=== PATIENT | female | born 1955 | race Caucasian/White ===

== ENCOUNTER 2020-07-08 21:24 | Inpatient (IN) | payer OTHER ==
[~2020-07-08] VITALS: Ht 160 cm; Wt 59.3 kg
[2020-07-08 22:00] VITALS: BP 124/64
[2020-07-08] MEDS ORDERED: DILTIAZEM HCL 125 MG in IV NORMAL SALINE 100ML 100 ML IV PRN (22:00)
--- NOTE | 2020-07-08 22:00 | NUR ---
Admit from [facility] ED via ambulance gurney to [facility] room 244. Stood to transfer self from gurney to bed with standby assist. A/O x4. Very short of air with activity. O2 sat 98% on RA. Orientated to room and call light. Reviewed POC to include controlling new A-Fib heart rate. Verbalized understanding. Patient does not know her home med list but reports she uses [facility] in [place]. Resting in bed with call light at hand.
[2020-07-08] MEDS ORDERED: ALBUTEROL SULFATE 2.5 MG/3 ML NEBU. NEB PRN (22:15)
[2020-07-08] MEDS ORDERED: HALOPERIDOL LACTATE 5 MG/ML VIAL. IVP PRN (22:15)
[2020-07-08] MEDS ORDERED: diphenhydrAMINE 50 MG/ML VIAL IVP PRN (22:15)
[2020-07-08] MEDS ORDERED: cloNIDine HCL 0.1 MG TABLET PO PRN (22:15)
[2020-07-08] MEDS: IV NORMAL SALINE 1000ML BAG 1,000 ML IV SCH (23:16)
[2020-07-08 23:59] VITALS: BP 73/47
[2020-07-09] VITALS (26 sets, daily range): BP systolic 65–124; BP diastolic 47–71
--- NOTE | 2020-07-09 00:15 | NUR ---
Spoke to Dr Wang and obtained admit orders.
--- NOTE | 2020-07-09 00:18 | NUR ---
Afib with HR 110s at rest. BPs 70s/40s. Unable to start Cardizem Drip with low BP.
[2020-07-09] MEDS: ANTI-COAG MONITOR BY PHARMACY. MC PRN ×2 (00:26→13:40)
--- NOTE | 2020-07-09 03:06 | NUR ---
SBP continues to run in the 70s. Per Sepsis Protocol for SBP <90, may give 30ml/kg Bolus to run over max of 6 hours. Started Bolus at 285ml/hr. Patient resting in bed watching TV. Mentation WNL. Call light at hand.
[2020-07-09] MEDS: IV NORMAL SALINE 1000ML BAG 1,000 ML IV SCH ×3 (03:14→11:20)
[2020-07-09] MEDS ORDERED: NOREPINEPHRINE VIAL 8 MG in IV DEXTROSE 5% 250 ML IV PRN (04:00)
[2020-07-09 04:34] LABS: CALCIUM 7.2 mg/dL (8.5-10.1); CREATININE 0.6 mg/dL (0.6-1.0); POTASSIUM 3.2 mmol/L (3.5-5.1)
--- NOTE | 2020-07-09 04:41 | RAD ---
EXAM: CHEST 1 VIEW History: Shortness of breath COMPARISON: 07/08/2020. TECHNIQUE: Single portable radiograph of the chest Findings/ impression: The cardiac silhouette is unremarkable. Moderate opacity identified in the right middle lobe of the lung likely pneumonia or atelectasis or localized effusion along the fissure again identified. Moderate right pleural effusion. Electronically signed by: Brown Patel MD (07/09/2020 4:38 AM) [id number]
[2020-07-09 04:45] LABS: ALBUMIN 1.8 g/dL (3.4-5.0); ALBUMIN/GLOBULIN RATIO 0.4 (1.0-1.7); TOTAL BILIRUBIN 0.4 mg/dL (0.2-1.0); TOTAL PROTEIN 6.1 g/dL (6.4-8.2)
--- NOTE | 2020-07-09 04:46 | NUR ---
Reported to Dr Wang patient SBP 60s and 70s after 1000 ml of 1700ml bolus infused. Patient triggers Sepsis Screening. Dr Wang orders to call rapid re3
--- NOTE | 2020-07-09 04:49 | NUR ---
Reported to Dr Wang patient SBP 60s and 70s after 1000 ml of 1700ml bolus infused. Patient triggers Sepsis Screening. Dr Wang orders to call rapid response on patient and transfer patient to ICU. Rapid Response called. Straightedge Machine Operator Helper and ICU Charge Nurse responds to call. Patient evaluated by staff and BP noted to be WNL during rapid evaluation with NS bolus wide open. Rapid Response team advises to finish the rest of the 1700 NS bolus and reevaluate. Patient resting in bed with call light at hand.
--- NOTE | 2020-07-09 06:38 | NUR ---
SBP remains in th 70s-80s after 2 liter bolus. Patient transferred to ICU room 107 for possible Levophed drip. Report called to Caroilna GONZALEZ.
--- NOTE | 2020-07-09 08:30 | NUR ---
Zoila Garibay APRN notified of consult for afib. Informed of blood pressure 70-90 systolic in left arm and 121 systolic in right arm. Orders for metoprolol bid received.
[2020-07-09] MEDS ORDERED: MULTIVIT INFUSN,ADULT 4,VIT K 10 ML, THIAMINE INJ 100 MG, FOLIC ACID INJ 1 MG in IV NOR... IV SCH (09:00)
--- NOTE | 2020-07-09 09:04 | PN ---
DATE: 07/09/2020 SUBJECTIVE: The patient was transferred yesterday from [facility] Emergency Room and apparently the nursing staff found that her blood pressure was low. The measurements apparently were made in her left arm, which was consistently low and was given a bolus of normal saline without improvement and therefore, the patient was rapidly responded and was brought to the ICU where it transpired that she has low blood pressure on the left side and her blood pressure measurement in the right arm was within normal range. The patient herself continued to obviously complaining of shortness of breath, but denied any chest pain. Continued to complain of orthopnea and paroxysmal nocturnal dyspnea. Her second set of cardiac enzyme was also normal, less than 0.017. PHYSICAL EXAMINATION: GENERAL: When I examined her this morning, she looked well and was clearly in no apparent respiratory distress. She is somewhat pale, but no jaundice, cyanosis or thyromegaly. No jugular venous distention. No lower limb edema. VITAL SIGNS: Her heart rate was 92, blood pressure was 135/71 on the right arm and 91/59 on the left arm. Her respiratory rate was 20 and oxygen saturation was 99% on room air. HEAD, EYES, EARS, NOSE AND THROAT: Showed normocephalic, atraumatic. NECK: Supple. HEART: Normal first and second heart sounds. No gallop, rub or murmur. CHEST: Showed central trachea, equal bilateral expansion, air entry, vesicular breath sounds. No crepitation or rhonchi anteriorly, posteriorly has dull percussion noted and absent breath sounds on the right side posteriorly. ABDOMEN: Distended, soft, nontender. NEUROLOGIC: She was awake, alert, responding appropriately. All cranial nerves are intact. She moves extremities without difficulty. LABORATORY DATA: Showed serum sodium of 125, potassium 3.2, chloride 86, bicarbonate 15, anion gap of 14, BUN 4, creatinine was 0.6, estimated GFR was 101, glucose was 83. Lactic acid was down to 1.2, calcium was 7.2. Total bilirubin, AST, ALT were normal. Alkaline phosphatase was 169. Total protein was 6.1, albumin was 1.8. Her second set of cardiac enzymes showed troponin to be less than 0.017. ASSESSMENT: This is a 64-year-old female patient who was transferred from [facility] Emergency Room with: 1. New onset atrial fibrillation with rapid ventricular response, treated with Cardizem bolus. 2. She was found to have hyponatremia, hypokalemia, right-sided pleural effusion and questionable compressive atelectasis versus pneumonia. Other medical problems include probably chronic obstructive pulmonary disease. She is a smoker, smokes a pack a day and alcohol dependence and possible congestive heart failure. She has 2 sets of cardiac enzymes that so far showed no evidence of myocardial infarction. I have consulted the shirt creaser team. She probably needs also arterial Doppler ultrasound of her left upper extremity as she probably has subclavian artery stenosis. PLAN: I will repeat her chest x-ray. I will continue with IV antibiotic for the time being as well as repeat chest x-ray and started her on alcohol withdrawal protocol. OBIE MEJÍA MD DR: DREW/jomar JOB#: [id number] / [id number]
[2020-07-09] MEDS: POTASSIUM CHLORIDE 20 MEQ TABLET.ER. PO SCH ×3 (09:19→17:26)
[2020-07-09] MEDS: METOPROLOL TART IMMED RELEASE 25 MG TABLET. PO SCH ×2 (09:19→21:13)
[2020-07-09] MEDS: LACTOBACILLUS RHAMNOSUS GG 1 CAPSULE. PO SCH ×2 (09:19→21:14)
[2020-07-09 09:24] LABS: BASO # 0.1 x10^3/uL (0.0-0.2); BASO % 1 % (0-3); EOS # 0.1 x10^3/uL (0.0-0.7); EOS % 1 % (0-3); HEMATOCRIT 33.3 % (36.0-47.0); HEMOGLOBIN 11.1 g/dL (12.0-15.5); LYMPH # 1.1 x10^3/uL (1.0-4.8); LYMPH % 12 % (24-48); MEAN CORPUSCULAR HEMOGLOBIN 27 pg (25-35); MEAN CORPUSCULAR HGB CONC 33 g/dL (31-37); MEAN CORPUSCULAR VOLUME 81 fL (79-100); MONO # 1.1 x10^3/uL (0.0-1.1); MONO % 11 % (0-9); NEUT # 7.5 x10^3/uL (1.8-7.7); NEUT % 76 % (31-73); PLATELET COUNT 466 x10^3/uL (140-400); RED BLOOD COUNT 4.12 x10^6/uL (3.50-5.40); RED CELL DISTRIBUTION WIDTH 14.4 % (11.5-14.5); WHITE BLOOD COUNT 9.9 x10^3/uL (4.0-11.0)
--- NOTE | 2020-07-09 09:45 | HP ---
ADMIT DATE: 07/08/2020 HISTORY OF PRESENT ILLNESS: The patient is a 64-year-old female patient who came to the Emergency Room complaining of shortness of breath and poor appetite and lack of energy that has been going on for almost 2 weeks and over the last 3 days, her symptoms have worsened. She also had cough that is mostly dry with scanty whitish sputum. She also complained of orthopnea and has had also paroxysmal nocturnal dyspnea for the last couple of weeks. She is now sleeping with head of bed higher, sometimes sleeps in her recliner. She denied any swelling of the legs. She also lost about 10 pounds in weight and feels dizzy sometimes when she walks, but denied any palpitation, fall or loss of consciousness. She was evaluated in the Emergency Room of [facility] and where she was found to have hyponatremia, hypokalemia and mild lactic acidosis. Her BNP was high at 2200 and first set of cardiac enzyme was less than 0.017. She has mild leukocytosis with a white cell count of 11,700 together with normochromic normocytic anemia and therefore, a decision was made [facility] and treatment. Her chest x-ray showed the cardiomediastinal silhouette and pulmonary vessels are within normal limits, hazy opacity on the right mid and lower lung. There is a small to moderate right-sided pleural effusion. PAST MEDICAL HISTORY: Significant for hypertension and hyperlipidemia. PAST SURGICAL HISTORY: Significant for tubal ligation. ALLERGIES: She has no known drug allergies. MEDICATIONS: The patient said she is on medication for hypertension, hyperlipidemia; however, she does not recall the name. FAMILY HISTORY: She has 2 half brothers who are younger and otherwise healthy. Her father in his 50s, the cause of is not known. Her mother is still alive at age of 82 and has dementia. SOCIAL HISTORY: She is , has 1 son. She has retired 2 years ago. 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 She smokes a pack a day, drinks 3-4 beers a day. She does not use any drugs. REVIEW OF SYSTEMS: The patient denied any blurring of vision, cataract, glaucoma or macular degeneration. Does have sensorineural deafness, but denied any earache or tinnitus. Denied any nosebleeds, stuffy nose or postnasal drip. Denied any sore throat, sore tongue, toothache, hoarseness of voice or difficulty swallowing. Did complain of weight loss of about 10 pounds over the last 2 weeks. Denied any nausea, vomiting, diarrhea or constipation. Denied any hematemesis, melena or hematochezia. Denied any dysuria, frequency or hematuria. Denied any chest pain. Did complain of shortness of breath, orthopnea, paroxysmal nocturnal dyspnea, cough with scanty white sputum. She also complained of dizziness. PHYSICAL EXAMINATION: GENERAL: On arrival to the Emergency Room, she was pale, but no jaundice, cyanosis or thyromegaly. No jugular venous distention or limb edema. VITAL SIGNS: Her heart rate was 138, blood pressure 121/62, temperature was 97.3, respiratory rate was 24, and oxygen saturation 100% on room air. HEAD, EYES, EARS, NOSE AND THROAT: Showed normocephalic, atraumatic. NECK: Supple. HEART: Showed irregular first heart sounds, normal second heart sounds. No gallop, rub or murmur. CHEST: Shows central trachea, equal bilateral expansion, air entry with no crepitation or rhonchi anteriorly. She has dull percussion noted and absent breath sounds in the right side posteriorly. ABDOMEN: Slightly distended, soft, nontender. NEUROLOGIC: She was grossly intact. LABORATORY DATA: Done at [facility] Emergency Room showed a white cell count of 11,700; hemoglobin 10, hematocrit 31, MCV 82 and platelet count of 477,000 with normal manual differential. Her prothrombin time was 12.1, INR 1.2, APTT was 37. Her chemistry showed a serum sodium 120, potassium 3.3, chloride 87, bicarbonate 17, anion gap of 16, BUN 5, creatinine 0.7, estimated GFR was 84 mL per minute. Her glucose was 109. Lactic acid was 2.5, calcium was 8.6, magnesium was 1.8. Total bilirubin, AST, ALT were normal. Alkaline phosphatase slightly elevated. Her first set of troponin was less than 0.017. Her beta natriuretic peptide was 2200. Total protein was 7.3, albumin 2.2 and lipase was 71. Urinalysis showed the urine was straw colored, hazy with a pH of 5.5, specific gravity 1.005. The urine was negative for protein, glucose, ketones. There is small amount of blood, negative for nitrite and leukocyte esterase, 1-2 rbc's, 11-20 wbc's, and very few bacteria. Her toxic screen was essentially negative. Her chest x-ray showed small to moderate right-sided pleural effusion with adjacent airspace disease, may relate to atelectasis, edema and/or consolidation. Her EKG showed that she was in atrial fibrillation with rapid ventricular response at a rate of 134 with no acute finding or ST segment elevation myocardial infarction. ASSESSMENT: The [facility] with new-onset atrial fibrillation with rapid ventricular response. She has also marked hyponatremia, hypokalemia. She was also found to have right-sided pleural effusion versus parapneumonic effusion. The patient also is known to have hypertension, hyperlipidemia. She continued to smoke a pack a day and drinks 3-4 beers a day. PLAN: Obviously, we will do 2 more sets of cardiac enzyme, consult the Cardiology team. She was started also on IV ceftriaxone and azithromycin. We will continue that. We will contact the [facility] at [place] to find out her medication. OBIE MEJÍA MD DR: RDEW/jomar JOB#: [id number] / [id number]
--- NOTE | 2020-07-09 13:49 | RAD ---
EXAM: CHEST AP ONLY INDICATION: Reason: CHF vs Right sided pleural effusion / Spl. Instructions: / History: . TECHNIQUE: Single view COMPARISON: Chest x-ray of 07/09/2020 FINDINGS: The heart size is normal. The great vessels appear unremarkable. There is no hilar or mediastinal mass. Lungs show persistent opacity in the right perihilar lung with increasing density at the right lung base. There is no pleural effusion or pneumothorax. There are no significant osseous abnormalities. IMPRESSION: Masslike opacity in the right perihilar midlung persists with worsening right pleural effusion. Electronically signed by: Chris Leung MD (07/09/2020 1:46 PM) [id number]
--- NOTE | 2020-07-09 14:13 | PDOC2 ---
CARDIAC CONSULT DATE OF CONSULT Date of Consult DATE: 07/09/20 TIME: 14:07 REASON FOR CONSULT Reason for Consult: AFIB with RVR, new onset REFERRING PHYSICIAN Referring Physician: Dr. Wang SOURCE Source: Chart review, Patient HISTORY OF PRESENT ILLNESS HISTORY OF PRESENT ILLNESS This is a 64 yo female who presented secondary to shortness of breath, weakness, and dizziness. Reports that she hasn't felt well in the last couple of weeks. Denies any diaphoresis, chest pain, or nausea/vomiting. No LE edema. Was noted in AFIB with RVR, which prompted this consult. No prior h/o AFIB. PAST MEDICAL HISTORY Cardiovascular: HTN, Hyperlipidemia PAST SURGICAL HISTORY Past Surgical History: Tubal Ligation FAMILY HISTORY Family History: Hypertension SOCIAL HISTORY Smoke: 1 pack per day ALCOHOL: other (3-4 beers per day) Drugs: None Lives: Alone CURRENT MEDICATIONS CURRENT MEDICATIONS Current Medications Medications (Trade) Dose Ordered Sig/Lorna Route PRN Reason Start Time Stop Time Status Last Admin Dose Admin Sodium Chloride 1,000 ml @ 75 mls/hr [id number] IV 07/08/20 22:00 07/08/20 23:16 Enoxaparin Sodium (Lovenox 60mg Syringe) 60 mg Q12HR SQ 07/09/20 09:00 07/09/20 09:19 Info (Anti-Coagulation Monitoring By Pharmacy) 1 each PRN DAILY PRN MC SEE COMMENTS 07/08/20 22:15 07/09/20 13:40 Multivitamins 10 ml/Thiamine HCl 100 mg/Folic Acid 1 mg/Sodium Chloride 1,011.2 ml @ 100 mls/ hr DAILY IV 07/09/20 09:00 07/09/20 19:07 07/09/20 09:31 Sodium Chloride 1,000 ml @ 285 mls/hr Q3H31M IV 07/09/20 03:30 07/09/20 09:30 DC 07/09/20 05:44 Metoprolol Tartrate (Lopressor) 25 mg BID PO 07/09/20 09:00 07/09/20 09:19 Lactobacillus Rhamnosus (Culturelle) 1 cap BID PO 07/09/20 09:00 07/09/20 09:19 Potassium Chloride (Klor-Con) 20 meq TIDWMEALS PO 07/09/20 09:00 9/14/20 12:15 ALLERGIES ALLERGIES: Coded Allergies: No Known Drug Allergies (Unverified , 07/08/20) ROS Review of System 14 point ROS conducted with pertinent positives noted above in HPI PHYSICAL EXAM General: Alert, Oriented X3, Cooperative, No acute distress HEENT: Atraumatic, Mucous membr. moist/pink Lungs: Other (diminished ) Heart: Other (IRRR; AFIB ) Abdomen: Soft, No tenderness Extremities: No edema, Normal pulses Skin: No significant lesion Neuro: Normal speech, Sensation intact Psych/Mental Status: Mental status NL, Mood NL MUSCULOSKELETAL: Osteoarthritic changes both hands VITALS/I&O VITALS/I&O: Vital Signs Date Time Temp Pulse Resp B/P (MAP) Pulse Ox O2 Delivery O2 Flow Rate FiO2 07/09/20 13:00 96 24 99/61 (74) 100 Nasal Cannula 2.0 07/09/20 12:00 97.3 97.3 I & O 07/08/20 07/08/20 07/09/20 15:00 23:00 07:00 Intake Total 1590 ml Output Total 300 ml 650 ml Balance -300 ml 940 ml LABS Lab: Laboratory Tests Test 07/09/20 00:35 07/09/20 04:20 07/09/20 09:10 Lactic Acid Level 2.2 mmol/L (0.4-2.0) H 1.2 mmol/L (0.4-2.0) Sodium Level 125 mmol/L (136-145) L Potassium Level 3.2 mmol/L (3.5-5.1) L Chloride Level 96 mmol/L (98-107) L Carbon Dioxide Level 15 mmol/L (21-32) L Anion Gap 14 (6-14) Blood Urea Nitrogen 4 mg/dL (7-20) L Creatinine 0.6 mg/dL (0.6-1.0) Estimated GFR (Cockcroft-Gault) 101.0 BUN/Creatinine Ratio 7 (6-20) Glucose Level 83 mg/dL (70-99) Calcium Level 7.2 mg/dL (8.5-10.1) L Total Bilirubin 0.4 mg/dL (0.2-1.0) Aspartate Amino Transferase (AST) 23 U/L (15-37) Alanine Aminotransferase (ALT) 12 U/L (14-59) L Alkaline Phosphatase 169 U/L (46-116) H Troponin I Quantitative < 0.017 ng/mL (0.000-0.055) Total Protein 6.1 g/dL (6.4-8.2) L Albumin 1.8 g/dL (3.4-5.0) L Albumin/Globulin Ratio 0.4 (1.0-1.7) L White Blood Count 9.9 x10^3/uL (4.0-11.0) Red Blood Count 4.12 x10^6/uL (3.50-5.40) Hemoglobin 11.1 g/dL (12.0-15.5) L Hematocrit 33.3 % (36.0-47.0) L Mean Corpuscular Volume 81 fL (79-100) Mean Corpuscular Hemoglobin 27 pg (25-35) Mean Corpuscular Hemoglobin Concent 33 g/dL (31-37) Red Cell Distribution Width 14.4 % (11.5-14.5) Platelet Count 466 x10^3/uL (140-400) H Neutrophils (%) (Auto) 76 % (31-73) H Lymphocytes (%) (Auto) 12 % (24-48) L Monocytes (%) (Auto) 11 % (0-9) H Eosinophils (%) (Auto) 1 % (0-3) Basophils (%) (Auto) 1 % (0-3) Neutrophils # (Auto) 7.5 x10^3/uL (1.8-7.7) Lymphocytes # (Auto) 1.1 x10^3/uL (1.0-4.8) Monocytes # (Auto) 1.1 x10^3/uL (0.0-1.1) Eosinophils # (Auto) 0.1 x10^3/uL (0.0-0.7) Basophils # (Auto) 0.1 x10^3/uL (0.0-0.2) Laboratory Tests 07/09/20 09:10 Laboratory Tests 07/09/20 04:20 ASSESSMENT/PLAN ASSESSMENT/PLAN 1. AFIB with RVR; new onset. 2. Acute CHF 3. Hypertension; with present hypotension 4. Hyperlipidemia 5. Hypokalemia; replaced 6. Hyponatremia 7. Tobaccoism 8. ETOH misuse Recommendations Add Metoprolol for rate control as BP allows Can use digoxin for rate control if hypotensive Anticoagulated with Lovenox. Convert to OAC prior to DC Echo to assess LV systolic function TSH, lipids Check Mg and replace as warranted Smoking cessation Limit ETOH use Consider for CV Supportive care Further pending above. JENNIFER ROSALES APRN Jul 09, 2020 14:13
--- NOTE | 2020-07-09 14:58 | NUR ---
SS following for discharge planning. SS reviewed pt chart and discussed with pt RN. Pt is from home and is currently requiring oxygen. Pt on IV Azithromycin and IV Rocephin. SS will continue to follow for discharge planning.
--- NOTE | 2020-07-09 16:28 | CARD ---
MR#: [id number] Date of Study: 07/09/2020 Ordering Physician: JENNIFER ROSALES, Referring Physician: JENNIFER ROSALES, Tech: Yasmeen Durán RUST APPROVED REPORT EXAM: Two-dimensional and M-mode echocardiogram with Doppler and color Doppler. Other Information Quality : Technically Limited Rhythm : Atrial FibrillationTechnically limited study due to breast implants INDICATION Atrial Fibrillation RISK FACTORS Hypertension Hyperlipidemia Smoking 2D DIMENSIONS RVDd2.1 (2.9-3.5cm)Left Atrium(2D)3.1 (1.6-4.0cm) IVSd0.8 (0.7-1.1cm)Aortic Root(2D)2.8 (2.0-3.7cm) LVDd4.0 (3.9-5.9cm)LVOT Diameter1.9 (1.8-2.4cm) PWd0.7 (0.7-1.1cm)LVDs2.6 (2.5-4.0cm) FS (%) 33.9 %SV44.0 ml LVEF(%)63.4 (>50%) Aortic Valve AoV Peak Elton.107.9cm/sAoV VTI15.8cm AO Peak GR.4.7mmHgLVOT VTI 10.57cm AO Mean GR.2mmHgAVA (VTI)1.99cm2 Tricuspid Valve TR P. [id number] TR Peak [id number] LEFT VENTRICLE The left ventricle is normal size. There is normal left ventricular wall thickness. The left ventricu lar systolic function is normal. The Ejection Fraction is 60-65%. There is normal LV segmental wall m otion. RIGHT VENTRICLE The right ventricle is normal size. The right ventricular systolic function is normal. ATRIA The left atrium size is normal. The right atrium size is normal. The interatrial septum is intact wit h no evidence for an atrial septal defect or patent foramen ovale as noted on 2-D or Doppler imaging. AORTIC VALVE The aortic valve is calcified but opens well. Doppler and Color Flow revealed no significant aortic r egurgitation. There is no significant aortic valvular stenosis. MITRAL VALVE The mitral valve is normal in structure and function. There is no evidence of mitral valve prolapse. There is no mitral valve stenosis. Doppler and Color Flow revealed no mitral valve regurgitation note d. TRICUSPID VALVE The tricuspid valve is normal in structure and function. Doppler and Color Flow revealed mild tricusp id regurgitation. There is mild pulmonary hypertension. The PA pressure was estimated at 32 mmHg. The re is no tricuspid valve stenosis. PULMONIC VALVE The pulmonary valve is normal in structure and function. Doppler and Color Flow revealed trace pulmon ic valvular regurgitation. There is no pulmonic valvular stenosis. GREAT VESSELS The aortic root is normal in size. The ascending aorta is not well seen. The IVC is normal in size an d collapses >50% with inspiration. PERICARDIAL EFFUSION There is no evidence of significant pericardial effusion. Critical Notification Critical Value: No <Conclusion> The left ventricular systolic function is normal. The Ejection Fraction is 60-65%. There is normal LV segmental wall motion. Mild tricuspid regurgitation. The PA pressure was estimated at 32 mmHg. There is no evidence of significant pericardial effusion. Signed by : Jin Moreland, Electronically Approved : 07/09/2020 16:28:07
--- NOTE | 2020-07-09 16:37 | RAD ---
Left upper extremity arterial duplex ultrasound 07/09/2020 INDICATION: Blood pressure measurement discrepancy between the right and left upper extremities COMPARISON STUDY: None FINDINGS: Limited focal ultrasound evaluation of the subclavian arteries was performed. Visualized right upper extremity subclavian artery measures 72 cm/s. The right vertebral arteries antegrade. The left vertebral artery demonstrates significantly blunted monophasic flow with a peak systolic velocity is low at 22 cm/s. Monophasic flow remains present throughout the major arteries of the left upper extremity. The left vertebral artery is poorly visualized. Minimal antegrade flow may be present, but this is uncertain. IMPRESSION: Weak monophasic flow within the proximal left subclavian artery. Hemodynamically significant more proximal subclavian, or ostial stenosis may be present. The left vertebral artery is poorly evaluated. CT angiography of the neck and chest is recommended for further evaluation. Electronically signed by: Alan Mcmanus MD (07/09/2020 4:34 PM) [id number]
[2020-07-09] MEDS: cefTRIAXone IV Push 1 GM VIAL. IVP SCH (17:28)
[2020-07-09] MEDS: AZITHROMYCIN 500 MG in IV NORMAL SALINE 250ML 250 ML IV SCH (17:28)
[2020-07-10] VITALS (10 sets, daily range): BP systolic 82–127; BP diastolic 60–74
[2020-07-10] MEDS: IV NORMAL SALINE 1000ML BAG 1,000 ML IV SCH ×2 (00:40→08:31)
[2020-07-10] MEDS: THIAMINE 100 MG TABLET. PO SCH (08:49)
[2020-07-10] MEDS: FOLIC ACID 1 MG TABLET. PO SCH (08:49)
[2020-07-10] MEDS: LACTOBACILLUS RHAMNOSUS GG 1 CAPSULE. PO SCH ×2 (08:49→21:03)
[2020-07-10] MEDS: POTASSIUM CHLORIDE 20 MEQ TABLET.ER. PO SCH ×3 (08:50→17:18)
[2020-07-10] MEDS: MULTIVITAMIN with MINERAL TABLET. PO SCH (08:50)
[2020-07-10] MEDS: METOPROLOL TART IMMED RELEASE 25 MG TABLET. PO SCH ×2 (08:50→21:04)
[2020-07-10] MEDS: ANTI-COAG MONITOR BY PHARMACY. MC PRN (10:21)
[2020-07-10 10:52] LABS: HEMATOCRIT 30.2 % (36.0-47.0); RED BLOOD COUNT 3.66 x10^6/uL (3.50-5.40); RED CELL DISTRIBUTION WIDTH 14.8 % (11.5-14.5); WHITE BLOOD COUNT 7.6 x10^3/uL (4.0-11.0)
[2020-07-10] MEDS ORDERED: AMLO-310 PO (10:57)
[2020-07-10] MEDS ORDERED: BUPR300T3 PO (10:57)
[2020-07-10] MEDS ORDERED: ATOR20TA58 PO (10:57)
[2020-07-10 11:13] LABS: ALBUMIN 2.1 g/dL (3.4-5.0); ALBUMIN/GLOBULIN RATIO 0.6 (1.0-1.7); CALCIUM 8.1 mg/dL (8.5-10.1); CREATININE 0.5 mg/dL (0.6-1.0); GFR 124.6; POTASSIUM 4.1 mmol/L (3.5-5.1); TOTAL BILIRUBIN 0.3 mg/dL (0.2-1.0); TOTAL PROTEIN 5.8 g/dL (6.4-8.2)
[2020-07-10 11:14] LABS: CHOLESTEROL/HDL RATIO 4.8
--- NOTE | 2020-07-10 11:14 | PN ---
DATE: SUBJECTIVE: The patient is resting, slightly propped up in bed, in no apparent respiratory distress. She is awake, alert. Denied any complaint, in particular denied any chest pain or shortness of breath. PHYSICAL EXAMINATION: General: When I examined her, she looked somewhat pale. No jaundice, cyanosis or thyromegaly. No jugular venous distention. No limb edema. VITAL SIGNS: Her heart rate continued to be fast and suboptimally controlled with a heart rate of 102, blood pressure was 106/61, temperature 97.5, respiratory rate was 20, and oxygen saturation 100% on 2 liters of oxygen. HEAD, EYES, EARS, NOSE AND THROAT: Normocephalic, atraumatic. NECK: Supple. HEART: Showed normal first and second heart sounds. No gallop or murmur. CHEST: Clear to auscultation. No crepitation or rhonchi. ABDOMEN: Distended, soft, nontender. No guarding or rigidity. No organomegaly. All hernial orifice intact. Bowel sounds normal. NEUROLOGIC: She is grossly intact. Her intake over the last 24 hours was 1600, output was 950. LABORATORY DATA: Today's labs are still pending at the time of this dictation. Her sodium as of yesterday was up to 125, potassium 3.2, chloride 96, bicarbonate 15, anion gap of 14, BUN 4, creatinine 0.6, estimated GFR was 101, glucose was 83, calcium was 7.2, magnesium was 2. Total bilirubin, AST, ALT, alkaline phosphatase were normal. Total protein 6.1, albumin was 1.8. Her white cell count was 9900, hemoglobin 11, hematocrit 33, MCV 81 and platelet count 466,000. ASSESSMENT: Atrial fibrillation with rapid ventricular response, acute diastolic congestive heart failure, hypertension, hyperlipidemia, hypokalemia, hyponatremia, tobaccoism and alcohol abuse. Her nine arterial Doppler ultrasound showed that the patient has stenosis of the left subclavian artery, which explains why her blood pressure was lower on the left side. PLAN: To continue metoprolol. Continue with Lovenox. Her echocardiogram showed that her left ventricular systolic function was normal with ejection fraction of 60-65%. I will consult the vascular surgeon to see if she is a candidate for any treatment for her left subclavian artery stenosis. OBIE MEJÍA MD DR: Baylee JOB#: [id number] / [id number]
[2020-07-10] MEDS: buPROPion XL 150 MG TAB.ER.24H. PO SCH (11:42)
--- NOTE | 2020-07-10 12:02 | PDOC ---
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/10/20 1202: CARDIO Progress Notes Date and Time Date of Service 07/10/2020 Time of Evaluation 0930 Subjective Subjective: No Chest Pain, No shortness of breath, No Palpitations Vitals Vitals Vital Signs Date Time Temp Pulse Resp B/P (MAP) Pulse Ox O2 Delivery O2 Flow Rate FiO2 07/10/20 08:50 102 106/61 07/10/20 08:00 Nasal Cannula 2.0 07/10/20 07:00 97.5 20 100 97.5 Weight Weight [ ] Input and Output Intake and Output Intake and Output 07/10/20 07:00 Intake Total 3414.5 ml Output Total 840 ml Balance 2574.5 ml Intake Oral 960 ml IV Total 2454.5 ml Output Urine Total 840 ml # Voids 3 # Bowel Movements 2 Laboratory Labs Laboratory Tests Test 07/10/20 10:15 White Blood Count 7.6 x10^3/uL (4.0-11.0) Red Blood Count 3.66 x10^6/uL (3.50-5.40) Hemoglobin 10.0 g/dL (12.0-15.5) Hematocrit 30.2 % (36.0-47.0) Mean Corpuscular Volume 83 fL (79-100) Mean Corpuscular Hemoglobin 27 pg (25-35) Mean Corpuscular Hemoglobin Concent 33 g/dL (31-37) Red Cell Distribution Width 14.8 % (11.5-14.5) Platelet Count 385 x10^3/uL (140-400) Sodium Level 126 mmol/L (136-145) Potassium Level 4.1 mmol/L (3.5-5.1) Chloride Level 96 mmol/L (98-107) Carbon Dioxide Level 15 mmol/L (21-32) Anion Gap 15 (6-14) Blood Urea Nitrogen 3 mg/dL (7-20) Creatinine 0.5 mg/dL (0.6-1.0) Estimated GFR (Cockcroft-Gault) 124.6 BUN/Creatinine Ratio 6 (6-20) Glucose Level 72 mg/dL (70-99) Calcium Level 8.1 mg/dL (8.5-10.1) Magnesium Level 2.1 mg/dL (1.8-2.4) Total Bilirubin 0.3 mg/dL (0.2-1.0) Aspartate Amino Transf (AST/SGOT) 23 U/L (15-37) Alanine Aminotransferase (ALT/SGPT) 15 U/L (14-59) Alkaline Phosphatase 188 U/L (46-116) Total Protein 5.8 g/dL (6.4-8.2) Albumin 2.1 g/dL (3.4-5.0) Albumin/Globulin Ratio 0.6 (1.0-1.7) Triglycerides Level 98 mg/dL (0-150) Cholesterol Level 95 mg/dL (0-200) LDL Cholesterol, Calculated 55 mg/dL (0-100) VLDL Cholesterol, Calculated 20 mg/dL (0-40) Non-HDL Cholesterol Calculated 75 mg/dL (0-129) HDL Cholesterol 20 mg/dL (40-60) Cholesterol/HDL Ratio 4.8 Thyroid Stimulating Hormone (TSH) 2.540 uIU/mL (0.358-3.74) Physical Exam HEENT: Neck Supple W Full Motion Chest: Symmetric LUNGS: Other (diminished) Heart: irregularly irregular (AFIB) Abdomen: Soft N/T Extremities: No Edema, No Calf Tenderness Neurology: alert, oriented, follow commands Assessment Assessment 1. AFIB with RVR; new onset, still has bouts of RVR 2. Diastolic CHF: appears compensated. EF and WM nml 3. Hypertension; controlled 4. Hyperlipidemia: controlled 5. Hypokalemia; replaced 6. Hyponatremia: beer potomania? SIADH? per PCP 7. Tobaccoism 8. ETOH misuse 9. Left subclavian arterial stenosis. No left arm claudication symptoms. 10. Presyncope: possiblyfrom arrhythmia rather than subclavian stenosis. 11. Suspect COPD with tobaccoism 12. Right lung mass with pleural effusion 13. Protein malnutrition Recommendations Continue metoprolol PO. May utilize digoxin if rate remains labile Continue lovenox, Will consider eliquis for stroke prevention pending pulmonary workup. May hold anticoagulation if any invasive testing. Consult pulmonary. Discussed ETOH cessation and drug interactions with ETOH. Smoking cessation Consider CTA to further define vasculature in regards to subclavian arterial stenosis, could also be done as an outpt. Will consider for outpt CVN and also consider for outpt stress test Justicifation of Admission Dx: Justifications for Admission: Justification of Admission Dx: Yes AUDREY MCCARTY MD 07/10/202025: CARDIO Progress Notes Plan Plan The patient was seen and interviewed as well as examined at the bedside. The chart was reviewed. The case was discussed. Agree with the plan of care. KAM LATHAM APRN Jul 10, 2020 12:02 AUDREY MCCARTY MD Jul 10, 2020 20:26
[2020-07-10 12:19] LABS: PROTHROMBIN TIME PATIENT 14.4 SEC (11.7-14.0)
--- NOTE | 2020-07-10 13:02 | CONS ---
DATE OF CONSULTATION: PULMONARY CONSULTATION ATTENDING PHYSICIAN: Dr. Wang. REASON FOR CONSULTATION: Suspected lung mass. HISTORY OF PRESENT ILLNESS: The patient 64-year-old who smoked for about 30 years before quitting 3 weeks ago. She was brought into the hospital with complaint of shortness of breath. She said she lost her appetite about a few weeks ago and lost about 10-12 pounds during that time. The patient also had a cough with some white sputum production. She has some paroxysmal nocturnal dyspnea as well. The patient was seen in the [facility] Emergency Room, was also found to have hyponatremia and hypokalemia. Her BNP was markedly elevated. She was found to be in atrial fibrillation with RVR. As a result, she was transferred to [facility]. A chest x-ray was done yesterday, which was reviewed by me. There is a mass-like density in the right lower lobe. There is also possible right lower lobe pleural effusion. I have been asked to see her for further evaluation. Denies any chest pain. No history of deep vein thrombosis or pulmonary embolism. No leg edema, no focal weakness. No nausea, vomiting or diarrhea. PAST MEDICAL HISTORY: Significant for hypertension, hyperlipidemia, and suspected COPD. PAST SURGICAL HISTORY: Tubal ligation. ALLERGIES: None. MEDICATIONS: Reviewed as listed in the MRAD. REVIEW OF SYSTEMS: Twelve-point system obtained. Pertinent positives discussed in my history of present illness, otherwise noncontributory. All systems that were negative were reviewed as well. SOCIAL HISTORY: Smoked for 30 years before quitting 3 weeks ago. PHYSICAL EXAMINATION: VITAL SIGNS: Reviewed. Blood pressure 127/66, pulse ox 100% on 2 liters, afebrile. NECK: Supple. LUNGS: With diminished breath sounds right base. CARDIOVASCULAR: With irregular rate. ABDOMEN: Soft. EXTREMITIES: With no pitting edema. LABORATORY DATA: Reviewed. White cell count 7.6, hemoglobin 10.0 and platelets are 385. BUN is 3 and creatinine of 0.5. IMPRESSION: 1. Abnormal chest x-ray with mass-like density in the right lower lobe along with pleural effusion. She has lost about 10-12 pounds in the last 3 weeks with loss of appetite. She smoked for 30 years. Clinically, lung malignancy is a concern. She would benefit from CT chest without contrast. 2. Atrial fibrillation with rapid ventricular response. Currently being followed by Cardiology. 3. Thirty years of tobacco use, suspect underlying chronic obstructive pulmonary disease. 4. Normal ejection fraction. RECOMMENDATIONS: 1. Discussed with RN and patient. We will obtain a noncontrast CT chest for further evaluation. 2. Follow Cardiology recommendation regarding her atrial fibrillation. 3. Once CT chest is done, we will review it and make further recommendation. 4. The patient is currently on Lovenox. If a lung biopsy is needed then she needs to be held on anticoagulation. We will follow along with you. TANIA SMITH MD DR: GRAHAM/jomar JOB#: [id number] / [id number]
--- NOTE | 2020-07-10 14:00 | PDOC2 ---
CONSULT Date of Service Date of Service DATE: 07/10/20 TIME: 13:33 Reason for Consult Reason for Consult: Left subclavian stenosis Referring Physician Referring Physician: Dr. Wang Identification/Chief Complaint Chief Complaint Shortness of breath Source Source: Chart review, Patient History of Present Illness Reason for Visit: This is a pleasant 64-year-old female with past medical history of hypertension, hyperlipidemia, tobacco use and daily alcohol use. Who was admitted to the hospital with shortness of air, weakness, and loss of appetite. Patient was noted to be hypotensive and diminished pulses in her left arm as well as lower SBP. She has a 30mmHg difference. She denies any hand pain, paresthesia or paralysis. Chart review noted she complained of dizziness, she state it is more an unsteady gait. She denies any symptoms of TIA or stroke. She denies any lower extremity claudication. Past Medical History Cardiovascular: HTN, Hyperlipidemia Past Surgical History Past Surgical History: Tubal Ligation Family History Family History: Hypertension Social History 1 pack per day ALCOHOL: other (3-4 beers per day) Drugs: None Lives: Alone Current Medications Current Medications Current Medications Albuterol Sulfate (Ventolin Neb Soln) 2.5 mg PRN Q6HRS PRN NEB SHORTNESS OF BREATH; Start 07/08/20 at 22:15 Diltiazem HCl 125 mg/Sodium Chloride 125 ml @ 5 mls/hr CONT PRN IV SEE I/O RECORD; Start 07/08/20 at 22:00 Sodium Chloride 1,000 ml @ 75 mls/hr [id number] IV Last administered on 07/10/20at 08:31; Start 07/08/20 at 22:00 Enoxaparin Sodium (Lovenox 60mg Syringe) 60 mg Q12HR SQ Last administered on 07/10/20at 08:50; Start 07/09/20 at 09:00 Ceftriaxone Sodium (Rocephin) 1 gm Q24H IVP Last administered on 07/09/20at 17:28; Start 07/09/20 at 18:00 Azithromycin 500 mg/Sodium Chloride 250 ml @ 250 mls/hr Q24H IV Last admin istered on 07/09/20at 17:28; Start 07/09/20 at 18:00 Info (Anti-Coagulation Monitoring By Pharmacy) 1 each PRN DAILY PRN MC SEE COMMENTS Last administered on 07/10/20at 10:21; Start 07/08/20 at 22:15 Multivitamins 10 ml/Thiamine HCl 100 mg/Folic Acid 1 mg/Sodium Chloride 1,011.2 ml @ 100 mls/ hr DAILY IV Last administered on 07/09/20at 09:31; Start 07/09/20 at 09:00; Stop 07/09/20 at 19:07; Status DC Multivitamins (Thera M Plus) 1 tab DAILY PO Last administered on 07/10/20at 08:50; Start 07/10/20 at 09:00 Folic Acid (Folic Acid) 1 mg DAILY PO Last administered on 07/10/20at 08:49; Start 07/10/20 at 09:00 Thiamine Mononitrate (Vitamin B-1) 100 mg DAILY PO Last administered on 07/10/20at 08:49; Start 07/10/20 at 09:00 Lorazepam (Ativan) 4 mg PRN Q1HR PRN PO For CIWA 8-14; Start 07/08/20 at 22:15 Lorazepam (Ativan) 8 mg PRN Q1HR PRN PO For CIWA 15 or greater; Start 07/08/20 at 22:15 Lorazepam (Ativan Inj) 2 mg PRN Q1HR PRN IV For CIWA 8-14; Start 07/08/20 at 22:15 Lorazepam (Ativan Inj) 4 mg PRN Q1HR PRN IV For CIWA 15 or greater; Start 07/08/20 at 22:15 Haloperidol Lactate (Haldol Inj) 5 mg PRN Q4HRS PRN IVP Hallucinatns,Confusn,D elirium; Start 07/08/20 at 22:15 Diphenhydramine HCl (Benadryl) 25 mg PRN Q15MIN PRN IVP EPS symptoms 2'Haldol admin; Start 07/08/20 at 22:15 Clonidine HCl (Catapres) 0.1 mg PRN Q1HR PRN PO SBP > 180 or DBP > 100, MRX3; Start 07/08/20 at 22:15 Sodium Chloride 1,000 ml @ 285 mls/hr Q3H31M IV Last administered on 07/09/20at 05:44; Start 07/09/20 at 03:30; Stop 07/09/20 at 09:30; Status DC Norepinephrine Bitartrate 8 mg/ Dextrose 258 ml @ 10.952 mls/ hr CONT PRN IV PER PROTOCOL; Start 07/09/20 at 04:00; Stop 07/10/20 at 09:35; Status DC Metoprolol Tartrate (Lopressor) 25 mg BID PO Last administered on 07/10/20at 08:50; Start 07/09/20 at 09:00 Lactobacillus Rhamnosus (Culturelle) 1 cap BID PO Last administered on 07/10/20at 08:49; Start 07/09/20 at 09:00 Potassium Chloride (Klor-Con) 20 meq TIDWMEALS PO Last administered on 07/10/20at 11:42; Start 07/09/20 at 09:00 Atorvastatin Calcium (Lipitor) 20 mg HS PO ; Start 07/10/20 at 21:00 Bupropion HCl (Wellbutrin Xl) 300 mg DAILY PO Last administered on 07/10/20at 11:42; Start 07/10/20 at 11:00 Active Scripts Active Reported Wellbutrin Xl (Bupropion Hcl) 300 Mg Tab.er.24h 1 Tab PO DAILY Amlodipine-Valsartan 10-320 mg (Amlodipine/Valsartan) 1 Each Tablet 1 Tab PO DAILY 30 Days Atorvastatin Calcium 20 Mg Tablet 20 Mg PO HS Allergies Allergies: Coded Allergies: No Known Drug Allergies (Unverified , 07/08/20) ROS Review of System Constitutional: Denies fever or chills Eyes: Denies any visual disturbances HENT: Denies nasal congestion or sore throat Respiratory: Postive for shortness of breath Cardiovascular: Denies any palpitations or chest pain GI: Denies abdominal pain, nausea, vomiting, bloody stools or diarrhea, Positive for lack of appetite. : Denies dysuria or hematuria Musculoskeletal: As per HPI Integument: As per HPI Neurologic: No gross deficit Physical Exam Physical Exam Gen.: Alert and oriented X3 Cardiac: Heart rate regular. Normal carotid pulses. Lungs: Labored respirations, diminished Abdomen: Thin, soft, nontender, nondistended, no palpable masses. Extremities:RUE 1+ palpable radial and ulnar pulse, 2+ brachial pulse. Biphasic doppler signal Radial. LUE unable to appreciate radial, ulnar or brachial pulse, monophasic doppler signal radial and brachial Skin: Warm, dry and intact, no lower extremity swelling. Neurological: Motor and sensation intact, Hotel Room Attendant equal. Vitals VITALS Vital Signs Date Time Temp Pulse Resp B/P (MAP) Pulse Ox O2 Delivery O2 Flow Rate FiO2 07/10/20 08:50 102 106/61 07/10/20 08:00 Nasal Cannula 2.0 07/10/20 07:00 97.5 20 100 97.5 Labs Labs Laboratory Tests Test 07/09/20 00:35 07/09/20 04:20 07/09/20 04:40 07/09/20 09:10 Lactic Acid Level 2.2 mmol/L (0.4-2.0) 1.2 mmol/L (0.4-2.0) Sodium Level 125 mmol/L (136-145) Potassium Level 3.2 mmol/L (3.5-5.1) Chloride Level 96 mmol/L (98-107) Carbon Dioxide Level 15 mmol/L (21-32) Anion Gap 14 (6-14) Blood Urea Nitrogen 4 mg/dL (7-20) Creatinine 0.6 mg/dL (0.6-1.0) Estimated GFR (Cockcroft-Gault) 101.0 BUN/Creatinine Ratio 7 (6-20) Glucose Level 83 mg/dL (70-99) Calcium Level 7.2 mg/dL (8.5-10.1) Total Bilirubin 0.4 mg/dL (0.2-1.0) Aspartate Amino Transf (AST/SGOT) 23 U/L (15-37) Alanine Aminotransferase (ALT/SGPT) 12 U/L (14-59) Alkaline Phosphatase 169 U/L (46-116) Troponin I Quantitative < 0.017 ng/mL (0.000-0.055) Total Protein 6.1 g/dL (6.4-8.2) Albumin 1.8 g/dL (3.4-5.0) Albumin/Globulin Ratio 0.4 (1.0-1.7) Magnesium Level 2.0 mg/dL (1.8-2.4) White Blood Count 9.9 x10^3/uL (4.0-11.0) Red Blood Count 4.12 x10^6/uL (3.50-5.40) Hemoglobin 11.1 g/dL (12.0-15.5) Hematocrit 33.3 % (36.0-47.0) Mean Corpuscular Volume 81 fL (79-100) Mean Corpuscular Hemoglobin 27 pg (25-35) Mean Corpuscular Hemoglobin Concent 33 g/dL (31-37) Red Cell Distribution Width 14.4 % (11.5-14.5) Platelet Count 466 x10^3/uL (140-400) Neutrophils (%) (Auto) 76 % (31-73) Lymphocytes (%) (Auto) 12 % (24-48) Monocytes (%) (Auto) 11 % (0-9) Eosinophils (%) (Auto) 1 % (0-3) Basophils (%) (Auto) 1 % (0-3) Neutrophils # (Auto) 7.5 x10^3/uL (1.8-7.7) Lymphocytes # (Auto) 1.1 x10^3/uL (1.0-4.8) Monocytes # (Auto) 1.1 x10^3/uL (0.0-1.1) Eosinophils # (Auto) 0.1 x10^3/uL (0.0-0.7) Basophils # (Auto) 0.1 x10^3/uL (0.0-0.2) Test 07/10/20 10:15 White Blood Count 7.6 x10^3/uL (4.0-11.0) Red Blood Count 3.66 x10^6/uL (3.50-5.40) Hemoglobin 10.0 g/dL (12.0-15.5) Hematocrit 30.2 % (36.0-47.0) Mean Corpuscular Volume 83 fL (79-100) Mean Corpuscular Hemoglobin 27 pg (25-35) Mean Corpuscular Hemoglobin Concent 33 g/dL (31-37) Red Cell Distribution Width 14.8 % (11.5-14.5) Platelet Count 385 x10^3/uL (140-400) Prothrombin Time 14.4 SEC (11.7-14.0) Prothromb Time International Ratio 1.2 (0.8-1.1) Sodium Level 126 mmol/L (136-145) Potassium Level 4.1 mmol/L (3.5-5.1) Chloride Level 96 mmol/L (98-107) Carbon Dioxide Level 15 mmol/L (21-32) Anion Gap 15 (6-14) Blood Urea Nitrogen 3 mg/dL (7-20) Creatinine 0.5 mg/dL (0.6-1.0) Estimated GFR (Cockcroft-Gault) 124.6 BUN/Creatinine Ratio 6 (6-20) Glucose Level 72 mg/dL (70-99) Calcium Level 8.1 mg/dL (8.5-10.1) Magnesium Level 2.1 mg/dL (1.8-2.4) Total Bilirubin 0.3 mg/dL (0.2-1.0) Aspartate Amino Transf (AST/SGOT) 23 U/L (15-37) Alanine Aminotransferase (ALT/SGPT) 15 U/L (14-59) Alkaline Phosphatase 188 U/L (46-116) Total Protein 5.8 g/dL (6.4-8.2) Albumin 2.1 g/dL (3.4-5.0) Albumin/Globulin Ratio 0.6 (1.0-1.7) Triglycerides Level 98 mg/dL (0-150) Cholesterol Level 95 mg/dL (0-200) LDL Cholesterol, Calculated 55 mg/dL (0-100) VLDL Cholesterol, Calculated 20 mg/dL (0-40) Non-HDL Cholesterol Calculated 75 mg/dL (0-129) HDL Cholesterol 20 mg/dL (40-60) Cholesterol/HDL Ratio 4.8 Thyroid Stimulating Hormone (TSH) 2.540 uIU/mL (0.358-3.74) Laboratory Tests Test 07/10/20 10:15 White Blood Count 7.6 x10^3/uL (4.0-11.0) Red Blood Count 3.66 x10^6/uL (3.50-5.40) Hemoglobin 10.0 g/dL (12.0-15.5) Hematocrit 30.2 % (36.0-47.0) Mean Corpuscular Volume 83 fL (79-100) Mean Corpuscular Hemoglobin 27 pg (25-35) Mean Corpuscular Hemoglobin Concent 33 g/dL (31-37) Red Cell Distribution Width 14.8 % (11.5-14.5) Platelet Count 385 x10^3/uL (140-400) Prothrombin Time 14.4 SEC (11.7-14.0) Prothromb Time International Ratio 1.2 (0.8-1.1) Sodium Level 126 mmol/L (136-145) Potassium Level 4.1 mmol/L (3.5-5.1) Chloride Level 96 mmol/L (98-107) Carbon Dioxide Level 15 mmol/L (21-32) Anion Gap 15 (6-14) Blood Urea Nitrogen 3 mg/dL (7-20) Creatinine 0.5 mg/dL (0.6-1.0) Estimated GFR (Cockcroft-Gault) 124.6 BUN/Creatinine Ratio 6 (6-20) Glucose Level 72 mg/dL (70-99) Calcium Level 8.1 mg/dL (8.5-10.1) Magnesium Level 2.1 mg/dL (1.8-2.4) Total Bilirubin 0.3 mg/dL (0.2-1.0) Aspartate Amino Transf (AST/SGOT) 23 U/L (15-37) Alanine Aminotransferase (ALT/SGPT) 15 U/L (14-59) Alkaline Phosphatase 188 U/L (46-116) Total Protein 5.8 g/dL (6.4-8.2) Albumin 2.1 g/dL (3.4-5.0) Albumin/Globulin Ratio 0.6 (1.0-1.7) Triglycerides Level 98 mg/dL (0-150) Cholesterol Level 95 mg/dL (0-200) LDL Cholesterol, Calculated 55 mg/dL (0-100) VLDL Cholesterol, Calculated 20 mg/dL (0-40) Non-HDL Cholesterol Calculated 75 mg/dL (0-129) HDL Cholesterol 20 mg/dL (40-60) Cholesterol/HDL Ratio 4.8 Thyroid Stimulating Hormone (TSH) 2.540 uIU/mL (0.358-3.74) Images Images left upper arm arterial US Impression; Weak monophasic flow within the proximal left subclavian artery. Hemodynamically significant more proximal subclavian, or ostial stenosis may be present. The left vertebral artery is poorly evaluated. CT angiography of the neck and chest is recommended for further evaluation. Assessment/Plan Assessment/Plan 64 year old female with left subclavian stenosis without symptoms of arm claudication. She has a 30mm Hg lower SBP in her left arm. Further workup for her SOB and lung mass is planned with CT scan without contrast. Would recommend using right arm for blood pressure monitoring. Would not recommend any additional arterial intervention at this time, it is unlikely this is the source of her dizziness and she denies arm claudication. Could obtain orthostatic blood pressure evaluation. Recommend lifestyle risk factor modification to include good blood pressure control, management of her hyperlipidemia, and tobacco and alcohol cessation. I did discuss this at length with the patient she did express understanding. Discussed plan of care with Dr. Cm Shaw, he will see patient and make additional recommendations as needed. VAMSI JONES APRN Jul 10, 2020 14:00
--- NOTE | 2020-07-10 14:33 | NUR ---
SS following up with discharge planning. SS reviewed pt chart and discussed with pt RN. Pt is currently requiring oxygen. Pt on IV Azithromycin and IV Rocephin. Vascular consulted. SS will continue to follow for discharge planning.
--- NOTE | 2020-07-10 14:47 | RAD ---
CT of the chest without contrast 07/10/2020 INDICATION: Lung mass COMPARISON STUDY: Chest radiograph July 09, 2020 TECHNIQUE: Multidetector imaging of the chest was performed without the administration of contrast FINDINGS: Heart size is normal. Multifocal coronary calcification is seen. There is soft tissue fullness in the anterior mediastinum without significant mass effect. It is uncertain if this represents fluid or soft tissue small amount of fluid is favored. There is a large mass in the right hilum. This somewhat poorly differentiated from adjacent structures secondary to compression and lack of IV contrast. Mass appears to extend and all right-sided lobes. There is a large right pleural effusion with underlying compressive atelectasis. The mass encases and incompletely compresses the bronchi middle lobe and lower lobe. Mass appears to extend to the anterior pleura with there is possibly a small component of effusion. Some calcification is seen in the right hilum. In the partially aerated right upper lobe there is mild infiltrate which could be postobstructive pneumonia. Mild centrilobular emphysema is seen. There is no pneumothorax. No significant effusion is seen on the left. No acute focal infiltrate is identified on the left. Scattered small mediastinal lymph nodes are seen. Somewhat prominent pretracheal nodes and subcarinal fullness noted. Metastatic disease is not excluded. There is a collapsed right-sided breast implant. Left-sided partially calcified breast implant remains. Limited visualization of the upper abdomen demonstrates fullness in the expected region of the left adrenal gland. Evaluation is limited by motion. Metastatic disease cannot be excluded. IMPRESSION: 1. Large right-sided mass, appearing to arise within the hilum, concerning for primary lung malignancy 2. Large right pleural effusion. Malignant effusion is possible 3. Infiltrate in the partially aerated right upper lobe. Postobstructive pneumonia is possible 4. Mild mediastinal adenopathy, metastatic disease not excluded 5. Motion limits evaluation of the upper abdomen. Fullness in the left adrenal gland noted. Metastasis is not excluded. CT DOSING PQRS STATEMENT: One or more of the following individualized dose reduction techniques were utilized for this examination: 1. Automated exposure control 2. Adjustment of the mA and/or kV according to patient size 3. Use of iterative reconstruction technique Electronically signed by: Alan Mcmanus MD (07/10/2020 2:44 PM) [id number]
[2020-07-10] MEDS ORDERED: BENZONATATE 100 MG CAPSULE. PO ONE (15:45)
[2020-07-10] MEDS ORDERED: ALPRAZolam 0.5 MG TABLET PO ONE (17:00)
[2020-07-10] MEDS ORDERED: FUROSEMIDE 20 MG/2 ML VIAL. IVP ONE (17:00)
[2020-07-10] MEDS ORDERED: ALBUTEROL SULFATE 2.5 MG/3 ML NEBU. NEB ONE (17:00)
[2020-07-10] MEDS: cefTRIAXone IV Push 1 GM VIAL. IVP SCH (17:52)
[2020-07-10] MEDS: AZITHROMYCIN 500 MG in IV NORMAL SALINE 250ML 250 ML IV SCH (18:10)
--- NOTE | 2020-07-10 18:50 | NUR ---
Report given to Anabella GONZALEZ on 2NO. Pt will be transferred after shift change with all of her belongings. Son Nile notified.
--- NOTE | 2020-07-10 20:00 | NUR ---
transfered from ICU via wheelchair accompanied by staff
[2020-07-10] MEDS: ATORVASTATIN CALCIUM 20 MG TABLET PO SCH (21:04)
[2020-07-11] VITALS (7 sets, daily range): BP systolic 104–121; BP diastolic 53–73
[2020-07-11] MEDS: IV NORMAL SALINE 1000ML BAG 1,000 ML IV SCH ×2 (01:01→18:38)
[2020-07-11 06:14] LABS: CALCIUM 8.2 mg/dL (8.5-10.1); CREATININE 0.4 mg/dL (0.6-1.0); GFR 161.2; POTASSIUM 3.3 mmol/L (3.5-5.1)
--- NOTE | 2020-07-11 07:50 | NUR ---
AM lovenox dose held per for possible thoracentesis today.
[2020-07-11] MEDS: METOPROLOL TART IMMED RELEASE 25 MG TABLET. PO SCH ×2 (09:52→22:18)
[2020-07-11] MEDS: THIAMINE 100 MG TABLET. PO SCH (09:52)
[2020-07-11] MEDS: buPROPion XL 150 MG TAB.ER.24H. PO SCH (09:52)
[2020-07-11] MEDS: MULTIVITAMIN with MINERAL TABLET. PO SCH (09:52)
[2020-07-11] MEDS: LACTOBACILLUS RHAMNOSUS GG 1 CAPSULE. PO SCH ×2 (09:52→22:17)
[2020-07-11] MEDS: FOLIC ACID 1 MG TABLET. PO SCH (09:53)
[2020-07-11] MEDS: POTASSIUM CHLORIDE 20 MEQ TABLET.ER. PO SCH ×3 (09:53→18:37)
--- NOTE | 2020-07-11 10:40 | PDOC ---
PULMONARY PROGRESS NOTES DATE: 07/11/20 TIME: 10:35 Subjective mild dyspnea/ anxious on nasal canula Vitals Vital Signs Date Time Temp Pulse Resp B/P (MAP) Pulse Ox O2 Delivery O2 Flow Rate FiO2 07/11/20 09:52 66 113/69 07/11/20 07:00 98.0 20 99 Room Air 98.0 07/10/20 17:24 2.0 General: Alert Lungs: Other (decrease bs) Cardiovascular: S1 Abdomen: Soft Neuro Exam: Alert Extremities: No Edema Skin: Warm Labs Laboratory Tests Test 07/10/20 10:15 07/11/20 03:10 White Blood Count 7.6 x10^3/uL (4.0-11.0) Red Blood Count 3.66 x10^6/uL (3.50-5.40) Hemoglobin 10.0 g/dL (12.0-15.5) Hematocrit 30.2 % (36.0-47.0) Mean Corpuscular Volume 83 fL (79-100) Mean Corpuscular Hemoglobin 27 pg (25-35) Mean Corpuscular Hemoglobin Concent 33 g/dL (31-37) Red Cell Distribution Width 14.8 % (11.5-14.5) Platelet Count 385 x10^3/uL (140-400) 416 x10^3/uL (140-400) Prothrombin Time 14.4 SEC (11.7-14.0) Prothromb Time International Ratio 1.2 (0.8-1.1) Sodium Level 126 mmol/L (136-145) 128 mmol/L (136-145) Potassium Level 4.1 mmol/L (3.5-5.1) 3.3 mmol/L (3.5-5.1) Chloride Level 96 mmol/L (98-107) 96 mmol/L (98-107) Carbon Dioxide Level 15 mmol/L (21-32) 19 mmol/L (21-32) Anion Gap 15 (6-14) 13 (6-14) Blood Urea Nitrogen 3 mg/dL (7-20) 2 mg/dL (7-20) Creatinine 0.5 mg/dL (0.6-1.0) 0.4 mg/dL (0.6-1.0) Estimated GFR (Cockcroft-Gault) 124.6 161.2 BUN/Creatinine Ratio 6 (6-20) Glucose Level 72 mg/dL (70-99) 61 mg/dL (70-99) Calcium Level 8.1 mg/dL (8.5-10.1) 8.2 mg/dL (8.5-10.1) Magnesium Level 2.1 mg/dL (1.8-2.4) Total Bilirubin 0.3 mg/dL (0.2-1.0) Aspartate Amino Transf (AST/SGOT) 23 U/L (15-37) Alanine Aminotransferase (ALT/SGPT) 15 U/L (14-59) Alkaline Phosphatase 188 U/L (46-116) Total Protein 5.8 g/dL (6.4-8.2) Albumin 2.1 g/dL (3.4-5.0) Albumin/Globulin Ratio 0.6 (1.0-1.7) Triglycerides Level 98 mg/dL (0-150) Cholesterol Level 95 mg/dL (0-200) LDL Cholesterol, Calculated 55 mg/dL (0-100) VLDL Cholesterol, Calculated 20 mg/dL (0-40) Non-HDL Cholesterol Calculated 75 mg/dL (0-129) HDL Cholesterol 20 mg/dL (40-60) Cholesterol/HDL Ratio 4.8 Thyroid Stimulating Hormone (TSH) 2.540 uIU/mL (0.358-3.74) Laboratory Tests Test 07/11/20 03:10 Platelet Count 416 x10^3/uL (140-400) Sodium Level 128 mmol/L (136-145) Potassium Level 3.3 mmol/L (3.5-5.1) Chloride Level 96 mmol/L (98-107) Carbon Dioxide Level 19 mmol/L (21-32) Anion Gap 13 (6-14) Blood Urea Nitrogen 2 mg/dL (7-20) Creatinine 0.4 mg/dL (0.6-1.0) Estimated GFR (Cockcroft-Gault) 161.2 Glucose Level 61 mg/dL (70-99) Calcium Level 8.2 mg/dL (8.5-10.1) Medications Active Scripts Medications Dose Route/Sig Max Daily Dose Days Date Category Wellbutrin Xl (Bupropion Hcl) 300 Mg Tab.er.24h 1 Tab PO DAILY 07/10/20 Reported Amlodipine-Valsartan 10-320 mg (Amlodipine/Valsartan) 1 Each Tablet 1 Tab PO DAILY 30 07/10/20 Reported Atorvastatin Calcium 20 Mg Tablet 20 Mg PO HS 07/10/20 Reported Impression . 1. Abnormal chest x-ray with mass-like density in the right lower lobe along with pleural effusion. She has lost about 10-12 pounds in the last 3 weeks with loss of appetite. She smoked for 30 years. Clinically, lung malignancy is a concern. 2. Atrial fibrillation with rapid ventricular response. Currently being followed by Cardiology. rate controlled 3. Thirty years of tobacco use, suspect underlying chronic obstructive pulmonary disease. 4. Normal ejection fraction. 5. Recent wt loss Plan . 1. Discussed with RN and patient and Son Nile CT chest findings discussed. Large mass right lung with moderate right effusion c/w Primary lung malignancy. She will benefit from thoracentesis first to improve symptoms and stage cancer Pleural fluid may not be diagnostic. Will do simultaneous ct guided right lung mass bx as well. d/w IR who agrees. 2. Follow Cardiology recommendation regarding her atrial fibrillation. AC on hold 3. Poor performance status. 4. will follow post thoracentesis 5. ct abdomen /pelvis to r/o distant mets specially adrenal gland d/w Dr Harrison. d/w son in detail . ct chest pictures shown to him. He agrees to persue with bx and thoracentesis. 6. Consult XRT/Med oncology TANIA SMITH MD Jul 11, 2020 10:40
[2020-07-11] MEDS: ALBUTEROL SULFATE 2.5 MG/3 ML NEBU. NEB PRN ×3 (10:56→19:18)
--- NOTE | 2020-07-11 11:05 | PDOC ---
KAM [employer] 07/11/20 1105: CARDIO Progress Notes Date and Time Date of Service 07/11/2020 Time of Evaluation 1000 Subjective Subjective: No Chest Pain, No shortness of breath, No Palpitations Vitals Vitals Vital Signs Date Time Temp Pulse Resp B/P (MAP) Pulse Ox O2 Delivery O2 Flow Rate FiO2 07/11/20 09:52 66 113/69 07/11/20 07:00 98.0 20 99 Room Air 98.0 07/10/20 17:24 2.0 Weight Weight [ ] Input and Output Intake and Output Intake and Output 07/11/20 07:00 Intake Total 436 ml Output Total 590 ml Balance -154 ml Intake Oral 436 ml Output Urine Total 590 ml # Voids 4 # Bowel Movements 2 Laboratory Labs Laboratory Tests Test 07/11/20 03:10 Platelet Count 416 x10^3/uL (140-400) Sodium Level 128 mmol/L (136-145) Potassium Level 3.3 mmol/L (3.5-5.1) Chloride Level 96 mmol/L (98-107) Carbon Dioxide Level 19 mmol/L (21-32) Anion Gap 13 (6-14) Blood Urea Nitrogen 2 mg/dL (7-20) Creatinine 0.4 mg/dL (0.6-1.0) Estimated GFR (Cockcroft-Gault) 161.2 Glucose Level 61 mg/dL (70-99) Calcium Level 8.2 mg/dL (8.5-10.1) Physical Exam HEENT: Neck Supple W Full Motion Chest: Symmetric LUNGS: Other (diminished; tachypneic) Heart: irregularly irregular (AFIB) Abdomen: Soft N/T Extremities: No Edema, No Calf Tenderness Neurology: alert, oriented, follow commands Assessment Assessment 1. AFIB with RVR; new onset, rate now controlled 2. Diastolic CHF: appears compensated. EF and WM nml 3. Hypertension; controlled 4. Hyperlipidemia: controlled 5. Hypokalemia; replaced 6. Hyponatremia: beer potomania? SIADH? per PCP 7. Suspect COPD with tobaccoism 8. ETOH misuse 9. Left subclavian arterial stenosis. No left arm claudication symptoms. Monitor as an outpt 10. Presyncope: possibly from arrhythmia rather than subclavian stenosis. None further 11. Right lung mass with pleural effusion: possible malignancy. 12. Protein malnutrition Recommendations Continue metoprolol PO. May utilize digoxin if rate remains labile. K replacement Holding anticoagulation, Will reevaluate once pulmonary w/u in regards to lung mass is completed. Will place on ASA for now. Thoracentesis planned today. Discussed ETOH cessation and drug interactions with ETOH. Smoking cessation Will consider for outpt CVN and also consider for outpt stress test pending pulmonary w/u Justicifation of Admission Dx: Justifications for Admission: Justification of Admission Dx: Yes AUDREY MCCARTY MD 07/12/20 1158: CARDIO Progress Notes Plan Plan Late entry for 07/11/2020 Pt. seen and examined. Agree with above CUSTOMER PROGRAM SPECIALIST note. Supportive care. Await possible malignancy w/u. Thanks KAM [employer] Jul 11, 2020 11:05 AUDREY MCCARTY MD Jul 12, 2020 11:58
[2020-07-11] MEDS ORDERED: POTASSIUM CHLORIDE 20 MEQ TABLET.ER. PO ONE (11:15)
--- NOTE | 2020-07-11 11:36 | PN ---
DATE: 07/11/2020 SUBJECTIVE: The patient is resting, slightly propped up in bed, clearly anxious, somewhat tachypneic. She apparently has had a CT scan of the chest without contrast, which showed that she has a large right-sided mass appearing to arise within the hilum concerning for primary lung malignancy. She also has large right pleural effusion, malignant effusion with possible infiltrate in the partially aerated right upper lobe, possible postobstructive pneumonia. She does have mild mediastinal adenopathy or metastatic disease that is not excluded and motion limits evaluation of the upper abdomen. However, there is fullness in the left adrenal gland noted and metastasis is not excluded with a plan to do thoracentesis and cytology to see if there is any malignancy. If not, the adrenal gland will be biopsied according to Dr. Haley. PHYSICAL EXAMINATION: GENERAL: When I examined her this morning, she looked pale, but no jaundice, cyanosis, or thyromegaly. No jugular venous distention. No lower limb edema. VITAL SIGNS: Her heart rate was 66, blood pressure was 113/69, temperature 98, respiratory rate 20, and oxygen saturation was 99%. HEAD, EYES, EARS, NOSE, AND THROAT: Showed normocephalic, atraumatic. NECK: Supple. HEART: Normal first and second heart sounds. No gallop or murmur. CHEST: Shows central trachea, good chest expansion, air entry on the left side. Dull percussion noted and absent breath sounds on the right side posteriorly. Very few scattered rhonchi. ABDOMEN: Distended, soft, nontender. NEUROLOGIC: She was grossly intact. Her intake over the last 24 hours was 3400, output was 840. LABORATORY DATA: As of this morning, her white cell count was 7600; hemoglobin was 10; hematocrit 30; MCV 83; and platelet count 416,000. Her chemistry showed a serum sodium of 128, potassium 3.3, chloride 96, bicarbonate 19, and anion gap of 13, BUN 2, creatinine 0.4, estimated GFR was 161 mL per minute. Her glucose was 61, calcium was 8.2, magnesium 2.1. Her prothrombin time was 14.4, INR 1.2. ASSESSMENT: 1. Atrial fibrillation with rapid ventricular response. Her rate is much better controlled. 2. Hyponatremia, improving slowly. Her sodium has risen from 121-128. 3. Acute diastolic congestive heart failure. 4. Large right-sided pleural effusion with a mass detected on a CT scan. 5. Postobstructive pneumonia. 6. Hyperlipidemia. 7. Chronic obstructive pulmonary disease. 8. Tobaccoism and alcohol abuse. 9. She has arterial Doppler ultrasound that showed she has stenosis of the left subclavian artery; however, there is no evidence that she has subclavian steal syndrome and the vascular surgeon did not recommend any further evaluation. OBIE MEJÍA MD DR: DREW/jomar JOB#: [id number] / [id number]
[2020-07-11] MEDS ORDERED: CONTRAST GIVEN. MC PRN (12:15)
[2020-07-11] MEDS ORDERED: IOHEXOL 240 MG/ML 50ML VIAL. PO ONE (12:15)
[2020-07-11] MEDS ORDERED: IOHEXOL 300 MG/ML 100ML VIAL. IV ONE (12:15)
--- NOTE | 2020-07-11 12:33 | NUR ---
SS following for discharge planning. SS reviewed pt chart and discussed with pt RN. Pt is currently on room air and PRN oxygen. Pt on IV Azithromycin and IV Rocephin. Pt scheduled for Thoracentesis tomorrow. SS will continue to follow for discharge planning.
[2020-07-11] MEDS: ASPIRIN ENTERIC COATED 81 MG TABLET.DR. PO SCH (12:48)
[2020-07-11] MEDS: cefTRIAXone IV Push 1 GM VIAL. IVP SCH (18:37)
[2020-07-11] MEDS: AZITHROMYCIN 500 MG in IV NORMAL SALINE 250ML 250 ML IV SCH (18:38)
[2020-07-11] MEDS: ATORVASTATIN CALCIUM 20 MG TABLET PO SCH (22:17)
[2020-07-11] MEDS: ALPRAZolam 0.5 MG TABLET PO PRN (22:17)
[2020-07-12] VITALS (7 sets, daily range): BP systolic 110–135; BP diastolic 63–79
[2020-07-12] MEDS: IV NORMAL SALINE 1000ML BAG 1,000 ML IV SCH ×2 (05:30→18:01)
[2020-07-12 07:47] LABS: HEMATOCRIT 27.4 % (36.0-47.0); HEMOGLOBIN 9.1 g/dL (12.0-15.5); RED BLOOD COUNT 3.39 x10^6/uL (3.50-5.40); RED CELL DISTRIBUTION WIDTH 14.2 % (11.5-14.5); WHITE BLOOD COUNT 8.4 x10^3/uL (4.0-11.0)
[2020-07-12] MEDS: buPROPion XL 150 MG TAB.ER.24H. PO SCH (07:58)
[2020-07-12] MEDS: ASPIRIN ENTERIC COATED 81 MG TABLET.DR. PO SCH (07:58)
[2020-07-12] MEDS: METOPROLOL TART IMMED RELEASE 25 MG TABLET. PO SCH ×2 (07:59→22:47)
[2020-07-12] MEDS: POTASSIUM CHLORIDE 20 MEQ TABLET.ER. PO SCH ×3 (07:59→17:54)
[2020-07-12 08:04] LABS: CALCIUM 8.5 mg/dL (8.5-10.1); CREATININE 0.5 mg/dL (0.6-1.0); GFR 124.6; POTASSIUM 3.7 mmol/L (3.5-5.1)
[2020-07-12] MEDS ORDERED: LIDOCAINE WITH 8.4% SOD BICARB 3 ML DISP.SYRIN. ONE (08:16)
[2020-07-12] MEDS ORDERED: LIDOCAINE WITH 8.4% SOD BICARB 3 ML DISP.SYRIN. INJ ONE (08:45)
[2020-07-12] MEDS: FOLIC ACID 1 MG TABLET. PO SCH (09:00)
[2020-07-12] MEDS: THIAMINE 100 MG TABLET. PO SCH (09:00)
[2020-07-12] MEDS: MULTIVITAMIN with MINERAL TABLET. PO SCH (09:00)
[2020-07-12] MEDS: LACTOBACILLUS RHAMNOSUS GG 1 CAPSULE. PO SCH ×2 (09:00→20:20)
[2020-07-12] MEDS ORDERED: IOHEXOL 300 MG/ML 100ML VIAL. IV ONE (09:00)
--- NOTE | 2020-07-12 09:11 | RAD ---
EXAM: CT Abdomen and Pelvis with IV contrast INDICATION: Reason: lung mass, r/o mets / Spl. Instructions: omni 240 30ml omni 300 75ml / History: TECHNIQUE: Multi-detector row CT images were acquired from the lung bases through the abdomen and pelvis with the use of IV contrast. Sagittal and coronal images were acquired from the transaxial data. All CT scans performed at this facility utilize dose optimization techniques as appropriate to the exam, including the following: Automated exposure control and adjustment of the mA and/or KV according to patient size (this includes techniques or standardized protocols for targeted exams where dose is indication/reason for exam). IV CONTRAST: Administered ORAL CONTRAST: Administered COMPARISON: CT chest without IV contrast of 07/10/2020 FINDINGS: LOWER CHEST: Partially imaged right middle lobe lung mass abutting the right hilum associated with a hypovascular 1.7 cm subcarinal lymph node is present in association with a large loculated right pleural effusion and lobar atelectasis of the right lower lobe. Chest wall also shows a collapsed right breast implant and a left breast implant that appears intact with capsular calcifications. LIVER: Diffuse heterogeneous hypoattenuation to the liver is present in a predominantly periportal distribution with sparing of the periphery of the liver. Hepatic segment 6 appears affected to the greatest extent. A discrete mass is not identified in the liver. BILIARY SYSTEM: Gallbladder is unremarkable. Bile ducts are not dilated. PANCREAS: Unremarkable SPLEEN: Normal size spleen with scattered splenic calcifications. ADRENALS: Normal right adrenal gland. Left adrenal is enlarged and shows central hypoenhancement. It measures 3.6 x 2.1 cm in maximum axial dimensions (image 28 of series 2). KIDNEYS & URETERS: Unremarkable BLADDER: Unremarkable REPRODUCTIVE ORGANS: Unremarkable GASTROINTESTINAL: The stomach, small bowel, and colon are unremarkable. The appendix is normal. MESENTERY/PERITONEUM/RETROPERITONEUM: Unremarkable VASCULAR: Extensive arterial calcifications in abdominal aorta resulting in probable flow-limiting stenosis in the mid ureter due to densely calcified plaque at the L4 level and at the origin of the left common iliac artery LYMPH NODES: Mildly prominent left-sided periaortic lymph nodes are seen, largest measuring 8 mm short axis between the proximal left gonadal vein in the abdominal aorta on image 38 of series 2 OSSEOUS & SOFT TISSUES: Tiny foci of gas in the right lower quadrant subcutaneous soft tissues of the anterior abdomen are seen, potentially reflecting sequelae of medication administration. Correlate clinically (images 52 of 53 on axial series 2 are route sales representative images). Bones are demineralized but no aggressive osseous lesions are seen. IMPRESSION: 1. Large right lung mass with mediastinal adenopathy and a large right pleural effusion, consistent with patient's known lung mass. 2. Enlargement of the left adrenal gland is present, suspicious for possible metastatic involvement. Recommend correlation with PET/CT imaging. 3. There are mildly prominent upper abdominal periaortic lymph nodes, indeterminate for reactive nodes versus metastatic disease. These can be reassessed on follow-up. 4. Heterogeneous enhancement to the liver is currently favored a reflection of variant hepatic perfusion. Tumoral infiltration however can resemble this appearance. Liver mass protocol abdominal MRI or CT imaging with and without IV contrast could be pursued in further evaluation, versus correlation with biopsy or PET/CT imaging. Electronically signed by: Chris Leung MD (07/12/2020 9:08 AM) [id number]
--- NOTE | 2020-07-12 10:27 | RAD ---
Ultrasound-guided right-sided thoracentesis 07/12/2020 8:23 AM Indication: ct guided right thoracentesis, right pleural effusion Procedure: Informed consent was obtained. A timeout procedure was performed. Sonographic evaluation of the right chest was performed demonstrating moderate pleural effusion. The]right posterior chest was prepped and draped in sterile fashion. 1% lidocaine without epinephrine was administered for local anesthesia. Real-time ultrasonographic guidance was used in passing a 5 [employer] catheter into the right pleural space. 1.5 L of serosanguineous pleural fluid was removed. Samples of fluid were sent to the lab for further evaluation per ordering physician request. The catheter was removed and pressure held to achieve hemostasis. A sterile dressing was applied. No immediate complications were identified. The patient tolerated the procedure well. Impression: Right sided ultrasound-guided thoracentesis
--- NOTE | 2020-07-12 10:46 | PN ---
DATE: 07/12/2020 SUBJECTIVE: The patient is resting, slightly propped up in bed, in no apparent respiratory distress. She seemed to be more comfortable. She has had 1500 mL fluid drained from her right hemithorax. She does have pain when she coughs. She did have also a CT scan of the abdomen and pelvis, which basically confirmed that she has a large right lung mass with mediastinal adenopathy and a large right pleural effusion consistent with the patient's known lung mass. She has enlargement of the left adrenal gland present, suspicious for possible metastatic involvement. There are also mildly prominent upper abdominal periaortic lymph nodes, indeterminate for active nodes versus metastatic disease and she has also heterogenous enhancement of the liver that is currently favoring reflection of very antibiotic perfusion. Tumoral infiltration, however, can resemble this appearance. Liver mass protocol, abdominal MRI or CT imaging with and without IV contrast could be pursued for further evaluation. PHYSICAL EXAMINATION: GENERAL: When I examined her today, she looked well and was clearly in no apparent respiratory distress, pale, but no jaundice, cyanosis or thyromegaly. No jugular venous distension. No lower limb edema. VITAL SIGNS: Her heart rate was 110, blood pressure was 131/79, temperature was 97.9, respiratory rate was 20, and oxygen saturation was 96% on 2 liters of oxygen. HEAD, EYES, EARS, NOSE, AND THROAT: Showed normocephalic, atraumatic. NECK: Supple. HEART: Showed normal first and second heart sounds. No gallop or murmur. CHEST: Shows central trachea. Good chest expansion, air entry on the left side. No crepitation or rhonchi. On the right side, there is reduced air entry, reduced expansion and dull percussion note and absent breath sounds posteriorly, although the air entry has actually improved compared to yesterday. ABDOMEN: Slightly distended, soft, nontender. NEUROLOGIC: She is grossly intact. Her intake over the last 24 hours was 436, output was 590. LABORATORY DATA: As of this morning, her serum sodium continued to be low at 127, potassium 3.7, chloride 96, bicarbonate 20, anion gap of 11, BUN 2, creatinine 0.5, estimated GFR was 124, glucose was 90, calcium was 8.5. Her white cell count was 8400; hemoglobin 9.1; hematocrit 27; MCV 81; and platelet count 404,000. ASSESSMENT: 1. Atrial fibrillation with rapid ventricular response. Her rate is much better controlled. 2. Hyponatremia, continued to be on the lower side; went up to 128 yesterday and today is 127. 3. Chronic diastolic congestive heart failure, clinically compensated. 4. Right-sided pleural effusion, status post drainage of 1500 mL. 5. Postobstructive pneumonia. 6. Hyperlipidemia. 7. Chronic obstructive pulmonary disease. 8. Tobaccoism and alcohol abuse. 9. Arterial Doppler ultrasound showed that she has stenosis of the left subclavian artery. However, there is no evidence that she has subclavian steal syndrome and the vascular surgeon did not recommend any further evaluation. PLAN: Obviously is to continue with all her current medications. Continue with IV antibiotic and await the cytology results of her right side pleural effusion to decide whether she will need biopsy from adrenal gland. OBIE MEJÍA MD DR: DREW/jomar JOB#: [id number] / [id number]
--- NOTE | 2020-07-12 11:08 | PDOC ---
PULMONARY PROGRESS NOTES DATE: 07/12/20 TIME: 11:05 Subjective no soa Vitals Vital Signs Date Time Temp Pulse Resp B/P (MAP) Pulse Ox O2 Delivery O2 Flow Rate FiO2 07/12/20 08:36 110 131/79 (96) 96 Nasal Cannula 2.0 07/12/20 07:00 97.9 20 97.9 General: Alert, No acute distress Lungs: Other (decrease bs) Cardiovascular: S1 Abdomen: Soft Neuro Exam: Alert Extremities: No Edema Skin: Warm Labs Laboratory Tests Test 07/11/20 03:10 07/11/20 13:15 07/12/20 06:15 Platelet Count 416 x10^3/uL (140-400) 404 x10^3/uL (140-400) Sodium Level 128 mmol/L (136-145) 127 mmol/L (136-145) Potassium Level 3.3 mmol/L (3.5-5.1) 3.7 mmol/L (3.5-5.1) Chloride Level 96 mmol/L (98-107) 96 mmol/L (98-107) Carbon Dioxide Level 19 mmol/L (21-32) 20 mmol/L (21-32) Anion Gap 13 (6-14) 11 (6-14) Blood Urea Nitrogen 2 mg/dL (7-20) 2 mg/dL (7-20) Creatinine 0.4 mg/dL (0.6-1.0) 0.5 mg/dL (0.6-1.0) Estimated GFR (Cockcroft-Gault) 161.2 124.6 Glucose Level 61 mg/dL (70-99) 90 mg/dL (70-99) Calcium Level 8.2 mg/dL (8.5-10.1) 8.5 mg/dL (8.5-10.1) SARS-CoV-2 Antigen (Rapid) Negative (NEGATIVE) White Blood Count 8.4 x10^3/uL (4.0-11.0) Red Blood Count 3.39 x10^6/uL (3.50-5.40) Hemoglobin 9.1 g/dL (12.0-15.5) Hematocrit 27.4 % (36.0-47.0) Mean Corpuscular Volume 81 fL (79-100) Mean Corpuscular Hemoglobin 27 pg (25-35) Mean Corpuscular Hemoglobin Concent 33 g/dL (31-37) Red Cell Distribution Width 14.2 % (11.5-14.5) Laboratory Tests Test 07/11/20 13:15 07/12/20 06:15 SARS-CoV-2 Antigen (Rapid) Negative (NEGATIVE) White Blood Count 8.4 x10^3/uL (4.0-11.0) Red Blood Count 3.39 x10^6/uL (3.50-5.40) Hemoglobin 9.1 g/dL (12.0-15.5) Hematocrit 27.4 % (36.0-47.0) Mean Corpuscular Volume 81 fL (79-100) Mean Corpuscular Hemoglobin 27 pg (25-35) Mean Corpuscular Hemoglobin Concent 33 g/dL (31-37) Red Cell Distribution Width 14.2 % (11.5-14.5) Platelet Count 404 x10^3/uL (140-400) Sodium Level 127 mmol/L (136-145) Potassium Level 3.7 mmol/L (3.5-5.1) Chloride Level 96 mmol/L (98-107) Carbon Dioxide Level 20 mmol/L (21-32) Anion Gap 11 (6-14) Blood Urea Nitrogen 2 mg/dL (7-20) Creatinine 0.5 mg/dL (0.6-1.0) Estimated GFR (Cockcroft-Gault) 124.6 Glucose Level 90 mg/dL (70-99) Calcium Level 8.5 mg/dL (8.5-10.1) Medications Active Scripts Medications Dose Route/Sig Max Daily Dose Days Date Category Wellbutrin Xl (Bupropion Hcl) 300 Mg Tab.er.24h 1 Tab PO DAILY 07/10/20 Reported Amlodipine-Valsartan 10-320 mg (Amlodipine/Valsartan) 1 Each Tablet 1 Tab PO DAILY 30 07/10/20 Reported Atorvastatin Calcium 20 Mg Tablet 20 Mg PO HS 07/10/20 Reported Impression . 1. Abnormal chest x-ray with mass-like density in the right lower lobe along with pleural effusion. She has lost about 10-12 pounds in the last 3 weeks with loss of appetite. She smoked for 30 years. Clinically, lung malignancy is a concern. 2. Atrial fibrillation with rapid ventricular response. Currently being followed by Cardiology. rate controlled 3. Thirty years of tobacco use, suspect underlying chronic obstructive pulmonary disease. 4. Normal ejection fraction. 5. Recent wt loss Plan . 1. Discussed with RN and patient and Son Nile CT chest findings discussed. Large mass right lung with moderate right effusion c/w Primary lung malignancy. s/p thoracentesis 07/12 . If pleural fluid non diagnostic , consider left adrenal gland bx.. Ct chest with contrast today to assess for consolidation vs mass 2. Follow Cardiology recommendation regarding her atrial fibrillation. AC on hold 3. Poor performance status. 4. will follow post thoracentesis 5. ct abdomen /pelvis reviewed. suspected left adrenal gland mets d/w Dr Harrison. d/w son in detail . ct chest pictures shown to him. 6. Consult XRT/Med oncology TANIA SMITH MD Jul 12, 2020 11:08
[2020-07-12] MEDS: BENZONATATE 100 MG CAPSULE. PO PRN (12:00)
[2020-07-12] MEDS ORDERED: METOPROLOL TART IMMED RELEASE 25 MG TABLET. PO ONE (12:15)
--- NOTE | 2020-07-12 12:17 | PDOC ---
KAM LATHAM OPTICAL ADVISOR 07/12/20 1217: CARDIO Progress Notes Date and Time Date of Service 07/12/2020 Time of Evaluation 1200 Subjective Subjective: No Chest Pain, No shortness of breath, No Palpitations Vitals Vitals Vital Signs Date Time Temp Pulse Resp B/P (MAP) Pulse Ox O2 Delivery O2 Flow Rate FiO2 07/12/20 08:36 110 131/79 (96) 96 Nasal Cannula 2.0 07/12/20 07:00 97.9 20 97.9 Weight Weight [ ] Input and Output Intake and Output Intake and Output 07/12/20 07:00 Intake Total 400 ml Output Total 750 ml Balance -350 ml Intake Oral 400 ml Output Urine Total 200 ml Urine/Stool Mix 550 ml Laboratory Labs Laboratory Tests Test 07/11/20 13:15 07/12/20 06:15 SARS-CoV-2 Antigen (Rapid) Negative (NEGATIVE) White Blood Count 8.4 x10^3/uL (4.0-11.0) Red Blood Count 3.39 x10^6/uL (3.50-5.40) Hemoglobin 9.1 g/dL (12.0-15.5) Hematocrit 27.4 % (36.0-47.0) Mean Corpuscular Volume 81 fL (79-100) Mean Corpuscular Hemoglobin 27 pg (25-35) Mean Corpuscular Hemoglobin Concent 33 g/dL (31-37) Red Cell Distribution Width 14.2 % (11.5-14.5) Platelet Count 404 x10^3/uL (140-400) Sodium Level 127 mmol/L (136-145) Potassium Level 3.7 mmol/L (3.5-5.1) Chloride Level 96 mmol/L (98-107) Carbon Dioxide Level 20 mmol/L (21-32) Anion Gap 11 (6-14) Blood Urea Nitrogen 2 mg/dL (7-20) Creatinine 0.5 mg/dL (0.6-1.0) Estimated GFR (Cockcroft-Gault) 124.6 Glucose Level 90 mg/dL (70-99) Calcium Level 8.5 mg/dL (8.5-10.1) Physical Exam HEENT: Neck Supple W Full Motion Chest: Symmetric LUNGS: Other (diminished) Heart: irregularly irregular (AFIB) Abdomen: Soft N/T Extremities: No Edema, No Calf Tenderness Neurology: alert, oriented, follow commands Assessment Assessment 1. AFIB with RVR; new onset, rate now controlled 2. Diastolic CHF: appears compensated. EF and WM nml 3. Hypertension; controlled 4. Hyperlipidemia: controlled 5. Hypokalemia; replaced 6. Hyponatremia: beer potomania? SIADH? per PCP 7. Suspect COPD with tobaccoism 8. ETOH misuse 9. Left subclavian arterial stenosis. No left arm claudication symptoms. Monitor as an outpt 10. Presyncope: possibly from arrhythmia rather than subclavian stenosis. None further 11. Right lung mass with pleural effusion: possible malignancy. post thoracentesis 1.5 L, cytology pending 12. Protein malnutrition Recommendations Continue metoprolol PO. Will add additional metoprolol. May utilize digoxin if rate remains labile. K replacement Holding anticoagulation, Will reevaluate once pulmonary w/u in regards to lung mass is completed. Will place on ASA for now. Consult hemonc Discussed ETOH cessation and drug interactions with ETOH. Smoking cessation Further cardiac workup such as stress test and CVN will be considered as an outpt pending malignancy workup Justicifation of Admission Dx: Justifications for Admission: Justification of Admission Dx: Yes AUDREY MCCARTY MD 07/12/20 1631: CARDIO Progress Notes Plan Plan The patient was seen and interviewed as well as examined at the bedside. The chart was reviewed. The case was discussed. Agree with the plan of care. KAM LATHAM APRN Jul 12, 2020 12:17 AUDREY MCCARTY MD Jul 12, 2020 16:31
--- NOTE | 2020-07-12 12:37 | RAD ---
EXAM: CT Chest with IV contrast INDICATION: Reason: RIGHT LUNG MASS, POST THORACENTESIS / Spl. Instructions: INJ 75ML OMNI 300 / History: TECHNIQUE: Multi-detector row CT images were acquired from the thoracic inlet through the upper abdomen with the use of IV contrast. Sagittal and coronal images were acquired from the transaxial data. All CT scans performed at this facility utilize dose optimization techniques as appropriate to the exam, including the following: Automated exposure control and adjustment of the mA and/or KV according to patient size (this includes techniques or standardized protocols for targeted exams where dose is indication/reason for exam). IV CONTRAST: Administered COMPARISON: Noncontrast chest CT 07/10/2020, abdomen and pelvis CT with IV contrast of 07/11/2020 FINDINGS: CARDIOVASCULAR: Normal caliber thoracic aorta with probable flow-limiting stenosis in the proximal left subclavian artery due to a combination of calcified and noncalcified plaque. There is narrowing of the right upper lobe pulmonary artery due to extrinsic compression from tumoral bulk. Upper normal heart size with multivessel coronary calcifications. MEDIASTINUM & SAMIA: Hypovascular right hilar mass with associated ipsilateral adenopathy measures approximately 7.7 cm in AP diameter and 5.6 cm transverse diameter (axial image 34 series 2) and at least 5.7 cm in cranial caudal extent (as measured in the sagittal plane on image 46 of series 5) although accurate assessment is difficult given associated consolidation in the right middle lobe which may be postobstructive consolidation/atelectasis versus tumoral replacement (latter is favored). If consolidated right middle lobe is included in the measurement of tumoral bulk, then craniocaudal extent is closer to 8 cm. Bulky right hilar lymph nodes are also present. Previously reported anterior mediastinal soft tissue has decreased in size, likely reflecting decrease in pleural effusion abutting the mediastinum. LUNGS: Posterior segment right upper lobe shows patchy pneumonitis, likely postobstructive. Mild centrilobular emphysema. The right lower lobe is better aerated in the interval and shows central groundglass attenuation, possibly reexpansion edema. Right middle lobe replaced by tumor and post obstructive atelectasis. Left lung shows no suspicious nodules, masses or consolidation. PLEURAL SPACE: Slight interval decrease in size of the large right pleural effusion, now 5 cm in maximum depth compared with 6.7 cm previously. No pneumothorax. OSSEOUS & SOFT TISSUE: No aggressive osseous lesions. Collapsed right breast implant. Intact left breast implants with capsular calcifications. ABDOMEN: Included upper abdomen again shows masslike fullness of the left adrenal gland suspicious for adrenal metastases. There is less heterogeneity to enhancement to the liver, supporting likely variant perfusion. IMPRESSION: Slight interval decrease in large right pleural effusion with persistent consolidation in the right middle lobe, likely reflecting combination of postobstructive atelectasis and tumoral replacement, infiltrating the hilum and mediastinum with bulky miranda adenopathy as described. Electronically signed by: Chris Leung MD (07/12/2020 12:34 PM) [id number]
--- NOTE | 2020-07-12 13:22 | NUR ---
SS following up with discharge planning. SS reviewed pt chart and discussed with pt RN. Pt is currently on oxygen PRN. Pt on IV Azithromycin and IV Rocephin. COVID19 negative. Pt had Thoracentesis today. Discharge plan is to home when medically ready. SS will continue to follow for discharge planning.
--- NOTE | 2020-07-12 14:53 | PDOC2 ---
CONSULT Date of Consult Date of Consult DATE: 07/12/20 TIME: 14:44 Reason for Consult Reason for Consult: Suspected lung cancer Referring Physician Referring Physician: Dr. Wang Identification/Chief Complaint Chief Complaint Shortness of breath Source Source: Chart review, Patient History of Present Illness Reason for Visit: Cris Conklin is a 64-year-old female with history of 50 pack years tobacco use who presented to the hospital with shortness of breath. Patient reports recent onset loss of appetite and weight in addition. She is also had a nonproductive cough. She denies hematemesis or hemoptysis. She was seen in the emergency room at [facility]. Her initial evaluation showed hyponatremia and hypokalemia in addition to atrial fibrillation with rapid ventricular response. She was transferred to [facility] for further evaluation. She received further evaluation of shortness of breath with a chest x-ray which showed a masslike density in the right lower lobe. Further evaluation with a CT chest was recommended and showed a right middle lobe mass with associated right-sided pleural effusion. Due to suspicion for malignancy, CT of the abdomen and pelvis was also requested and showed a possible left adrenal gland metastasis. She has received diagnostic and therapeutic thoracentesis on the right pleural effusion. She notes improvement in her breathing following this. She does report continued dyspnea and cough and requests medication that would alleviate this symptom. She denies any headache or double vision. Oncology consultation has been sought in view of suspected malignancy. Past Medical History Cardiovascular: HTN, Hyperlipidemia Past Surgical History Past Surgical History: Tubal Ligation Family History Family History: Hypertension Social History 1 pack per day ALCOHOL: other (3-4 beers per day) Drugs: None Lives: Alone Current Medications Current Medications Current Medications Albuterol Sulfate (Ventolin Neb Soln) 2.5 mg PRN Q6HRS PRN NEB SHORTNESS OF BREATH; Start 07/08/20 at 22:15; Stop 07/10/20 at 17:05; Status DC Diltiazem HCl 125 mg/Sodium Chloride 125 ml @ 5 mls/hr CONT PRN IV SEE I/O RECORD; Start 07/08/20 at 22:00 Sodium Chloride 1,000 ml @ 75 mls/hr [id number] IV Last administered on 07/12/20at 05:30; Start 07/08/20 at 22:00 Enoxaparin Sodium (Lovenox 60mg Syringe) 60 mg Q12HR SQ Last administered on 07/10/20at 21:05; Start 07/09/20 at 09:00; Stop 07/11/20 at 08:21; Status DC Ceftriaxone Sodium (Rocephin) 1 gm Q24H IVP Last administered on 07/11/20at 18:37; Start 07/09/20 at 18:00 Azithromycin 500 mg/Sodium Chloride 250 ml @ 250 mls/hr Q24H IV Last administered on 07/11/20at 18:38; Start 07/09/20 at 18:00 Info (Anti-Coagulation Monitoring By Pharmacy) 1 each PRN DAILY PRN MC SEE COMMENTS Last administered on 07/10/20at 10:21; Start 07/08/20 at 22:15 Multivitamins 10 ml/Thiamine HCl 100 mg/Folic Acid 1 mg/Sodium Chloride 1,011.2 ml @ 100 mls/ hr DAILY IV Last administered on 07/09/20at 09:31; Start 07/09/20 at 09:00; Stop 07/09/20 at 19:07; Status DC Multivitamins (Thera M Plus) 1 tab DAILY PO Last administered on 07/11/20at 09:52; Start 07/10/20 at 09:00 Folic Acid (Folic Acid) 1 mg DAILY PO Last administered on 07/11/20at 09:53; Start 07/10/20 at 09:00 Thiamine Mononitrate (Vitamin B-1) 100 mg DAILY PO Last administered on 07/11/20at 09:52; Start 07/10/20 at 09:00 Lorazepam (Ativan) 4 mg PRN Q1HR PRN PO For CIWA 8-14; Start 07/08/20 at 22:15 Lorazepam (Ativan) 8 mg PRN Q1HR PRN PO For CIWA 15 or greater; Start 07/08/20 at 22:15 Lorazepam (Ativan Inj) 2 mg PRN Q1HR PRN IV For CIWA 8-14; Start 07/08/20 at 22:15 Lorazepam (Ativan Inj) 4 mg PRN Q1HR PRN IV For CIWA 15 or greater; Start 07/08/20 at 22:15 Haloperidol Lactate (Haldol Inj) 5 mg PRN Q4HRS PRN IVP Hallucinatns,Confusn,Delirium; Start 07/08/20 at 22:15 Diphenhydramine HCl (Benadryl) 25 mg PRN Q15MIN PRN IVP EPS symptoms 2'Haldol admin; Start 07/08/20 at 22:15 Clonidine HCl (Catapres) 0.1 mg PRN Q1HR PRN PO SBP > 180 or DBP > 100, MRX3; Start 07/08/20 at 22:15 Sodium Chloride 1,000 ml @ 285 mls/hr Q3H31M IV Last administered on 07/09/20at 05:44; Start 07/09/20 at 03:30; Stop 07/09/20 at 09:30; Status DC Norepinephrine Bitartrate 8 mg/ Dextrose 258 ml @ 10.952 mls/ hr CONT PRN IV PER PROTOCOL; Start 07/09/20 at 04:00; Stop 07/10/20 at 09:35; Status DC Metoprolol Tartrate (Lopressor) 25 mg BID PO Last administered on 07/12/20at 07:59; Start 07/09/20 at 09:00; Stop 07/12/20 at 14:37; Status DC Lactobacillus Rhamnosus (Culturelle) 1 cap BID PO Last administered on 07/11/20at 22:17; Start 07/09/20 at 09:00 Potassium Chloride (Klor-Con) 20 meq TIDWMEALS PO Last administered on 07/12/20at 12:10; Start 07/09/20 at 09:00 Atorvastatin Calcium (Lipitor) 20 mg HS PO Last administered on 07/11/20at 22:17; Start 07/10/20 at 21:00 Bupropion HCl (Wellbutrin Xl) 300 mg DAILY PO Last administered on 07/12/20at 0 7:58; Start 07/10/20 at 11:00 Benzonatate (Tessalon Perle) 100 mg 1X ONCE PO Last administered on 07/10/20at 15:51; Start 07/10/20 at 15:45; Stop 07/10/20 at 15:46; Status DC Furosemide (Lasix) 20 mg 1X ONCE IVP Last administered on 07/10/20at 17:18; S tart 07/10/20 at 17:00; Stop 07/10/20 at 17:05; Status DC Albuterol Sulfate (Ventolin Neb Soln) 2.5 mg 1X ONCE NEB Last administered on 07/10/20at 17:24; Start 07/10/20 at 17:00; Stop 07/10/20 at 17:03; Status DC Albuterol Sulfate (Ventolin Neb Soln) 2.5 mg PRN Q6HRS PRN NEB SHORTNESS OF BREATH Last administered on 07/11/20at 19:18; Start 07/10/20 at 17:00 Alprazolam (Xanax) 0.5 mg 1X ONCE PO Last administered on 07/10/20at 17:18; Start 07/10/20 at 17:00; Stop 07/10/20 at 17:05; Status DC Aspirin (Ecotrin) 81 mg [id number] PO Last administered on 07/12/20at 07:58; Start 07/11/20 at 12:00 Potassium Chloride (Klor-Con) 40 meq 1X ONCE PO ; Start 07/11/20 at 11:15; Stop 07/11/20 at 11:16; Status UNV Iohexol (Omnipaque 240 Mg/ml) 30 ml 1X ONCE PO Last administered on 07/11/20at 12:15; Start 07/11/20 at 12:15; Stop 07/11/20 at 12:16; Status DC Iohexol (Omnipaque 300 Mg/ml) 75 ml 1X ONCE IV Last administered on 07/11/20at 12:15; Start 07/11/20 at 12:15; Stop 07/11/20 at 12:16; Status DC Info (CONTRAST GIVEN -- Rx MONITORING) 1 each PRN DAILY PRN MC SEE COMMENTS; Start 07/11/20 at 12:15; Stop 07/13/20 at 12:14 Benzonatate (Tessalon Perle) 100 mg PRN TID PRN PO COUGH Last administered on 07/12/20at 12:00; Start 07/11/20 at 20:15 Alprazolam (Xanax) 0.5 mg PRN Q8HRS PRN PO ANXIETY / AGITATION Last administered on 07/11/20at 22:17; Start 07/11/20 at 20:15 Lidocaine HCl (Buffered Lidocaine 1%) 3 ml STK-MED ONCE .ROUTE ; Start 07/12/20 at 08:16; Stop 07/12/20 at 08:17; Status DC Lidocaine HCl (Buffered Lidocaine 1%) 6 ml 1X ONCE INJ Last administered on 07/12/20at 08:52; Start 07/12/20 at 08:45; Stop 07/12/20 at 08:51; Status DC Iohexol (Omnipaque 300 Mg/ml) 75 ml 1X ONCE IV Last administered on 07/12/20at 09:15; Start 07/12/20 at 09:00; Stop 07/12/20 at 09:03; Status DC Metoprolol Tartrate (Lopressor) 25 mg 1X ONCE PO Last administered on 07/12/20at 13:14; Start 07/12/20 at 12:15; Stop 07/12/20 at 12:21; Status DC Metoprolol Tartrate (Lopressor) 25 mg Q8HRS PO ; Start 07/12/20 at 22:00 Active Scripts Active Reported Wellbutrin Xl (Bupropion Hcl) 300 Mg Tab.er.24h 1 Tab PO DAILY Amlodipine-Valsartan 10-320 mg (Amlodipine/Valsartan) 1 Each Tablet 1 Tab PO DAILY 30 Days Atorvastatin Calcium 20 Mg Tablet 20 Mg PO HS Allergies Allergies: Coded Allergies: No Known Drug Allergies (Unverified , 07/08/20) ROS General: No: Chills, Night Sweats PSYCHOLOGICAL ROS: YES: Anxiety; No: Behavioral Disorder Eyes: No Blurry vision, No Decreased vision HEENT: No: Heacaches, Visual Changes ALLERGY AND IMMUNOLOGY: No: Nasal Congestion, Post Nasal Drip Hematological and Lymphatic: No: Bleeding Problems, Blood Clots ENDOCRINE: No: Malaise/lethargy, Mood Swings Breast: No New/Changing Breast Lumps, No Nipple changes Respiratory: YES: Cough, Pleuritic Pain, Shortness of breath; No: Sputum Changes Cardiovascular: yes Chest Pain, yes Palpitations, yes Orthopnea Gastrointestinal: No Nausea, No Vomiting Genitourinary: No Dysuria, No Frequency Musculoskeletal: No Joint Pain, No Joint Stiffness Skin: No Dry Skin, No Eczema Physical Exam General: Alert HEENT: Atraumatic Lungs: Other (Crackles and decreased breath sounds noted on the right side) Heart: Other (Irregular rhythm) Abdomen: Normal bowel sounds, Soft Extremities: No clubbing Skin: No rashes Neuro: Normal speech Psych/Mental Status: Mental status NL MUSCULOSKELETAL: No swelling Vitals VITALS Vital Signs Date Time Temp Pulse Resp B/P (MAP) Pulse Ox O2 Delivery O2 Flow Rate FiO2 07/12/20 13:14 90 114/68 07/12/20 11:00 97.7 20 95 Room Air 97.7 07/12/20 08:36 2.0 Labs Labs Laboratory Tests Test 07/11/20 03:10 07/11/20 13:15 07/12/20 06:15 Platelet Count 416 x10^3/uL (140-400) 404 x10^3/uL (140-400) Sodium Level 128 mmol/L (136-145) 127 mmol/L (136-145) Potassium Level 3.3 mmol/L (3.5-5.1) 3.7 mmol/L (3.5-5.1) Chloride Level 96 mmol/L (98-107) 96 mmol/L (98-107) Carbon Dioxide Level 19 mmol/L (21-32) 20 mmol/L (21-32) Anion Gap 13 (6-14) 11 (6-14) Blood Urea Nitrogen 2 mg/dL (7-20) 2 mg/dL (7-20) Creatinine 0.4 mg/dL (0.6-1.0) 0.5 mg/dL (0.6-1.0) Estimated GFR (Cockcroft-Gault) 161.2 124.6 Glucose Level 61 mg/dL (70-99) 90 mg/dL (70-99) Calcium Level 8.2 mg/dL (8.5-10.1) 8.5 mg/dL (8.5-10.1) SARS-CoV-2 Antigen (Rapid) Negative (NEGATIVE) White Blood Count 8.4 x10^3/uL (4.0-11.0) Red Blood Count 3.39 x10^6/uL (3.50-5.40) Hemoglobin 9.1 g/dL (12.0-15.5) Hematocrit 27.4 % (36.0-47.0) Mean Corpuscular Volume 81 fL (79-100) Mean Corpuscular Hemoglobin 27 pg (25-35) Mean Corpuscular Hemoglobin Concent 33 g/dL (31-37) Red Cell Distribution Width 14.2 % (11.5-14.5) Laboratory Tests Test 07/12/20 06:15 White Blood Count 8.4 x10^3/uL (4.0-11.0) Red Blood Count 3.39 x10^6/uL (3.50-5.40) Hemoglobin 9.1 g/dL (12.0-15.5) Hematocrit 27.4 % (36.0-47.0) Mean Corpuscular Volume 81 fL (79-100) Mean Corpuscular Hemoglobin 27 pg (25-35) Mean Corpuscular Hemoglobin Concent 33 g/dL (31-37) Red Cell Distribution Width 14.2 % (11.5-14.5) Platelet Count 404 x10^3/uL (140-400) Sodium Level 127 mmol/L (136-145) Potassium Level 3.7 mmol/L (3.5-5.1) Chloride Level 96 mmol/L (98-107) Carbon Dioxide Level 20 mmol/L (21-32) Anion Gap 11 (6-14) Blood Urea Nitrogen 2 mg/dL (7-20) Creatinine 0.5 mg/dL (0.6-1.0) Estimated GFR (Cockcroft-Gault) 124.6 Glucose Level 90 mg/dL (70-99) Calcium Level 8.5 mg/dL (8.5-10.1) Images Images Reviewed results of CT of the chest, abdomen and pelvis. Pleural fluid cytology is pending at this time Assessment/Plan Assessment/Plan Assessment: Right lung mass Right pleural effusion Adrenal nodule, concern for metastatic disease Tobacco abuse Atrial fibrillation with rapid ventricular response Acute diastolic heart failure Hyponatremia, improved Suspected COPD Recommendations: -Agree that her presentation is concerning for metastatic lung cancer -Follow-up on pleural fluid cytology -Reasonable to pursue CT-guided biopsy of a lung nodule if pleural fluid cytology is negative -She would require MRI brain or PET/CT for completion of staging after confirmation of histologic diagnosis. May be completed as outpatient. -Would continue to work on smoking cessation -Management of atrial fibrillation per cardiology -Rest per primary service -I will continue to follow Naseem Khoury MD Medical Oncology/Hematology Ph: [phone] SAMMY KHOURY MD Jul 12, 2020 14:53
[2020-07-12] MEDS: cefTRIAXone IV Push 1 GM VIAL. IVP SCH (18:00)
[2020-07-12] MEDS: AZITHROMYCIN 500 MG in IV NORMAL SALINE 250ML 250 ML IV SCH (18:00)
[2020-07-12] MEDS: ALBUTEROL SULFATE 2.5 MG/3 ML NEBU. NEB PRN (18:30)
[2020-07-12] MEDS: ALPRAZolam 0.5 MG TABLET PO PRN (20:20)
[2020-07-12] MEDS: ATORVASTATIN CALCIUM 20 MG TABLET PO SCH (20:20)
[2020-07-13] VITALS (20 sets, daily range): BP systolic 111–146; BP diastolic 56–93
[2020-07-13 04:36] LABS: HEMATOCRIT 28.5 % (36.0-47.0); HEMOGLOBIN 9.3 g/dL (12.0-15.5); RED BLOOD COUNT 3.49 x10^6/uL (3.50-5.40); RED CELL DISTRIBUTION WIDTH 14.7 % (11.5-14.5); WHITE BLOOD COUNT 8.6 x10^3/uL (4.0-11.0)
[2020-07-13 04:59] LABS: ALBUMIN 1.7 g/dL (3.4-5.0); ALBUMIN/GLOBULIN RATIO 0.4 (1.0-1.7); CALCIUM 8.2 mg/dL (8.5-10.1); CREATININE 0.5 mg/dL (0.6-1.0); GFR 124.6; POTASSIUM 3.7 mmol/L (3.5-5.1); TOTAL BILIRUBIN 0.3 mg/dL (0.2-1.0); TOTAL PROTEIN 5.9 g/dL (6.4-8.2)
[2020-07-13] MEDS: METOPROLOL TART IMMED RELEASE 25 MG TABLET. PO SCH ×3 (05:44→21:20)
[2020-07-13] MEDS: IV NORMAL SALINE 1000ML BAG 1,000 ML IV SCH ×2 (05:46→22:26)
[2020-07-13] MEDS: IPRATRPIUM/ALBUTEROL 0.5/2.5MG 3 ML NEBU. NEB SCH ×4 (07:51→21:21)
[2020-07-13] MEDS: THIAMINE 100 MG TABLET. PO SCH (09:13)
[2020-07-13] MEDS: MULTIVITAMIN with MINERAL TABLET. PO SCH (09:13)
[2020-07-13] MEDS: buPROPion XL 150 MG TAB.ER.24H. PO SCH (09:13)
[2020-07-13] MEDS: ASPIRIN ENTERIC COATED 81 MG TABLET.DR. PO SCH (09:13)
[2020-07-13] MEDS: POTASSIUM CHLORIDE 20 MEQ TABLET.ER. PO SCH ×3 (09:13→17:59)
[2020-07-13] MEDS: LACTOBACILLUS RHAMNOSUS GG 1 CAPSULE. PO SCH ×2 (09:13→21:19)
[2020-07-13] MEDS: FOLIC ACID 1 MG TABLET. PO SCH (09:13)
--- NOTE | 2020-07-13 09:21 | PN ---
DATE: 07/13/2020 SUBJECTIVE: The patient is resting, slightly propped up in bed, in no apparent distress. She is awake, alert. On questioning her, she denied any complaints. She stated that the alprazolam has helped her sleep last night. She did complain of cough and stated that the Tessalon Perles helped her cough. PHYSICAL EXAMINATION: GENERAL: When I examined her this morning, she looked pale, somewhat cachectic, but no jaundice, cyanosis or thyromegaly. No jugular venous distention. No limb edema. VITAL SIGNS: Her heart rate was 83, blood pressure was 114/75, temperature was 98.4, respiratory rate was 18 and oxygen saturation was 96% on room air. HEAD, EYES, EARS, NOSE AND THROAT: Showed normocephalic, atraumatic. NECK: Supple. CARDIAC: Normal first and second heart sounds. No gallop or murmur. CHEST: Shows central trachea, equal bilateral chest expansion, air entry, vesicular sounds, could not appreciate any crepitation or rhonchi anteriorly. She has dull percussion noted and absent breath sounds on the right side posteriorly. ABDOMEN: Slightly distended, soft, nontender. NEUROLOGIC: She is grossly intact. Her intake over the last 24 hours was 400, output was 750. LABORATORY DATA: Her white cell count this morning was 8600, hemoglobin 9, hematocrit 28, MCV 82 and platelet count 385,000. Her chemistry showed a serum sodium 130, potassium 3.7, chloride 97, bicarbonate 20, anion gap of 13, BUN 3, creatinine 0.5, estimated GFR was 124 mL per minute. Her glucose was 90, calcium was 8.2. Total bilirubin, AST, ALT were normal. Alkaline phosphatase slightly elevated. Total protein was 5.9, albumin was 1.7. Her prothrombin time was 14.4, INR 1.2. Her coronavirus with PCR was not detectable. ASSESSMENT: 1. Atrial fibrillation with rapid ventricular response. Heart rate is much better controlled. 2. Hyponatremia, improving. Today's sodium is up to 130 mEq/dL. 3. Chronic diastolic congestive heart failure, seems to be clinically well compensated. 4. Right-sided pleural effusion, status post drainage of 1500 mL. 5. Postobstructive pneumonia for which she continues to be on IV antibiotic. 6. Hyperlipidemia. 7. Chronic obstructive pulmonary disease. 8. Tobacco use and alcohol abuse. 9. Left subclavian artery stenosis without left subclavian steal syndrome. PLAN: To continue with current medication. Continue with IV antibiotic in the form of Rocephin and Zithromax. Continue with alprazolam for anxiety. Await the results of the cytology from the pleural effusion. Obviously, there are no malignant cells and the biopsy of the adrenal glands would be considered. OBIE MEJÍA MD DR: DREW/jomar JOB#: [id number] / [id number]
--- NOTE | 2020-07-13 11:57 | PDOC ---
PULMONARY PROGRESS NOTES DATE: 07/13/20 TIME: 11:54 Subjective no soa Vitals Vital Signs Date Time Temp Pulse Resp B/P (MAP) Pulse Ox O2 Delivery O2 Flow Rate FiO2 07/13/20 11:35 98 Room Air 07/13/20 11:00 97.6 70 20 119/56 (77) 97.6 07/13/20 07:53 2.0 General: Alert, No acute distress Lungs: Other (decrease bs) Cardiovascular: S1 Abdomen: Soft Neuro Exam: Alert Extremities: No Edema Skin: Warm Labs Laboratory Tests Test 07/11/20 13:15 07/12/20 06:15 07/13/20 04:20 Coronavirus (PCR) Not detected (Not Detected) SARS-CoV-2 Antigen (Rapid) Negative (NEGATIVE) White Blood Count 8.4 x10^3/uL (4.0-11.0) 8.6 x10^3/uL (4.0-11.0) Red Blood Count 3.39 x10^6/uL (3.50-5.40) 3.49 x10^6/uL (3.50-5.40) Hemoglobin 9.1 g/dL (12.0-15.5) 9.3 g/dL (12.0-15.5) Hematocrit 27.4 % (36.0-47.0) 28.5 % (36.0-47.0) Mean Corpuscular Volume 81 fL (79-100) 82 fL (79-100) Mean Corpuscular Hemoglobin 27 pg (25-35) 27 pg (25-35) Mean Corpuscular Hemoglobin Concent 33 g/dL (31-37) 33 g/dL (31-37) Red Cell Distribution Width 14.2 % (11.5-14.5) 14.7 % (11.5-14.5) Platelet Count 404 x10^3/uL (140-400) 385 x10^3/uL (140-400) Sodium Level 127 mmol/L (136-145) 130 mmol/L (136-145) Potassium Level 3.7 mmol/L (3.5-5.1) 3.7 mmol/L (3.5-5.1) Chloride Level 96 mmol/L (98-107) 97 mmol/L (98-107) Carbon Dioxide Level 20 mmol/L (21-32) 20 mmol/L (21-32) Anion Gap 11 (6-14) 13 (6-14) Blood Urea Nitrogen 2 mg/dL (7-20) 3 mg/dL (7-20) Creatinine 0.5 mg/dL (0.6-1.0) 0.5 mg/dL (0.6-1.0) Estimated GFR (Cockcroft-Gault) 124.6 124.6 Glucose Level 90 mg/dL (70-99) 90 mg/dL (70-99) Calcium Level 8.5 mg/dL (8.5-10.1) 8.2 mg/dL (8.5-10.1) BUN/Creatinine Ratio 6 (6-20) Total Bilirubin 0.3 mg/dL (0.2-1.0) Aspartate Amino Transf (AST/SGOT) 25 U/L (15-37) Alanine Aminotransferase (ALT/SGPT) 14 U/L (14-59) Alkaline Phosphatase 171 U/L (46-116) Total Protein 5.9 g/dL (6.4-8.2) Albumin 1.7 g/dL (3.4-5.0) Albumin/Globulin Ratio 0.4 (1.0-1.7) Laboratory Tests Test 07/13/20 04:20 White Blood Count 8.6 x10^3/uL (4.0-11.0) Red Blood Count 3.49 x10^6/uL (3.50-5.40) Hemoglobin 9.3 g/dL (12.0-15.5) Hematocrit 28.5 % (36.0-47.0) Mean Corpuscular Volume 82 fL (79-100) Mean Corpuscular Hemoglobin 27 pg (25-35) Mean Corpuscular Hemoglobin Concent 33 g/dL (31-37) Red Cell Distribution Width 14.7 % (11.5-14.5) Platelet Count 385 x10^3/uL (140-400) Sodium Level 130 mmol/L (136-145) Potassium Level 3.7 mmol/L (3.5-5.1) Chloride Level 97 mmol/L (98-107) Carbon Dioxide Level 20 mmol/L (21-32) Anion Gap 13 (6-14) Blood Urea Nitrogen 3 mg/dL (7-20) Creatinine 0.5 mg/dL (0.6-1.0) Estimated GFR (Cockcroft-Gault) 124.6 BUN/Creatinine Ratio 6 (6-20) Glucose Level 90 mg/dL (70-99) Calcium Level 8.2 mg/dL (8.5-10.1) Total Bilirubin 0.3 mg/dL (0.2-1.0) Aspartate Amino Transf (AST/SGOT) 25 U/L (15-37) Alanine Aminotransferase (ALT/SGPT) 14 U/L (14-59) Alkaline Phosphatase 171 U/L (46-116) Total Protein 5.9 g/dL (6.4-8.2) Albumin 1.7 g/dL (3.4-5.0) Albumin/Globulin Ratio 0.4 (1.0-1.7) Medications Active Scripts Medications Dose Route/Sig Max Daily Dose Days Date Category Wellbutrin Xl (Bupropion Hcl) 300 Mg Tab.er.24h 1 Tab PO DAILY 07/10/20 Reported Amlodipine-Valsartan 10-320 mg (Amlodipine/Valsartan) 1 Each Tablet 1 Tab PO DAILY 30 07/10/20 Reported Atorvastatin Calcium 20 Mg Tablet 20 Mg PO HS 07/10/20 Reported Impression . 1. Abnormal chest x-ray with mass-like density in the right lower lobe along with pleural effusion. She has lost about 10-12 pounds in the last 3 weeks with loss of appetite. She smoked for 30 years. Clinically, lung malignancy is a concern. 2. Atrial fibrillation with rapid ventricular response. Currently being followed by Cardiology. rate controlled 3. Thirty years of tobacco use, suspect underlying chronic obstructive pulmonary disease. 4. Normal ejection fraction. 5. Recent wt loss Plan . 1. Discussed with RN and patient and Son Nile CT chest findings discussed. Large mass right lung with moderate right effusion c/w Primary lung malignancy. s/p thoracentesis 07/12 . If pleural fluid non diagnostic , consider left adrenal gland bx.vs lung mass bx. Ct chest with contrast reviewed. 2. Follow Cardiology recommendation regarding her atrial fibrillation. AC on hold 3. Poor performance status. 4. will follow post thoracentesis 5. ct abdomen /pelvis reviewed. suspected left adrenal gland mets d/w Dr Harrison. d/w son in detail . ct chest pictures shown to him. 6. Consult XRT/Med oncology Addend: pleural fluid neg for malignancy. will call son for lung mass bx TANIA SMITH MD Jul 13, 2020 11:57
[2020-07-13] MEDS ORDERED: LIDOCAINE WITH 8.4% SOD BICARB 3 ML DISP.SYRIN. ONE ×2 (14:10→15:10)
[2020-07-13] MEDS ORDERED: MIDAZOLAM HCL/PF 2 MG/2 ML VIAL. ONE (14:41)
[2020-07-13] MEDS ORDERED: fentaNYL PF VIAL 100 MCG/2 ML VIAL ONE (14:41)
--- NOTE | 2020-07-13 14:41 | NUR ---
SW following. Discussed with RN, pt from home, room air, cardiac diet, COVID-19 negative, pt gets around fine. Pt likely having a biopsy. Not ready for discharge. RN advised no SW needs at this time. SW will continue to follow.
[2020-07-13] MEDS: LIDOCAINE WITH 8.4% SOD BICARB 3 ML DISP.SYRIN. IJ ONE ×2 (14:50→15:00)
--- NOTE | 2020-07-13 14:51 | PDOC ---
PROGRESS NOTES Date of Service DATE: 07/13/20 TIME: 14:47 Subjective Subjective Cris was seen in a follow-up visit today. She reports no new symptoms today. She notes that breathing has improved since her hospitalization. Review of systems was negative for fever, chills, chest pain, nausea, vomiting, diarrhea, dysuria, hematuria, flank pain Objective Objective Vital Signs Date Time Temp Pulse Resp B/P (MAP) Pulse Ox O2 Delivery O2 Flow Rate FiO2 07/13/20 14:00 70 119/56 07/13/20 11:35 98 Room Air 07/13/20 11:00 97.6 20 97.6 07/13/20 08:00 2.0 Intake and Output 07/13/20 07:00 Intake Total 980 ml Output Total 2300 ml Balance -1320 ml Intake Oral 980 ml Output Urine Total 800 ml Drainage Total 1500 ml # Voids 2 # Bowel Movements 1 Physical Exam Abdomen: Normal bowel sounds, Soft Heart: Other (Irregular rhythm) General: Alert HEENT: Atraumatic Lungs: Other (Crackles heard in the right lung and decreased breath sounds in the right lung base) MUSCULOSKELETAL: No swelling Neck: Supple Neuro: Normal speech Skin: No rashes Assessment Assessment Assessment: Right lung mass Right pleural effusion Adrenal nodule, concern for metastatic disease Tobacco abuse Atrial fibrillation with rapid ventricular response Acute diastolic heart failure Hyponatremia, improved Suspected COPD Plan Plan of Care -Agree that her presentation is concerning for metastatic lung cancer -Pleural fluid cytology negative (preliminary results) -Reasonable to pursue CT-guided biopsy of a lung nodule. This is planned for this afternoon -She would require MRI brain or PET/CT for completion of staging after confirmation of histologic diagnosis. May be completed as outpatient. -Would continue to work on smoking cessation -Management of atrial fibrillation per cardiology -Rest per primary service -Can arrange outpatient follow-up to continue work-up and management if she is discharged on the weekend -I will continue to follow Naseem Khoury MD Medical Oncology/Hematology Ph: [phone] Comment Review of Relevant I have reviewed the following items hawa (where applicable) has been applied. Labs Laboratory Tests Test 07/12/20 06:15 07/13/20 04:20 White Blood Count 8.4 x10^3/uL (4.0-11.0) 8.6 x10^3/uL (4.0-11.0) Red Blood Count 3.39 x10^6/uL (3.50-5.40) 3.49 x10^6/uL (3.50-5.40) Hemoglobin 9.1 g/dL (12.0-15.5) 9.3 g/dL (12.0-15.5) Hematocrit 27.4 % (36.0-47.0) 28.5 % (36.0-47.0) Mean Corpuscular Volume 81 fL (79-100) 82 fL (79-100) Mean Corpuscular Hemoglobin 27 pg (25-35) 27 pg (25-35) Mean Corpuscular Hemoglobin Concent 33 g/dL (31-37) 33 g/dL (31-37) Red Cell Distribution Width 14.2 % (11.5-14.5) 14.7 % (11.5-14.5) Platelet Count 404 x10^3/uL (140-400) 385 x10^3/uL (140-400) Sodium Level 127 mmol/L (136-145) 130 mmol/L (136-145) Potassium Level 3.7 mmol/L (3.5-5.1) 3.7 mmol/L (3.5-5.1) Chloride Level 96 mmol/L (98-107) 97 mmol/L (98-107) Carbon Dioxide Level 20 mmol/L (21-32) 20 mmol/L (21-32) Anion Gap 11 (6-14) 13 (6-14) Blood Urea Nitrogen 2 mg/dL (7-20) 3 mg/dL (7-20) Creatinine 0.5 mg/dL (0.6-1.0) 0.5 mg/dL (0.6-1.0) Estimated GFR (Cockcroft-Gault) 124.6 124.6 Glucose Level 90 mg/dL (70-99) 90 mg/dL (70-99) Calcium Level 8.5 mg/dL (8.5-10.1) 8.2 mg/dL (8.5-10.1) BUN/Creatinine Ratio 6 (6-20) Total Bilirubin 0.3 mg/dL (0.2-1.0) Aspartate Amino Transf (AST/SGOT) 25 U/L (15-37) Alanine Aminotransferase (ALT/SGPT) 14 U/L (14-59) Alkaline Phosphatase 171 U/L (46-116) Total Protein 5.9 g/dL (6.4-8.2) Albumin 1.7 g/dL (3.4-5.0) Albumin/Globulin Ratio 0.4 (1.0-1.7) Laboratory Tests Test 07/13/20 04:20 White Blood Count 8.6 x10^3/uL (4.0-11.0) Red Blood Count 3.49 x10^6/uL (3.50-5.40) Hemoglobin 9.3 g/dL (12.0-15.5) Hematocrit 28.5 % (36.0-47.0) Mean Corpuscular Volume 82 fL (79-100) Mean Corpuscular Hemoglobin 27 pg (25-35) Mean Corpuscular Hemoglobin Concent 33 g/dL (31-37) Red Cell Distribution Width 14.7 % (11.5-14.5) Platelet Count 385 x10^3/uL (140-400) Sodium Level 130 mmol/L (136-145) Potassium Level 3.7 mmol/L (3.5-5.1) Chloride Level 97 mmol/L (98-107) Carbon Dioxide Level 20 mmol/L (21-32) Anion Gap 13 (6-14) Blood Urea Nitrogen 3 mg/dL (7-20) Creatinine 0.5 mg/dL (0.6-1.0) Estimated GFR (Cockcroft-Gault) 124.6 BUN/Creatinine Ratio 6 (6-20) Glucose Level 90 mg/dL (70-99) Calcium Level 8.2 mg/dL (8.5-10.1) Total Bilirubin 0.3 mg/dL (0.2-1.0) Aspartate Amino Transf (AST/SGOT) 25 U/L (15-37) Alanine Aminotransferase (ALT/SGPT) 14 U/L (14-59) Alkaline Phosphatase 171 U/L (46-116) Total Protein 5.9 g/dL (6.4-8.2) Albumin 1.7 g/dL (3.4-5.0) Albumin/Globulin Ratio 0.4 (1.0-1.7) Microbiology 07/12/20 Gram Stain - Final, Resulted 07/12/20 Aerobic and Anaerobic Culture - Preliminary, Resulted Medications Current Medications Albuterol Sulfate (Ventolin Neb Soln) 2.5 mg PRN Q6HRS PRN NEB SHORTNESS OF BREATH; Start 07/08/20 at 22:15; Stop 07/10/20 at 17:05; Status DC Diltiazem HCl 125 mg/Sodium Chloride 125 ml @ 5 mls/hr CONT PRN IV SEE I/O RECORD; Start 07/08/20 at 22:00 Sodium Chloride 1,000 ml @ 75 mls/hr [id number] IV Last administered on 07/13/20at 05:46; Start 07/08/20 at 22:00 Enoxaparin Sodium (Lovenox 60mg Syringe) 60 mg Q12HR SQ Last administered on 07/10/20at 21:05; Start 07/09/20 at 09:00; Stop 07/11/20 at 08:21; Status DC Ceftriaxone Sodium (Rocephin) 1 gm Q24H IVP Last administered on 07/12/20at 18:00; Start 07/09/20 at 18:00 Azithromycin 500 mg/Sodium Chloride 250 ml @ 250 mls/hr Q24H IV Last administered on 07/12/20at 18:00; Start 07/09/20 at 18:00 Info (Anti-Coagulation Monitoring By Pharmacy) 1 each PRN DAILY PRN MC SEE COMMENTS Last administered on 07/10/20at 10:21; Start 07/08/20 at 22:15 Multivitamins 10 ml/Thiamine HCl 100 mg/Folic Acid 1 mg/Sodium Chloride 1,011.2 ml @ 100 mls/ hr DAILY IV Last administered on 07/09/20at 09:31; Start 07/09/20 at 09:00; Stop 07/09/20 at 19:07; Status DC Multivitamins (Thera M Plus) 1 tab DAILY PO Last administered on 07/13/20at 09:13; Start 07/10/20 at 09:00 Folic Acid (Folic Acid) 1 mg DAILY PO Last administered on 07/13/20at 09:13; Start 07/10/20 at 09:00 Thiamine Mononitrate (Vitamin B-1) 100 mg DAILY PO Last administered on 07/13/20at 09:13; Start 07/10/20 at 09:00 Lorazepam (Ativan) 4 mg PRN Q1HR PRN PO For CIWA 8-14; Start 07/08/20 at 22:15 Lorazepam (Ativan) 8 mg PRN Q1HR PRN PO For CIWA 15 or greater; Start 07/08/20 at 22:15 Lorazepam (Ativan Inj) 2 mg PRN Q1HR PRN IV For CIWA 8-14; Start 07/08/20 at 22:15 Lorazepam (Ativan Inj) 4 mg PRN Q1HR PRN IV For CIWA 15 or greater; Start 07/08/20 at 22:15 Haloperidol Lactate (Haldol Inj) 5 mg PRN Q4HRS PRN IVP Hallucinatns,Confusn,Delirium; Start 07/08/20 at 22:15 Diphenhydramine HCl (Benadryl) 25 mg PRN Q15MIN PRN IVP EPS symptoms 2'Haldol admin; Start 07/08/20 at 22:15 Clonidine HCl (Catapres) 0.1 mg PRN Q1HR PRN PO SBP > 180 or DBP > 100, MRX3; Start 07/08/20 at 22:15 Sodium Chloride 1,000 ml @ 285 mls/hr Q3H31M IV Last administered on 07/09/20at 05:44; Start 07/09/20 at 03:30; Stop 07/09/20 at 09:30; Status DC Norepinephrine Bitartrate 8 mg/ Dextrose 258 ml @ 10.952 mls/ hr CONT PRN IV PER PROTOCOL; Start 07/09/20 at 04:00; Stop 07/10/20 at 09:35; Status DC Metoprolol Tartrate (Lopressor) 25 mg BID PO Last administered on 07/12/20at 07:59; Start 07/09/20 at 09:00; Stop 07/12/20 at 14:37; Status DC Lactobacillus Rhamnosus (Culturelle) 1 cap BID PO Last administered on 07/13/20at 09:13; Start 07/09/20 at 09:00 Potassium Chloride (Klor-Con) 20 meq TIDWMEALS PO Last administered on 07/13/20at 09:13; Start 07/09/20 at 09:00 Atorvastatin Calcium (Lipitor) 20 mg HS PO Last administered on 07/12/20at 20:20; Start 07/10/20 at 21:00 Bupropion HCl (Wellbutrin Xl) 300 mg DAILY PO Last administered on 07/13/20at 09:13; Start 07/10/20 at 11:00 Benzonatate (Tessalon Perle) 100 mg 1X ONCE PO Last administered on 07/10/20at 15:51; Start 07/10/20 at 15:45; Stop 07/10/20 at 15:46; Status DC Furosemide (Lasix) 20 mg 1X ONCE IVP Last administered on 07/10/20at 17:18; Start 07/10/20 at 17:00; Stop 07/10/20 at 17:05; Status DC Albuterol Sulfate (Ventolin Neb Soln) 2.5 mg 1X ONCE NEB Last administered on 07/10/20at 17:24; Start 07/10/20 at 17:00; Stop 07/10/20 at 17:03; Status DC Albuterol Sulfate (Ventolin Neb Soln) 2.5 mg PRN Q6HRS PRN NEB SHORTNESS OF BREATH Last administered on 07/12/20at 18:30; Start 07/10/20 at 17:00 Alprazolam (Xanax) 0.5 mg 1X ONCE PO Last administered on 07/10/20at 17:18; Start 07/10/20 at 17:00; Stop 07/10/20 at 17:05; Status DC Aspirin (Ecotrin) 81 mg DAILYWBKFT PO Last administered on 07/13/20at 09:13; Start 07/11/20 at 12:00 Potassium Chloride (Klor-Con) 40 meq 1X ONCE PO ; Start 07/11/20 at 11:15; Stop 07/11/20 at 11:16; Status UNV Iohexol (Omnipaque 240 Mg/ml) 30 ml 1X ONCE PO Last administered on 07/11/20at 12:15; Start 07/11/20 at 12:15; Stop 07/11/20 at 12:16; Status DC Iohexol (Omnipaque 300 Mg/ml) 75 ml 1X ONCE IV Last administered on 07/11/20at 12:15; Start 07/11/20 at 12:15; Stop 07/11/20 at 12:16; Status DC Info (CONTRAST GIVEN -- Rx MONITORING) 1 each PRN DAILY PRN MC SEE COMMENTS; Start 07/11/20 at 12:15; Stop 07/13/20 at 12:14; Status DC Benzonatate (Tessalon Perle) 100 mg PRN TID PRN PO COUGH Last administered on 07/12/20at 12:00; Start 07/11/20 at 20:15 Alprazolam (Xanax) 0.5 mg PRN Q8HRS PRN PO ANXIETY / AGITATION Last administered on 07/11/20at 22:17; Start 07/11/20 at 20:15 Lidocaine HCl (Buffered Lidocaine 1%) 3 ml STK-MED ONCE .ROUTE ; Start 07/12/20 at 08:16; Stop 07/12/20 at 08:17; Status DC Lidocaine HCl (Buffered Lidocaine 1%) 6 ml 1X ONCE INJ Last administered on 07/12/20at 08:52; Start 07/12/20 at 08:45; Stop 07/12/20 at 08:51; Status DC Iohexol (Omnipaque 300 Mg/ml) 75 ml 1X ONCE IV Last administered on 07/12/20at 09:15; Start 07/12/20 at 09:00; Stop 07/12/20 at 09:03; Status DC Metoprolol Tartrate (Lopressor) 25 mg 1X ONCE PO Last administered on 07/12/20at 13:14; Start 07/12/20 at 12:15; Stop 07/12/20 at 12:21; Status DC Metoprolol Tartrate (Lopressor) 25 mg Q8HRS PO Last administered on 07/13/20at 05:44; Start 07/12/20 at 22:00 Fentanyl Citrate (Fentanyl 2ml Vial) 50 mcg PRN Q3HRS PRN IVP PAIN; Start 07/12/20 at 17:30 Alprazolam (Xanax) 0.75 mg PRN 1X PRN PO ANXIETY Last administered on 07/12/20at 20:20; Start 07/12/20 at 17:30 Albuterol/ Ipratropium (Duoneb) 3 ml RTQID NEB Last administered on 07/13/20at 11:34; Start 07/13/20 at 08:00 Lidocaine HCl (Buffered Lidocaine 1%) 3 ml STK-MED ONCE .ROUTE ; Start 07/13/20 at 14:10; Stop 07/13/20 at 14:10; Status DC Midazolam HCl (Versed) 2 mg STK-MED ONCE .ROUTE ; Start 07/13/20 at 14:41; Stop 07/13/20 at 14:41; Status DC Fentanyl Citrate (Fentanyl 2ml Vial) 100 mcg STK-MED ONCE .ROUTE ; Start at 14:41; Stop 07/13/20 at 14:42; Status DC Active Scripts Active Reported Wellbutrin Xl (Bupropion Hcl) 300 Mg Tab.er.24h 1 Tab PO DAILY Amlodipine-Valsartan 10-320 mg (Amlodipine/Valsartan) 1 Each Tablet 1 Tab PO STAR LY 30 Days Atorvastatin Calcium 20 Mg Tablet 20 Mg PO HS Vitals/I & O Vital Sign - Last 24 Hours 07/12/20 07/12/20 07/12/20 07/12/20 15:00 18:30 19:15 20:07 Temp 98.2 98.3 98.2 98.3 Pulse 62 101 Resp 20 18 B/P (MAP) 135/68 (90) 110/70 (83) Pulse Ox 92 97 95 O2 Delivery Room Air Nasal Cannula Room Air Nasal Cannula O2 Flow Rate 2.0 2.0 07/12/20 07/12/20 07/12/20 07/13/20 20:37 22:29 22:47 03:21 Temp 97.7 97.4 97.7 97.4 Pulse 108 101 81 Resp 16 16 B/P (MAP) 112/77 (89) 110/70 111/66 (81) Pulse Ox 93 94 95 O2 Delivery Room Air Room Air Nasal Cannula O2 Flow Rate 2.0 07/13/20 07/13/20 07/13/20 07/13/20 05:44 07:00 07:53 08:00 Temp 98.4 98.4 Pulse 81 83 Resp 18 B/P (MAP) 111/66 114/75 (88) Pulse Ox 96 92 O2 Delivery Room Air Nasal Cannula Nasal Cannula O2 Flow Rate 2.0 2.0 07/13/20 07/13/20 07/13/20 11:00 11:35 14:00 Temp 97.6 97.6 Pulse 70 70 Resp 20 B/P (MAP) 119/56 (77) 119/56 Pulse Ox 93 98 O2 Delivery Room Air Room Air Intake and Output 07/12/20 07/12/20 07/13/20 15:00 23:00 07:00 Intake Total 100 ml 680 ml 200 ml Output Total 1900 ml 400 ml Balance -1800 ml 680 ml -200 ml Justifications for Admission Other Justification Nutrition Consultation Dietary Evaluation: Recommendations by RD: Dietary education by RD, Increase Calorie Intake, Protein supplementation Comments: Continue cardiac diet with Ensure BID Expected Outcomes/Goals: PO intake to meet >75% est needs Interpretation of weight loss: >5% in 1 month Malnutrition Findings: Food and Nutrition Intake (Mod: <75% est energy req 7days Weight Status: Appropriate SAMMY KHOURY MD Jul 13, 2020 14:51
[2020-07-13] MEDS ORDERED: fentaNYL PF VIAL 100 MCG/2 ML VIAL IV ONE (15:00)
[2020-07-13] MEDS ORDERED: MIDAZOLAM HCL/PF 2 MG/2 ML VIAL. IV ONE (15:00)
--- NOTE | 2020-07-13 15:07 | PATHOLOGY ---
Note [facility] Accession Number: [id number] TESTS RESULT FLAG UNITS REF RANGE LAB Clinician Provided Cytology Information No. of containers..01 Other (Miscellaneous) Source: 01 RIGHT PLEURAL FLUID DIAGNOSIS: 02 RIGHT PLEURAL FLUID NEGATIVE FOR MALIGNANT CELLS. REACTIVE MESOTHELIAL CELLS PRESENT WITHIN A BACKGROUND OF PREDOMINANTLY CHRONIC INFLAMMATORY CELLS. THIS INTERPRETATION INCLUDES EVALUATION OF A CELL BLOCK. Signed out by: 02 Nando Donald MD, Pathologist NPI- [id number] Performed by: Devora Perez, Cruise Coordinator ([facility]) Gross description: 01 35ML, DARK YELLOW, 1 TP 1 CB /LCS 07/12/2020 1710 Local FLAG LEGEND: L-Low Normal,H-High Normal,LL-Alert Low,HH-Alert High <-Panic Low,>-Panic High,A-Abnormal,AA-Critical Abnormal Performed at: [address] [place] [address] Juanito Olson MD, 02 [facility] [address] [place] [address] Nando Donald MD, Specimen Comment: A courtesy copy of this report has been sent to [phone], [phone] Specimen Comment: [id number] Specimen Comment: Report sent to / DR RAMIREZ Performed at: [address], [place], [place] [id number] MD Juanito Olson MD Phone: [phone]
--- NOTE | 2020-07-13 16:02 | NUR ---
Have reviewed documentation completed by regulatory intern and made changes as needed/appropriate
--- NOTE | 2020-07-13 16:09 | RAD ---
07/13/2020 CT-guided biopsy, right middle lobe mass CT-guided chest tube placement, right-sided Discussion: The procedure was explained in its entirety to the patient or the patients designated commercial representative by a member of the treatment team, including a discussion of the risks, benefits and commonly accepted alternatives to the procedure, as well as the expected consequences of no therapy whatsoever. Discussion of the risks included, but was not limited to, those that are most frequent and those that are rare but possibly severe or life-threatening, as well as the possibility of unforeseen complications. All elements of maximal sterile barrier technique including the use of a cap, mask, sterile gown, sterile gloves, large sterile sheet, appropriate hand hygiene, and 2% chlorhexidine for cutaneous antisepsis (or acceptable alternative antiseptic per current guidelines) were followed for this procedure. CT imaging redemonstrates consolidation in the right middle lobe concerning for malignancy. Previously drained pleural effusion has significantly recurred. 1% lidocaine was administered for local anesthesia to the anterior chest wall. Under intermittent CT guidance a 17-gauge needle was advanced to the consolidation. Biopsy samples were obtained. The needle was removed. Small post biopsy pneumothorax noted. Given large pleural effusion, small pneumothorax, and significant shortness of breath decision to place a 10 Belgian pigtail drain was made. This was discussed with the patient was in agreement. The right chest was prepped and draped using sterile barrier technique. 1% lidocaine was administered for local anesthesia. 5 Belgian Yueh needle was advanced into the pleural space. A guidewire was advanced into the pleural space over which following dilatation a 10 Belgian pigtail drain was placed. Pleural fluid was freely aspirated. The catheters were secured in place. Sterile dressings were applied. No immediate complications were identified. Impression: 1. CT-guided biopsy right middle lobe masslike consolidation 2. CT-guided right chest tube placement PQRS Compliance Statement: One or more of the following individualized dose reduction techniques were utilized for this examination: 1. Automated exposure control 2. Adjustment of the mA and/or kV according to patient size 3. Use of iterative reconstruction technique
--- NOTE | 2020-07-13 16:15 | NUR ---
Pt returned to unit s/p lung biopsy. During procedure, pt did require a CT to be placed. 10 F pigtail chest tube was placed in procedure in IR. PT to unit from IR in stable condition. CT to right lateral side with dressing intact. Pt set up to -20 suction with a small air leak noted. IR staff at bedside when air leak was noted. Will continue to monitor.
[2020-07-13] MEDS: cefTRIAXone IV Push 1 GM VIAL. IVP SCH (18:00)
[2020-07-13] MEDS: AZITHROMYCIN 500 MG in IV NORMAL SALINE 250ML 250 ML IV SCH (18:03)
[2020-07-13] MEDS: ATORVASTATIN CALCIUM 20 MG TABLET PO SCH (21:00)
[2020-07-13] MEDS: ALPRAZolam 0.5 MG TABLET PO PRN (21:21)
[2020-07-14] VITALS (7 sets, daily range): BP systolic 124–139; BP diastolic 69–86
[2020-07-14] MEDS: METOPROLOL TART IMMED RELEASE 25 MG TABLET. PO SCH ×3 (05:49→22:22)
[2020-07-14] MEDS ORDERED: ALPRAZolam 0.25 MG TABLET PO PRN (07:37)
[2020-07-14] MEDS: IPRATRPIUM/ALBUTEROL 0.5/2.5MG 3 ML NEBU. NEB SCH ×4 (07:44→20:07)
[2020-07-14] MEDS: THIAMINE 100 MG TABLET. PO SCH (09:01)
[2020-07-14] MEDS: ASPIRIN ENTERIC COATED 81 MG TABLET.DR. PO SCH (09:01)
[2020-07-14] MEDS: FOLIC ACID 1 MG TABLET. PO SCH (09:01)
[2020-07-14] MEDS: LACTOBACILLUS RHAMNOSUS GG 1 CAPSULE. PO SCH ×2 (09:01→22:22)
[2020-07-14] MEDS: MULTIVITAMIN with MINERAL TABLET. PO SCH (09:01)
[2020-07-14] MEDS: buPROPion XL 150 MG TAB.ER.24H. PO SCH (09:02)
[2020-07-14] MEDS: POTASSIUM CHLORIDE 20 MEQ TABLET.ER. PO SCH ×3 (09:02→17:41)
--- NOTE | 2020-07-14 09:54 | RAD ---
PORTABLE CHEST 1V 9:08 AM Clinical indications: Pleural effusion. Follow-up study. COMPARISON: July 09, 2020. Findings: There is a large right-sided pleural effusion which has increased in size. Again seen is a right lower lung consolidation and mass. The patient had a CT-guided lung biopsy on July 13, 2020. No pneumothorax is seen today. There is a lower pleural space right sided chest tube now in position. There has been an increase in interstitial pulmonary edema within the right upper lobe. No new lung infiltrate or pleural effusion is seen on the left side. Heart size and mediastinum are stable. Impression: Increase in right-sided pleural effusion with right-sided chest tube in place. No pneumothorax is seen. Increase in right upper lobe interstitial pulmonary edema. Electronically signed by: Juvenal Phillips MD (07/14/2020 9:51 AM) [id number]
--- NOTE | 2020-07-14 10:34 | PDOC ---
PROGRESS NOTES Date of Service: DATE: 07/14/20 TIME: 10:34 Subjective Subjective Patient denied any chest pain, shortness of breath or palpitations. Objective Objective Vital Signs Date Time Temp Pulse Resp B/P (MAP) Pulse Ox O2 Delivery O2 Flow Rate FiO2 07/14/20 07:45 96 Nasal Cannula 2.0 07/14/20 07:00 98.2 95 16 125/76 (92) 98.2 Intake and Output 07/14/20 07:00 Intake Total 750 ml Output Total 1750 ml Balance -1000 ml Intake Oral 750 ml Output Urine Total 1750 ml Drainage Total 0 ml Physical Exam Abdomen: Normal bowel sounds, Soft Heart: Other (Irregular rhythm) Extremities: No clubbing General: Alert HEENT: Atraumatic Lungs: Other (Crackles heard in the right lung and decreased breath sounds in the right lung base) MUSCULOSKELETAL: No swelling Neck: Supple Neuro: Normal speech Psych/Mental Status: Mental status NL Skin: No rashes Assessment Assessment 1. AFIB with RVR; new onset, rate now controlled. Continue metoprolol. Will hold off on long-term anticoagulation till work-up for lung mass is completed. Continue aspirin. Will consider outpatient cardioversion if able to start OAC. 2. Diastolic CHF: appears compensated. EF and WM nml 3. Hypertension; controlled 4. Hyperlipidemia: controlled 5. Hypokalemia; replaced 6. Hyponatremia: beer potomania? SIADH? per PCP 7. Suspect COPD with tobaccoism: Advised smoking cessation. Pulmonary team following. 8. ETOH misuse: Advised on complete abstinence 9. Left subclavian arterial stenosis. No left arm claudication symptoms. Monitor as an outpt 10. Presyncope: possibly from arrhythmia rather than subclavian stenosis. None further 11. Right lung mass with pleural effusion: possible malignancy. post thor acentesis 1.5 L, cytology pending 12. Protein malnutrition Comment Review of Relevant I have reviewed the following items hawa (where applicable) has been applied. Labs Microbiology 07/12/20 Gram Stain - Final, Resulted 07/12/20 Aerobic and Anaerobic Culture - Preliminary, Resulted Medications Current Medications Alprazolam (Xanax) 0.75 mg PRN 1X PRN PO ANXIETY, 2ND CHOICE; Start 07/14/20 at 07:37 Fentanyl Citrate (Fentanyl 2ml Vial) 100 mcg 1X ONCE IV ; Start 07/13/20 at 15:00; Stop 07/13/20 at 15:01; Status DC Fentanyl Citrate (Fentanyl 2ml Vial) 100 mcg STK-MED ONCE .ROUTE ; Start 07/13/20 at 14:41; Stop 07/13/20 at 14:42; Status DC Lidocaine HCl (Buffered Lidocaine 1%) 3 ml 1X ONCE IJ Last administered on 07/13/20at 15:00; Start 07/13/20 at 15:00; Stop 07/13/20 at 15:01; Status DC Lidocaine HCl (Buffered Lidocaine 1%) 3 ml STK-MED ONCE .ROUTE ; Start 07/13/20 at 14:10; Stop 07/13/20 at 14:10; Status DC Lidocaine HCl (Buffered Lidocaine 1%) 3 ml STK-MED ONCE .ROUTE ; Start 07/13/20 at 15:10; Stop 07/13/20 at 15:11; Status DC Midazolam HCl (Versed) 2 mg 1X ONCE IV Last administered on 07/13/20at 15:00; Start 07/13/20 at 15:00; Stop 07/13/20 at 15:01; Status DC Midazolam HCl (Versed) 2 mg STK-MED ONCE .ROUTE ; Start 07/13/20 at 14:41; Stop 07/13/20 at 14:41; Status DC Vitals/I & O Vital Sign - Last 24 Hours 07/13/20 07/13/20 07/13/20 07/13/20 11:00 11:35 14:00 14:49 Temp 97.6 97.6 Pulse 70 70 64 Resp 20 13 B/P (MAP) 119/56 (77) 119/56 Pulse Ox 93 98 93 O2 Delivery Room Air Room Air Nasal Cannula O2 Flow Rate 4.0 07/13/20 07/13/20 07/13/20 07/13/20 14:55 14:59 15:00 15:03 Pulse 65 82 91 Resp 12 12 12 14 B/P (MAP) 139/85 (103) 128/76 (93) 119/75 (90) Pulse Ox 90 90 95 O2 Delivery Nasal Cannula Nasal Cannula Nasal Cannula O2 Flow Rate 4.0 4.0 4.0 07/13/20 07/13/20 07/13/20 07/13/20 15:08 15:13 15:18 15:24 Pulse 100 110 103 100 Resp 14 14 15 14 B/P (MAP) 128/82 (97) 130/93 (105) 140/85 (103) Pulse Ox 91 93 100 93 O2 Delivery Nasal Cannula Nasal Cannula Nasal Cannula Nasal Cannula O2 Flow Rate 4.0 4.0 4.0 4.0 07/13/20 07/13/20 07/13/20 07/13/20 16:33 16:48 17:03 17:18 Pulse 135 135 104 B/P (MAP) 146/90 (108) 114/72 (86) 115/73 (87) 120/85 (97) O2 Delivery Nasal Cannula Nasal Cannula Nasal Cannula Nasal Cannula 07/13/20 07/13/20 07/13/20 07/13/20 17:33 17:48 18:03 19:40 Temp 98.2 98.2 Pulse 114 124 124 75 Resp 18 B/P (MAP) 123/77 (92) 117/85 (96) 129/77 (94) 117/71 (86) Pulse Ox 95 O2 Delivery Nasal Cannula Nasal Cannula Nasal Cannula Nasal Cannula O2 Flow Rate 4.0 07/13/20 07/13/20 07/13/20 07/14/20 20:00 21:20 23:06 03:41 Temp 97.7 97.5 97.7 97.5 Pulse 75 99 88 Resp 18 18 B/P (MAP) 117/71 112/68 (83) 126/74 (91) Pulse Ox 100 95 O2 Delivery Nasal Cannula Nasal Cannula Nasal Cannula O2 Flow Rate 2.0 4.0 4.0 07/14/20 07/14/20 07/14/20 05:49 07:00 07:45 Temp 98.2 98.2 Pulse 88 95 Resp 16 B/P (MAP) 126/74 125/76 (92) Pulse Ox 98 96 O2 Delivery Nasal Cannula Nasal Cannula O2 Flow Rate 2.0 2.0 Intake and Output 07/13/20 07/13/20 07/14/20 15:00 23:00 07:00 Intake Total 240 ml 350 ml 160 ml Output Total 400 ml 450 ml 900 ml Balance -160 ml -100 ml -740 ml KARYN HANNAH MD Jul 14, 2020 10:34
[2020-07-14] MEDS: IV NORMAL SALINE 1000ML BAG 1,000 ML IV SCH (11:08)
--- NOTE | 2020-07-14 11:23 | PDOC ---
PULMONARY PROGRESS NOTES DATE: 07/14/20 TIME: 11:20 Subjective no soa s/p right lung mass bx, small PTX and right recurent effusion. s/p right chest tube Vitals Vital Signs Date Time Temp Pulse Resp B/P (MAP) Pulse Ox O2 Delivery O2 Flow Rate FiO2 07/14/20 07:45 96 Nasal Cannula 2.0 07/14/20 07:00 98.2 95 16 125/76 (92) 98.2 General: Alert, No acute distress Lungs: Other (decrease bs) Cardiovascular: S1 Abdomen: Soft Neuro Exam: Alert Extremities: No Edema Skin: Warm Labs Laboratory Tests Test 07/13/20 04:20 White Blood Count 8.6 x10^3/uL (4.0-11.0) Red Blood Count 3.49 x10^6/uL (3.50-5.40) Hemoglobin 9.3 g/dL (12.0-15.5) Hematocrit 28.5 % (36.0-47.0) Mean Corpuscular Volume 82 fL (79-100) Mean Corpuscular Hemoglobin 27 pg (25-35) Mean Corpuscular Hemoglobin Concent 33 g/dL (31-37) Red Cell Distribution Width 14.7 % (11.5-14.5) Platelet Count 385 x10^3/uL (140-400) Sodium Level 130 mmol/L (136-145) Potassium Level 3.7 mmol/L (3.5-5.1) Chloride Level 97 mmol/L (98-107) Carbon Dioxide Level 20 mmol/L (21-32) Anion Gap 13 (6-14) Blood Urea Nitrogen 3 mg/dL (7-20) Creatinine 0.5 mg/dL (0.6-1.0) Estimated GFR (Cockcroft-Gault) 124.6 BUN/Creatinine Ratio 6 (6-20) Glucose Level 90 mg/dL (70-99) Calcium Level 8.2 mg/dL (8.5-10.1) Total Bilirubin 0.3 mg/dL (0.2-1.0) Aspartate Amino Transf (AST/SGOT) 25 U/L (15-37) Alanine Aminotransferase (ALT/SGPT) 14 U/L (14-59) Alkaline Phosphatase 171 U/L (46-116) Total Protein 5.9 g/dL (6.4-8.2) Albumin 1.7 g/dL (3.4-5.0) Albumin/Globulin Ratio 0.4 (1.0-1.7) Medications Active Scripts Medications Dose Route/Sig Max Daily Dose Days Date Category Wellbutrin Xl (Bupropion Hcl) 300 Mg Tab.er.24h 1 Tab PO DAILY 07/10/20 Reported Amlodipine-Valsartan 10-320 mg (Amlodipine/Valsartan) 1 Each Tablet 1 Tab PO DAILY 30 07/10/20 Reported Atorvastatin Calcium 20 Mg Tablet 20 Mg PO HS 07/10/20 Reported Impression . 1. Abnormal chest x-ray with large mass in the right lower lobe along with pleural effusion. She has lost about 10-12 pounds in the last 3 weeks with loss of appetite. She smoked for 30 years. Clinically, lung malignancy is a concern. Pleural fluid cytology neg. s/p right lung mass bx, small PTX and right recurrent effusion. s/p right chest tube 2. Atrial fibrillation with rapid ventricular response. Currently being followed by Cardiology. rate controlled 3. Thirty years of tobacco use, suspect underlying chronic obstructive pulmonary disease. 4. Normal ejection fraction. 5. Recent wt loss Plan . 1. Discussed with RN and patient and Son Nile CT chest findings discussed. La rge mass right lung with moderate right effusion c/w Primary lung malignancy. s/p thoracentesis 07/12 . pleural fluid non diagnostic , s/p right lung mass bx, small PTX and right recurent effusion. s/p right chest tube. Air leak today. continue to suction. 2. Follow Cardiology recommendation regarding her atrial fibrillation. AC on hold 3. Poor performance status. 4. will follow bx result 5. ct abdomen /pelvis reviewed. suspected left adrenal gland mets d/w Dr Harrison. d/w son in detail . ct chest pictures shown to him. 6. Consulted XRT/Med oncology TANIA SMITH MD Jul 14, 2020 11:23
--- NOTE | 2020-07-14 11:39 | PN ---
DATE: 07/14/2020 SUBJECTIVE: The patient is resting, slightly propped up in bed, in no apparent respiratory distress. She denied any chest pain or shortness of breath. Denied any cough, phlegm, or hemoptysis. She had a CT-guided biopsy of the lung mass done yesterday and had chest tube placed to Pleur-evac. Has had a chest x-ray done this morning, which showed that there is no pneumothorax, but her right side pleural effusion has reaccumulated. PHYSICAL EXAMINATION: GENERAL: When I examined her, she looked pale, but no jaundice, cyanosis, or thyromegaly. No jugular venous distention. No lower limb edema. VITAL SIGNS: Her heart rate was 95, blood pressure was 125/76, temperature was 98.2, respiratory rate was 16, and oxygen saturation was 98% on 2 liters of oxygen. HEAD, EYES, EARS, NOSE, AND THROAT: Showed normocephalic, atraumatic. NECK: Supple. HEART: Showed normal first and second heart sounds. No gallop, rub or murmur. CHEST: Showed central trachea. Equal bilateral expansion, air entry, vesicular breath sounds. No crepitation or rhonchi anteriorly on the right side. She has a chest tube in place and posteriorly dull percussion noted and absent breath sounds. ABDOMEN: Distended, soft, nontender. NEUROLOGIC: She is grossly intact. Her intake was 980, output was 2300. LABORATORY DATA: As of yesterday showed a white cell count of 8.6; hemoglobin 9.3; hematocrit 28; MCV 82 and platelet count 385,000. Her chemistry showed a serum sodium 130, potassium 3.7, chloride 97, bicarbonate 20, anion gap of 13, BUN 3, creatinine 0.5, estimated GFR was 124 mL per minute. Her glucose was 90, calcium was 8.2. Total bilirubin, AST, ALT were normal. Alkaline phosphatase slightly elevated. Total protein was 5.9. Albumin was 1.7. ASSESSMENT: 1. Atrial fibrillation with rapid ventricular response. Heart rate is much better controlled. She is now on metoprolol tartrate 25 mg every 8 hours. 2. Postobstructive pneumonia, for which she is on Zithromax and ceftriaxone. 3. Hyponatremia, improved. As of yesterday, her serum sodium was 130 mEq per liter. 4. Chronic diastolic congestive heart failure, seems to be clinically well compensated. 5. Large right-sided pleural effusion, status post drainage of 1500 mL. The pleural fluid was negative for malignant cells. 6. Chronic obstructive pulmonary disease. 7. Mass in the right middle lobe, status post CT-guided biopsy. She has a chest tube to Pleur-evac. The chest x-ray done this morning showed there is no evidence of pneumothorax, but the right-sided pleural effusion has reaccumulated. 8. Tobacco use and alcohol abuse. 9. Left subclavian artery stenosis. PLAN: To continue with chest tube management. Continue with IV Rocephin and Zithromax. Continue with alprazolam for anxiety. Await the result of the lung biopsy. OBIE MEJÍA MD DR: DREW/jomar JOB#: [id number] / [id number]
[2020-07-14] MEDS: cefTRIAXone IV Push 1 GM VIAL. IVP SCH (17:40)
[2020-07-14] MEDS: AZITHROMYCIN 500 MG in IV NORMAL SALINE 250ML 250 ML IV SCH (17:41)
[2020-07-14] MEDS: ATORVASTATIN CALCIUM 20 MG TABLET PO SCH (22:21)
[2020-07-15] VITALS (7 sets, daily range): BP systolic 117–147; BP diastolic 70–97
[2020-07-15] MEDS: IV NORMAL SALINE 1000ML BAG 1,000 ML IV SCH ×2 (01:24→13:20)
[2020-07-15 04:37] LABS: HEMATOCRIT 27.6 % (36.0-47.0); HEMOGLOBIN 9.1 g/dL (12.0-15.5); RED BLOOD COUNT 3.36 x10^6/uL (3.50-5.40); RED CELL DISTRIBUTION WIDTH 14.6 % (11.5-14.5); WHITE BLOOD COUNT 9.6 x10^3/uL (4.0-11.0)
[2020-07-15 04:54] LABS: ALBUMIN 1.8 g/dL (3.4-5.0); ALBUMIN/GLOBULIN RATIO 0.5 (1.0-1.7); CREATININE 0.5 mg/dL (0.6-1.0); GFR 124.6; POTASSIUM 3.6 mmol/L (3.5-5.1); TOTAL BILIRUBIN 0.3 mg/dL (0.2-1.0); TOTAL PROTEIN 5.8 g/dL (6.4-8.2)
[2020-07-15] MEDS: METOPROLOL TART IMMED RELEASE 25 MG TABLET. PO SCH ×3 (06:20→21:38)
[2020-07-15] MEDS: IPRATRPIUM/ALBUTEROL 0.5/2.5MG 3 ML NEBU. NEB SCH ×4 (07:23→20:11)
[2020-07-15] MEDS: buPROPion XL 150 MG TAB.ER.24H. PO SCH (08:47)
[2020-07-15] MEDS: POTASSIUM CHLORIDE 20 MEQ TABLET.ER. PO SCH ×3 (08:47→17:37)
[2020-07-15] MEDS: LACTOBACILLUS RHAMNOSUS GG 1 CAPSULE. PO SCH ×2 (08:48→21:38)
[2020-07-15] MEDS: FOLIC ACID 1 MG TABLET. PO SCH (08:48)
[2020-07-15] MEDS: ASPIRIN ENTERIC COATED 81 MG TABLET.DR. PO SCH (08:48)
[2020-07-15] MEDS: THIAMINE 100 MG TABLET. PO SCH (08:48)
[2020-07-15] MEDS: MULTIVITAMIN with MINERAL TABLET. PO SCH (08:48)
--- NOTE | 2020-07-15 09:31 | RAD ---
PORTABLE CHEST 1V Clinical indications: Pleural effusion. Follow study. COMPARISON: July 14, 2020. FINDINGS/ IMPRESSION: Again seen is a large right-sided pleural effusion and associated compressive atelectasis or infiltrate of the right lower lung zone. Interstitial pulmonary edema within the right upper lobe has improved. Position of right inferior chest tube is unchanged. No pneumothorax is seen. No acute abnormality is seen within the left lung field. Heart size and mediastinum are stable. Electronically signed by: Juvenal Phillips MD (07/15/2020 9:28 AM) [id number]
--- NOTE | 2020-07-15 09:32 | PDOC ---
PROGRESS NOTES Date of Service: DATE: 07/15/20 TIME: 09:32 Subjective Subjective Denied any palpitations or dyspnea. Objective Objective Vital Signs Date Time Temp Pulse Resp B/P (MAP) Pulse Ox O2 Delivery O2 Flow Rate FiO2 07/15/20 07:24 99 Nasal Cannula 1.0 07/15/20 07:15 97.9 92 20 147/97 (114) 97.9 Intake and Output 07/15/20 07:00 Intake Total 100 ml Output Total 200 ml Balance -100 ml Intake Oral 100 ml Output Urine Total 200 ml Chest Tube Drainage Total 0 ml # Voids 4 # Bowel Movements 2 Physical Exam Abdomen: Normal bowel sounds, Soft Heart: Other (Irregular rhythm) Extremities: No clubbing General: Alert HEENT: Atraumatic Lungs: Other (Crackles heard in the right lung and decreased breath sounds in the right lung base) MUSCULOSKELETAL: No swelling Neck: Supple Neuro: Normal speech Psych/Mental Status: Mental status NL Skin: No rashes Assessment Assessment 1. AFIB with RVR; new onset, rate better controlled but still slightly elevated. Increase metoprolol dose. Will hold off on long-term anticoagulation till work-up for lung mass is completed. Continue aspirin. Will consider outpatient cardioversion if able to start OAC. 2. Diastolic CHF: appears compensated. EF and WM nml 3. Hypertension; controlled 4. Hyperlipidemia: controlled 5. Hypokalemia; replaced 6. Hyponatremia: beer potomania? SIADH? per PCP 7. Suspect COPD with tobaccoism: Advised smoking cessation. Pulmonary team following. 8. ETOH misuse: Advised on complete abstinence 9. Left subclavian arterial stenosis. No left arm claudication symptoms. Monit or as an outpt 10. Presyncope: possibly from arrhythmia rather than subclavian stenosis. None further 11. Right lung mass with pleural effusion: possible malignancy. post thoracentesis s/p chest tube placement presently with prolonged tube. Interventional radiology consulted. 12. Protein malnutrition Comment Review of Relevant I have reviewed the following items hawa (where applicable) has been applied. Labs Laboratory Tests Test 07/15/20 04:00 White Blood Count 9.6 x10^3/uL (4.0-11.0) Red Blood Count 3.36 x10^6/uL (3.50-5.40) Hemoglobin 9.1 g/dL (12.0-15.5) Hematocrit 27.6 % (36.0-47.0) Mean Corpuscular Volume 82 fL (79-100) Mean Corpuscular Hemoglobin 27 pg (25-35) Mean Corpuscular Hemoglobin Concent 33 g/dL (31-37) Red Cell Distribution Width 14.6 % (11.5-14.5) Platelet Count 441 x10^3/uL (140-400) Sodium Level 130 mmol/L (136-145) Potassium Level 3.6 mmol/L (3.5-5.1) Chloride Level 99 mmol/L (98-107) Carbon Dioxide Level 19 mmol/L (21-32) Anion Gap 12 (6-14) Blood Urea Nitrogen 3 mg/dL (7-20) Creatinine 0.5 mg/dL (0.6-1.0) Estimated GFR (Cockcroft-Gault) 124.6 BUN/Creatinine Ratio 6 (6-20) Glucose Level 84 mg/dL (70-99) Calcium Level 8.0 mg/dL (8.5-10.1) Total Bilirubin 0.3 mg/dL (0.2-1.0) Aspartate Amino Transf (AST/SGOT) 21 U/L (15-37) Alanine Aminotransferase (ALT/SGPT) 11 U/L (14-59) Alkaline Phosphatase 152 U/L (46-116) Total Protein 5.8 g/dL (6.4-8.2) Albumin 1.8 g/dL (3.4-5.0) Albumin/Globulin Ratio 0.5 (1.0-1.7) Microbiology 07/12/20 Gram Stain - Final, Resulted 07/12/20 Aerobic and Anaerobic Culture - Preliminary, Resulted Vitals/I & O Vital Sign - Last 24 Hours 07/14/20 07/14/20 07/14/20 07/14/20 11:00 11:33 14:21 15:00 Temp 97.8 98.4 97.8 98.4 Pulse 96 96 90 Resp 18 16 B/P (MAP) 139/82 (101) 139/82 124/76 (92) Pulse Ox 100 100 93 O2 Delivery Room Air Nasal Cannula Room Air O2 Flow Rate 2.0 07/14/20 07/14/20 07/14/20 07/14/20 15:33 19:20 20:00 20:08 Temp 97.7 97.7 Pulse 117 Resp 21 B/P (MAP) 126/86 (99) Pulse Ox 99 96 95 O2 Delivery Nasal Cannula Room Air Nasal Cannula Room Air O2 Flow Rate 1.0 2.0 07/14/20 07/14/20 07/15/20 07/15/20 22:22 23:25 04:05 06:20 Temp 97.8 97.7 97.8 97.7 Pulse 117 91 107 107 Resp 20 B/P (MAP) 126/86 135/77 (96) 125/75 (92) 125/75 Pulse Ox 95 97 O2 Delivery Room Air Room Air 07/15/20 07/15/20 07:15 07:24 Temp 97.9 97.9 Pulse 92 Resp 20 B/P (MAP) 147/97 (114) Pulse Ox 98 99 O2 Delivery Room Air Nasal Cannula O2 Flow Rate 1.0 Intake and Output 07/14/20 07/14/20 07/15/20 15:00 23:00 07:00 Intake Total 100 ml Output Total 200 ml 0 ml 0 ml Balance -200 ml 100 ml 0 ml KARYN HANNAH MD Jul 15, 2020 09:32
--- NOTE | 2020-07-15 10:26 | PDOC ---
PULMONARY PROGRESS NOTES DATE: 07/15/20 TIME: 10:23 Subjective no soa s/p right lung mass bx, small PTX and right recurent effusion. s/p right chest tube Vitals Vital Signs Date Time Temp Pulse Resp B/P (MAP) Pulse Ox O2 Delivery O2 Flow Rate FiO2 07/15/20 07:40 Nasal Cannula 2.0 07/15/20 07:24 99 07/15/20 07:15 97.9 92 20 147/97 (114) 97.9 General: Alert, No acute distress Lungs: Other (decrease bs) Cardiovascular: S1 Abdomen: Soft Neuro Exam: Alert Extremities: No Edema Skin: Warm Labs Laboratory Tests Test 07/15/20 04:00 White Blood Count 9.6 x10^3/uL (4.0-11.0) Red Blood Count 3.36 x10^6/uL (3.50-5.40) Hemoglobin 9.1 g/dL (12.0-15.5) Hematocrit 27.6 % (36.0-47.0) Mean Corpuscular Volume 82 fL (79-100) Mean Corpuscular Hemoglobin 27 pg (25-35) Mean Corpuscular Hemoglobin Concent 33 g/dL (31-37) Red Cell Distribution Width 14.6 % (11.5-14.5) Platelet Count 441 x10^3/uL (140-400) Sodium Level 130 mmol/L (136-145) Potassium Level 3.6 mmol/L (3.5-5.1) Chloride Level 99 mmol/L (98-107) Carbon Dioxide Level 19 mmol/L (21-32) Anion Gap 12 (6-14) Blood Urea Nitrogen 3 mg/dL (7-20) Creatinine 0.5 mg/dL (0.6-1.0) Estimated GFR (Cockcroft-Gault) 124.6 BUN/Creatinine Ratio 6 (6-20) Glucose Level 84 mg/dL (70-99) Calcium Level 8.0 mg/dL (8.5-10.1) Total Bilirubin 0.3 mg/dL (0.2-1.0) Aspartate Amino Transf (AST/SGOT) 21 U/L (15-37) Alanine Aminotransferase (ALT/SGPT) 11 U/L (14-59) Alkaline Phosphatase 152 U/L (46-116) Total Protein 5.8 g/dL (6.4-8.2) Albumin 1.8 g/dL (3.4-5.0) Albumin/Globulin Ratio 0.5 (1.0-1.7) Laboratory Tests Test 07/15/20 04:00 White Blood Count 9.6 x10^3/uL (4.0-11.0) Red Blood Count 3.36 x10^6/uL (3.50-5.40) Hemoglobin 9.1 g/dL (12.0-15.5) Hematocrit 27.6 % (36.0-47.0) Mean Corpuscular Volume 82 fL (79-100) Mean Corpuscular Hemoglobin 27 pg (25-35) Mean Corpuscular Hemoglobin Concent 33 g/dL (31-37) Red Cell Distribution Width 14.6 % (11.5-14.5) Platelet Count 441 x10^3/uL (140-400) Sodium Level 130 mmol/L (136-145) Potassium Level 3.6 mmol/L (3.5-5.1) Chloride Level 99 mmol/L (98-107) Carbon Dioxide Level 19 mmol/L (21-32) Anion Gap 12 (6-14) Blood Urea Nitrogen 3 mg/dL (7-20) Creatinine 0.5 mg/dL (0.6-1.0) Estimated GFR (Cockcroft-Gault) 124.6 BUN/Creatinine Ratio 6 (6-20) Glucose Level 84 mg/dL (70-99) Calcium Level 8.0 mg/dL (8.5-10.1) Total Bilirubin 0.3 mg/dL (0.2-1.0) Aspartate Amino Transf (AST/SGOT) 21 U/L (15-37) Alanine Aminotransferase (ALT/SGPT) 11 U/L (14-59) Alkaline Phosphatase 152 U/L (46-116) Total Protein 5.8 g/dL (6.4-8.2) Albumin 1.8 g/dL (3.4-5.0) Albumin/Globulin Ratio 0.5 (1.0-1.7) Medications Active Scripts Medications Dose Route/Sig Max Daily Dose Days Date Category Wellbutrin Xl (Bupropion Hcl) 300 Mg Tab.er.24h 1 Tab PO DAILY 07/10/20 Reported Amlodipine-Valsartan 10-320 mg (Amlodipine/Valsartan) 1 Each Tablet 1 Tab PO DAILY 30 07/10/20 Reported Atorvastatin Calcium 20 Mg Tablet 20 Mg PO HS 07/10/20 Reported Comments cxr 07/15 increasing right effusion Impression . 1. Abnormal chest x-ray with large mass in the right lower lobe along with pleural effusion. She has lost about 10-12 pounds in the last 3 weeks with loss of appetite. She smoked for 30 years. Clinically, lung malignancy is a concern. Pleural fluid cytology neg. s/p right lung mass bx, small PTX and right recurrent effusion. s/p right chest tube 2. Atrial fibrillation with rapid ventricular response. Currently being followed by Cardiology. rate controlled 3. Thirty years of tobacco use, suspect underlying chronic obstructive pulmonary disease. 4. Normal ejection fraction. 5. Recent wt loss Plan . 1. Discussed with RN and patient and Son Nile CT chest findings discussed. Large mass right lung with moderate right effusion c/w Primary lung malignancy. s/p thoracentesis 07/12 . pleural fluid non diagnostic , s/p right lung mass bx, small PTX and right recurent effusion. s/p right chest tube. Air leak today.cxr with worsening right effusion, chest tube clogged. will ask IR to change consultant wire. continue to suction. 2. Follow Cardiology recommendation regarding her atrial fibrillation. AC on hold 3. Poor performance status. 4. will follow bx result 5. ct abdomen /pelvis reviewed. suspected left adrenal gland mets d/w Dr Harrison. d/w son in detail . ct chest pictures shown to him. 6. Consulted XRT/Med oncology TANIA SMITH MD Jul 15, 2020 10:26
--- NOTE | 2020-07-15 11:25 | PN ---
DATE: 07/15/2020 SUBJECTIVE: The patient is resting, slightly propped up in bed, in no apparent respiratory distress. She denied any chest pain. Her right side pleural effusion has reaccumulated and apparently an attempt to unclog the chest tube did not work and the plan is for her to be seen by the interventional radiologist tomorrow to either unclog the tube or with a bigger chest tube. PHYSICAL EXAMINATION: GENERAL: When I examined her, she was pale, but no jaundice, cyanosis or thyromegaly. No jugular venous distention. No lower limb edema. VITAL SIGNS: Her heart rate was 92, blood pressure was 147/97, temperature was 97.9, respiratory rate was 20, and oxygen saturation was 99% on 1 liter of oxygen. HEAD, EYES, EARS, NOSE, AND THROAT: Showed normocephalic, atraumatic. NECK: Supple. HEART: Normal first and second heart sounds. No gallop, rub or murmur. CHEST: Shows central trachea. Good chest expansion, air entry on the left side. She has dull percussion noted and absent breath sounds on the right side. She has a chest tube to Pleur-evac, to continue with negative suction. ABDOMEN: Slightly distended, soft, nontender. NEUROLOGIC: She was grossly intact. Her intake over the last 24 hours was 750, output was 1750. LABORATORY DATA: Showed a white cell count 9600; hemoglobin 9.1; hematocrit 27.6; MCV 82; and platelet count 441,000. Her chemistry showed a serum sodium 130, potassium 3.6, chloride 99, bicarbonate 19, anion gap of 12, BUN 3, creatinine 0.5, estimated GFR was 124 mL per minute. Her glucose was 84, calcium was 8. Total bilirubin, AST, ALT were normal. Alkaline phosphatase slightly elevated. Her total protein 5.8, albumin was 1.8. ASSESSMENT: 1. Atrial fibrillation with rapid ventricular response. Heart rate is much better controlled. She is now on metoprolol tartrate 25 mg every 8 hours. 2. Postobstructive pneumonia, for which she is on Zithromax and ceftriaxone. 3. Hyponatremia, improved. As of this morning, her serum sodium continued to be around 130 mEq per liter. 4. Chronic diastolic congestive heart failure, seems to be clinically well compensated. 5. Large right-sided pleural effusion, status post drainage of about 1500 mL. Unfortunately, the pleural effusion has reaccumulated. The cytology was negative for malignant cells. 6. Chronic obstructive pulmonary disease. 7. A mass in the right middle lobe, status post CT-guided biopsy. The pathology report is still pending at the time of this dictation. 8. Tobacco use and alcohol abuse. 9. Left subclavian artery stenosis. PLAN: To continue chest tube management. Continue with IV Rocephin and Zithromax. Continue with alprazolam for anxiety. Her chest tube seems to be clogged and the plan is for her to be seen by the interventional radiologist to unclog the chest tube and/or change to a newer one. OBIE MEJÍA MD DR: DREW/jomar JOB#: [id number] / [id number]
--- NOTE | 2020-07-15 15:14 | NUR ---
1200 duoneb non administered to clear up emar
[2020-07-15] MEDS: AZITHROMYCIN 500 MG in IV NORMAL SALINE 250ML 250 ML IV SCH (17:38)
[2020-07-15] MEDS: cefTRIAXone IV Push 1 GM VIAL. IVP SCH (17:39)
[2020-07-15] MEDS: oxyCODONE IR 5 MG TABLET PO PRN ×2 (19:11→23:12)
--- NOTE | 2020-07-15 19:51 | NUR ---
Pt IV on l forearm ifiltrated around 1839. IV removed. Catheter tip intact. No bleeding. Warm compress provided. MD notified. order for PO pain medication recieved. Pt resting with warm compress at this time. 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
[2020-07-15] MEDS: ATORVASTATIN CALCIUM 20 MG TABLET PO SCH (21:39)
[2020-07-15] MEDS: ALPRAZolam 0.5 MG TABLET PO PRN (21:40)
[2020-07-16 02:56] VITALS: BP 143/80
[2020-07-16 07:00] VITALS: BP 135/85
[2020-07-16 07:02] LABS: CALCIUM 8.3 mg/dL (8.5-10.1); CREATININE 0.6 mg/dL (0.6-1.0); POTASSIUM 4.6 mmol/L (3.5-5.1)
[2020-07-16 07:19] LABS: HEMATOCRIT 30.2 % (36.0-47.0); HEMOGLOBIN 9.7 g/dL (12.0-15.5); RED BLOOD COUNT 3.67 x10^6/uL (3.50-5.40); RED CELL DISTRIBUTION WIDTH 15.2 % (11.5-14.5); WHITE BLOOD COUNT 14.7 x10^3/uL (4.0-11.0)
[2020-07-16] MEDS: IPRATRPIUM/ALBUTEROL 0.5/2.5MG 3 ML NEBU. NEB SCH ×4 (07:21→20:16)
[2020-07-16] MEDS: MULTIVITAMIN with MINERAL TABLET. PO SCH (07:28)
[2020-07-16] MEDS: FOLIC ACID 1 MG TABLET. PO SCH (07:28)
[2020-07-16] MEDS: THIAMINE 100 MG TABLET. PO SCH (07:28)
[2020-07-16] MEDS: LACTOBACILLUS RHAMNOSUS GG 1 CAPSULE. PO SCH ×2 (07:28→20:27)
[2020-07-16] MEDS: IV NORMAL SALINE 1000ML BAG 1,000 ML IV SCH (09:14)
[2020-07-16] MEDS: METOPROLOL TART IMMED RELEASE 25 MG TABLET. PO SCH ×2 (09:14→20:28)
[2020-07-16] MEDS ORDERED: LIDOCAINE WITH 8.4% SOD BICARB 3 ML DISP.SYRIN. ONE (10:40)
[2020-07-16 10:41] VITALS: BP 134/67
--- NOTE | 2020-07-16 10:50 | PN ---
DATE: 07/16/2020 SUBJECTIVE: The patient is sitting in her recliner, in no apparent respiratory distress. She apparently slept a little bit this morning and she is scheduled to either unclogged her chest tube or put a bigger chest tube as her right-sided pleural effusion has reaccumulated. PHYSICAL EXAMINATION: GENERAL: When I examined her, she looked pale, cachectic, but no jaundice, cyanosis or thyromegaly. No jugular venous distention. No limb edema. VITAL SIGNS: Her heart rate was 114, blood pressure was 135/85, temperature was 98, respiratory rate was 28 and oxygen saturation was 93% on 1 liter of oxygen. HEENT: Showed normocephalic, atraumatic. NECK: Supple. HEART: Normal first and second heart sounds. No gallop, rub or murmur. CHEST: Showed good chest expansion, good air entry, vesicular breath sounds on the left side with dull percussion noted and absent breath sounds on the right side. ABDOMEN: Distended, soft, nontender. No guarding or rigidity. No organomegaly. All hernial orifice intact. Bowel sounds normal. NEUROLOGIC: She is awake, alert, responding appropriately. All her cranial nerves are intact. She moves extremities without difficulty. LABORATORY DATA: As of yesterday, her chest x-ray showed large right-sided pleural effusion and associated compression atelectasis or infiltrate at the right lower lung zone, interstitial pulmonary edema within the right upper lobe has improved, position of the right inferior chest tube is unchanged. No pneumothorax seen. No acute abnormalities seen within the left lung field. Heart size and mediastinum are stable. Her intake over the last 24 hours was 350, output was 200. As of this morning, her serum sodium is down to 127, potassium 4.6, chloride 97, bicarbonate 18, anion gap of 12, BUN 3, creatinine 0.6, estimated GFR was 101, glucose 98 and calcium was 8.3. Her white cell count was 14,700, hemoglobin 10, hematocrit 30, MCV 82, and platelet count 556,000. Her prothrombin time was 14.4 and INR 1.2. ASSESSMENT: 1. Atrial fibrillation with rapid ventricular response. Heart rate is better controlled. She is now on metoprolol tartrate 25 mg every 8 hours. 2. Postobstructive pneumonia, for which continue Zithromax and ceftriaxone. 3. Hyponatremia, fluctuates, this morning it is down from 130 to 127. 4. Chronic diastolic congestive heart failure, seems to be clinically well compensated. 5. Large right-sided pleural effusion, status post drainage of about 1500 mL, pleural fluid has reaccumulated. Cytology was negative for malignant cells. 6. Mass in the right middle lobe, status post CT-guided biopsy. The pathology report is still pending at the time of this dictation. 7. Tobacco use and alcohol abuse. 8. Left subclavian artery stenosis. PLAN: To continue with chest tube management. The patient is scheduled to have either her chest tube unclogged or has another chest tube to continue with drainage of the large right-sided pleural effusion. Meanwhile, we will continue with IV antibiotic. Await the result of the pathology. OBIE MEJÍA MD DR: DREW/jomar JOB#: [id number] / [id number]
[2020-07-16] MEDS: oxyCODONE IR 5 MG TABLET PO PRN ×2 (11:11→20:27)
--- NOTE | 2020-07-16 11:30 | PDOC ---
PULMONARY PROGRESS NOTES DATE: 07/16/20 TIME: 11:25 Subjective no soa, no increased cough s/p right lung mass bx, small PTX and right recurent effusion. s/p right chest tube Chest tube has positive air leak Vitals Vital Signs Date Time Temp Pulse Resp B/P (MAP) Pulse Ox O2 Delivery O2 Flow Rate FiO2 07/16/20 10:41 98.4 96 22 134/67 (89) 98 Nasal Cannula 1.0 98.4 ROS: No Nausea, No Chest Pain, No Abdominal Pain, No Increase Cough General: Alert, No acute distress Lungs: Other (decreased BLL and rML) Cardiovascular: S1 Abdomen: Soft Neuro Exam: Alert Extremities: No Edema Skin: Warm, Dry Labs Laboratory Tests Test 07/15/20 04:00 07/16/20 06:15 White Blood Count 9.6 x10^3/uL (4.0-11.0) 14.7 x10^3/uL (4.0-11.0) Red Blood Count 3.36 x10^6/uL (3.50-5.40) 3.67 x10^6/uL (3.50-5.40) Hemoglobin 9.1 g/dL (12.0-15.5) 9.7 g/dL (12.0-15.5) Hematocrit 27.6 % (36.0-47.0) 30.2 % (36.0-47.0) Mean Corpuscular Volume 82 fL (79-100) 82 fL (79-100) Mean Corpuscular Hemoglobin 27 pg (25-35) 26 pg (25-35) Mean Corpuscular Hemoglobin Concent 33 g/dL (31-37) 32 g/dL (31-37) Red Cell Distribution Width 14.6 % (11.5-14.5) 15.2 % (11.5-14.5) Platelet Count 441 x10^3/uL (140-400) 556 x10^3/uL (140-400) Sodium Level 130 mmol/L (136-145) 127 mmol/L (136-145) Potassium Level 3.6 mmol/L (3.5-5.1) 4.6 mmol/L (3.5-5.1) Chloride Level 99 mmol/L (98-107) 97 mmol/L (98-107) Carbon Dioxide Level 19 mmol/L (21-32) 18 mmol/L (21-32) Anion Gap 12 (6-14) 12 (6-14) Blood Urea Nitrogen 3 mg/dL (7-20) 3 mg/dL (7-20) Creatinine 0.5 mg/dL (0.6-1.0) 0.6 mg/dL (0.6-1.0) Estimated GFR (Cockcroft-Gault) 124.6 101.0 BUN/Creatinine Ratio 6 (6-20) Glucose Level 84 mg/dL (70-99) 98 mg/dL (70-99) Calcium Level 8.0 mg/dL (8.5-10.1) 8.3 mg/dL (8.5-10.1) Total Bilirubin 0.3 mg/dL (0.2-1.0) Aspartate Amino Transf (AST/SGOT) 21 U/L (15-37) Alanine Aminotransferase (ALT/SGPT) 11 U/L (14-59) Alkaline Phosphatase 152 U/L (46-116) Total Protein 5.8 g/dL (6.4-8.2) Albumin 1.8 g/dL (3.4-5.0) Albumin/Globulin Ratio 0.5 (1.0-1.7) Laboratory Tests Test 07/16/20 06:15 White Blood Count 14.7 x10^3/uL (4.0-11.0) Red Blood Count 3.67 x10^6/uL (3.50-5.40) Hemoglobin 9.7 g/dL (12.0-15.5) Hematocrit 30.2 % (36.0-47.0) Mean Corpuscular Volume 82 fL (79-100) Mean Corpuscular Hemoglobin 26 pg (25-35) Mean Corpuscular Hemoglobin Concent 32 g/dL (31-37) Red Cell Distribution Width 15.2 % (11.5-14.5) Platelet Count 556 x10^3/uL (140-400) Sodium Level 127 mmol/L (136-145) Potassium Level 4.6 mmol/L (3.5-5.1) Chloride Level 97 mmol/L (98-107) Carbon Dioxide Level 18 mmol/L (21-32) Anion Gap 12 (6-14) Blood Urea Nitrogen 3 mg/dL (7-20) Creatinine 0.6 mg/dL (0.6-1.0) Estimated GFR (Cockcroft-Gault) 101.0 Glucose Level 98 mg/dL (70-99) Calcium Level 8.3 mg/dL (8.5-10.1) Medications Active Scripts Medications Dose Route/Sig Max Daily Dose Days Date Category Wellbutrin Xl (Bupropion Hcl) 300 Mg Tab.er.24h 1 Tab PO DAILY 07/10/20 Reported Amlodipine-Valsartan 10-320 mg (Amlodipine/Valsartan) 1 Each Tablet 1 Tab PO DAILY 30 07/10/20 Reported Atorvastatin Calcium 20 Mg Tablet 20 Mg PO HS 07/10/20 Reported Comments cxr 07/15 increasing right effusion Impression . 1. Abnormal chest x-ray with large mass in the right lower lobe along with pleural effusion. She has lost about 10-12 pounds in the last 3 weeks with loss of appetite. She smoked for 30 years. Clinically, lung malignancy is a strong concern. Pleural fluid cytology neg. s/p right lung mass bx, small PTX and right recurrent effusion. s/p right chest tube, await Bx result 2. Atrial fibrillation with rapid ventricular response. Currently being followed by Cardiology. rate controlled 3. Thirty years of tobacco use, suspect underlying chronic obstructive pulmonary disease. 4. Normal ejection fraction. 5. Recent wt loss 6. leukocytosis Plan . 1. Discussed with RN and patient and Son Nile .CT chest findings discussed. Large mass right lung with moderate right effusion suspicious for Primary lung malignancy. s/p thoracentesis 07/12 . pleural fluid non diagnostic , s/p right lung mass bx, results Pending ,small PTX and right recurent effusion. s/p right chest tube. Air leak with coughing.cxr with worsening right effusion, chest tube clogged. will ask IR to change control coordinator wire. continue to suction. 2. Follow Cardiology recommendation regarding her atrial fibrillation. AC on hold 3. Poor performance status. 4. will follow bx result 5. ct abdomen /pelvis reviewed. suspected left adrenal gland mets. d/w son in detail . ct chest pictures shown to him. 6. Consulted XRT/Med oncology 7. D/C Rocephin, change azithromycin to po D/W RN and pt. addend: d/w pathology. lung bx c/w necrotizing pneumonia. No malignancy. Suspect we may not have bx from the core of tumor. I have discussed with son/ his in detail. I told him that a negative lung bx does not exclude cancer as we may not have advanced needle to the core of tumor. I recommended left adrenal gland bx . he agrees. I have also suggested that once cancer is confirmed, we should also consider option of hospice vs trial of radiation. She has poor performance status.I have sent pleural fluid again for cytology and may consider talc if positive for cancer. d/w TANIA Mejia MD Jul 16, 2020 11:30
--- NOTE | 2020-07-16 11:55 | PDOC ---
JENNIFER ROSALES [employer]ISHER 07/16/20 1155: CARDIO Progress Notes Date and Time Date of Service 07/16/20 Time of Evaluation 11:50 Subjective Subjective: No Chest Pain, No Palpitations, Other (c/o right side pain and mildy SOA) Vitals Vitals Vital Signs Date Time Temp Pulse Resp B/P (MAP) Pulse Ox O2 Delivery O2 Flow Rate FiO2 07/16/20 10:41 98.4 96 22 134/67 (89) 98 Nasal Cannula 1.0 98.4 Weight Weight [ ] Input and Output Intake and Output Intake and Output 07/16/20 07:00 Intake Total 2030 ml Output Total 1000 ml Balance 1030 ml Intake Oral 1030 ml IV Total 1000 ml Output Urine Total 1000 ml # Voids 6 # Bowel Movements 5 Laboratory Labs Laboratory Tests Test 07/16/20 06:15 White Blood Count 14.7 x10^3/uL (4.0-11.0) Red Blood Count 3.67 x10^6/uL (3.50-5.40) Hemoglobin 9.7 g/dL (12.0-15.5) Hematocrit 30.2 % (36.0-47.0) Mean Corpuscular Volume 82 fL (79-100) Mean Corpuscular Hemoglobin 26 pg (25-35) Mean Corpuscular Hemoglobin Concent 32 g/dL (31-37) Red Cell Distribution Width 15.2 % (11.5-14.5) Platelet Count 556 x10^3/uL (140-400) Sodium Level 127 mmol/L (136-145) Potassium Level 4.6 mmol/L (3.5-5.1) Chloride Level 97 mmol/L (98-107) Carbon Dioxide Level 18 mmol/L (21-32) Anion Gap 12 (6-14) Blood Urea Nitrogen 3 mg/dL (7-20) Creatinine 0.6 mg/dL (0.6-1.0) Estimated GFR (Cockcroft-Gault) 101.0 Glucose Level 98 mg/dL (70-99) Calcium Level 8.3 mg/dL (8.5-10.1) Microbiology Micro Microbiology 07/12/20 Gram Stain - Final, Resulted 07/12/20 Aerobic and Anaerobic Culture - Preliminary, Resulted Physical Exam HEENT: Neck Supple W Full Motion Chest: Symmetric LUNGS: Other (diminished) Heart: irregularly irregular (AFIB; rate intermittently elevated ) Abdomen: Soft N/T Extremities: No Edema, No Calf Tenderness Neurology: alert, oriented, follow commands Assessment Assessment 1. AFIB with RVR; new onset, rate better controlled overall, but continues to be slightly elevated. 2. Acute respiratory failure; multifactorial with large right lung mass, pneumothorax, recurrent right pleural effusion, and CHF. Chest tube clogged overnight; now draining significant amount of pleural fluid. 3. Acute on chronic diastolic CHF: EF and WM nml. 4. Hypertension; controlled 5. Hyperlipidemia: controlled 6. Hyponatremia; as per PCP 7. Suspect COPD with tobaccoism: 8. ETOH misuse: Advised on complete abstinence 9. Left subclavian arterial stenosis. No left arm claudication symptoms. Monitor as an outpt 10. Protein malnutrition 11. Lung mass; s/p biopsy; concerns for malignancy with mets to adrenal gland. Plan for biopsy of adrenal gland. Recommendations Increase metoprolol for rate control ASA therapy Consider OAC when w/u of lung mass complete Consider for CV if able to start OAC Supportive care from a CV standpooint Justicifation of Admission Dx: Justifications for Admission: Justification of Admission Dx: Yes AUDREY MCCARTY MD 07/16/20 1640: CARDIO Progress Notes Plan Plan The patient was seen and interviewed as well as examined at the bedside. The chart was reviewed. The case was discussed. Agree with the plan of care. JENNIFER ROSALES APRN Jul 16, 2020 11:55 AUDREY MCCARTY MD Jul 16, 2020 16:40
[2020-07-16] MEDS: buPROPion XL 150 MG TAB.ER.24H. PO SCH (12:00)
[2020-07-16] MEDS: POTASSIUM CHLORIDE 20 MEQ TABLET.ER. PO SCH ×3 (12:00→17:00)
[2020-07-16] MEDS: BENZONATATE 100 MG CAPSULE. PO PRN ×2 (12:00→20:27)
[2020-07-16] MEDS: ASPIRIN ENTERIC COATED 81 MG TABLET.DR. PO SCH (12:00)
[2020-07-16] MEDS: AZITHROMYCIN 250 MG TABLET. PO SCH (12:00)
[2020-07-16] MEDS ORDERED: METOPROLOL TART IMMED RELEASE 25 MG TABLET. PO ONE (14:00)
[2020-07-16] MEDS ORDERED: MIDAZOLAM HCL/PF 2 MG/2 ML VIAL. ONE (14:32)
[2020-07-16] MEDS ORDERED: fentaNYL PF VIAL 100 MCG/2 ML VIAL ONE (14:32)
[2020-07-16] MEDS ORDERED: LIDOCAINE WITH 8.4% SOD BICARB 3 ML DISP.SYRIN. IJ ONE (14:45)
[2020-07-16] MEDS ORDERED: fentaNYL PF VIAL 100 MCG/2 ML VIAL IV ONE (14:45)
[2020-07-16] MEDS ORDERED: MIDAZOLAM HCL/PF 2 MG/2 ML VIAL. IV ONE (14:45)
--- NOTE | 2020-07-16 14:47 | PDOC ---
Provider Note Date of Service: DATE: 07/16/20 TIME: 14:43 Provider Note IR NOTE Cytology Negative. Chest tube was clogged, but was opened at bedside by IR tech. Prelim path result on lung biopsy: organizing pneumonia, with adjacent areas of necrosis. Unsure if the area of necrosis reflects necrotic tumor, with changes of org anizing pneumonia seen adjacent to this. The left adrenal has similar area of low density hypo-enhancing thickening. After discussion with pulm, will plan on left adrenal biopsy. Justifications for Admission Other Justification SRI CARRILLO MD Jul 16, 2020 14:47
--- NOTE | 2020-07-16 14:53 | NUR ---
SS following up with discharge planning. SS reviewed pt chart and discussed with pt RN. COVID19 negative. Pt has chest tube and is currently on room air. SS contacted pt's son, Nile, , to discuss discharge planning. Pt's son trying to decide between hospice and full aggressive care. Pt's son reported that he will come up tomorrow and spend the day so that he can speak with physicians. Per RN, pt having biopsy tomorrow. SS will continue to follow for discharge planning.
[2020-07-16 14:58] VITALS: BP 109/70
[2020-07-16] MEDS: fentaNYL PF VIAL 100 MCG/2 ML VIAL IVP PRN (15:18)
[2020-07-16] MEDS: ALPRAZolam 0.5 MG TABLET PO PRN (15:18)
--- NOTE | 2020-07-16 16:06 | PATHOLOGY ---
[facility] Accession Number: [id number] . 01 Material submitted: . lung - RIGHT LUNG MASS BIOPSY. Modifiers: right . 01 Clinical history: . NEW ONSET A-FIB . 02 Diagnosis: Lung tissue, right lung mass needle biopsies: - Organizing pneumonia with focal parenchymal necrosis. See comment. (JPM:trina; 07/16/2020) S 07/16/2020 1017 Local . 02 Comment: Sections of the right lung mass needle biopsy reveal segments of lung tissue. There is interstitial edema and chronic inflammation with focal nodular plugs of reactive fibrous tissue filling air spaces. Air spaces are focally lined by reactive pneumocytes. There are pigmented macrophages focally present within air spaces and the interstitium. There is also focal parenchymal necrosis. There is no evidence of viable malignancy within the biopsy. If malignancy is a strong clinical consideration, repeat biopsy could be considered. (JPM:trina; 07/16/2020) . 02 Electronically signed: . Nando Donald MD, Pathologist NPI- [id number] . 01 Gross description: . The specimen is received in formalin, labeled "Cris Conklin, right lung mass". Received are two needle cores of pale edwards soft tissue ranging in length from 1.2 to 1.3 cm in length by 0.1 cm in diameter. The specimen is submitted entirely in cassette A1 and A2. ([facility]; 07/13/2020) QA/QA 07/13/2020 1715 Local . 02 Pathologist provided ICD-10: J84.89 . 02 CPT . 205857 Specimen Comment: A courtesy copy of this report has been sent to [phone], [phone] Specimen Comment: [id number], , Specimen Comment: Report sent to ,DR SMITH,DR MEJÍA / DR RAMIREZ Performed at: 01 [facility] [address] [id number] MD Juanito Olson MD Phone: [phone] Performed at: 02 [facility] [address] [place], [place] [id number] MD Nando Donald MD Phone: [phone]
--- NOTE | 2020-07-16 16:32 | RAD ---
EXAM: CHEST 1 VIEW History: Pleural effusion COMPARISON: 07/15/2020 TECHNIQUE: Single portable radiograph of the chest Findings/ impression: Mild cardiomegaly. Moderate prominent appearing bilateral interstitial lung markings likely congestive changes. Focal airspace opacity identified in the right lower lobe of the lung likely pneumonia or mass with interval mild decrease in right pleural effusion. Electronically signed by: Brown Patel MD (07/16/2020 4:29 PM) [id number]
[2020-07-16 19:00] VITALS: BP 98/52
[2020-07-16] MEDS: ATORVASTATIN CALCIUM 20 MG TABLET PO SCH (20:27)
[2020-07-16 23:23] VITALS: BP 107/52
[2020-07-17] VITALS (15 sets, daily range): BP systolic 84–124; BP diastolic 50–72
[2020-07-17 05:38] LABS: HEMATOCRIT 32.2 % (36.0-47.0); HEMOGLOBIN 10.5 g/dL (12.0-15.5); RED BLOOD COUNT 3.9 x10^6/uL (3.50-5.40); RED CELL DISTRIBUTION WIDTH 15.4 % (11.5-14.5); WHITE BLOOD COUNT 13.4 x10^3/uL (4.0-11.0)
[2020-07-17 05:47] LABS: CALCIUM 8.2 mg/dL (8.5-10.1); CREATININE 0.5 mg/dL (0.6-1.0); GFR 124.6; POTASSIUM 4.3 mmol/L (3.5-5.1)
[2020-07-17] MEDS: IPRATRPIUM/ALBUTEROL 0.5/2.5MG 3 ML NEBU. NEB SCH ×4 (07:43→20:11)
[2020-07-17] MEDS: METOPROLOL TART IMMED RELEASE 25 MG TABLET. PO SCH ×2 (08:36→20:54)
--- NOTE | 2020-07-17 08:48 | PDOC ---
PULMONARY PROGRESS NOTES DATE: 07/17/20 TIME: 08:48 Subjective no soa, no increased cough s/p right lung mass bx, small PTX and right recurent effusion. s/p right chest tube Chest tube has positive air leak Vitals Vital Signs Date Time Temp Pulse Resp B/P (MAP) Pulse Ox O2 Delivery O2 Flow Rate FiO2 07/17/20 08:36 93 124/72 07/17/20 07:43 92 Nasal Cannula 2.0 07/17/20 07:00 97.4 20 97.4 ROS: No Nausea, No Chest Pain, No Abdominal Pain, No Increase Cough General: Alert, No acute distress Lungs: Other (decreased BLL and rML) Cardiovascular: S1 Abdomen: Soft Neuro Exam: Alert Extremities: No Edema Skin: Warm, Dry Labs Laboratory Tests Test 07/16/20 06:15 07/17/20 04:40 White Blood Count 14.7 x10^3/uL (4.0-11.0) 13.4 x10^3/uL (4.0-11.0) Red Blood Count 3.67 x10^6/uL (3.50-5.40) 3.90 x10^6/uL (3.50-5.40) Hemoglobin 9.7 g/dL (12.0-15.5) 10.5 g/dL (12.0-15.5) Hematocrit 30.2 % (36.0-47.0) 32.2 % (36.0-47.0) Mean Corpuscular Volume 82 fL (79-100) 82 fL (79-100) Mean Corpuscular Hemoglobin 26 pg (25-35) 27 pg (25-35) Mean Corpuscular Hemoglobin Concent 32 g/dL (31-37) 33 g/dL (31-37) Red Cell Distribution Width 15.2 % (11.5-14.5) 15.4 % (11.5-14.5) Platelet Count 556 x10^3/uL (140-400) 493 x10^3/uL (140-400) Sodium Level 127 mmol/L (136-145) 127 mmol/L (136-145) Potassium Level 4.6 mmol/L (3.5-5.1) 4.3 mmol/L (3.5-5.1) Chloride Level 97 mmol/L (98-107) 97 mmol/L (98-107) Carbon Dioxide Level 18 mmol/L (21-32) 16 mmol/L (21-32) Anion Gap 12 (6-14) 14 (6-14) Blood Urea Nitrogen 3 mg/dL (7-20) 5 mg/dL (7-20) Creatinine 0.6 mg/dL (0.6-1.0) 0.5 mg/dL (0.6-1.0) Estimated GFR (Cockcroft-Gault) 101.0 124.6 Glucose Level 98 mg/dL (70-99) 78 mg/dL (70-99) Calcium Level 8.3 mg/dL (8.5-10.1) 8.2 mg/dL (8.5-10.1) Laboratory Tests Test 07/17/20 04:40 White Blood Count 13.4 x10^3/uL (4.0-11.0) Red Blood Count 3.90 x10^6/uL (3.50-5.40) Hemoglobin 10.5 g/dL (12.0-15.5) Hematocrit 32.2 % (36.0-47.0) Mean Corpuscular Volume 82 fL (79-100) Mean Corpuscular Hemoglobin 27 pg (25-35) Mean Corpuscular Hemoglobin Concent 33 g/dL (31-37) Red Cell Distribution Width 15.4 % (11.5-14.5) Platelet Count 493 x10^3/uL (140-400) Sodium Level 127 mmol/L (136-145) Potassium Level 4.3 mmol/L (3.5-5.1) Chloride Level 97 mmol/L (98-107) Carbon Dioxide Level 16 mmol/L (21-32) Anion Gap 14 (6-14) Blood Urea Nitrogen 5 mg/dL (7-20) Creatinine 0.5 mg/dL (0.6-1.0) Estimated GFR (Cockcroft-Gault) 124.6 Glucose Level 78 mg/dL (70-99) Calcium Level 8.2 mg/dL (8.5-10.1) Medications Active Scripts Medications Dose Route/Sig Max Daily Dose Days Date Category Wellbutrin Xl (Bupropion Hcl) 300 Mg Tab.er.24h 1 Tab PO DAILY 07/10/20 Reported Amlodipine-Valsartan 10-320 mg (Amlodipine/Valsartan) 1 Each Tablet 1 Tab PO DAILY 30 07/10/20 Reported Atorvastatin Calcium 20 Mg Tablet 20 Mg PO HS 07/10/20 Reported Comments cxr 07/15 increasing right effusion Impression . 1. Abnormal chest x-ray with large mass in the right lower lobe along with pleural effusion. She has lost about 10-12 pounds in the last 3 weeks with loss of appetite. She smoked for 30 years. Clinically, lung malignancy is a strong concern. Pleural fluid cytology neg. s/p right lung mass bx, small PTX and right recurrent effusion. s/p right chest tube, await Bx result 2. Atrial fibrillation with rapid ventricular response. Currently being followed by Cardiology. rate controlled 3. Thirty years of tobacco use, suspect underlying chronic obstructive pulmonary disease. 4. Normal ejection fraction. 5. Recent wt loss 6. leukocytosis Plan . 1. Discussed with RN and patient and Son Nile .CT chest findings discussed. Large mass right lung with moderate right effusion suspicious for Primary lung malignancy. s/p thoracentesis 07/12 . pleural fluid non diagnostic , s/p right lung mass bx, results Pending ,small PTX and right recurent effusion. s/p right chest tube. Air leak with coughing.cxr with worsening right effusion, chest tube clogged. will ask IR to changeover operator wire. continue to suction. 2. Follow Cardiology recommendation regarding her atrial fibrillation. AC on hold 3. Poor performance status. 4. will follow bx result 5. ct abdomen /pelvis reviewed. suspected left adrenal gland mets. d/w son in detail . ct chest pictures shown to him. 6. Consulted XRT/Med oncology 7. D/C Rocephin, change azithromycin to po D/W RN and pt. addend: d/w pathology. lung bx c/w necrotizing pneumonia. No malignancy. Suspect we may not have bx from the core of tumor. I have discussed with son/ his in detail. I told him that a negative lung bx does not exclude cancer as we may not have advanced needle to the core of tumor. I recommended left adrenal gland bx . he agrees. I have also suggested that once cancer is confirmed, we should also consider option of hospice vs trial of radiation. She has poor performance status.I have sent pleural fluid again for cytology and may consider talc if positive for cancer. d/w BABITA Broderick MD Jul 17, 2020 08:48
[2020-07-17] MEDS ORDERED: LIDOCAINE WITH 8.4% SOD BICARB 3 ML DISP.SYRIN. ONE (09:02)
[2020-07-17] MEDS ORDERED: MIDAZOLAM HCL/PF 2 MG/2 ML VIAL. ONE (09:21)
[2020-07-17] MEDS ORDERED: fentaNYL PF VIAL 100 MCG/2 ML VIAL ONE (09:21)
[2020-07-17] MEDS ORDERED: LIDOCAINE WITH 8.4% SOD BICARB 3 ML DISP.SYRIN. IJ ONE ×2 (09:30→10:15)
[2020-07-17] MEDS ORDERED: MIDAZOLAM HCL/PF 2 MG/2 ML VIAL. IV ONE ×2 (09:30→10:15)
[2020-07-17] MEDS ORDERED: fentaNYL PF VIAL 100 MCG/2 ML VIAL IV ONE ×2 (09:30→10:15)
--- NOTE | 2020-07-17 09:52 | PDOC ---
JENNIFER ROSALES ORE CHARGER 07/17/20 0952: CARDIO Progress Notes Date and Time Date of Service 07/17/20 Time of Evaluation 1100 Subjective Subjective: No Chest Pain, No Palpitations, Other (not more SOA today) Vitals Vitals Vital Signs Date Time Temp Pulse Resp B/P (MAP) Pulse Ox O2 Delivery O2 Flow Rate FiO2 07/17/20 08:36 93 124/72 07/17/20 07:43 92 Nasal Cannula 2.0 07/17/20 07:00 97.4 20 97.4 Weight Weight [ ] Input and Output Intake and Output Intake and Output 07/17/20 07:00 Intake Total 360 ml Output Total 2730 ml Balance -2370 ml Intake Oral 360 ml Drainage Total 2730 ml # Voids 6 # Bowel Movements 1 Laboratory Labs Laboratory Tests Test 07/17/20 04:40 White Blood Count 13.4 x10^3/uL (4.0-11.0) Red Blood Count 3.90 x10^6/uL (3.50-5.40) Hemoglobin 10.5 g/dL (12.0-15.5) Hematocrit 32.2 % (36.0-47.0) Mean Corpuscular Volume 82 fL (79-100) Mean Corpuscular Hemoglobin 27 pg (25-35) Mean Corpuscular Hemoglobin Concent 33 g/dL (31-37) Red Cell Distribution Width 15.4 % (11.5-14.5) Platelet Count 493 x10^3/uL (140-400) Sodium Level 127 mmol/L (136-145) Potassium Level 4.3 mmol/L (3.5-5.1) Chloride Level 97 mmol/L (98-107) Carbon Dioxide Level 16 mmol/L (21-32) Anion Gap 14 (6-14) Blood Urea Nitrogen 5 mg/dL (7-20) Creatinine 0.5 mg/dL (0.6-1.0) Estimated GFR (Cockcroft-Gault) 124.6 Glucose Level 78 mg/dL (70-99) Calcium Level 8.2 mg/dL (8.5-10.1) Microbiology Micro Microbiology 07/12/20 Gram Stain - Final, Complete 07/12/20 Aerobic and Anaerobic Culture - Final, Complete Physical Exam HEENT: Neck Supple W Full Motion Chest: Symmetric LUNGS: Other (diminished, NRB) Heart: irregularly irregular (AFIB; rate intermittently elevated ) Abdomen: Soft N/T Extremities: No Edema, No Calf Tenderness Neurology: alert, oriented, follow commands Assessment Assessment 1. AFIB with RVR; new onset. converted back to SR yesterday afternoon and has been maintaining. 2. Acute respiratory failure; multifactorial with large right lung mass, pneumothorax, recurrent right pleural effusion, and CHF. Significant amount of pleural drainage yesterday after CT unclogged. 3. Acute on chronic diastolic CHF: EF and WM nml. 4. Hypertension; low end 5. Hyperlipidemia: controlled 6. Hyponatremia; as per PCP 7. Suspect COPD with tobaccoism 8. ETOH misuse: Advised on complete abstinence 9. Left subclavian arterial stenosis. No left arm claudication symptoms. Monitor as an outpt 10. Protein malnutrition 11. Lung mass; s/p biopsy without malignant cytology; concerns for malignancy with mets to adrenal gland. S/p biopsy of adrenal gland this am Recommendations Continue metoprolol for rate control ASA therapy Consider OAC upon discharge when w/u of lung mass complete Supportive care from a CV standpoint Justicifation of Admission Dx: Justifications for Admission: Justification of Admission Dx: Yes AUDREY MCCARTY MD 07/17/20 1352: CARDIO Progress Notes Plan Plan The patient was seen and interviewed as well as examined at the bedside. The chart was reviewed. The case was discussed. Agree with the plan of care. JENNIFER RSOALES APRN Jul 17, 2020 09:52 AUDREY MCCARTY MD Jul 17, 2020 13:52
[2020-07-17] MEDS: buPROPion XL 150 MG TAB.ER.24H. PO SCH (12:09)
[2020-07-17] MEDS: MULTIVITAMIN with MINERAL TABLET. PO SCH (12:09)
[2020-07-17] MEDS: LACTOBACILLUS RHAMNOSUS GG 1 CAPSULE. PO SCH ×2 (12:09→20:53)
[2020-07-17] MEDS: POTASSIUM CHLORIDE 20 MEQ TABLET.ER. PO SCH ×3 (12:09→17:00)
[2020-07-17] MEDS: THIAMINE 100 MG TABLET. PO SCH (12:09)
[2020-07-17] MEDS: AZITHROMYCIN 250 MG TABLET. PO SCH (12:10)
[2020-07-17] MEDS: FOLIC ACID 1 MG TABLET. PO SCH (12:10)
[2020-07-17] MEDS: ASPIRIN ENTERIC COATED 81 MG TABLET.DR. PO SCH (12:10)
--- NOTE | 2020-07-17 12:47 | NUR ---
SS following up with discharge planning. SS reviewed pt chart and discussed with pt RN. Pt is currently requiring oxygen. Chest tube remains. Pt having adrenal gland biopsy today. COVID19 negative. SS phoned and faxed referral to [facility], ; fax [phone]. SS will continue to follow for discharge planning.
--- NOTE | 2020-07-17 13:20 | PN ---
DATE: 07/17/2020 SUBJECTIVE: The patient is resting, slightly propped up in bed, in no apparent distress. Stated that after the drainage of her right side pleural effusion, she has felt much improved. Her pleural fluid was negative for malignancy and the biopsy of the lung mass was also negative for malignancy. She underwent biopsy of her adrenal gland as clinical suspicion for malignancy is high. When I questioned her this morning, she denied any complaints, in particular denied any chest pain, shortness of breath. PHYSICAL EXAMINATION: GENERAL: When I examined her, she looked pale, cachectic, but no jaundice, cyanosis or thyromegaly. No jugular venous distention. No limb edema. VITAL SIGNS: Her heart rate was 77, blood pressure was 90/53, temperature was 97.6, respiratory rate 24 and oxygen saturation was 100% on 10 liters of oxygen. HEENT: Normocephalic, atraumatic. NECK: Supple. HEART: Showed normal first and second heart sounds. No gallop or murmur. CHEST: Shows central trachea, good chest expansion, air entry, vesicular breath sounds on the left side. Dull percussion noted and reduced chest expansion, reduced air entry and absent breath sounds posteriorly on the right side, she has a chest tube to Pleur-evac. ABDOMEN: Distended, soft, nontender. NEUROLOGIC: She is grossly intact. Her intake over the last 24 hours was 2000, output was 1000. LABORATORY DATA: Her lab work as of this morning showed a white cell count of 13,400, hemoglobin 10, hematocrit 32, MCV 82 and platelet count of 193,000. Serum sodium continued to be low at 127, potassium 4.3, chloride 97, bicarbonate 16, anion gap of 14, BUN 5, creatinine 0.5, estimated GFR was 124 mL per minute. Her glucose was 78 and calcium was 8.2. ASSESSMENT: 1. Atrial fibrillation with rapid ventricular response. The patient is now in sinus rhythm. She is on metoprolol tartrate 25 mg every 8 hours. 2. Postobstructive pneumonia for which she continues to be on Zithromax and ceftriaxone. 3. Hyponatremia, persistent her sodium continued to be around 127 mEq per liter. 4. Chronic diastolic congestive heart failure, seems to be clinically well compensated. 5. Large right sided pleural effusion, status post drainage initially 1500 mL; however, it did reaccumulate and about 3000 mL of fluid were removed. Cytology was negative for malignant cells. 6. Mass in the right middle lobe, status post CT-guided biopsy. The pathology showed that there is interstitial edema and chronic inflammation with focal nodular plugs of reactive fibrous tissue filling air spaces. The air spaces are focally lined, very active pneumocytes. There are pigmented macrophages focally present within airspaces in the interstitium. There is also focal parenchymal necrosis. There is no evidence of viable malignancy within the biopsy, if malignancy is a strong clinical consideration, repeat biopsy could be considered. PLAN: To continue with chest tube to continuous suction. Continue with oxygen supplementation. Continue with pain medication as well as IV antibiotic. Await the result of the adrenal gland biopsy. OBIE MEJÍA MD DR: DREW/jomar JOB#: [id number] / [id number]
--- NOTE | 2020-07-17 14:49 | RAD ---
07/17/2020 12:43 PM Procedure: CT-guided biopsy, left adrenal gland Clinical Indication: Left aderal gland biopsy LEFT ADRENAL MASS, LUNG MASS Discussion: The procedure was explained in its entirety to the patient or the patients designated merchandiser retail representative by a member of the treatment team, including a discussion of the risks, benefits and commonly accepted alternatives to the procedure, as well as the expected consequences of no therapy whatsoever. Discussion of the risks included, but was not limited to, those that are most frequent and those that are rare but possibly severe or life-threatening, as well as the possibility of unforeseen complications. All elements of maximal sterile barrier technique including the use of a cap, mask, sterile gown, sterile gloves, large sterile sheet, appropriate hand hygiene, and 2% chlorhexidine for cutaneous antisepsis (or acceptable alternative antiseptic per current guidelines) were followed for this procedure. CT imaging redemonstrates thickening of the left adrenal gland concerning for metastasis given other findings. The overlying skin was prepped and draped using sterile barrier technique as described above. 1% lidocaine was administered for local anesthesia. Under intermittent CT guidance a 19-gauge needle was advanced to the periphery of the adrenal gland. Core biopsies were obtained. These were placed in formalin. [place] were removed. Manual pressure was held. Repeat imaging demonstrates no immediate complication. The procedures performed under conscious sedation including continuous cardiopulmonary monitoring via dedicated sedation nurse. [id number] sedation time: 45 minutes Impression: CT-guided biopsy, left adrenal gland PQRS Compliance Statement: One or more of the following individualized dose reduction techniques were utilized for this examination: 1. Automated exposure control 2. Adjustment of the mA and/or kV according to patient size 3. Use of iterative reconstruction technique
--- NOTE | 2020-07-17 15:38 | NUR ---
Have reviewed and agree with documentation completed by sports management internship and have made changes where needed
--- NOTE | 2020-07-17 17:02 | RAD ---
PORTABLE CHEST 1V Clinical indications: Pleural effusion. COMPARISON: July 16, 2020. Findings: Again seen is a consolidative infiltrate within the right lower lung zone which is stable. Again seen is a right-sided pleural effusion which has not changed significantly. Right inferior pleural space chest tube is again noted. There is a small right apical pneumothorax now present. This measures 9 mm from the right apical pleural edge. The left lung field remains clear. The heart size and mediastinum are unchanged. Impression: New finding of a small right apical pneumothorax. Right-sided consolidative infiltrate and right-sided pleural effusion are unchanged. Electronically signed by: Juvenal Phillips MD (07/17/2020 4:59 PM) [id number]
--- NOTE | 2020-07-17 19:30 | NUR ---
Pt sitting up in chair assessment completed vss poc explained pt denied pain at this time. Pt assisted to bsc poc explained chair alarm set will resume care and continue to monitor pt. Call light in reach.
[2020-07-17] MEDS: ATORVASTATIN CALCIUM 20 MG TABLET PO SCH (20:53)
[2020-07-18] VITALS (15 sets, daily range): BP systolic 93–118; BP diastolic 50–93
[2020-07-18] MEDS: IPRATRPIUM/ALBUTEROL 0.5/2.5MG 3 ML NEBU. NEB SCH ×4 (07:44→18:47)
[2020-07-18] MEDS: FOLIC ACID 1 MG TABLET. PO SCH (07:56)
[2020-07-18] MEDS: MULTIVITAMIN with MINERAL TABLET. PO SCH (07:56)
[2020-07-18] MEDS: THIAMINE 100 MG TABLET. PO SCH (07:56)
[2020-07-18] MEDS: buPROPion XL 150 MG TAB.ER.24H. PO SCH (07:56)
[2020-07-18] MEDS: LACTOBACILLUS RHAMNOSUS GG 1 CAPSULE. PO SCH ×2 (07:56→21:10)
[2020-07-18] MEDS: ASPIRIN ENTERIC COATED 81 MG TABLET.DR. PO SCH (07:56)
[2020-07-18] MEDS: AZITHROMYCIN 250 MG TABLET. PO SCH (07:57)
[2020-07-18] MEDS: POTASSIUM CHLORIDE 20 MEQ TABLET.ER. PO SCH ×3 (07:57→17:43)
[2020-07-18] MEDS: METOPROLOL TART IMMED RELEASE 25 MG TABLET. PO SCH (07:59)
--- NOTE | 2020-07-18 08:32 | PDOC ---
PULMONARY PROGRESS NOTES DATE: 07/18/20 TIME: 08:31 Subjective Patient not more short of air chest tube continues to drain greater than 24- hour. Vitals Vital Signs Date Time Temp Pulse Resp B/P (MAP) Pulse Ox O2 Delivery O2 Flow Rate FiO2 07/18/20 08:02 90 93/52 (66) 07/18/20 07:45 97 Nasal Cannula 2.0 07/18/20 07:00 98.0 16 98.0 ROS: No Nausea, No Chest Pain, No Abdominal Pain, No Increase Cough General: Alert, No acute distress Lungs: Other (decreased BLL and rML) Cardiovascular: S1 Abdomen: Soft Neuro Exam: Alert Extremities: No Edema Skin: Warm, Dry Labs Laboratory Tests Test 07/17/20 04:40 White Blood Count 13.4 x10^3/uL (4.0-11.0) Red Blood Count 3.90 x10^6/uL (3.50-5.40) Hemoglobin 10.5 g/dL (12.0-15.5) Hematocrit 32.2 % (36.0-47.0) Mean Corpuscular Volume 82 fL (79-100) Mean Corpuscular Hemoglobin 27 pg (25-35) Mean Corpuscular Hemoglobin Concent 33 g/dL (31-37) Red Cell Distribution Width 15.4 % (11.5-14.5) Platelet Count 493 x10^3/uL (140-400) Sodium Level 127 mmol/L (136-145) Potassium Level 4.3 mmol/L (3.5-5.1) Chloride Level 97 mmol/L (98-107) Carbon Dioxide Level 16 mmol/L (21-32) Anion Gap 14 (6-14) Blood Urea Nitrogen 5 mg/dL (7-20) Creatinine 0.5 mg/dL (0.6-1.0) Estimated GFR (Cockcroft-Gault) 124.6 Glucose Level 78 mg/dL (70-99) Calcium Level 8.2 mg/dL (8.5-10.1) Medications Active Scripts Medications Dose Route/Sig Max Daily Dose Days Date Category Wellbutrin Xl (Bupropion Hcl) 300 Mg Tab.er.24h 1 Tab PO DAILY 07/10/20 Reported Amlodipine-Valsartan 10-320 mg (Amlodipine/Valsartan) 1 Each Tablet 1 Tab PO DAILY 30 07/10/20 Reported Atorvastatin Calcium 20 Mg Tablet 20 Mg PO HS 07/10/20 Reported Comments cxr 07/15 increasing right effusion Impression . 1. Abnormal chest x-ray with large mass in the right lower lobe along with pleural effusion. 2. Atrial fibrillation with rapid ventricular response. Currently being followed by Cardiology. rate controlled 3. Thirty years of tobacco use, suspect underlying chronic obstructive pulmonary disease. 4. Normal ejection fraction. 5. Recent wt loss 6. leukocytosis 7. Status post adrenal biopsy positive for cancer special stains of pending, suspect stage IV lung cancer 8. Status post biopsy of lung mass, no evidence of malignancy in seen, I think this was a sampling error. 9. Postobstructive pneumonia with complicated parapneumonic effusion Plan . Continue chest tube to drainage will discontinue chest tube once pleural fluid is less than 200 cc in 24-hour. Reinitiate anticoagulation Follow oncology input Antibiotics Case discussed with son yesterday and today BABITA MUELLER MD Jul 18, 2020 08:32
[2020-07-18] MEDS: METOPROLOL TART IMMED RELEASE 50 MG TABLET. PO SCH ×2 (09:00→19:59)
[2020-07-18] MEDS ORDERED: ACETAMINOPHEN 325 MG TABLET. PO PRN (10:00)
--- NOTE | 2020-07-18 10:33 | NUR ---
SS following up with discharge planning. SS reviewed pt chart and discussed with pt RN. COVID19 negative. Chest tube remains at this time. Pt is currently requiring oxygen. Pt had adrenal gland biopsy on 07/17/2020 and results are currently pending. Referral phoned and faxed to [facility], ; fax [phone], on 07/17/2020. SS will continue to follow for discharge planning.
--- NOTE | 2020-07-18 12:47 | PN ---
DATE: 07/18/2020 SUBJECTIVE: The patient is sitting comfortably in her chair, in no apparent respiratory distress. On questioning her, she did complain of mild discomfort in the right side of chest, but otherwise denied any other complaint. She drained about 1400 mL of fluid yesterday and the output is incompletely recorded this morning. PHYSICAL EXAMINATION: GENERAL: When I examined her, she looked pale, somewhat cachectic, but no jaundice, cyanosis or thyromegaly. No jugular venous distention or limb edema. VITAL SIGNS: Her heart rate was 90, blood pressure was 93/56, temperature 97.7, respiratory rate was 16, and oxygen saturation was 100% on 2 liters of oxygen. HEENT: Examination of the head, eyes, ears, nose and throat showed normocephalic, atraumatic. NECK: Supple. HEART: Showed normal first and second heart sounds. No gallop, rub or murmur. CHEST: Shows central trachea, equal bilateral chest expansion, air entry, vesicular sounds. I could not appreciate any crepitation or rhonchi. There is dull percussion noted and absent breath sounds posteriorly seems to be much less than before. ABDOMEN: Distended, soft, nontender. NEUROLOGIC: She is awake, alert, responding appropriately. All cranial nerves intact. She moves extremities without difficulty. Her intake was 360, output was 2730. LABORATORY DATA: No lab work this morning. Yesterday, her white cell count was 13,400, hemoglobin 10, hematocrit 32, MCV 82 and platelet count 493,000. Her chemistry showed a serum sodium of 127, potassium 4.3, chloride 97, bicarbonate 16, anion gap of 14, BUN 5, creatinine 0.5, estimated GFR was 124 mL per minute. Her glucose was 78 and calcium was 8.2. ASSESSMENT: 1. Atrial fibrillation with rapid ventricular response. The patient now in sinus rhythm. She is on metoprolol tartrate 25 mg every 8 hours. She is not on anticoagulation for now given that she has multiple procedures including the lung biopsy and adrenal gland biopsy and chest tube placement. 2. Postobstructive pneumonia for which she continues to be on Zithromax and ceftriaxone. 3. Hyponatremia resistant with a serum sodium of around 127 mEq per liter. 4. Chronic diastolic congestive heart failure, seems to be clinically well compensated. 5. Large sided pleural effusion, status post drainage. Initially about 1500 mL; however, did reaccumulate another about 3000 mL of fluid removed. Cytology was negative for malignant cells. 6. A mass in the right middle lobe, status post CT-guided biopsy. The pathology showed that there is interstitial edema and chronic inflammation with focal nodular plugs of reactive fibrous tissue filling air spaces. There is no malignancy. There is no evidence of viable malignant within the biopsy. 7. Her adrenal gland was enlarged and she underwent biopsy yesterday, the result of which is still pending at the time of this dictation. PLAN: The plan is obviously to continue with chest tube management. Continue with oxygen supplementation. Continue with pain medication as well as IV antibiotic and await the result of the adrenal gland biopsy. OBIE MEJÍA MD DR: DREW/jomar JOB#: [id number] / [id number]
--- NOTE | 2020-07-18 12:56 | RAD ---
Examination: PORTABLE CHEST 1V History: PTX Comparison/Correlation: 07/17/2020 Findings: Portable upright frontal view of the chest was obtained. Heart size is normal. Right basilar pigtail catheter chest tube is noted. Very small right apical pneumothorax is present. It is fairly decreased in interval. The right lung apex is present at the posterior third rib level. Opacification in the right lower lung field is improved in the interval. There is a density in particular at the right mid to lower thoracic level which persists. Left lung field is unremarkable. Mild gaseous distention of upper abdominal bowel. Minimal pleural effusions suspected. Impression: Slight decrease in the patient's known right-sided pneumothorax. Improved right basilar aeration notable. Electronically signed by: Dominic Suarez MD (07/18/2020 12:52 PM) [id number]
[2020-07-18] MEDS: BENZONATATE 100 MG CAPSULE. PO PRN (13:17)
[2020-07-18 13:24] LABS: HEMATOCRIT 28.8 % (36.0-47.0); HEMOGLOBIN 9.4 g/dL (12.0-15.5); RED BLOOD COUNT 3.52 x10^6/uL (3.50-5.40); RED CELL DISTRIBUTION WIDTH 15.9 % (11.5-14.5)
[2020-07-18 13:47] LABS: ALBUMIN 1.6 g/dL (3.4-5.0); ALBUMIN/GLOBULIN RATIO 0.4 (1.0-1.7); CREATININE 0.4 mg/dL (0.6-1.0); GFR 161.2; POTASSIUM 3.8 mmol/L (3.5-5.1); TOTAL BILIRUBIN 0.4 mg/dL (0.2-1.0); TOTAL PROTEIN 5.5 g/dL (6.4-8.2)
--- NOTE | 2020-07-18 14:01 | PDOC ---
JENNIFER ROSALES HEALTH PLAN ADVISOR 07/18/20 1401: CARDIO Progress Notes Date and Time Date of Service 07/18/20 Time of Evaluation 1140 Subjective Subjective: No Chest Pain, No Palpitations, Other (not more SOA today) Vitals Vitals Vital Signs Date Time Temp Pulse Resp B/P (MAP) Pulse Ox O2 Delivery O2 Flow Rate FiO2 07/18/20 10:06 97.7 90 16 93/56 (68) 100 Nasal Cannula 2.0 97.7 Weight Weight [ ] Input and Output Intake and Output Intake and Output 07/18/20 07:00 Intake Total 1100 ml Output Total 1200 ml Balance -100 ml Intake Oral 1100 ml Chest Tube Drainage Total 500 ml Drainage Total 700 ml # Voids 6 # Bowel Movements 4 Laboratory Labs Laboratory Tests Test 07/18/20 13:05 White Blood Count 13.0 x10^3/uL (4.0-11.0) Red Blood Count 3.52 x10^6/uL (3.50-5.40) Hemoglobin 9.4 g/dL (12.0-15.5) Hematocrit 28.8 % (36.0-47.0) Mean Corpuscular Volume 82 fL (79-100) Mean Corpuscular Hemoglobin 27 pg (25-35) Mean Corpuscular Hemoglobin Concent 33 g/dL (31-37) Red Cell Distribution Width 15.9 % (11.5-14.5) Platelet Count 487 x10^3/uL (140-400) Sodium Level 129 mmol/L (136-145) Potassium Level 3.8 mmol/L (3.5-5.1) Chloride Level 97 mmol/L (98-107) Carbon Dioxide Level 21 mmol/L (21-32) Anion Gap 11 (6-14) Blood Urea Nitrogen 2 mg/dL (7-20) Creatinine 0.4 mg/dL (0.6-1.0) Estimated GFR (Cockcroft-Gault) 161.2 BUN/Creatinine Ratio 5 (6-20) Glucose Level 85 mg/dL (70-99) Calcium Level 8.0 mg/dL (8.5-10.1) Total Bilirubin 0.4 mg/dL (0.2-1.0) Aspartate Amino Transf (AST/SGOT) 34 U/L (15-37) Alanine Aminotransferase (ALT/SGPT) 9 U/L (14-59) Alkaline Phosphatase 134 U/L (46-116) Total Protein 5.5 g/dL (6.4-8.2) Albumin 1.6 g/dL (3.4-5.0) Albumin/Globulin Ratio 0.4 (1.0-1.7) Microbiology Micro Microbiology 07/12/20 Gram Stain - Final, Complete 07/12/20 Aerobic and Anaerobic Culture - Final, Complete Physical Exam HEENT: Neck Supple W Full Motion Chest: Symmetric LUNGS: Other (diminished, right CT) Heart: irregularly irregular (AFIB; rate intermittently elevated ) Abdomen: Soft N/T Extremities: No Edema, No Calf Tenderness Neurology: alert, oriented, follow commands Assessment Assessment 1. AFIB with RVR; new onset. converted back to SR yesterday afternoon and has been maintaining. 2. Acute respiratory failure; multifactorial with large right lung mass, pneumothorax, recurrent right pleural effusion, and CHF. Still having drainage from CT 3. Acute on chronic diastolic CHF: EF and WM nml. 4. Hypertension; remains low end 5. Hyperlipidemia: controlled 6. Hyponatremia; as per PCP 7. Suspect COPD with tobaccoism 8. Left subclavian arterial stenosis. No left arm claudication symptoms. Monitor as an outpt 9. Lung mass; s/p biopsy without malignant cytology; concerns for malignancy with mets to adrenal gland- s/p biopsy Recommendations Continue metoprolol for rate control ASA therapy Consider OAC upon discharge when w/u of lung mass complete Await cytology Supportive care from a CV standpoint Justicifation of Admission Dx: Justifications for Admission: Justification of Admission Dx: Yes AUDREY MCCARTY MD 07/18/20 1459: CARDIO Progress Notes Plan Plan The patient was seen and interviewed as well as examined at the bedside. The chart was reviewed. The case was discussed. Agree with the plan of care. JENNIFER ROSALES APRN Jul 18, 2020 14:01 AUDREY MCCARTY MD Jul 18, 2020 14:59
--- NOTE | 2020-07-18 17:30 | NUR ---
Pt's HR noted to be jumping from 120's to the 150's. Pt sitting up in chair with family at bedside. PT has no c/o discomfort or palpitations. STAT EKG obtained and it reads as an irregular rhythm. Upon nursing assessment of health and social care teacher, pt notes to be converting between a ST and A.FIB. Cardiology notified and one order given for 0.5mg of IVP Dig X1. Dose administered. Will continue to monitor.
--- NOTE | 2020-07-18 18:01 | EKG ---
[facility] [address] [place] [address] Test Date: 2020-07-18 Test Time: 17:17:22 Pat Name: BELLA HEALY Department: Room: 204 1 Gender: F Uat Tester: LILI : 1955 Requested By: LEESA JIMENEZ Order Number: [id number] Reading MD: Jin Moreland Measurements Intervals [place] Rate: 138 P: IN: QRS: 56 QRSD: 80 T: -76 QT: 272 QTc: 412 Interpretive Statements ATRIAL FIBRILLATION WITH RVR Electronically Signed On 07-25-2020 13:03:07 CDT by Jin Moreland
[2020-07-18] MEDS ORDERED: DIGOXIN IV 500 MCG/2 ML AMPUL. IV ONE (18:15)
[2020-07-18] MEDS: ALPRAZolam 0.5 MG TABLET PO PRN (19:20)
[2020-07-18] MEDS: fentaNYL PF VIAL 100 MCG/2 ML VIAL IVP PRN (19:21)
--- NOTE | 2020-07-18 19:25 | NUR ---
Pt sitting up in chair assessment completed vss poc explained dpt c/o pain to lt fa at infiltrated iv site, will medicate pt, Pt daughter at bedside questions and concerns answered will assist pt to bed and continue to monitor pt.
[2020-07-18] MEDS ORDERED: AMIODARONE 150 MG in IV DEXTROSE 5% 100ML 100 ML IV ONE (19:30)
--- NOTE | 2020-07-18 20:10 | NUR ---
PT c/o IV burning approximatley 10-15 minutes after Digoxin IVP. Upon assessment, IV site does appear to be infiltrated. Pt HR continues to fluctuate from 120's to the 150's. Dr. Moreland contacted and new orders given for amio gtt per protocol. restaurant shift leader updated and new IV started. Will continue to monitor.
[2020-07-18] MEDS: AMIODARONE 450 MG in IV DEXTROSE 5% 250 ML IV PRN (20:18)
[2020-07-18] MEDS: ATORVASTATIN CALCIUM 20 MG TABLET PO SCH (21:09)
[2020-07-19] VITALS (12 sets, daily range): BP systolic 91–141; BP diastolic 57–81
[2020-07-19] MEDS: AMIODARONE 450 MG in IV DEXTROSE 5% 250 ML IV PRN (03:52)
[2020-07-19] MEDS: IPRATRPIUM/ALBUTEROL 0.5/2.5MG 3 ML NEBU. NEB SCH ×4 (07:45→19:37)
[2020-07-19] MEDS: buPROPion XL 150 MG TAB.ER.24H. PO SCH (08:01)
[2020-07-19] MEDS: LACTOBACILLUS RHAMNOSUS GG 1 CAPSULE. PO SCH ×2 (08:02→20:34)
[2020-07-19] MEDS: FOLIC ACID 1 MG TABLET. PO SCH (08:02)
[2020-07-19] MEDS: MULTIVITAMIN with MINERAL TABLET. PO SCH (08:02)
[2020-07-19] MEDS: AZITHROMYCIN 250 MG TABLET. PO SCH (08:02)
[2020-07-19] MEDS: POTASSIUM CHLORIDE 20 MEQ TABLET.ER. PO SCH ×3 (08:02→18:00)
[2020-07-19] MEDS: THIAMINE 100 MG TABLET. PO SCH (08:02)
[2020-07-19] MEDS: ASPIRIN ENTERIC COATED 81 MG TABLET.DR. PO SCH (08:02)
[2020-07-19] MEDS: METOPROLOL TART IMMED RELEASE 50 MG TABLET. PO SCH ×2 (08:03→20:35)
--- NOTE | 2020-07-19 08:15 | PDOC ---
PULMONARY PROGRESS NOTES DATE: 07/19/20 TIME: 08:15 Subjective Patient depressed. Not more short of air Had greater than 200 cc drainage Vitals Vital Signs Date Time Temp Pulse Resp B/P (MAP) Pulse Ox O2 Delivery O2 Flow Rate FiO2 07/19/20 08:03 112 102/69 07/19/20 07:47 97 Room Air 07/19/20 06:09 97.8 20 2.0 97.8 ROS: No Nausea, No Chest Pain, No Abdominal Pain, No Increase Cough General: Alert, No acute distress Lungs: Other (decreased BLL and rML) Cardiovascular: S1 Abdomen: Soft Neuro Exam: Alert Extremities: No Edema Skin: Warm, Dry Labs Laboratory Tests Test 07/18/20 13:05 White Blood Count 13.0 x10^3/uL (4.0-11.0) Red Blood Count 3.52 x10^6/uL (3.50-5.40) Hemoglobin 9.4 g/dL (12.0-15.5) Hematocrit 28.8 % (36.0-47.0) Mean Corpuscular Volume 82 fL (79-100) Mean Corpuscular Hemoglobin 27 pg (25-35) Mean Corpuscular Hemoglobin Concent 33 g/dL (31-37) Red Cell Distribution Width 15.9 % (11.5-14.5) Platelet Count 487 x10^3/uL (140-400) Sodium Level 129 mmol/L (136-145) Potassium Level 3.8 mmol/L (3.5-5.1) Chloride Level 97 mmol/L (98-107) Carbon Dioxide Level 21 mmol/L (21-32) Anion Gap 11 (6-14) Blood Urea Nitrogen 2 mg/dL (7-20) Creatinine 0.4 mg/dL (0.6-1.0) Estimated GFR (Cockcroft-Gault) 161.2 BUN/Creatinine Ratio 5 (6-20) Glucose Level 85 mg/dL (70-99) Calcium Level 8.0 mg/dL (8.5-10.1) Total Bilirubin 0.4 mg/dL (0.2-1.0) Aspartate Amino Transf (AST/SGOT) 34 U/L (15-37) Alanine Aminotransferase (ALT/SGPT) 9 U/L (14-59) Alkaline Phosphatase 134 U/L (46-116) Total Protein 5.5 g/dL (6.4-8.2) Albumin 1.6 g/dL (3.4-5.0) Albumin/Globulin Ratio 0.4 (1.0-1.7) Laboratory Tests Test 07/18/20 13:05 White Blood Count 13.0 x10^3/uL (4.0-11.0) Red Blood Count 3.52 x10^6/uL (3.50-5.40) Hemoglobin 9.4 g/dL (12.0-15.5) Hematocrit 28.8 % (36.0-47.0) Mean Corpuscular Volume 82 fL (79-100) Mean Corpuscular Hemoglobin 27 pg (25-35) Mean Corpuscular Hemoglobin Concent 33 g/dL (31-37) Red Cell Distribution Width 15.9 % (11.5-14.5) Platelet Count 487 x10^3/uL (140-400) Sodium Level 129 mmol/L (136-145) Potassium Level 3.8 mmol/L (3.5-5.1) Chloride Level 97 mmol/L (98-107) Carbon Dioxide Level 21 mmol/L (21-32) Anion Gap 11 (6-14) Blood Urea Nitrogen 2 mg/dL (7-20) Creatinine 0.4 mg/dL (0.6-1.0) Estimated GFR (Cockcroft-Gault) 161.2 BUN/Creatinine Ratio 5 (6-20) Glucose Level 85 mg/dL (70-99) Calcium Level 8.0 mg/dL (8.5-10.1) Total Bilirubin 0.4 mg/dL (0.2-1.0) Aspartate Amino Transf (AST/SGOT) 34 U/L (15-37) Alanine Aminotransferase (ALT/SGPT) 9 U/L (14-59) Alkaline Phosphatase 134 U/L (46-116) Total Protein 5.5 g/dL (6.4-8.2) Albumin 1.6 g/dL (3.4-5.0) Albumin/Globulin Ratio 0.4 (1.0-1.7) Medications Active Scripts Medications Dose Route/Sig Max Daily Dose Days Date Category Wellbutrin Xl (Bupropion Hcl) 300 Mg Tab.er.24h 1 Tab PO DAILY 07/10/20 Reported Amlodipine-Valsartan 10-320 mg (Amlodipine/Valsartan) 1 Each Tablet 1 Tab PO DAILY 30 07/10/20 Reported Atorvastatin Calcium 20 Mg Tablet 20 Mg PO HS 07/10/20 Reported Comments cxr 07/15 increasing right effusion Impression . 1. Abnormal chest x-ray with large mass in the right lower lobe along with pleural effusion. 2. Atrial fibrillation with rapid ventricular response. Currently being followed by Cardiology. rate controlled 3. Thirty years of tobacco use, suspect underlying chronic obstructive pulmonary disease. 4. Normal ejection fraction. 5. Recent wt loss 6. leukocytosis 7. Status post adrenal biopsy positive for cancer special stains of pending, suspect stage IV lung cancer 8. Status post biopsy of lung mass, no evidence of malignancy in seen, I think this was a sampling error. 9. Postobstructive pneumonia with complicated parapneumonic effusion 10. Depressed. Plan . Add SSRI Possible talc pleurodesis Continue chest tube to drainage will discontinue chest tube once pleural fluid is less than 200 cc in 24-hour. Reinitiate anticoagulation Follow oncology input Antibiotics Case discussed with son yesterday and today BABITA MUELLER MD Jul 19, 2020 08:15
--- NOTE | 2020-07-19 08:57 | RAD ---
PORTABLE CHEST 1V INDICATION: PTX . COMPARISON STUDY: 07/18/2020. FINDINGS: Life Support Devices: Stable right basilar pleural catheter. Lungs: Normal lung volume. Stable right perihilar mass. Stable bibasilar opacities. Pleura: Stable small right apical pneumothorax. Heart and Mediastinum: Stable cardiomediastinal silhouette and great vessels. IMPRESSION: 1. Stable small right apical pneumothorax with right pleural catheter in place. 2. Stable right perihilar mass. 3. Stable bibasilar opacities. Electronically signed by: Andriy Paredes MD (07/19/2020 8:55 AM) [id number]
--- NOTE | 2020-07-19 10:12 | NUR ---
SS following up with discharge planning. SS reviewed pt chart and discussed with pt RN. Chest tube remains at this time. Currently awaiting results of adrenal gland biopsy. Pt on Amiodarone drip. COVID19 negative. SS contacted pt's son, Nile, and discussed discharge planning. Pt son wanting to know results of adrenal gland biopsy. He reported that he would like SS to discuss code status with pt and DNR. SS discussed possibility of LTACH with pt's son and pt's son agreeable if recommended. Pt's son reported that he would be okay with facility of pt's choice. Pt's son reported that he would be okay with [facility] or [facility]. SS provided contact information for both facilities to pt's son. SS met with pt to discuss code status and pt requested that SS come back at a later time. Pt's RN notified. SS discussed with physician. SS will continue to follow for discharge planning.
--- NOTE | 2020-07-19 10:39 | PDOC ---
JENNIFER ROSALES [employer] 07/19/20 1039: CARDIO Progress Notes Date and Time Date of Service 07/19/20 Time of Evaluation 1030 Subjective Subjective: No Chest Pain, No Palpitations, Other (feels tired, right CT bothersome ) Vitals Vitals Vital Signs Date Time Temp Pulse Resp B/P (MAP) Pulse Ox O2 Delivery O2 Flow Rate FiO2 07/19/20 08:03 112 102/69 07/19/20 08:00 Room Air 07/19/20 07:47 97 07/19/20 06:09 97.8 20 2.0 97.8 Weight Weight [ ] Input and Output Intake and Output Intake and Output 07/19/20 07:00 Intake Total 730 ml Output Total 1330 ml Balance -600 ml Intake Oral 730 ml Output Urine Total 450 ml Chest Tube Drainage Total 670 ml Drainage Total 210 ml # Voids 4 # Bowel Movements 3 Laboratory Labs Laboratory Tests Test 07/18/20 13:05 White Blood Count 13.0 x10^3/uL (4.0-11.0) Red Blood Count 3.52 x10^6/uL (3.50-5.40) Hemoglobin 9.4 g/dL (12.0-15.5) Hematocrit 28.8 % (36.0-47.0) Mean Corpuscular Volume 82 fL (79-100) Mean Corpuscular Hemoglobin 27 pg (25-35) Mean Corpuscular Hemoglobin Concent 33 g/dL (31-37) Red Cell Distribution Width 15.9 % (11.5-14.5) Platelet Count 487 x10^3/uL (140-400) Sodium Level 129 mmol/L (136-145) Potassium Level 3.8 mmol/L (3.5-5.1) Chloride Level 97 mmol/L (98-107) Carbon Dioxide Level 21 mmol/L (21-32) Anion Gap 11 (6-14) Blood Urea Nitrogen 2 mg/dL (7-20) Creatinine 0.4 mg/dL (0.6-1.0) Estimated GFR (Cockcroft-Gault) 161.2 BUN/Creatinine Ratio 5 (6-20) Glucose Level 85 mg/dL (70-99) Calcium Level 8.0 mg/dL (8.5-10.1) Total Bilirubin 0.4 mg/dL (0.2-1.0) Aspartate Amino Transf (AST/SGOT) 34 U/L (15-37) Alanine Aminotransferase (ALT/SGPT) 9 U/L (14-59) Alkaline Phosphatase 134 U/L (46-116) Total Protein 5.5 g/dL (6.4-8.2) Albumin 1.6 g/dL (3.4-5.0) Albumin/Globulin Ratio 0.4 (1.0-1.7) Microbiology Micro Microbiology 07/12/20 Gram Stain - Final, Complete 07/12/20 Aerobic and Anaerobic Culture - Final, Complete Physical Exam HEENT: Neck Supple W Full Motion Chest: Symmetric LUNGS: Other (diminished, right CT) Heart: irregularly irregular (AFIB; rate intermittently elevated ) Abdomen: Soft N/T Extremities: No Edema, No Calf Tenderness Neurology: alert, oriented, follow commands Assessment Assessment 1. AFIB with RVR; new onset. back to SR 07/17, but converted back to SR yesterday afternoon. rate intermittently elevated. Most probably secondary to lung issues 2. Acute respiratory failure; multifactorial with large right lung mass, pneumothorax, recurrent right pleural effusion, and CHF. Still having drainage from CT 3. Acute on chronic diastolic CHF: EF and WM nml. 4. Hypertension; remains low end 5. Hyperlipidemia: controlled 6. Hyponatremia; as per PCP 7. Suspect COPD with tobaccoism 8. Lung mass; s/p biopsy without malignant cytology; concerns for malignancy with mets to adrenal gland- s/p biopsy; cytology with metastatic adenocarcinoma. HemeOnc consulted. Recommendations Continue metoprolol for rate control On Amiodarone gtt initiated given recurrent AFIB with with RVR ASA therapy Supportive care from a CV standpoint Justicifation of Admission Dx: Justifications for Admission: Justification of Admission Dx: Yes AUDREY MCCARTY MD 07/19/20 1553: CARDIO Progress Notes Plan Plan The patient was seen and interviewed as well as examined at the bedside. The chart was reviewed. The case was discussed. Agree with the plan of care. JENNIFER ROSALES APRN Jul 19, 2020 10:39 AUDREY MCCARTY MD Jul 19, 2020 15:53
--- NOTE | 2020-07-19 12:04 | PN ---
DATE: 07/19/2020 SUBJECTIVE: The patient is resting, slightly propped up in bed, in no apparent respiratory distress. She still complained of some mild discomfort in the right side of the chest, but denied any shortness of breath, cough, phlegm or hemoptysis. I spoke with Dr. Mojica and apparently the adrenal biopsy is consistent with metastatic lung cancer and I did speak with the patient and her son and my plan is to consult the oncologist to decide on further management. PHYSICAL EXAMINATION: GENERAL: When I examined her, she was pale, cachectic, but no jaundice, cyanosis or thyromegaly. No jugular venous distention. No limb edema. VITAL SIGNS: Her heart rate was 112, blood pressure was 102/69, temperature was 97.8, respiratory rate 20, and oxygen saturation was 98% on 2 liters of oxygen. HEAD, EYES, EARS, NOSE, AND THROAT: Showed normocephalic, atraumatic. NECK: Supple. CARDIAC: Normal first and second heart sounds. No gallop or murmur. CHEST: Clear to auscultation. No crepitation or rhonchi. GASTROINTESTINAL: She does have dull percussion note and absent breath sounds on the right side posteriorly, much less than before. ABDOMEN: Distended, soft, nontender. NEUROLOGIC: She is grossly intact. Her intake over the last 24 hours was 1100, output was 1200. LABORATORY DATA: Most recent lab work showed a white cell count of 13,000, hemoglobin 9.4, hematocrit 28, MCV 82 and platelet count 487,000. Her chemistry showed serum sodium of 129, potassium 3.8, chloride 97, bicarbonate 21, anion gap of 11, BUN 2, creatinine 0.4. ASSESSMENT: 1. Atrial fibrillation with rapid ventricular response. The patient now is in sinus rhythm. Her heart rate is much better controlled as she is now on metoprolol tartrate 25 mg every 8 hours. She is not on anticoagulation for now given that she has multiple procedures including the lung biopsy and adrenal gland biopsy and chest tube placement. 2. Postobstructive pneumonia for which she continues to be on IV antibiotic. 3. Hyponatremia, persistent. Her most recent serum sodium is 129 mEq per liter. 4. Chronic diastolic congestive heart failure seems to be clinically well compensated. 5. Right-sided pleural effusion, status post drainage. The latest chest x-ray showed very little fluid. She has also stable small right apical pneumothorax with right pleural catheter in place, stable right perihilar mass, stable bibasilar opacities. 6. A mass in the right middle lobe, status post CT-guided biopsy. The pathology did not show any viable malignancy within the biopsy; however, clinical suspicion was very high and therefore, she underwent adrenal gland biopsy and the pathology is confirming that it is metastatic adenocarcinoma of the lung. PLAN: My plan is obviously to consult the oncologist to discuss with the patient and her son, the available option for treatment. OBIE MEJÍA MD DR: DREW/jomar JOB#: [id number] / [id number]
[2020-07-19 13:44] LABS: HEMATOCRIT 33.2 % (36.0-47.0); HEMOGLOBIN 11.2 g/dL (12.0-15.5); RED BLOOD COUNT 4.09 x10^6/uL (3.50-5.40); WHITE BLOOD COUNT 13.3 x10^3/uL (4.0-11.0)
[2020-07-19 13:55] LABS: ALBUMIN 1.8 g/dL (3.4-5.0); ALBUMIN/GLOBULIN RATIO 0.4 (1.0-1.7); CALCIUM 8.4 mg/dL (8.5-10.1); CREATININE 0.6 mg/dL (0.6-1.0); POTASSIUM 3.9 mmol/L (3.5-5.1); TOTAL BILIRUBIN 0.4 mg/dL (0.2-1.0); TOTAL PROTEIN 6.6 g/dL (6.4-8.2)
[2020-07-19] MEDS: BENZONATATE 100 MG CAPSULE. PO PRN (14:08)
--- NOTE | 2020-07-19 16:06 | PATHOLOGY ---
[facility] Accession Number: [id number] . 01 Material submitted: . adrenal gland - LEFT ADRENAL GLAND CORE BX. Modifiers: left . 01 Clinical history: . NEW ONSET A FIB, LEFT ADRENAL GLAND . 02 Diagnosis: Left adrenal gland, CT-guided needle biopsies: - METASTATIC ADENOCARCINOMA, POORLY DIFFERENTIATED. SEE COMMENT. (JPM:deana/trina; 07/19/2020) R 07/19/2020 0905 Local . 02 Comment: Sections of the left adrenal gland CT-guided needle biopsy reveal a malignant epithelial neoplasm. There is no normal adrenal gland present. The tumor cells are present in small nests within a fibrous stroma. The tumor appears to show focal acinar formation. The tumor cells have mild to moderate amounts of eosinophilic to focally vacuolated cytoplasm, and possess enlarged, moderately to focally markedly pleomorphic hyperchromatic nuclei. Mitotic figures are present. A panel of immunoperoxidase stains is obtained on block A1 and yields the following results: . Cytokeratin 7: Tumor cells positive Cytokeratin 20: Tumor cells negative TTF-1: Tumor cells positive Napsin A: Tumor cells focally positive P40: Tumor cells negative CK5/6: Tumor cells negative . The morphologic and immunophenotypic findings are supportive of the diagnosis of metastatic poorly differentiated adenocarcinoma of pulmonary origin. The case is also examined by Dr. Wilson, who concurs with the diagnosis. The results are reported to Dr. Wang on 07/19/2020 at 10:40 AM. . (JPM:binding cutter/trina; 07/19/2020) . . Special stains performed: Immunoperoxidase stains for CK7, CK20, TTF-1, napsin A, p40, CK5/6 all performed on A1. . 02 Electronically signed: . Nando Donald MD, Pathologist NPI- [id number] . 01 Gross description: . The specimen is received in formalin, labeled "Cris Katerin, left adrenal biopsy". Received are two needle cores of pale edwards soft tissue ranging in length from 0.7 to 0.8 cm in length by 0.1 cm in diameter. The specimen is submitted entirely in cassette A1 and A2. (CAA; 07/17/2020) QA/QA 07/17/2020 1703 Local . 02 Pathologist provided ICD-10: C79.72 . 02 CPT . 251730, V33163, R49742 Specimen Comment: A courtesy copy of this report has been sent to [phone] Specimen Comment: [phone], Specimen Comment: Report sent to ,DR SMITH / DR RAMIREZ Performed at: 01 [facility] [address], [place] [id number] MD Juanito Olson MD Phone: [phone] Performed at: 02 [facility] [address] [place], [place] [id number] MD Nando Donald MD Phone: [phone]
[2020-07-19] MEDS: SERTRALINE 50 MG TABLET. PO SCH (18:00)
[2020-07-19] MEDS: AMIODARONE HCL 200 MG TABLET. PO SCH (18:01)
--- NOTE | 2020-07-19 18:06 | PATHOLOGY ---
Note [facility] Accession Number: [id number] TESTS RESULT FLAG UNITS REF RANGE LAB Clinician Provided Cytology Information No. of containers..01 Other (Miscellaneous) Source: RIGHT PLEURAL FLUID DIAGNOSIS: 02 RIGHT PLEURAL FLUID NEGATIVE FOR MALIGNANT CELLS. FEW CLUSTERS OF ATYPICAL CELLS IDENTIFIED WITHIN A BACKGROUND OF MESOTHELIAL CELLS AND INFLAMMATORY CELLS. IMMUNOPEROXIDASE STAINS ARE OBTAINED ON THE CELL BLOCK. THE ATYPICAL CELLS ARE CALRETININ POSITIVE, AND NINO-EP4 AND TTF-1 NEGATIVE. THESE FINDINGS ARE CONSISTENT WITH ATYPICAL REACTIVE MESOTHELIAL CELLS. THIS INTERPRETATION INCLUDES EVALUATION OF A CELL BLOCK. Signed out by: 02 Nando Donald MD, Pathologist NPI- [id number] Performed by: Devora Perez, [facility] ([facility]) Gross description: 01 50ML, CLOUDY ORANGE, 1 TP 1 CB /LCS 07/17/2020 1232 Local FLAG LEGEND: L-Low Normal,H-High Normal,LL-Alert Low,HH-Alert High <-Panic Low,>-Panic High,A-Abnormal,AA-Critical Abnormal Performed at: [facility] [address] [address] [facility] [address] [place] [address] Juanito Olson MD, 02 [facility] [address] [place] [address] Nando Donald MD, Specimen Comment: A courtesy copy of this report has been sent to [phone], [phone] Specimen Comment: [phone], Specimen Comment: Report sent to Performed at: [address], [place], [place] [id number] MD Juanito Olson MD Phone: [phone]
[2020-07-19] MEDS: ATORVASTATIN CALCIUM 20 MG TABLET PO SCH (20:34)
[2020-07-20 03:09] VITALS: BP 109/79
[2020-07-20 05:34] LABS: HEMATOCRIT 28.5 % (36.0-47.0); HEMOGLOBIN 9.5 g/dL (12.0-15.5); RED BLOOD COUNT 3.5 x10^6/uL (3.50-5.40); RED CELL DISTRIBUTION WIDTH 16.1 % (11.5-14.5); WHITE BLOOD COUNT 10.2 x10^3/uL (4.0-11.0)
[2020-07-20 06:06] LABS: ALBUMIN 1.5 g/dL (3.4-5.0); ALBUMIN/GLOBULIN RATIO 0.4 (1.0-1.7); CALCIUM 8.2 mg/dL (8.5-10.1); CREATININE 0.4 mg/dL (0.6-1.0); GFR 161.2; POTASSIUM 3.7 mmol/L (3.5-5.1); TOTAL BILIRUBIN 0.4 mg/dL (0.2-1.0); TOTAL PROTEIN 5.5 g/dL (6.4-8.2)
[2020-07-20 07:00] VITALS: BP 105/63
[2020-07-20] MEDS: IPRATRPIUM/ALBUTEROL 0.5/2.5MG 3 ML NEBU. NEB SCH ×4 (07:12→20:04)
[2020-07-20] MEDS: MULTIVITAMIN with MINERAL TABLET. PO SCH (08:18)
[2020-07-20] MEDS: buPROPion XL 150 MG TAB.ER.24H. PO SCH (08:18)
[2020-07-20] MEDS: ASPIRIN ENTERIC COATED 81 MG TABLET.DR. PO SCH (08:18)
[2020-07-20] MEDS: AZITHROMYCIN 250 MG TABLET. PO SCH (08:18)
[2020-07-20] MEDS: POTASSIUM CHLORIDE 20 MEQ TABLET.ER. PO SCH ×3 (08:18→18:20)
[2020-07-20] MEDS: LACTOBACILLUS RHAMNOSUS GG 1 CAPSULE. PO SCH ×2 (08:18→20:36)
[2020-07-20] MEDS: THIAMINE 100 MG TABLET. PO SCH (08:18)
[2020-07-20] MEDS: FOLIC ACID 1 MG TABLET. PO SCH (08:19)
[2020-07-20] MEDS: AMIODARONE HCL 200 MG TABLET. PO SCH (08:19)
[2020-07-20] MEDS: METOPROLOL TART IMMED RELEASE 50 MG TABLET. PO SCH ×2 (08:20→20:37)
[2020-07-20] MEDS: SERTRALINE 50 MG TABLET. PO SCH (08:20)
--- NOTE | 2020-07-20 08:30 | PDOC ---
PULMONARY PROGRESS NOTES DATE: 07/20/20 TIME: 08:30 Subjective Patient is drowsy today however is able to awake and answer questions She had a dose of Xanax prior to her MRI secondary to claustrophobia and is now sleepy Chest tube drainage is 180 cc over the last 24 hours No overnight concerns from nursing Vitals Vital Signs Date Time Temp Pulse Resp B/P (MAP) Pulse Ox O2 Delivery O2 Flow Rate FiO2 07/20/20 08:20 102 105/63 07/20/20 07:12 95 Room Air 07/20/20 03:09 98.8 18 98.8 ROS: No Nausea, No Chest Pain, No Abdominal Pain, No Increase Cough General: Alert, No acute distress Lungs: Other (decreased BLL and rML) Cardiovascular: S1 Abdomen: Soft Neuro Exam: Alert Extremities: No Edema Skin: Warm, Dry Labs Laboratory Tests Test 07/18/20 13:05 07/19/20 13:30 07/20/20 05:00 White Blood Count 13.0 x10^3/uL (4.0-11.0) 13.3 x10^3/uL (4.0-11.0) 10.2 x10^3/uL (4.0-11.0) Red Blood Count 3.52 x10^6/uL (3.50-5.40) 4.09 x10^6/uL (3.50-5.40) 3.50 x10^6/uL (3.50-5.40) Hemoglobin 9.4 g/dL (12.0-15.5) 11.2 g/dL (12.0-15.5) 9.5 g/dL (12.0-15.5) Hematocrit 28.8 % (36.0-47.0) 33.2 % (36.0-47.0) 28.5 % (36.0-47.0) Mean Corpuscular Volume 82 fL (79-100) 81 fL (79-100) 81 fL (79-100) Mean Corpuscular Hemoglobin 27 pg (25-35) 27 pg (25-35) 27 pg (25-35) Mean Corpuscular Hemoglobin Concent 33 g/dL (31-37) 34 g/dL (31-37) 33 g/dL (31-37) Red Cell Distribution Width 15.9 % (11.5-14.5) 16.0 % (11.5-14.5) 16.1 % (11.5-14.5) Platelet Count 487 x10^3/uL (140-400) 597 x10^3/uL (140-400) 515 x10^3/uL (140-400) Sodium Level 129 mmol/L (136-145) 130 mmol/L (136-145) 130 mmol/L (136-145) Potassium Level 3.8 mmol/L (3.5-5.1) 3.9 mmol/L (3.5-5.1) 3.7 mmol/L (3.5-5.1) Chloride Level 97 mmol/L (98-107) 96 mmol/L (98-107) 98 mmol/L (98-107) Carbon Dioxide Level 21 mmol/L (21-32) 24 mmol/L (21-32) 24 mmol/L (21-32) Anion Gap 11 (6-14) 10 (6-14) 8 (6-14) Blood Urea Nitrogen 2 mg/dL (7-20) 3 mg/dL (7-20) 3 mg/dL (7-20) Creatinine 0.4 mg/dL (0.6-1.0) 0.6 mg/dL (0.6-1.0) 0.4 mg/dL (0.6-1.0) Estimated GFR (Cockcroft-Gault) 161.2 101.0 161.2 BUN/Creatinine Ratio 5 (6-20) 5 (6-20) 8 (6-20) Glucose Level 85 mg/dL (70-99) 122 mg/dL (70-99) 96 mg/dL (70-99) Calcium Level 8.0 mg/dL (8.5-10.1) 8.4 mg/dL (8.5-10.1) 8.2 mg/dL (8.5-10.1) Total Bilirubin 0.4 mg/dL (0.2-1.0) 0.4 mg/dL (0.2-1.0) 0.4 mg/dL (0.2-1.0) Aspartate Amino Transf (AST/SGOT) 34 U/L (15-37) 44 U/L (15-37) 34 U/L (15-37) Alanine Aminotransferase (ALT/SGPT) 9 U/L (14-59) 17 U/L (14-59) 16 U/L (14-59) Alkaline Phosphatase 134 U/L (46-116) 177 U/L (46-116) 159 U/L (46-116) Total Protein 5.5 g/dL (6.4-8.2) 6.6 g/dL (6.4-8.2) 5.5 g/dL (6.4-8.2) Albumin 1.6 g/dL (3.4-5.0) 1.8 g/dL (3.4-5.0) 1.5 g/dL (3.4-5.0) Albumin/Globulin Ratio 0.4 (1.0-1.7) 0.4 (1.0-1.7) 0.4 (1.0-1.7) Laboratory Tests Test 07/19/20 13:30 07/20/20 05:00 White Blood Count 13.3 x10^3/uL (4.0-11.0) 10.2 x10^3/uL (4.0-11.0) Red Blood Count 4.09 x10^6/uL (3.50-5.40) 3.50 x10^6/uL (3.50-5.40) Hemoglobin 11.2 g/dL (12.0-15.5) 9.5 g/dL (12.0-15.5) Hematocrit 33.2 % (36.0-47.0) 28.5 % (36.0-47.0) Mean Corpuscular Volume 81 fL (79-100) 81 fL (79-100) Mean Corpuscular Hemoglobin 27 pg (25-35) 27 pg (25-35) Mean Corpuscular Hemoglobin Concent 34 g/dL (31-37) 33 g/dL (31-37) Red Cell Distribution Width 16.0 % (11.5-14.5) 16.1 % (11.5-14.5) Platelet Count 597 x10^3/uL (140-400) 515 x10^3/uL (140-400) Sodium Level 130 mmol/L (136-145) 130 mmol/L (136-145) Potassium Level 3.9 mmol/L (3.5-5.1) 3.7 mmol/L (3.5-5.1) Chloride Level 96 mmol/L (98-107) 98 mmol/L (98-107) Carbon Dioxide Level 24 mmol/L (21-32) 24 mmol/L (21-32) Anion Gap 10 (6-14) 8 (6-14) Blood Urea Nitrogen 3 mg/dL (7-20) 3 mg/dL (7-20) Creatinine 0.6 mg/dL (0.6-1.0) 0.4 mg/dL (0.6-1.0) Estimated GFR (Cockcroft-Gault) 101.0 161.2 BUN/Creatinine Ratio 5 (6-20) 8 (6-20) Glucose Level 122 mg/dL (70-99) 96 mg/dL (70-99) Calcium Level 8.4 mg/dL (8.5-10.1) 8.2 mg/dL (8.5-10.1) Total Bilirubin 0.4 mg/dL (0.2-1.0) 0.4 mg/dL (0.2-1.0) Aspartate Amino Transf (AST/SGOT) 44 U/L (15-37) 34 U/L (15-37) Alanine Aminotransferase (ALT/SGPT) 17 U/L (14-59) 16 U/L (14-59) Alkaline Phosphatase 177 U/L (46-116) 159 U/L (46-116) Total Protein 6.6 g/dL (6.4-8.2) 5.5 g/dL (6.4-8.2) Albumin 1.8 g/dL (3.4-5.0) 1.5 g/dL (3.4-5.0) Albumin/Globulin Ratio 0.4 (1.0-1.7) 0.4 (1.0-1.7) Medications Active Scripts Medications Dose Route/Sig Max Daily Dose Days Date Category Wellbutrin Xl (Bupropion Hcl) 300 Mg Tab.er.24h 1 Tab PO DAILY 07/10/20 Reported Amlodipine-Valsartan 10-320 mg (Amlodipine/Valsartan) 1 Each Tablet 1 Tab PO DAILY 30 07/10/20 Reported Atorvastatin Calcium 20 Mg Tablet 20 Mg PO HS 07/10/20 Reported Comments Brain MRI Impression: 1. There is evidence of intracranial metastatic disease. There is a peripherally enhancing lateral right cerebellar lesion with adjacent vasogenic edema. There is also a small peripherally enhancing lesion of the left hippocampal formation. 2. There is mild supratentorial involutional change. 3. There is complete opacification of the left maxillary sinus with mild expansion, could be underlying mucocele. There is a small right sphenoid sinus air-fluid level which could be due to acute sinusitis. CXR 07/20 Impression: 1. There is stable small right apical pneumothorax, again small caliber chest tube at the right lung base. 2. There is again large masslike opacity in the right infrahilar region. Other hazy airspace opacity at the right lung base is somewhat greater which may be due to edema and/or infiltrate. Impression . 1. Abnormal chest x-ray with large mass in the right lower lobe along with pleural effusion. 2. Atrial fibrillation with rapid ventricular response. Currently being followed by Cardiology. rate controlled 3. Thirty years of tobacco use, suspect underlying chronic obstructive pulmonary disease. 4. Normal ejection fraction. 5. Recent wt loss 6. leukocytosis 7. Status post adrenal biopsy positive for cancer special stains of pending, suspect stage IV lung cancer 8. Status post biopsy of lung mass, no evidence of malignancy in seen, I think this was a sampling error. 9. Postobstructive pneumonia with complicated parapneumonic effusion 10. Depressed. 11. Metastatic disease to brain on MRI Plan . Supplemental oxygen if needed to keep oxygen saturations greater than 92%, currently on room air Continue SSRI Plan for talc pleurodesis in a.m. Continue chest tube to drainage will discontinue chest tube once pleural fluid is less than 200 cc in 24-hour And after talc pleurodesis tomorrow Follow oncology input MRI brain reviewed Cont. Azithromycin Physical therapy DVT/GI PPX Discussed with BABITA ANDRADE MD Jul 20, 2020 08:30
[2020-07-20] MEDS: ALPRAZolam 0.5 MG TABLET PO PRN ×2 (08:56→20:37)
--- NOTE | 2020-07-20 09:14 | RAD ---
PORTABLE CHEST 1V History: Pneumothorax Comparison: July 19, 2020 Findings: Single view of the chest is submitted. Small right apical pneumothorax is stable. There is again large masslike opacity of the right infrahilar region. There is again small caliber pigtail catheter at the right lung base. Hazy opacity at the right lung base is somewhat greater. There is no significant dependent pleural fluid. Heart size is stable. There is atherosclerotic calcification of the aortic arch. Impression: 1. There is stable small right apical pneumothorax, again small caliber chest tube at the right lung base. 2. There is again large masslike opacity in the right infrahilar region. Other hazy airspace opacity at the right lung base is somewhat greater which may be due to edema and/or infiltrate. Electronically signed by: Andriy Booth MD (07/20/2020 9:11 AM) [id number]
[2020-07-20] MEDS ORDERED: GADOTERATE 7.5 MMOL/15ML VIAL. IVP ONE (09:30)
[2020-07-20 10:00] VITALS: BP 110/70
--- NOTE | 2020-07-20 10:06 | PDOC ---
PROGRESS NOTES Date of Service DATE: 07/19/20 TIME: 14:43 Subjective Subjective Cris and her son Nile were at bedside at the time of my visit. We reviewed preliminary results from her adrenal gland biopsy which show metastatic pulmonary adenocarcinoma. She reports no new symptoms today. She continues to have fluid drainage through her chest tube. She denies fever or chills. She reports chest pain at the site of chest tube insertion. Objective Objective Vital Signs Date Time Temp Pulse Resp B/P (MAP) Pulse Ox O2 Delivery O2 Flow Rate FiO2 07/20/20 08:20 102 105/63 07/20/20 08:00 Room Air 07/20/20 07:12 95 07/20/20 07:00 98.0 18 98.0 07/19/20 06:09 2.0 Intake and Output 07/20/20 07:00 Intake Total 1200 ml Output Total 1465 ml Balance -265 ml Intake Oral 1200 ml Output Urine Total 1200 ml Chest Tube Drainage Total 265 ml # Voids 2 # Bowel Movements 4 Physical Exam Abdomen: Normal bowel sounds, Soft Heart: Other (Irregulay rhythm conssistent with A fib with V-rate of 120 during my visit on telemetry) General: Alert, Oriented X3, Other (sitting up in a chair) HEENT: Atraumatic, PERRLA Lungs: Other (Crackles on right side. Right chest tube noted) MUSCULOSKELETAL: No swelling Neck: Supple Neuro: Normal speech Psych/Mental Status: Mental status NL Skin: No rashes Assessment Assessment Metastatic lung adenocarcinoma Right sided loculated pleural effusion s/p chest tube placement Atrial fibrillation with RVR Malnutrition Deconditioning Hx of tobacco abuse Plan Plan of Care -I reviewed the results of pathology with the patient and her son -I discussed the management of advanced lung adenocarcinoma with the patient and that this is an incureable malignancy. We discussed her goals of care. She is interested in learning our recommendations first before she makes a decision. -I recommended MRI brain to complete staging -We reviewed the options for systemic therapy in metastatic NSCLC and the role of PDL1 testing and molecular testing in determining the choice of systemic therapy -I will request [facility] One testing on her recent bx -Continue care for chest tube for pleural effusion as directed by Phu Briggs and Sudha -Continue management of A fib per cardiology. -Rest per Dr Wang Please call me at [phone] with any questions Comment Review of Relevant I have reviewed the following items hawa (where applicable) has been applied. Labs Laboratory Tests Test 07/18/20 13:05 07/19/20 13:30 07/20/20 05:00 White Blood Count 13.0 x10^3/uL (4.0-11.0) 13.3 x10^3/uL (4.0-11.0) 10.2 x10^3/uL (4.0-11.0) Red Blood Count 3.52 x10^6/uL (3.50-5.40) 4.09 x10^6/uL (3.50-5.40) 3.50 x10^6/uL (3.50-5.40) Hemoglobin 9.4 g/dL (12.0-15.5) 11.2 g/dL (12.0-15.5) 9.5 g/dL (12.0-15.5) Hematocrit 28.8 % (36.0-47.0) 33.2 % (36.0-47.0) 28.5 % (36.0-47.0) Mean Corpuscular Volume 82 fL (79-100) 81 fL (79-100) 81 fL (79-100) Mean Corpuscular Hemoglobin 27 pg (25-35) 27 pg (25-35) 27 pg (25-35) Mean Corpuscular Hemoglobin Concent 33 g/dL (31-37) 34 g/dL (31-37) 33 g/dL (31-37) Red Cell Distribution Width 15.9 % (11.5-14.5) 16.0 % (11.5-14.5) 16.1 % (11.5-14.5) Platelet Count 487 x10^3/uL (140-400) 597 x10^3/uL (140-400) 515 x10^3/uL (140-400) Sodium Level 129 mmol/L (136-145) 130 mmol/L (136-145) 130 mmol/L (136-145) Potassium Level 3.8 mmol/L (3.5-5.1) 3.9 mmol/L (3.5-5.1) 3.7 mmol/L (3.5-5.1) Chloride Level 97 mmol/L (98-107) 96 mmol/L (98-107) 98 mmol/L (98-107) Carbon Dioxide Level 21 mmol/L (21-32) 24 mmol/L (21-32) 24 mmol/L (21-32) Anion Gap 11 (6-14) 10 (6-14) 8 (6-14) Blood Urea Nitrogen 2 mg/dL (7-20) 3 mg/dL (7-20) 3 mg/dL (7-20) Creatinine 0.4 mg/dL (0.6-1.0) 0.6 mg/dL (0.6-1.0) 0.4 mg/dL (0.6-1.0) Estimated GFR (Cockcroft-Gault) 161.2 101.0 161.2 BUN/Creatinine Ratio 5 (6-20) 5 (6-20) 8 (6-20) Glucose Level 85 mg/dL (70-99) 122 mg/dL (70-99) 96 mg/dL (70-99) Calcium Level 8.0 mg/dL (8.5-10.1) 8.4 mg/dL (8.5-10.1) 8.2 mg/dL (8.5-10.1) Total Bilirubin 0.4 mg/dL (0.2-1.0) 0.4 mg/dL (0.2-1.0) 0.4 mg/dL (0.2-1.0) Aspartate Amino Transf (AST/SGOT) 34 U/L (15-37) 44 U/L (15-37) 34 U/L (15-37) Alanine Aminotransferase (ALT/SGPT) 9 U/L (14-59) 17 U/L (14-59) 16 U/L (14-59) Alkaline Phosphatase 134 U/L (46-116) 177 U/L (46-116) 159 U/L (46-116) Total Protein 5.5 g/dL (6.4-8.2) 6.6 g/dL (6.4-8.2) 5.5 g/dL (6.4-8.2) Albumin 1.6 g/dL (3.4-5.0) 1.8 g/dL (3.4-5.0) 1.5 g/dL (3.4-5.0) Albumin/Globulin Ratio 0.4 (1.0-1.7) 0.4 (1.0-1.7) 0.4 (1.0-1.7) Laboratory Tests Test 07/19/20 13:30 07/20/20 05:00 White Blood Count 13.3 x10^3/uL (4.0-11.0) 10.2 x10^3/uL (4.0-11.0) Red Blood Count 4.09 x10^6/uL (3.50-5.40) 3.50 x10^6/uL (3.50-5.40) Hemoglobin 11.2 g/dL (12.0-15.5) 9.5 g/dL (12.0-15.5) Hematocrit 33.2 % (36.0-47.0) 28.5 % (36.0-47.0) Mean Corpuscular Volume 81 fL (79-100) 81 fL (79-100) Mean Corpuscular Hemoglobin 27 pg (25-35) 27 pg (25-35) Mean Corpuscular Hemoglobin Concent 34 g/dL (31-37) 33 g/dL (31-37) Red Cell Distribution Width 16.0 % (11.5-14.5) 16.1 % (11.5-14.5) Platelet Count 597 x10^3/uL (140-400) 515 x10^3/uL (140-400) Sodium Level 130 mmol/L (136-145) 130 mmol/L (136-145) Potassium Level 3.9 mmol/L (3.5-5.1) 3.7 mmol/L (3.5-5.1) Chloride Level 96 mmol/L (98-107) 98 mmol/L (98-107) Carbon Dioxide Level 24 mmol/L (21-32) 24 mmol/L (21-32) Anion Gap 10 (6-14) 8 (6-14) Blood Urea Nitrogen 3 mg/dL (7-20) 3 mg/dL (7-20) Creatinine 0.6 mg/dL (0.6-1.0) 0.4 mg/dL (0.6-1.0) Estimated GFR (Cockcroft-Gault) 101.0 161.2 BUN/Creatinine Ratio 5 (6-20) 8 (6-20) Glucose Level 122 mg/dL (70-99) 96 mg/dL (70-99) Calcium Level 8.4 mg/dL (8.5-10.1) 8.2 mg/dL (8.5-10.1) Total Bilirubin 0.4 mg/dL (0.2-1.0) 0.4 mg/dL (0.2-1.0) Aspartate Amino Transf (AST/SGOT) 44 U/L (15-37) 34 U/L (15-37) Alanine Aminotransferase (ALT/SGPT) 17 U/L (14-59) 16 U/L (14-59) Alkaline Phosphatase 177 U/L (46-116) 159 U/L (46-116) Total Protein 6.6 g/dL (6.4-8.2) 5.5 g/dL (6.4-8.2) Albumin 1.8 g/dL (3.4-5.0) 1.5 g/dL (3.4-5.0) Albumin/Globulin Ratio 0.4 (1.0-1.7) 0.4 (1.0-1.7) Microbiology 07/12/20 Gram Stain - Final, Complete 07/12/20 Aerobic and Anaerobic Culture - Final, Complete Medications Current Medications Albuterol Sulfate (Ventolin Neb Soln) 2.5 mg PRN Q6HRS PRN NEB SHORTNESS OF BREATH; Start 07/08/20 at 22:15; Stop 07/10/20 at 17:05; Status DC Diltiazem HCl 125 mg/Sodium Chloride 125 ml @ 5 mls/hr CONT PRN IV SEE I/O RECORD; Start 07/08/20 at 22:00 Sodium Chloride 1,000 ml @ 75 mls/hr [id number] IV Last administered on 07/16/20at 09:14; Start 07/08/20 at 22:00; Stop 07/16/20 at 11:30; Status DC Enoxaparin Sodium (Lovenox 60mg Syringe) 60 mg Q12HR SQ Last administered on 07/10/20at 21:05; Start 07/09/20 at 09:00; Stop 07/11/20 at 08:21; Status DC Ceftriaxone Sodium (Rocephin) 1 gm Q24H IVP Last administered on 07/15/20at 17:39; Start 07/09/20 at 18:00; Stop 07/16/20 at 11:30; Status DC Azithromycin 500 mg/Sodium Chloride 250 ml @ 250 mls/hr Q24H IV Last administered on 07/15/20at 17:38; Start 07/09/20 at 18:00; Stop 07/16/20 at 11:30; Status DC Info (Anti-Coagulation Monitoring By Pharmacy) 1 each PRN DAILY PRN MC SEE COMMENTS Last administered on 07/10/20at 10:21; Start 07/08/20 at 22:15 Multivitamins 10 ml/Thiamine HCl 100 mg/Folic Acid 1 mg/Sodium Chloride 1,011.2 ml @ 100 mls/ hr DAILY IV Last administered on 07/09/20at 09:31; Start 07/09/20 at 09:00; Stop 07/09/20 at 19:07; Status DC Multivitamins (Thera M Plus) 1 tab DAILY PO Last administered on 07/20/20at 0 8:18; Start 07/10/20 at 09:00 Folic Acid (Folic Acid) 1 mg DAILY PO Last administered on 07/20/20at 08:19; Start 07/10/20 at 09:00 Thiamine Mononitrate (Vitamin B-1) 100 mg DAILY PO Last administered on 07/20/20at 08:18; Start 07/10/20 at 09:00 Lorazepam (Ativan) 4 mg PRN Q1HR PRN PO For CIWA 8-14; Start 07/08/20 at 22:15 Lorazepam (Ativan) 8 mg PRN Q1HR PRN PO For CIWA 15 or greater; Start 07/08/20 at 22:15 Lorazepam (Ativan Inj) 2 mg PRN Q1HR PRN IV For CIWA 8-14; Start 07/08/20 at 22:15 Lorazepam (Ativan Inj) 4 mg PRN Q1HR PRN IV For CIWA 15 or greater; Start 07/08/20 at 22:15 Haloperidol Lactate (Haldol Inj) 5 mg PRN Q4HRS PRN IVP Hallucinatns,Confusn,Delirium; Start 07/08/20 at 22:15 Diphenhydramine HCl (Benadryl) 25 mg PRN Q15MIN PRN IVP EPS symptoms 2'Haldol admin; Start 07/08/20 at 22:15 Clonidine HCl (Catapres) 0.1 mg PRN Q1HR PRN PO SBP > 180 or DBP > 100, MRX3; Start 07/08/20 at 22:15 Sodium Chloride 1,000 ml @ 285 mls/hr Q3H31M IV Last administered on 07/09/20at 05:44; Start 07/09/20 at 03:30; Stop 07/09/20 at 09:30; Status DC Norepinephrine Bitartrate 8 mg/ Dextrose 258 ml @ 10.952 mls/ hr CONT PRN IV PER PROTOCOL; Start 07/09/20 at 04:00; Stop 07/10/20 at 09:35; Status DC Metoprolol Tartrate (Lopressor) 25 mg BID PO Last administered on 07/12/20at 07:59; Start 07/09/20 at 09:00; Stop 07/12/20 at 14:37; Status DC Lactobacillus Rhamnosus (Culturelle) 1 cap BID PO Last administered on 07/20/20at 08:18; Start 07/09/20 at 09:00 Potassium Chloride (Klor-Con) 20 meq TIDWMEALS PO Last administered on 07/20/20at 08:18; Start 07/09/20 at 09:00 Atorvastatin Calcium (Lipitor) 20 mg HS PO Last administered on 07/19/20at 20 :34; Start 07/10/20 at 21:00 Bupropion HCl (Wellbutrin Xl) 300 mg DAILY PO Last administered on 07/20/20at 08:18; Start 07/10/20 at 11:00 Benzonatate (Tessalon Perle) 100 mg 1X ONCE PO Last administered on 07/10/20at 15:51; Start 07/10/20 at 15:45; Stop 07/10/20 at 15:46; Status DC Furosemide (Lasix) 20 mg 1X ONCE IVP Last administered on 07/10/20at 17:18; Start 07/10/20 at 17:00; Stop 07/10/20 at 17:05; Status DC Albuterol Sulfate (Ventolin Neb Soln) 2.5 mg 1X ONCE NEB Last administered on 07/10/20at 17:24; Start 07/10/20 at 17:00; Stop 07/10/20 at 17:03; Status DC Albuterol Sulfate (Ventolin Neb Soln) 2.5 mg PRN Q6HRS PRN NEB SHORTNESS OF BREATH Last administered on 07/12/20at 18:30; Start 07/10/20 at 17:00 Alprazolam (Xanax) 0.5 mg 1X ONCE PO Last administered on 07/10/20at 17:18; Start 07/10/20 at 17:00; Stop 07/10/20 at 17:05; Status DC Aspirin (Ecotrin) 81 mg [id number] PO Last administered on 07/20/20at 08:18; Start 07/11/20 at 12:00 Potassium Chloride (Klor-Con) 40 meq 1X ONCE PO ; Start 07/11/20 at 11:15; Stop 07/11/20 at 11:16; Status UNV Iohexol (Omnipaque 240 Mg/ml) 30 ml 1X ONCE PO Last administered on 07/11/20at 12:15; Start 07/11/20 at 12:15; Stop 07/11/20 at 12:16; Status DC Iohexol (Omnipaque 300 Mg/ml) 75 ml 1X ONCE IV Last administered on 07/11/20at 12:15; Start 07/11/20 at 12:15; Stop 07/11/20 at 12:16; Status DC Info (CONTRAST GIVEN -- Rx MONITORING) 1 each PRN DAILY PRN MC SEE COMMENTS; Start 07/11/20 at 12:15; Stop 07/13/20 at 12:14; Status DC Benzonatate (Tessalon Perle) 100 mg PRN TID PRN PO COUGH Last administered on 07/19/20at 14:08; Start 07/11/20 at 20:15 Alprazolam (Xanax) 0.5 mg PRN Q8HRS PRN PO ANXIETY / AGITATION Last administered on 07/20/20at 08:56; Start 07/11/20 at 20:15 Lidocaine HCl (Buffered Lidocaine 1%) 3 ml STK-MED ONCE .ROUTE ; Start 07/12/20 at 08:16; Stop 07/12/20 at 08:17; Status DC Lidocaine HCl (Buffered Lidocaine 1%) 6 ml 1X ONCE INJ Last administered on 07/12/20at 08:52; Start 07/12/20 at 08:45; Stop 07/12/20 at 08:51; Status DC Iohexol (Omnipaque 300 Mg/ml) 75 ml 1X ONCE IV Last administered on 07/12/20at 09:15; Start 07/12/20 at 09:00; Stop 07/12/20 at 09:03; Status DC Metoprolol Tartrate (Lopressor) 25 mg 1X ONCE PO Last administered on 07/12/20at 13:14; Start 07/12/20 at 12:15; Stop 07/12/20 at 12:21; Status DC Metoprolol Tartrate (Lopressor) 25 mg Q8HRS PO Last administered on 07/15/20at 13:20; Start 07/12/20 at 22:00; Stop 07/15/20 at 16:17; Status DC Fentanyl Citrate (Fentanyl 2ml Vial) 50 mcg PRN Q3HRS PRN IVP PAIN Last administered on 07/18/20at 19:21; Start 07/12/20 at 17:30 Alprazolam (Xanax) 0.75 mg PRN 1X PRN PO ANXIETY Last administered on 07/13/20at 21:21; Start 07/12/20 at 17:30; Stop 07/14/20 at 07:37; Status DC Albuterol/ Ipratropium (Duoneb) 3 ml RTQID NEB Last administered on 07/20/20at 07:12; Start 07/13/20 at 08:00 Lidocaine HCl (Buffered Lidocaine 1%) 3 ml STK-MED ONCE .ROUTE ; Start 07/13/20 at 14:10; Stop 07/13/20 at 14:10; Status DC Midazolam HCl (Versed) 2 mg STK-MED ONCE .ROUTE ; Start 07/13/20 at 14:41; Stop 07/13/20 at 14:41; Status DC Fentanyl Citrate (Fentanyl 2ml Vial) 100 mcg STK-MED ONCE .ROUTE ; Start 07/13/20 at 14:41; Stop 07/13/20 at 14:42; Status DC Lidocaine HCl (Buffered Lidocaine 1%) 3 ml 1X ONCE IJ Last administered on 07/13/20at 15:00; Start 07/13/20 at 15:00; Stop 07/13/20 at 15:01; Status DC Midazolam HCl (Versed) 2 mg 1X ONCE IV Last administered on 07/13/20at 15:00; Start 07/13/20 at 15:00; Stop 07/13/20 at 15:01; Status DC Fentanyl Citrate (Fentanyl 2ml Vial) 100 mcg 1X ONCE IV ; Start 07/13/20 at 15:00; Stop 07/13/20 at 15:01; Status DC Lidocaine HCl (Buffered Lidocaine 1%) 3 ml STK-MED ONCE .ROUTE ; Start 07/13/20 at 15:10; Stop 07/13/20 at 15:11; Status DC Alprazolam (Xanax) 0.75 mg PRN 1X PRN PO ANXIETY, 2ND CHOICE Last administered on 07/14/20at 22:22; Start 07/14/20 at 07:37; Stop 07/19/20 at 11:58; Status DC Metoprolol Tartrate (Lopressor) 50 mg BID PO Last administered on 07/16/20at 09:14; Start 07/15/20 at 21:00; Stop 07/16/20 at 14:01; Status DC Oxycodone HCl (Roxicodone) 5 mg PRN Q4HRS PRN PO MODERATE-SEVERE PAIN Last administered on 07/16/20at 20:27; Start 07/15/20 at 19:15 Lidocaine HCl (Buffered Lidocaine 1%) 3 ml STK-MED ONCE .ROUTE ; Start 07/16/20 at 10:40; Stop 07/16/20 at 10:41; Status DC Azithromycin (Zithromax) 250 mg DAILY PO Last administered on 07/20/20at 08:18; Start 07/16/20 at 12:00 Metoprolol Tartrate (Lopressor) 75 mg BID PO Last administered on 07/17/20at 20:54; Start 07/16/20 at 21:00; Stop 07/18/20 at 08:25; Status DC Metoprolol Tartrate (Lopressor) 25 mg 1X ONCE PO Last administered on 07/16/20at 14:15; Start 07/16/20 at 14:00; Stop 07/16/20 at 14:06; Status DC Midazolam HCl (Versed) 2 mg STK-MED ONCE .ROUTE ; Start 07/16/20 at 14:32; Stop 07/16/20 at 14:32; Status DC Fentanyl Citrate (Fentanyl 2ml Vial) 100 mcg STK-MED ONCE .ROUTE ; Start 07/16/20 at 14:32; Stop 07/16/20 at 14:32; Status DC Lidocaine HCl (Buffered Lidocaine 1%) 3 ml 1X ONCE IJ ; Start 07/16/20 at 14:45; Stop 07/16/20 at 15:03; Status DC Midazolam HCl (Versed) 2 mg 1X ONCE IV ; Start 07/16/20 at 14:45; Stop 07/16/20 at 15:03; Status DC Fentanyl Citrate (Fentanyl 2ml Vial) 100 mcg 1X ONCE IV ; Start 07/16/20 at 14:45; Stop 07/16/20 at 15:03; Status DC Lidocaine HCl (Buffered Lidocaine 1%) 3 ml STK-MED ONCE .ROUTE ; Start 07/17/20 at 09:02; Stop 07/17/20 at 09:02; Status DC Midazolam HCl (Versed) 2 mg STK-MED ONCE .ROUTE ; Start 07/17/20 at 09:21; Stop 07/17/20 at 09:21; Status DC Fentanyl Citrate (Fentanyl 2ml Vial) 100 mcg STK-MED ONCE .ROUTE ; Start 07/17/20 at 09:21; Stop 07/17/20 at 09:22; Status DC Lidocaine HCl (Buffered Lidocaine 1%) 3 ml 1X ONCE IJ Last administered on 07/17/20at 09:30; Start 07/17/20 at 09:30; Stop 07/17/20 at 09:33; Status DC Midazolam HCl (Versed) 2 mg 1X ONCE IV Last administered on 07/17/20at 09:30; Start 07/17/20 at 09:30; Stop 07/17/20 at 09:33; Status DC Fentanyl Citrate (Fentanyl 2ml Vial) 100 mcg 1X ONCE IV Last administered on 07/17/20at 09:30; Start 07/17/20 at 09:30; Stop 07/17/20 at 09:33; Status DC Lidocaine HCl (Buffered Lidocaine 1%) 3 ml 1X ONCE IJ ; Start 07/17/20 at 10:15; Stop 07/17/20 at 10:16; Status Cancel Midazolam HCl (Versed) 2 mg 1X ONCE IV ; Start 07/17/20 at 10:15; Stop 07/17/20 at 10:16; Status Cancel Fentanyl Citrate (Fentanyl 2ml Vial) 100 mcg 1X ONCE IV ; Start 07/17/20 at 10:15; Stop 07/17/20 at 10:16; Status Cancel Metoprolol Tartrate (Lopressor) 50 mg BID PO Last administered on 07/20/20at 08:20; Start 07/18/20 at 09:00 Acetaminophen (Tylenol) 650 mg PRN Q4HRS PRN PO MILD PAIN 1-3 Last administered on 07/18/20at 10:05; Start 07/18/20 at 10:00 Digoxin (Lanoxin) 500 mcg 1X ONCE IV Last administered on 07/18/20at 17:43; Start 07/18/20 at 18:15; Stop 07/18/20 at 18:16; Status DC Amiodarone HCl 150 mg/Dextrose 103 ml @ 600 mls/hr 1X ONCE IV Last administered on 07/18/20at 19:56; Start 07/18/20 at 19:30; Stop 07/18/20 at 19:40; Status DC Amiodarone HCl 450 mg/Dextrose 259 ml @ 0 mls/hr CONT PRN IV SEE I/O RECORD Last administered on 07/19/20at 03:52; Start 07/18/20 at 19:30; Stop 07/19/20 at 19:29; Status DC Amiodarone HCl (Cordarone) 200 mg DAILY PO Last administered on 07/20/20at 08:19; Start 07/19/20 at 15:00 Sertraline HCl (Zoloft) 50 mg DAILY PO Last administered on 07/20/20at 08:20; Start 07/19/20 at 16:00 Gadoterate Meglumine (Dotarem) 13 ml 1X ONCE IVP ; Start 07/20/20 at 09:30; Stop 07/20/20 at 09:31; Status DC Active Scripts Active Reported Wellbutrin Xl (Bupropion Hcl) 300 Mg Tab.er.24h 1 Tab PO DAILY Amlodipine-Valsartan 10-320 mg (Amlodipine/Valsartan) 1 Each Tablet 1 Tab PO DAILY 30 Days Atorvastatin Calcium 20 Mg Tablet 20 Mg PO HS Vitals/I & O Vital Sign - Last 24 Hours 07/19/20 07/19/20 07/19/20 07/19/20 11:00 11:41 15:00 15:21 Temp 98.0 98.0 98.0 98.0 Pulse 112 101 Resp 17 14 B/P (MAP) 112/72 (85) 91/62 (72) Pulse Ox 100 97 O2 Delivery Room Air Room Air Room Air Room Air 07/19/20 07/19/20 07/19/20 07/19/20 18:01 19:31 19:38 19:40 Temp 98.7 98.7 Pulse 138 126 Resp 16 B/P (MAP) 91/62 141/81 (101) Pulse Ox 96 O2 Delivery Room Air Room Air Room Air 07/19/20 07/19/20 07/20/20 07/20/20 20:35 22:05 03:09 07:00 Temp 98.2 98.8 98.0 98.2 98.8 98.0 Pulse 126 105 93 102 Resp 18 18 18 B/P (MAP) 141/81 105/57 (73) 109/79 (89) 105/63 (77) Pulse Ox 98 96 96 O2 Delivery Room Air Room Air Room Air 07/20/20 07/20/20 07/20/20 07/20/20 07:12 08:00 08:19 08:20 Pulse 102 102 B/P (MAP) 105/63 105/63 Pulse Ox 95 O2 Delivery Room Air Room Air Intake and Output 07/19/20 07/19/20 07/20/20 15:00 23:00 07:00 Intake Total 500 ml 400 ml 300 ml Output Total 500 ml 690 ml 275 ml Balance 0 ml -290 ml 25 ml Justifications for Admission Other Justification Nutrition Consultation Dietary Evaluation: Recommendations by RD: Dietary education by RD, Increase Calorie Intake, Protein supplementation Comments: Continue cardiac diet with Ensure BID, honoring food preferences. Expected Outcomes/Goals: PO intake to meet >75% est needs - not met, goal ongoing Interpretation of weight loss: >5% in 1 month Malnutrition Findings: Food and Nutrition Intake (Mod: <75% est energy req 7days Weight Status: Appropriate SAMMY KHOURY MD Jul 20, 2020 10:06
--- NOTE | 2020-07-20 10:51 | RAD ---
MRI Brain with and without contrast History:Metastatic lung cancer Technique: Multiplanar, multi sequential pre and postcontrast MR imaging was performed of the brain. Comparison: None Findings: There is mild motion. There is a 1.4 cm transverse by 1.2 cm AP by 1.3 cm peripheral enhancing lesion of the lateral right cerebellum with associated moderate vasogenic edema signified by T2 and FLAIR hyperintense signal. Lesion is centrally T2 hyperintense. As seen on coronal image 15 series 11 and sagittal image 10 series 12, there is a small round focus of peripheral enhancement of the left hippocampal formation measuring about 0.5 cm AP by 0.3 cm CC by about 0.4 cm transverse, subtle adjacent FLAIR hyperintense signal. There is no evidence of recent infarct or cytotoxic edema. The ventricles, sulci, and cisterns are within normal limits in size and configuration. There is no significant midline shift or extra-axial fluid collection. There is very minimal T2 and FLAIR hyperintense signal of the supratentorial periventricular white matter, degree which may be seen in asymptomatic individuals. There is preservation of the major intracranial flow-voids at the skull base. The cerebellar tonsils are normal in location. There is no significant abnormality of the pineal gland or pituitary gland. There is complete opacification of the left maxillary sinus with somewhat heterogeneous signal features and mild expansion medially. There is a small air-fluid level of the right sphenoid sinus. There is patchy mild fluid and thickening of the mastoid air cells bilaterally.There is preserved marrow signal of the clivus. There is somewhat disconjugate gaze. Impression: 1. There is evidence of intracranial metastatic disease. There is a peripherally enhancing lateral right cerebellar lesion with adjacent vasogenic edema. There is also a small peripherally enhancing lesion of the left hippocampal formation. 2. There is mild supratentorial involutional change. 3. There is complete opacification of the left maxillary sinus with mild expansion, could be underlying mucocele. There is a small right sphenoid sinus air-fluid level which could be due to acute sinusitis. Electronically signed by: Andriy Booth MD (07/20/2020 10:48 AM) [id number]
--- NOTE | 2020-07-20 12:57 | PDOC ---
PROGRESS NOTES Date of Service DATE: 07/20/20 TIME: 12:53 Subjective Subjective Cris was seen in a follow-up visit. I spoke with her son, Nile by phone. We reviewed the results of her MRI brain. Since he denies headache, focal weakness or numbness, blurred vision or double vision. Objective Objective Vital Signs Date Time Temp Pulse Resp B/P (MAP) Pulse Ox O2 Delivery O2 Flow Rate FiO2 07/20/20 11:46 Room Air 07/20/20 10:00 97.8 101 18 110/70 (83) 98 97.8 07/19/20 06:09 2.0 Intake and Output 07/20/20 07:00 Intake Total 1200 ml Output Total 1465 ml Balance -265 ml Intake Oral 1200 ml Output Urine Total 1200 ml Chest Tube Drainage Total 265 ml # Voids 2 # Bowel Movements 4 Physical Exam Abdomen: Normal bowel sounds, Soft Heart: Other (Irregular rhythm) General: Alert, Oriented X3 HEENT: Atraumatic Lungs: Other MUSCULOSKELETAL: No swelling Neck: Supple Neuro: Normal speech Skin: No rashes Assessment Assessment Metastatic lung adenocarcinoma Brain metastasis Right sided loculated pleural effusion s/p chest tube placement Atrial fibrillation with RVR Malnutrition Deconditioning Hx of tobacco abuse Plan Plan of Care -I reviewed the results of brain MRI with rCis and her son, Nile. Given presence of brain metastasis, I recommended radiation oncology consultation for consideration of SRS -We previously reviewed the results of surgical pathology and the management of advanced lung adenocarcinoma with the patient and that this is an incureable malignancy. We discussed her goals of care. She is interested in learning our recommendations first before she makes a decision. -We previously reviewed the options for systemic therapy in metastatic NSCLC and the role of PDL1 testing and molecular testing in determining the choice of systemic therapy -I requested Foundation One testing on her recent bx for assessment of PDL 1 status and actionable mutations -Continue care for chest tube for pleural effusion as directed by Phu Briggs and Sudha. I discussed with Dr. Briggs today. Talc pleurodesis is being planned for 07/21/2020 -Continue management of A fib per cardiology. -Rest per Dr Wang Please call me at [phone] with any questions Comment Review of Relevant I have reviewed the following items hawa (where applicable) has been applied. Labs Laboratory Tests Test 07/18/20 13:05 07/19/20 13:30 07/20/20 05:00 White Blood Count 13.0 x10^3/uL (4.0-11.0) 13.3 x10^3/uL (4.0-11.0) 10.2 x10^3/uL (4.0-11.0) Red Blood Count 3.52 x10^6/uL (3.50-5.40) 4.09 x10^6/uL (3.50-5.40) 3.50 x10^6/uL (3.50-5.40) Hemoglobin 9.4 g/dL (12.0-15.5) 11.2 g/dL (12.0-15.5) 9.5 g/dL (12.0-15.5) Hematocrit 28.8 % (36.0-47.0) 33.2 % (36.0-47.0) 28.5 % (36.0-47.0) Mean Corpuscular Volume 82 fL (79-100) 81 fL (79-100) 81 fL (79-100) Mean Corpuscular Hemoglobin 27 pg (25-35) 27 pg (25-35) 27 pg (25-35) Mean Corpuscular Hemoglobin Concent 33 g/dL (31-37) 34 g/dL (31-37) 33 g/dL (31-37) Red Cell Distribution Width 15.9 % (11.5-14.5) 16.0 % (11.5-14.5) 16.1 % (11.5-14.5) Platelet Count 487 x10^3/uL (140-400) 597 x10^3/uL (140-400) 515 x10^3/uL (140-400) Sodium Level 129 mmol/L (136-145) 130 mmol/L (136-145) 130 mmol/L (136-145) Potassium Level 3.8 mmol/L (3.5-5.1) 3.9 mmol/L (3.5-5.1) 3.7 mmol/L (3.5-5.1) Chloride Level 97 mmol/L (98-107) 96 mmol/L (98-107) 98 mmol/L (98-107) Carbon Dioxide Level 21 mmol/L (21-32) 24 mmol/L (21-32) 24 mmol/L (21-32) Anion Gap 11 (6-14) 10 (6-14) 8 (6-14) Blood Urea Nitrogen 2 mg/dL (7-20) 3 mg/dL (7-20) 3 mg/dL (7-20) Creatinine 0.4 mg/dL (0.6-1.0) 0.6 mg/dL (0.6-1.0) 0.4 mg/dL (0.6-1.0) Estimated GFR (Cockcroft-Gault) 161.2 101.0 161.2 BUN/Creatinine Ratio 5 (6-20) 5 (6-20) 8 (6-20) Glucose Level 85 mg/dL (70-99) 122 mg/dL (70-99) 96 mg/dL (70-99) Calcium Level 8.0 mg/dL (8.5-10.1) 8.4 mg/dL (8.5-10.1) 8.2 mg/dL (8.5-10.1) Total Bilirubin 0.4 mg/dL (0.2-1.0) 0.4 mg/dL (0.2-1.0) 0.4 mg/dL (0.2-1.0) Aspartate Amino Transf (AST/SGOT) 34 U/L (15-37) 44 U/L (15-37) 34 U/L (15-37) Alanine Aminotransferase (ALT/SGPT) 9 U/L (14-59) 17 U/L (14-59) 16 U/L (14-59) Alkaline Phosphatase 134 U/L (46-116) 177 U/L (46-116) 159 U/L (46-116) Total Protein 5.5 g/dL (6.4-8.2) 6.6 g/dL (6.4-8.2) 5.5 g/dL (6.4-8.2) Albumin 1.6 g/dL (3.4-5.0) 1.8 g/dL (3.4-5.0) 1.5 g/dL (3.4-5.0) Albumin/Globulin Ratio 0.4 (1.0-1.7) 0.4 (1.0-1.7) 0.4 (1.0-1.7) Laboratory Tests Test 07/19/20 13:30 07/20/20 05:00 White Blood Count 13.3 x10^3/uL (4.0-11.0) 10.2 x10^3/uL (4.0-11.0) Red Blood Count 4.09 x10^6/uL (3.50-5.40) 3.50 x10^6/uL (3.50-5.40) Hemoglobin 11.2 g/dL (12.0-15.5) 9.5 g/dL (12.0-15.5) Hematocrit 33.2 % (36.0-47.0) 28.5 % (36.0-47.0) Mean Corpuscular Volume 81 fL (79-100) 81 fL (79-100) Mean Corpuscular Hemoglobin 27 pg (25-35) 27 pg (25-35) Mean Corpuscular Hemoglobin Concent 34 g/dL (31-37) 33 g/dL (31-37) Red Cell Distribution Width 16.0 % (11.5-14.5) 16.1 % (11.5-14.5) Platelet Count 597 x10^3/uL (140-400) 515 x10^3/uL (140-400) Sodium Level 130 mmol/L (136-145) 130 mmol/L (136-145) Potassium Level 3.9 mmol/L (3.5-5.1) 3.7 mmol/L (3.5-5.1) Chloride Level 96 mmol/L (98-107) 98 mmol/L (98-107) Carbon Dioxide Level 24 mmol/L (21-32) 24 mmol/L (21-32) Anion Gap 10 (6-14) 8 (6-14) Blood Urea Nitrogen 3 mg/dL (7-20) 3 mg/dL (7-20) Creatinine 0.6 mg/dL (0.6-1.0) 0.4 mg/dL (0.6-1.0) Estimated GFR (Cockcroft-Gault) 101.0 161.2 BUN/Creatinine Ratio 5 (6-20) 8 (6-20) Glucose Level 122 mg/dL (70-99) 96 mg/dL (70-99) Calcium Level 8.4 mg/dL (8.5-10.1) 8.2 mg/dL (8.5-10.1) Total Bilirubin 0.4 mg/dL (0.2-1.0) 0.4 mg/dL (0.2-1.0) Aspartate Amino Transf (AST/SGOT) 44 U/L (15-37) 34 U/L (15-37) Alanine Aminotransferase (ALT/SGPT) 17 U/L (14-59) 16 U/L (14-59) Alkaline Phosphatase 177 U/L (46-116) 159 U/L (46-116) Total Protein 6.6 g/dL (6.4-8.2) 5.5 g/dL (6.4-8.2) Albumin 1.8 g/dL (3.4-5.0) 1.5 g/dL (3.4-5.0) Albumin/Globulin Ratio 0.4 (1.0-1.7) 0.4 (1.0-1.7) Microbiology 07/12/20 Gram Stain - Final, Complete 07/12/20 Aerobic and Anaerobic Culture - Final, Complete Medications Current Medications Albuterol Sulfate (Ventolin Neb Soln) 2.5 mg PRN Q6HRS PRN NEB SHORTNESS OF BREATH; Start 07/08/20 at 22:15; Stop 07/10/20 at 17:05; Status DC Diltiazem HCl 125 mg/Sodium Chloride 125 ml @ 5 mls/hr CONT PRN IV SEE I/O RECORD; Start 07/08/20 at 22:00 Sodium Chloride 1,000 ml @ 75 mls/hr [id number] IV Last administered on 07/16/20at 09:14; Start 07/08/20 at 22:00; Stop 07/16/20 at 11:30; Status DC Enoxaparin Sodium (Lovenox 60mg Syringe) 60 mg Q12HR SQ Last administered on 07/10/20at 21:05; Start 07/09/20 at 09:00; Stop 07/11/20 at 08:21; Status DC Ceftriaxone Sodium (Rocephin) 1 gm Q24H IVP Last administered on 07/15/20at 17:39; Start 07/09/20 at 18:00; Stop 07/16/20 at 11:30; Status DC Azithromycin 500 mg/Sodium Chloride 250 ml @ 250 mls/hr Q24H IV Last administered on 07/15/20at 17:38; Start 07/09/20 at 18:00; Stop 07/16/20 at 11:30; Status DC Info (Anti-Coagulation Monitoring By Pharmacy) 1 each PRN DAILY PRN MC SEE COMMENTS Last administered on 07/10/20at 10:21; Start 07/08/20 at 22:15 Multivitamins 10 ml/Thiamine HCl 100 mg/Folic Acid 1 mg/Sodium Chloride 1,011.2 ml @ 100 mls/ hr DAILY IV Last administered on 07/09/20at 09:31; Start 07/09/20 at 09:00; Stop 07/09/20 at 19:07; Status DC Multivitamins (Thera M Plus) 1 tab DAILY PO Last administered on 07/20/20at 08:18; Start 07/10/20 at 09:00 Folic Acid (Folic Acid) 1 mg DAILY PO Last administered on 07/20/20at 08:19; Start 07/10/20 at 09:00 Thiamine Mononitrate (Vitamin B-1) 100 mg DAILY PO Last administered on 07/20/20at 08:18; Start 07/10/20 at 09:00 Lorazepam (Ativan) 4 mg PRN Q1HR PRN PO For CIWA 8-14; Start 07/08/20 at 22:15 Lorazepam (Ativan) 8 mg PRN Q1HR PRN PO For CIWA 15 or greater; Start 07/08/20 at 22:15 Lorazepam (Ativan Inj) 2 mg PRN Q1HR PRN IV For CIWA 8-14; Start 07/08/20 at 22:15 Lorazepam (Ativan Inj) 4 mg PRN Q1HR PRN IV For CIWA 15 or greater; Start 07/08/20 at 22:15 Haloperidol Lactate (Haldol Inj) 5 mg PRN Q4HRS PRN IVP Hallucinatns,Confusn,Delirium; Start 07/08/20 at 22:15 Diphenhydramine HCl (Benadryl) 25 mg PRN Q15MIN PRN IVP EPS symptoms 2'Haldol admin; Start 9/13/20 at 22:15 Clonidine HCl (Catapres) 0.1 mg PRN Q1HR PRN PO SBP > 180 or DBP > 100, MRX3; Start 07/08/20 at 22:15 Sodium Chloride 1,000 ml @ 285 mls/hr Q3H31M IV Last administered on 07/09/20at 05:44; Start 07/09/20 at 03:30; Stop 07/09/20 at 09:30; Status DC Norepinephrine Bitartrate 8 mg/ Dextrose 258 ml @ 10.952 mls/ hr CONT PRN IV PER PROTOCOL; Start 07/09/20 at 04:00; Stop 07/10/20 at 09:35; Status DC Metoprolol Tartrate (Lopressor) 25 mg BID PO Last administered on 07/12/20at 07:59; Start 07/09/20 at 09:00; Stop 07/12/20 at 14:37; Status DC Lactobacillus Rhamnosus (Culturelle) 1 cap BID PO Last administered on 07/20/20at 08:18; Start 07/09/20 at 09:00 Potassium Chloride (Klor-Con) 20 meq TIDWMEALS PO Last administered on 07/20/20at 12:38; Start 07/09/20 at 09:00 Atorvastatin Calcium (Lipitor) 20 mg HS PO Last administered on 07/19/20at 20:34; Start 07/10/20 at 21:00 Bupropion HCl (Wellbutrin Xl) 300 mg DAILY PO Last administered on 07/20/20at 08:18; Start 07/10/20 at 11:00 Benzonatate (Tessalon Perle) 100 mg 1X ONCE PO Last administered on 07/10/20at 15:51; Start 07/10/20 at 15:45; Stop 07/10/20 at 15:46; Status DC Furosemide (Lasix) 20 mg 1X ONCE IVP Last administered on 07/10/20at 17:18; Start 07/10/20 at 17:00; Stop 07/10/20 at 17:05; Status DC Albuterol Sulfate (Ventolin Neb Soln) 2.5 mg 1X ONCE NEB Last administered on 07/10/20at 17:24; Start 07/10/20 at 17:00; Stop 07/10/20 at 17:03; Status DC Albuterol Sulfate (Ventolin Neb Soln) 2.5 mg PRN Q6HRS PRN NEB SHORTNESS OF BREATH Last administered on 07/12/20at 18:30; Start 07/10/20 at 17:00 Alprazolam (Xanax) 0.5 mg 1X ONCE PO Last administered on 07/10/20at 17:18; Start 07/10/20 at 17:00; Stop 07/10/20 at 17:05; Status DC Aspirin (Ecotrin) 81 mg DAILYWBKFT PO Last administered on 07/20/20at 08:18; Start 07/11/20 at 12:00 Potassium Chloride (Klor-Con) 40 meq 1X ONCE PO ; Start 07/11/20 at 11:15; Stop 07/11/20 at 11:16; Status UNV Iohexol (Omnipaque 240 Mg/ml) 30 ml 1X ONCE PO Last administered on 07/11/20at 12:15; Start 07/11/20 at 12:15; Stop 07/11/20 at 12:16; Status DC Iohexol (Omnipaque 300 Mg/ml) 75 ml 1X ONCE IV Last administered on 07/11/20at 12:15; Start 07/11/20 at 12:15; Stop 07/11/20 at 12:16; Status DC Info (CONTRAST GIVEN -- Rx MONITORING) 1 each PRN DAILY PRN MC SEE COMMENTS; Start 07/11/20 at 12:15; Stop 07/13/20 at 12:14; Status DC Benzonatate (Tessalon Perle) 100 mg PRN TID PRN PO COUGH Last administered on 07/19/20at 14:08; Start 07/11/20 at 20:15 Alprazolam (Xanax) 0.5 mg PRN Q8HRS PRN PO ANXIETY / AGITATION Last administered on 07/20/20at 08:56; Start 07/11/20 at 20:15 Lidocaine HCl (Buffered Lidocaine 1%) 3 ml STK-MED ONCE .ROUTE ; Start 07/12/20 at 08:16; Stop 07/12/20 at 08:17; Status DC Lidocaine HCl (Buffered Lidocaine 1%) 6 ml 1X ONCE INJ Last administered on 07/12/20at 08:52; Start 07/12/20 at 08:45; Stop 07/12/20 at 08:51; Status DC Iohexol (Omnipaque 300 Mg/ml) 75 ml 1X ONCE IV Last administered on 07/12/20at 09:15; Start 07/12/20 at 09:00; Stop 07/12/20 at 09:03; Status DC Metoprolol Tartrate (Lopressor) 25 mg 1X ONCE PO Last administered on 07/12/20at 13:14; Start 07/12/20 at 12:15; Stop 07/12/20 at 12:21; Status DC Metoprolol Tartrate (Lopressor) 25 mg Q8HRS PO Last administered on 07/15/20at 13:20; Start 07/12/20 at 22:00; Stop 07/15/20 at 16:17; Status DC Fentanyl Citrate (Fentanyl 2ml Vial) 50 mcg PRN Q3HRS PRN IVP PAIN Last administered on 07/18/20at 19:21; Start 07/12/20 at 17:30 Alprazolam (Xanax) 0.75 mg PRN 1X PRN PO ANXIETY Last administered on 07/13/20at 21:21; Start 07/12/20 at 17:30; Stop 07/14/20 at 07:37; Status DC Albuterol/ Ipratropium (Duoneb) 3 ml RTQID NEB Last administered on 07/20/20at 11:45; Start 07/13/20 at 08:00 Lidocaine HCl (Buffered Lidocaine 1%) 3 ml STK-MED ONCE .ROUTE ; Start 07/13/20 at 14:10; Stop 07/13/20 at 14:10; Status DC Midazolam HCl (Versed) 2 mg STK-MED ONCE .ROUTE ; Start 07/13/20 at 14:41; Stop 07/13/20 at 14:41; Status DC Fentanyl Citrate (Fentanyl 2ml Vial) 100 mcg STK-MED ONCE .ROUTE ; Start 07/13/20 at 14:41; Stop 07/13/20 at 14:42; Status DC Lidocaine HCl (Buffered Lidocaine 1%) 3 ml 1X ONCE IJ Last administered on 07/13/20at 15:00; Start 07/13/20 at 15:00; Stop 07/13/20 at 15:01; Status DC Midazolam HCl (Versed) 2 mg 1X ONCE IV Last administered on 07/13/20at 15:00; Start 07/13/20 at 15:00; Stop 07/13/20 at 15:01; Status DC Fentanyl Citrate (Fentanyl 2ml Vial) 100 mcg 1X ONCE IV ; Start 07/13/20 at 15:00; Stop 07/13/20 at 15:01; Status DC Lidocaine HCl (Buffered Lidocaine 1%) 3 ml STK-MED ONCE .ROUTE ; Start 07/13/20 at 15:10; Stop 07/13/20 at 15:11; Status DC Alprazolam (Xanax) 0.75 mg PRN 1X PRN PO ANXIETY, 2ND CHOICE Last administered on 07/14/20at 22:22; Start 07/14/20 at 07:37; Stop 07/19/20 at 11:58; Status DC Metoprolol Tartrate (Lopressor) 50 mg BID PO Last administered on 07/16/20at 09:14; Start 07/15/20 at 21:00; Stop 07/16/20 at 14:01; Status DC Oxycodone HCl (Roxicodone) 5 mg PRN Q4HRS PRN PO MODERATE-SEVERE PAIN Last administered on 07/16/20at 20:27; Start 07/15/20 at 19:15 Lidocaine HCl (Buffered Lidocaine 1%) 3 ml STK-MED ONCE .ROUTE ; Start 07/16/20 at 10:40; Stop 07/16/20 at 10:41; Status DC Azithromycin (Zithromax) 250 mg DAILY PO Last administered on 07/20/20at 08:18; Start 07/16/20 at 12:00 Metoprolol Tartrate (Lopressor) 75 mg BID PO Last administered on 07/17/20at 20:54; Start 07/16/20 at 21:00; Stop 07/18/20 at 08:25; Status DC Metoprolol Tartrate (Lopressor) 25 mg 1X ONCE PO Last administered on 07/16/20at 14:15; Start 07/16/20 at 14:00; Stop 07/16/20 at 14:06; Status DC Midazolam HCl (Versed) 2 mg STK-MED ONCE .ROUTE ; Start 07/16/20 at 14:32; Stop 07/16/20 at 14:32; Status DC Fentanyl Citrate (Fentanyl 2ml Vial) 100 mcg STK-MED ONCE .ROUTE ; Start 07/16/20 at 14:32; Stop 07/16/20 at 14:32; Status DC Lidocaine HCl (Buffered Lidocaine 1%) 3 ml 1X ONCE IJ ; Start 07/16/20 at 14:45; Stop 07/16/20 at 15:03; Status DC Midazolam HCl (Versed) 2 mg 1X ONCE IV ; Start 07/16/20 at 14:45; Stop 07/16/20 at 15:03; Status DC Fentanyl Citrate (Fentanyl 2ml Vial) 100 mcg 1X ONCE IV ; Start 07/16/20 at 14:45; Stop 07/16/20 at 15:03; Status DC Lidocaine HCl (Buffered Lidocaine 1%) 3 ml STK-MED ONCE .ROUTE ; Start 07/17/20 at 09:02; Stop 07/17/20 at 09:02; Status DC Midazolam HCl (Versed) 2 mg STK-MED ONCE .ROUTE ; Start 07/17/20 at 09:21; Stop 07/17/20 at 09:21; Status DC Fentanyl Citrate (Fentanyl 2ml Vial) 100 mcg STK-MED ONCE .ROUTE ; Start 07/17/20 at 09:21; Stop 07/17/20 at 09:22; Status DC Lidocaine HCl (Buffered Lidocaine 1%) 3 ml 1X ONCE IJ Last administered on 07/17/20at 09:30; Start 07/17/20 at 09:30; Stop 07/17/20 at 09:33; Status DC Midazolam HCl (Versed) 2 mg 1X ONCE IV Last administered on 07/17/20at 09:30; Start 07/17/20 at 09:30; Stop 07/17/20 at 09:33; Status DC Fentanyl Citrate (Fentanyl 2ml Vial) 100 mcg 1X ONCE IV Last administered on 07/17/20at 09:30; Start 07/17/20 at 09:30; Stop 07/17/20 at 09:33; Status DC Lidocaine HCl (Buffered Lidocaine 1%) 3 ml 1X ONCE IJ ; Start 07/17/20 at 10:15; Stop 07/17/20 at 10:16; Status Cancel Midazolam HCl (Versed) 2 mg 1X ONCE IV ; Start 07/17/20 at 10:15; Stop 07/17/20 at 10:16; Status Cancel Fentanyl Citrate (Fentanyl 2ml Vial) 100 mcg 1X ONCE IV ; Start 07/17/20 at 10:15; Stop 07/17/20 at 10:16; Status Cancel Metoprolol Tartrate (Lopressor) 50 mg BID PO Last administered on 07/20/20at 08:20; Start 07/18/20 at 09:00 Acetaminophen (Tylenol) 650 mg PRN Q4HRS PRN PO MILD PAIN 1-3 Last administered on 07/18/20at 10:05; Start 07/18/20 at 10:00 Digoxin (Lanoxin) 500 mcg 1X ONCE IV Last administered on 07/18/20at 17:43; Start 07/18/20 at 18:15; Stop 07/18/20 at 18:16; Status DC Amiodarone HCl 150 mg/Dextrose 103 ml @ 600 mls/hr 1X ONCE IV Last administered on 07/18/20at 19:56; Start 07/18/20 at 19:30; Stop 07/18/20 at 19:40; Status DC Amiodarone HCl 450 mg/Dextrose 259 ml @ 0 mls/hr CONT PRN IV SEE I/O RECORD Last administered on 07/19/20at 03:52; Start 07/18/20 at 19:30; Stop 07/19/20 at 19:29; Status DC Amiodarone HCl (Cordarone) 200 mg DAILY PO Last administered on 07/20/20at 08:19; Start 07/19/20 at 15:00 Sertraline HCl (Zoloft) 50 mg DAILY PO Last administered on 07/20/20at 08:20; Start 07/19/20 at 16:00 Gadoterate Meglumine (Dotarem) 13 ml 1X ONCE IVP Last administered on 07/20/20at 10:24; Start 07/20/20 at 09:30; Stop 07/20/20 at 09:31; Status DC Active Scripts Active Reported Wellbutrin Xl (Bupropion Hcl) 300 Mg Tab.er.24h 1 Tab PO DAILY Amlodipine-Valsartan 10-320 mg (Amlodipine/Valsartan) 1 Each Tablet 1 Tab PO DAILY 30 Days Atorvastatin Calcium 20 Mg Tablet 20 Mg PO HS Vitals/I & O Vital Sign - Last 24 Hours 07/19/20 07/19/20 07/19/20 07/19/20 15:00 15:21 18:01 19:31 Temp 98.0 98.7 98.0 98.7 Pulse 101 138 126 Resp 14 16 B/P (MAP) 91/62 (72) 91/62 141/81 (101) Pulse Ox 97 96 O2 Delivery Room Air Room Air Room Air 07/19/20 07/19/20 07/19/20 07/19/20 19:38 19:40 20:35 22:05 Temp 98.2 98.2 Pulse 126 105 Resp 18 B/P (MAP) 141/81 105/57 (73) Pulse Ox 98 O2 Delivery Room Air Room Air Room Air 07/20/20 07/20/20 07/20/20 07/20/20 03:09 07:00 07:12 08:00 Temp 98.8 98.0 98.8 98.0 Pulse 93 102 Resp 18 18 B/P (MAP) 109/79 (89) 105/63 (77) Pulse Ox 96 96 95 O2 Delivery Room Air Room Air Room Air Room Air 07/20/20 07/20/20 07/20/20 07/20/20 08:19 08:20 10:00 11:46 Temp 97.8 97.8 Pulse 102 102 101 Resp 18 B/P (MAP) 105/63 105/63 110/70 (83) Pulse Ox 98 O2 Delivery Room Air Room Air Intake and Output 07/19/20 07/19/20 07/20/20 15:00 23:00 07:00 Intake Total 500 ml 400 ml 300 ml Output Total 500 ml 690 ml 275 ml Balance 0 ml -290 ml 25 ml Justifications for Admission Other Justification Nutrition Consultation Dietary Evaluation: Recommendations by RD: Dietary education by RD, Increase Calorie Intake, Protein supplementation Comments: Continue cardiac diet with Ensure BID, honoring food preferences. Expected Outcomes/Goals: PO intake to meet >75% est needs - not met, goal ongoing Interpretation of weight loss: >5% in 1 month Malnutrition Findings: Food and Nutrition Intake (Mod: <75% est energy req 7days Weight Status: Appropriate SAMMY KHOURY MD Jul 20, 2020 12:57
--- NOTE | 2020-07-20 13:09 | NUR ---
SS following up with discharge planning. SS reviewed pt chart and discussed with pt RN. Pt is currently on room air and PO medications. Per oncology, pt adrenal gland biopsy showed metastatic pulmonary adenocarcinoma. Brain MRI showed mets. SS met with pt and discussed code status. Pt wishes to be full code at this time. Chest tube remains. Pt accepted at [facility], ; fax [phone], pending insurance authorization. SS phoned and faxed clinical updates to [facility]. SS will continue to follow for discharge planning.
[2020-07-20 15:00] VITALS: BP 120/60
[2020-07-20] MEDS: ENOXAPARIN 40 MG/0.4 ML SYRINGE. SQ SCH (15:24)
--- NOTE | 2020-07-20 15:58 | NUR ---
Have reviewed and agree with documentation completed by software development intern and have made changes as needed
--- NOTE | 2020-07-20 17:06 | PDOC ---
CARDIO Progress Notes Date and Time Date of Service 07/20/2020 Time of Evaluation 1600 Subjective Subjective: No Chest Pain, No shortness of breath, No Palpitations Vitals Vitals Vital Signs Date Time Temp Pulse Resp B/P (MAP) Pulse Ox O2 Delivery O2 Flow Rate FiO2 07/20/20 16:31 Room Air 07/20/20 15:00 98.0 81 20 120/60 (80) 95 98.0 Weight Weight [ ] Input and Output Intake and Output Intake and Output 07/20/20 07:00 Intake Total 1200 ml Output Total 1465 ml Balance -265 ml Intake Oral 1200 ml Output Urine Total 1200 ml Chest Tube Drainage Total 265 ml # Voids 2 # Bowel Movements 4 Laboratory Labs Laboratory Tests Test 07/20/20 05:00 White Blood Count 10.2 x10^3/uL (4.0-11.0) Red Blood Count 3.50 x10^6/uL (3.50-5.40) Hemoglobin 9.5 g/dL (12.0-15.5) Hematocrit 28.5 % (36.0-47.0) Mean Corpuscular Volume 81 fL (79-100) Mean Corpuscular Hemoglobin 27 pg (25-35) Mean Corpuscular Hemoglobin Concent 33 g/dL (31-37) Red Cell Distribution Width 16.1 % (11.5-14.5) Platelet Count 515 x10^3/uL (140-400) Sodium Level 130 mmol/L (136-145) Potassium Level 3.7 mmol/L (3.5-5.1) Chloride Level 98 mmol/L (98-107) Carbon Dioxide Level 24 mmol/L (21-32) Anion Gap 8 (6-14) Blood Urea Nitrogen 3 mg/dL (7-20) Creatinine 0.4 mg/dL (0.6-1.0) Estimated GFR (Cockcroft-Gault) 161.2 BUN/Creatinine Ratio 8 (6-20) Glucose Level 96 mg/dL (70-99) Calcium Level 8.2 mg/dL (8.5-10.1) Total Bilirubin 0.4 mg/dL (0.2-1.0) Aspartate Amino Transf (AST/SGOT) 34 U/L (15-37) Alanine Aminotransferase (ALT/SGPT) 16 U/L (14-59) Alkaline Phosphatase 159 U/L (46-116) Total Protein 5.5 g/dL (6.4-8.2) Albumin 1.5 g/dL (3.4-5.0) Albumin/Globulin Ratio 0.4 (1.0-1.7) Microbiology Micro Microbiology 07/12/20 Gram Stain - Final, Complete 07/12/20 Aerobic and Anaerobic Culture - Final, Complete Physical Exam HEENT: Neck Supple W Full Motion Chest: Symmetric LUNGS: Other (diminished, right CT) Heart: RRR (SR) Abdomen: Soft N/T Extremities: No Edema, No Calf Tenderness Neurology: alert, oriented, follow commands Assessment Assessment 1. AFIB with RVR; new onset.maintaing SR. AFIB most probably secondary to lung issues 2. Acute respiratory failure; multifactorial with large right lung mass, pneumothorax, recurrent right pleural effusion, and CHF. Still having drainage from CT 3. Acute on chronic diastolic CHF: EF and WM nml. 4. Hypertension; controlled 5. Hyperlipidemia: controlled 6. Hyponatremia; as per PCP 7. Suspect COPD with tobaccoism 8. Lung mass; s/p biopsy without malignant cytology; concerns for malignancy with mets to adrenal gland- s/p biopsy; cytology with metastatic adenocarcinoma. HemeOnc consulted. Recommendations Continue metoprolol and amiodarone. Possible ASA therapy Possible bhospice. Cardiac rolle stable Justicifation of Admission Dx: Justifications for Admission: Justification of Admission Dx: Yes KAM LATHAM APRN Jul 20, 2020 17:06
[2020-07-20 19:00] VITALS: BP 106/62
[2020-07-20] MEDS: FAMOTIDINE 20 MG TABLET. PO SCH (20:36)
[2020-07-20] MEDS: ATORVASTATIN CALCIUM 20 MG TABLET PO SCH (20:36)
[2020-07-20 22:42] VITALS: BP 124/55
[2020-07-21 02:35] VITALS: BP 106/60
[2020-07-21 07:00] VITALS: BP 124/61
[2020-07-21] MEDS: IPRATRPIUM/ALBUTEROL 0.5/2.5MG 3 ML NEBU. NEB SCH ×4 (07:46→20:09)
--- NOTE | 2020-07-21 08:05 | RAD ---
Exam performed: One view chest History: Pneumothorax. DATE OF SERVICE: 07/21/2020. COMPARISON: 07/20/2020. Single AP upright portable view chest findings: Previously seen tiny right apical pneumothorax is not clearly identified on the current exam. A pigtail catheter is seen projecting in the right lung base. Ongoing masslike opacity in the right infrahilar region as well as hazy opacities in both lung bases redemonstrated.. There is no pleural effusion. IMPRESSION: Overall no significant interval change. Previously seen tiny right apical pneumothorax is not clearly identified on current study.. Electronically signed by: Shaylee Oviedo MD (07/21/2020 8:02 AM) [id number]
[2020-07-21] MEDS: FAMOTIDINE 20 MG TABLET. PO SCH ×2 (09:07→20:54)
[2020-07-21] MEDS: POTASSIUM CHLORIDE 20 MEQ TABLET.ER. PO SCH ×3 (09:07→17:54)
[2020-07-21] MEDS: ASPIRIN ENTERIC COATED 81 MG TABLET.DR. PO SCH (09:07)
[2020-07-21] MEDS: LACTOBACILLUS RHAMNOSUS GG 1 CAPSULE. PO SCH ×2 (09:07→20:54)
[2020-07-21] MEDS: THIAMINE 100 MG TABLET. PO SCH (09:07)
[2020-07-21] MEDS: buPROPion XL 150 MG TAB.ER.24H. PO SCH (09:07)
[2020-07-21] MEDS: MULTIVITAMIN with MINERAL TABLET. PO SCH (09:08)
[2020-07-21] MEDS: FOLIC ACID 1 MG TABLET. PO SCH (09:08)
[2020-07-21] MEDS: METOPROLOL TART IMMED RELEASE 50 MG TABLET. PO SCH ×2 (09:08→20:55)
[2020-07-21] MEDS: AMIODARONE HCL 200 MG TABLET. PO SCH (09:09)
[2020-07-21] MEDS: SERTRALINE 50 MG TABLET. PO SCH (09:16)
[2020-07-21] MEDS: AZITHROMYCIN 250 MG TABLET. PO SCH (09:16)
[2020-07-21 11:00] VITALS: BP 118/53
[2020-07-21] MEDS: ENOXAPARIN 40 MG/0.4 ML SYRINGE. SQ SCH (13:12)
[2020-07-21 15:00] VITALS: BP 104/55
[2020-07-21 20:30] VITALS: BP 123/62
[2020-07-21] MEDS: ATORVASTATIN CALCIUM 20 MG TABLET PO SCH (20:54)
--- NOTE | 2020-07-21 21:35 | PN ---
DATE: 07/21/2020 SUBJECTIVE: The patient is sitting slightly propped up in bed, in no apparent respiratory distress. She is awake, alert. On questioning her, she did not offer any complaint. She is apparently scheduled for pleurodesis sometime today. Her output from her chest tube is becoming less and less and hopefully the chest tube can come out soon. PHYSICAL EXAMINATION: GENERAL: When I examined her, she was pale, somewhat cachectic, but no jaundice, cyanosis or thyromegaly. No jugular venous distention. No limb edema. VITAL SIGNS: Her heart rate was 84, blood pressure was 124/61, temperature was 98.3, respiratory rate was 20, and oxygen saturation was 94% on room air. HEAD, EYES, EARS, NOSE AND THROAT: Normocephalic, atraumatic. NECK: Supple. HEART: Showed normal first and second heart sounds. No gallop or murmur. CHEST: Shows central trachea, good air entry and vesicular breath sounds on the left side. Reduced air entry on the right side with dull percussion noted and absent breath sounds posteriorly on the right side. I could not really appreciate any rhonchi. ABDOMEN: Distended, soft, nontender. NEUROLOGIC: She is grossly intact. Her intake was 1200, output was 1465. No lab works available. LABORATORY DATA: As of yesterday, serum sodium was 130, potassium 3.7, chloride 98, bicarbonate 24, anion gap of 8, BUN 3, creatinine 0.4. Her white cell count was 10,000, hemoglobin 10, hematocrit 29, MCV 81 and platelet count 515,000. ASSESSMENT: 1. Atrial fibrillation with rapid ventricular response. The patient now in sinus rhythm. Her heart rate is much better controlled. She is now on metoprolol tartrate. She is on Lovenox 40 mg subcutaneous once a day as she had multiple procedures including lung biopsy, adrenal gland biopsy and chest tube placement. 2. Postobstructive pneumonia for which she continues to be on IV antibiotic. 3. Hyponatremia, persistent. Her most recent serum sodium was 130 mEq per liter. 4. Chronic diastolic congestive heart failure, seems to be clinically well compensated. 5. Right-sided pleural effusion, status post drainage. Latest chest x-ray showed very little fluid. She also has stable small right apical pneumothorax that has resolved on today's x-ray. 6. She has a mass in the right middle lobe, status post CT-guided biopsy. The pathology did not show any viable malignancy within the biopsy; however, clinical suspicion was very high and therefore, she underwent adrenal gland biopsy and pathology confirmed as metastatic adenocarcinoma of the lung. 7. 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 She was seen by the preschool program director and oncologist. The plan is for her to have radiation treatment if she decides to be aggressive. OBIE MEJÍA MD DR: DREW/jomar JOB#: [id number] / [id number]
[2020-07-21 23:05] VITALS: BP 119/64
[2020-07-22 04:05] VITALS: BP 133/66
[2020-07-22 07:00] VITALS: BP 110/54
[2020-07-22 07:15] LABS: CREATININE 0.5 mg/dL (0.6-1.0); GFR 124.6; POTASSIUM 3.8 mmol/L (3.5-5.1)
[2020-07-22] MEDS: IPRATRPIUM/ALBUTEROL 0.5/2.5MG 3 ML NEBU. NEB SCH ×4 (07:35→19:46)
[2020-07-22] MEDS: METOPROLOL TART IMMED RELEASE 50 MG TABLET. PO SCH ×2 (08:34→21:49)
[2020-07-22] MEDS: LACTOBACILLUS RHAMNOSUS GG 1 CAPSULE. PO SCH ×2 (08:34→21:47)
[2020-07-22] MEDS: buPROPion XL 150 MG TAB.ER.24H. PO SCH (08:34)
[2020-07-22] MEDS: ASPIRIN ENTERIC COATED 81 MG TABLET.DR. PO SCH (08:34)
[2020-07-22] MEDS: SERTRALINE 50 MG TABLET. PO SCH (08:35)
[2020-07-22] MEDS: FAMOTIDINE 20 MG TABLET. PO SCH ×2 (08:35→21:47)
[2020-07-22] MEDS: AMIODARONE HCL 200 MG TABLET. PO SCH (08:35)
[2020-07-22] MEDS: FOLIC ACID 1 MG TABLET. PO SCH (08:35)
[2020-07-22] MEDS: AZITHROMYCIN 250 MG TABLET. PO SCH (08:35)
[2020-07-22] MEDS: POTASSIUM CHLORIDE 20 MEQ TABLET.ER. PO SCH ×3 (08:35→18:18)
[2020-07-22] MEDS: MULTIVITAMIN with MINERAL TABLET. PO SCH (08:35)
[2020-07-22] MEDS: THIAMINE 100 MG TABLET. PO SCH (09:00)
--- NOTE | 2020-07-22 09:06 | RAD ---
EXAM: AP View of the chest DATE: 07/22/2020 9:00 AM INDICATION: Reason: PTX / Spl. Instructions: / History: COMPARISON: 07/21/2020 07/20/2020 FINDINGS/ IMPRESSION: Heart is not enlarged. Atherosclerotic calcifications of the aorta. Mediastinal and hilar contours are stable. Dense right midlung opacity. Imaging follow-up to resolution is recommended. Trace right apical pneumothorax. Right chest tube is in place. Electronically signed by: Atilio Pena MD (07/22/2020 9:02 AM) [id number]
[2020-07-22 11:00] VITALS: BP 108/53
--- NOTE | 2020-07-22 12:48 | PDOC ---
PULMONARY PROGRESS NOTES DATE: 07/22/20 TIME: 12:45 Subjective Patient is up to chair today denies any shortness of breath, chest pain or increased cough Chest tube drainage is 400 cc over the last 24 hours No overnight concerns from nursing Vitals Vital Signs Date Time Temp Pulse Resp B/P (MAP) Pulse Ox O2 Delivery O2 Flow Rate FiO2 07/22/20 11:03 100 Room Air 07/22/20 08:35 76 133/66 07/22/20 07:00 97.4 20 97.4 ROS: No Nausea, No Chest Pain, No Abdominal Pain, No Increase Cough General: Alert, No acute distress Lungs: Other (decreased BLL and rML) Cardiovascular: S1 Abdomen: Soft Neuro Exam: Alert Extremities: No Edema Skin: Warm, Dry Labs Laboratory Tests Test 07/22/20 05:20 Sodium Level 127 mmol/L (136-145) Potassium Level 3.8 mmol/L (3.5-5.1) Chloride Level 96 mmol/L (98-107) Carbon Dioxide Level 24 mmol/L (21-32) Anion Gap 7 (6-14) Blood Urea Nitrogen 3 mg/dL (7-20) Creatinine 0.5 mg/dL (0.6-1.0) Estimated GFR (Cockcroft-Gault) 124.6 Glucose Level 74 mg/dL (70-99) Calcium Level 8.0 mg/dL (8.5-10.1) Laboratory Tests Test 07/22/20 05:20 Sodium Level 127 mmol/L (136-145) Potassium Level 3.8 mmol/L (3.5-5.1) Chloride Level 96 mmol/L (98-107) Carbon Dioxide Level 24 mmol/L (21-32) Anion Gap 7 (6-14) Blood Urea Nitrogen 3 mg/dL (7-20) Creatinine 0.5 mg/dL (0.6-1.0) Estimated GFR (Cockcroft-Gault) 124.6 Glucose Level 74 mg/dL (70-99) Calcium Level 8.0 mg/dL (8.5-10.1) Medications Active Scripts Medications Dose Route/Sig Max Daily Dose Days Date Category Wellbutrin Xl (Bupropion Hcl) 300 Mg Tab.er.24h 1 Tab PO DAILY 07/10/20 Reported Amlodipine-Valsartan 10-320 mg (Amlodipine/Valsartan) 1 Each Tablet 1 Tab PO DAILY 30 07/10/20 Reported Atorvastatin Calcium 20 Mg Tablet 20 Mg PO HS 07/10/20 Reported Comments Brain MRI Impression: 1. There is evidence of intracranial metastatic disease. There is a peripherally enhancing lateral right cerebellar lesion with adjacent vasogenic edema. There is also a small peripherally enhancing lesion of the left hippocampal formation. 2. There is mild supratentorial involutional change. 3. There is complete opacification of the left maxillary sinus with mild expansion, could be underlying mucocele. There is a small right sphenoid sinus air-fluid level which could be due to acute sinusitis. CXR 07/20 Impression: 1. There is stable small right apical pneumothorax, again small caliber chest tube at the right lung base. 2. There is again large masslike opacity in the right infrahilar region. Other hazy airspace opacity at the right lung base is somewhat greater which may be due to edema and/or infiltrate. CXR 07/22 FINDINGS/ IMPRESSION: Heart is not enlarged. Atherosclerotic calcifications of the aorta. Mediastinal and hilar contours are stable. Dense right midlung opacity. Imaging follow-up to resolution is recommended. Trace right apical pneumothorax. Right chest tube is in place. Impression . 1. Abnormal chest x-ray with large mass in the right lower lobe along with pleural effusion. 2. Atrial fibrillation with rapid ventricular response. Currently being followed by Cardiology. rate controlled 3. Thirty years of tobacco use, suspect underlying chronic obstructive pulmonary disease. 4. Normal ejection fraction. 5. Recent wt loss 6. leukocytosis 7. Status post adrenal biopsy positive for cancer special stains of pending, suspect stage IV lung cancer 8. Status post biopsy of lung mass, no evidence of malignancy in seen, I think this was a sampling error. 9. Postobstructive pneumonia with complicated parapneumonic effusion 10. Depressed. 11. Metastatic disease to brain on MRI Plan . Supplemental oxygen if needed to keep oxygen saturations greater than 92%, currently on room air Continue SSRI Unable to perform out pleurodesis as there is a back order of talc Continue chest tube to drainage will discontinue chest tube once pleural fluid is less than 200 cc in 24-hour, consider Pleurx catheter Follow oncology input MRI brain reviewed D/C Azithromycin has completed full course Physical therapy DVT/GI PPX Discussed with BABITA ANDRADE MD Jul 22, 2020 12:48
[2020-07-22] MEDS: ENOXAPARIN 40 MG/0.4 ML SYRINGE. SQ SCH (14:07)
[2020-07-22] MEDS: ALPRAZolam 0.5 MG TABLET PO PRN ×2 (14:17→21:49)
[2020-07-22 15:00] VITALS: BP 90/46
--- NOTE | 2020-07-22 15:25 | PN ---
DATE: 07/22/2020 SUBJECTIVE: The patient is sitting comfortably in her recliner and in no apparent distress. On questioning her, she denied any chest pain or shortness of breath. Unfortunately, she continued to drain large amount of fluid from the right hemithorax, pleurodesis could not be done yesterday as talc powder is in back order and doxycycline extremely painful according to Dr. Briggs. PleurX is another option that can be explored. PHYSICAL EXAMINATION: GENERAL: When I examined her this morning, she looked pale, cachectic, but no jaundice or cyanosis. No lymphadenopathy or thyromegaly. No jugular venous distension. No lower limb edema. VITAL SIGNS: Her heart rate was 76, blood pressure was 133/65, temperature was 97.4, respiratory rate was 20, and oxygen saturation was 97% on room air. HEAD, EYES, EARS, NOSE AND THROAT: Showed normocephalic, atraumatic. NECK: Supple. HEART: Normal first and second heart sounds. No gallop, rub or murmur. CHEST: Shows central trachea, good chest expansion, air entry on the left side. Decreased chest expansion, decreased air entry and dull percussion noted and absent breath sounds on the right side posteriorly. She has a chest tube to Pleur-evac. ABDOMEN: Slightly distended, soft, nontender. NEUROLOGIC: She was grossly intact. Her intake over the last 24 hours was 800, output was 970. LABORATORY DATA: As of this morning, her serum sodium was 127, potassium 3.8, chloride 96, bicarbonate 24, anion gap of 7, BUN 3, creatinine 0.5, estimated GFR was 124 mL per minute. Her glucose was 74 and calcium was 8. ASSESSMENT AND PLAN: 1. Atrial fibrillation with rapid ventricular response. The patient is now in sinus rhythm. Her heart rate is much better controlled as she is on metoprolol tartrate 25 mg 3 times a day. She is on Lovenox 40 mg subcutaneously once a day. 2. Postobstructive pneumonia for which she continues to be on IV antibiotic. 3. Hyponatremia, persistent and as of this morning, her serum sodium is still low at 127 mEq per liter. 4. Chronic diastolic congestive heart failure, seems to be clinically well compensated. 5. Large right-sided pleural effusion, status post drainage twice. She does have a right-sided chest tube to Pleur-evac. Continued to drain large amount overnight, she drained about 400 mL. 6. She has a mass in the right middle lobe, status post CT-guided biopsy. The pathology did not show any viable malignancy within the biopsy; however, clinical suspicion was very high and therefore, she underwent adrenal gland biopsy and pathology confirmed metastatic adenocarcinoma of the lung. 7. 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 She was seen by the oncologist; however, the patient has not made up her mind as to how aggressive she will be regarding her stage 4 metastatic adenocarcinoma of the lung. OBIE MEJÍA MD DR: DREW/jomar JOB#: [id number] / [id number]
[2020-07-22 20:00] VITALS: BP 97/50
[2020-07-22] MEDS: ATORVASTATIN CALCIUM 20 MG TABLET PO SCH (21:47)
[2020-07-22 23:00] VITALS: BP 114/54
[2020-07-23 03:21] VITALS: BP 118/62
[2020-07-23 06:08] LABS: CALCIUM 8.1 mg/dL (8.5-10.1); CREATININE 0.5 mg/dL (0.6-1.0); GFR 124.6; POTASSIUM 4.3 mmol/L (3.5-5.1)
[2020-07-23 06:17] LABS: HEMATOCRIT 32.1 % (36.0-47.0); HEMOGLOBIN 10.5 g/dL (12.0-15.5); RED BLOOD COUNT 3.89 x10^6/uL (3.50-5.40); WHITE BLOOD COUNT 10.6 x10^3/uL (4.0-11.0)
[2020-07-23 07:29] VITALS: BP 119/60
[2020-07-23] MEDS: IPRATRPIUM/ALBUTEROL 0.5/2.5MG 3 ML NEBU. NEB SCH ×4 (07:43→19:38)
[2020-07-23] MEDS: ALPRAZolam 0.5 MG TABLET PO PRN ×2 (08:27→20:39)
[2020-07-23] MEDS: AMIODARONE HCL 200 MG TABLET. PO SCH (08:27)
[2020-07-23] MEDS: SERTRALINE 50 MG TABLET. PO SCH (08:27)
[2020-07-23] MEDS: buPROPion XL 150 MG TAB.ER.24H. PO SCH (08:27)
[2020-07-23] MEDS: METOPROLOL TART IMMED RELEASE 50 MG TABLET. PO SCH ×2 (08:28→20:40)
[2020-07-23] MEDS: ASPIRIN ENTERIC COATED 81 MG TABLET.DR. PO SCH (08:28)
[2020-07-23] MEDS: POTASSIUM CHLORIDE 20 MEQ TABLET.ER. PO SCH ×3 (09:24→17:29)
[2020-07-23] MEDS: FAMOTIDINE 20 MG TABLET. PO SCH ×2 (09:24→20:39)
[2020-07-23] MEDS: LACTOBACILLUS RHAMNOSUS GG 1 CAPSULE. PO SCH ×2 (09:24→20:39)
[2020-07-23] MEDS: THIAMINE 100 MG TABLET. PO SCH (09:24)
[2020-07-23] MEDS: MULTIVITAMIN with MINERAL TABLET. PO SCH (09:24)
[2020-07-23] MEDS: FOLIC ACID 1 MG TABLET. PO SCH (09:24)
--- NOTE | 2020-07-23 10:27 | PDOC ---
PULMONARY PROGRESS NOTES DATE: 07/23/20 TIME: 10:22 Subjective Patient is resting comfortably on room air Denies any shortness of breath or increased cough Planning for Pleurx catheter in the morning, chest tube is currently clamped, was clamped at 0900 400 cc of chest tube drainage in the last 24 hours and 150 cc of chest tube drainage from 8:00 this morning No overnight concerns from nursing Vitals Vital Signs Date Time Temp Pulse Resp B/P (MAP) Pulse Ox O2 Delivery O2 Flow Rate FiO2 07/23/20 08:28 74 119/60 07/23/20 07:45 100 Room Air 07/23/20 07:29 97.6 14 97.6 ROS: No Nausea, No Chest Pain, No Abdominal Pain, No Increase Cough General: Alert, No acute distress Lungs: Other (LLL dismished/crackles ) Cardiovascular: S1, S2 Abdomen: Soft Neuro Exam: Alert Extremities: No Edema Skin: Warm, Dry Labs Laboratory Tests Test 07/22/20 05:20 07/23/20 04:45 Sodium Level 127 mmol/L (136-145) 129 mmol/L (136-145) Potassium Level 3.8 mmol/L (3.5-5.1) 4.3 mmol/L (3.5-5.1) Chloride Level 96 mmol/L (98-107) 96 mmol/L (98-107) Carbon Dioxide Level 24 mmol/L (21-32) 23 mmol/L (21-32) Anion Gap 7 (6-14) 10 (6-14) Blood Urea Nitrogen 3 mg/dL (7-20) 4 mg/dL (7-20) Creatinine 0.5 mg/dL (0.6-1.0) 0.5 mg/dL (0.6-1.0) Estimated GFR (Cockcroft-Gault) 124.6 124.6 Glucose Level 74 mg/dL (70-99) 74 mg/dL (70-99) Calcium Level 8.0 mg/dL (8.5-10.1) 8.1 mg/dL (8.5-10.1) White Blood Count 10.6 x10^3/uL (4.0-11.0) Red Blood Count 3.89 x10^6/uL (3.50-5.40) Hemoglobin 10.5 g/dL (12.0-15.5) Hematocrit 32.1 % (36.0-47.0) Mean Corpuscular Volume 83 fL (79-100) Mean Corpuscular Hemoglobin 27 pg (25-35) Mean Corpuscular Hemoglobin Concent 33 g/dL (31-37) Red Cell Distribution Width 17.0 % (11.5-14.5) Platelet Count 533 x10^3/uL (140-400) Laboratory Tests Test 07/23/20 04:45 White Blood Count 10.6 x10^3/uL (4.0-11.0) Red Blood Count 3.89 x10^6/uL (3.50-5.40) Hemoglobin 10.5 g/dL (12.0-15.5) Hematocrit 32.1 % (36.0-47.0) Mean Corpuscular Volume 83 fL (79-100) Mean Corpuscular Hemoglobin 27 pg (25-35) Mean Corpuscular Hemoglobin Concent 33 g/dL (31-37) Red Cell Distribution Width 17.0 % (11.5-14.5) Platelet Count 533 x10^3/uL (140-400) Sodium Level 129 mmol/L (136-145) Potassium Level 4.3 mmol/L (3.5-5.1) Chloride Level 96 mmol/L (98-107) Carbon Dioxide Level 23 mmol/L (21-32) Anion Gap 10 (6-14) Blood Urea Nitrogen 4 mg/dL (7-20) Creatinine 0.5 mg/dL (0.6-1.0) Estimated GFR (Cockcroft-Gault) 124.6 Glucose Level 74 mg/dL (70-99) Calcium Level 8.1 mg/dL (8.5-10.1) Medications Active Scripts Medications Dose Route/Sig Max Daily Dose Days Date Category Wellbutrin Xl (Bupropion Hcl) 300 Mg Tab.er.24h 1 Tab PO DAILY 07/10/20 Reported Amlodipine-Valsartan 10-320 mg (Amlodipine/Valsartan) 1 Each Tablet 1 Tab PO DAILY 30 07/10/20 Reported Atorvastatin Calcium 20 Mg Tablet 20 Mg PO HS 07/10/20 Reported Comments Brain MRI Impression: 1. There is evidence of intracranial metastatic disease. There is a peripherally enhancing lateral right cerebellar lesion with adjacent vasogenic edema. There is also a small peripherally enhancing lesion of the left hippocampal formation. 2. There is mild supratentorial involutional change. 3. There is complete opacification of the left maxillary sinus with mild expansion, could be underlying mucocele. There is a small right sphenoid sinus air-fluid level which could be due to acute sinusitis. CXR 07/20 Impression: 1. There is stable small right apical pneumothorax, again small caliber chest tube at the right lung base. 2. There is again large masslike opacity in the right infrahilar region. Other hazy airspace opacity at the right lung base is somewhat greater which may be due to edema and/or infiltrate. CXR 07/22 FINDINGS/ IMPRESSION: Heart is not enlarged. Atherosclerotic calcifications of the aorta. Mediastinal and hilar contours are stable. Dense right midlung opacity. Imaging follow-up to resolution is recommended. Trace right apical pneumothorax. Right chest tube is in place. Impression . 1. Abnormal chest x-ray with large mass in the right lower lobe along with pleural effusion w/ chest tube and now planning for pluer-X cath 2. Atrial fibrillation with rapid ventricular response. Currently being followed by Cardiology. rate controlled 3. Thirty years of tobacco use, suspect underlying chronic obstructive pulmonary disease. 4. Normal ejection fraction. 5. Recent wt loss 6. leukocytosis 7. Status post adrenal biopsy positive for cancer special stains of pending, suspect stage IV lung cancer 8. Status post biopsy of lung mass, no evidence of malignancy in seen, I think this was a sampling error. 9. Postobstructive pneumonia with complicated parapneumonic effusion 10. Depressed. 11. Metastatic disease to brain on MRI Plan . Supplemental oxygen if needed to keep oxygen saturations greater than 92%, currently on room air Continue chest tube currently clamped planning for Pluer-X cath tomorrow CXR -reviewed Follow oncology input MRI brain reviewed, + mets Physical therapy Social work currently working on D/C placement DVT/GI PPX--- hold A/C for procedure in am Discussed with BABITA ANDRADE MD Jul 23, 2020 10:27
[2020-07-23 10:38] VITALS: BP 121/61
--- NOTE | 2020-07-23 11:44 | NUR ---
SS following up with discharge planning. SS reviewed pt chart and discussed with pt RN. Pt is currently on room air. Chest tube in place at this time. COVID19 negative. SS phoned and faxed clinical updates to [facility], ; fax [phone]. SS was notified that if pt decided to pursue chemo treatments she could not go to [facility]. SS discussed with Dr. Wang. Pt to have Pleurex drain placed tomorrow. PT recommended home with assistance. Possible plan to discharge to home with home healthcare so that she can pursue cancer treatments if recommended. SS contacted pt's son, Nile, and discussed. Pt's son reported that he is meeting with Dr. Wood in Oncology at this time. Pt's son reported that they are prepared to take pt home if needed. SS will continue to follow for discharge planning.
[2020-07-23 14:36] VITALS: BP 110/53
--- NOTE | 2020-07-23 14:58 | RAD ---
Portable chest x-ray compared to similar examination from 07/22/2020 for pneumothorax. FINDINGS: Dense midlung opacity is grossly unchanged. Right basilar chest tube is again seen, though slightly changed in configuration. No discernible residual pneumothorax. Some fine interstitial changes in the right lung bases are present which may represent interstitial pulmonary edema or other lymphatic process such as lymphangitic carcinomatosis. Calcified left breast implant is stable. IMPRESSION: 1. 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 2. No evidence of residual recurrent right pneumothorax. 3. Right basilar chest tube in a slightly different configuration but appearing suitably positioned. Electronically signed by: Jose Eduardo Gomez MD (07/23/2020 2:55 PM) [id number]
--- NOTE | 2020-07-23 14:58 | PN ---
DATE: 07/23/2020 SUBJECTIVE: The patient apparently did well overnight. Denied any chest pain or shortness of breath. She is scheduled for a PleurX catheter placement tomorrow and her chest tube is already clamped. She actually scheduled to have a discussion with the oncologist together with her son to decide on how aggressive she would be. PHYSICAL EXAMINATION: GENERAL: On examining her, she looked well and was clearly in no apparent respiratory distress, pale, cachectic, but no jaundice, cyanosis or thyromegaly. No jugular venous distention. No lower limb edema. VITAL SIGNS: Her heart rate was 70, blood pressure was 121/61, temperature 98.5, respiratory rate was 14 and oxygen saturation was 97%. The rest of clinical exam is stable. Her intake was 700, output was 870. LABORATORY DATA: White cell count this morning was 10,600; hemoglobin 10; hematocrit 32; MCV 83 and platelet count 533,000. Her serum sodium was 129, potassium 4.3, chloride 96, bicarbonate 23, anion gap of 10, BUN 4, creatinine 0.5, estimated GFR was 124 mL per minute. Her glucose was 74 and calcium was 8.1. ASSESSMENT: 1. Atrial fibrillation with rapid ventricular response. The patient is now in sinus rhythm. Her heart rate is much better controlled. She is on metoprolol tartrate 25 mg 3 times a day. She is also on Lovenox 40 mg subcutaneously once a day. 2. Postobstructive pneumonia, for which she continues to be on IV antibiotic. 3. Hyponatremia, fluctuating, this morning serum sodium is 129 mEq per liter. 4. Chronic diastolic congestive heart failure, seems to be clinically well compensated. 5. Large right-sided pleural effusion, status post drainage twice. She does have a right-sided chest tube to Pleur-evac. She continued to drain large amount, although her chest tube was clamped this morning with a plan to place a PleurX tomorrow. 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 MRI showed that the patient has metastasis to the brain. PLAN: Obviously to await the outcome of discussion with the top executive/oncologist. I spoke with the executive secretary social welfare and that if she is willing to pursue aggressive treatment, she needs to go home with home health. OBIE MEJÍA MD DR: DREW/jomar JOB#: [id number] / [id number]
[2020-07-23 19:29] VITALS: BP 101/52
[2020-07-23] MEDS: ATORVASTATIN CALCIUM 20 MG TABLET PO SCH (20:39)
[2020-07-23 23:11] VITALS: BP 113/53
[2020-07-24] VITALS (7 sets, daily range): BP systolic 106–115; BP diastolic 48–58
[2020-07-24] MEDS: IPRATRPIUM/ALBUTEROL 0.5/2.5MG 3 ML NEBU. NEB SCH ×4 (07:28→19:54)
[2020-07-24] MEDS: POTASSIUM CHLORIDE 20 MEQ TABLET.ER. PO SCH ×3 (08:00→17:46)
[2020-07-24] MEDS: METOPROLOL TART IMMED RELEASE 50 MG TABLET. PO SCH ×2 (08:17→20:48)
[2020-07-24] MEDS: SERTRALINE 50 MG TABLET. PO SCH (08:18)
[2020-07-24] MEDS: ASPIRIN ENTERIC COATED 81 MG TABLET.DR. PO SCH (08:18)
[2020-07-24] MEDS: buPROPion XL 150 MG TAB.ER.24H. PO SCH (08:18)
[2020-07-24] MEDS: AMIODARONE HCL 200 MG TABLET. PO SCH (08:18)
[2020-07-24] MEDS: ALPRAZolam 0.5 MG TABLET PO PRN (08:18)
--- NOTE | 2020-07-24 11:11 | PDOC ---
PULMONARY PROGRESS NOTES DATE: 07/24/20 TIME: 11:08 Subjective Patient is resting comfortably on room air Denies any shortness of breath or increased cough Planning for Pleurx catheter in the morning, chest tube is currently clamped, was clamped at 0900 400 cc of chest tube drainage in the last 24 hours and 150 cc of chest tube drainage from 8:00 this morning No overnight concerns from nursing Vitals Vital Signs Date Time Temp Pulse Resp B/P (MAP) Pulse Ox O2 Delivery O2 Flow Rate FiO2 07/24/20 08:18 72 109/58 07/24/20 08:00 Room Air 07/24/20 07:00 98.1 20 98 98.1 ROS: No Nausea, No Chest Pain, No Abdominal Pain, No Increase Cough General: Alert, No acute distress Lungs: Other (LLL dismished/crackles ) Cardiovascular: S1, S2 Abdomen: Soft Neuro Exam: Alert Extremities: No Edema Skin: Warm, Dry Labs Laboratory Tests Test 07/23/20 04:45 White Blood Count 10.6 x10^3/uL (4.0-11.0) Red Blood Count 3.89 x10^6/uL (3.50-5.40) Hemoglobin 10.5 g/dL (12.0-15.5) Hematocrit 32.1 % (36.0-47.0) Mean Corpuscular Volume 83 fL (79-100) Mean Corpuscular Hemoglobin 27 pg (25-35) Mean Corpuscular Hemoglobin Concent 33 g/dL (31-37) Red Cell Distribution Width 17.0 % (11.5-14.5) Platelet Count 533 x10^3/uL (140-400) Sodium Level 129 mmol/L (136-145) Potassium Level 4.3 mmol/L (3.5-5.1) Chloride Level 96 mmol/L (98-107) Carbon Dioxide Level 23 mmol/L (21-32) Anion Gap 10 (6-14) Blood Urea Nitrogen 4 mg/dL (7-20) Creatinine 0.5 mg/dL (0.6-1.0) Estimated GFR (Cockcroft-Gault) 124.6 Glucose Level 74 mg/dL (70-99) Calcium Level 8.1 mg/dL (8.5-10.1) Medications Active Scripts Medications Dose Route/Sig Max Daily Dose Days Date Category Wellbutrin Xl (Bupropion Hcl) 300 Mg Tab.er.24h 1 Tab PO DAILY 07/10/20 Reported Amlodipine-Valsartan 10-320 mg (Amlodipine/Valsartan) 1 Each Tablet 1 Tab PO DAILY 30 07/10/20 Reported Atorvastatin Calcium 20 Mg Tablet 20 Mg PO HS 07/10/20 Reported Comments Brain MRI Impression: 1. There is evidence of intracranial metastatic disease. There is a peripherally enhancing lateral right cerebellar lesion with adjacent vasogenic edema. There is also a small peripherally enhancing lesion of the left hippocampal formation. 2. There is mild supratentorial involutional change. 3. There is complete opacification of the left maxillary sinus with mild expansion, could be underlying mucocele. There is a small right sphenoid sinus air-fluid level which could be due to acute sinusitis. cxr 07/24 reviewed Impression . 1. Abnormal chest x-ray with large mass in the right lower lobe along with pleural effusion w/ chest tube and now planning for pluer-X cath 2. Atrial fibrillation with rapid ventricular response. Currently being followed by Cardiology. rate controlled 3. Thirty years of tobacco use, suspect underlying chronic obstructive pulmonary disease. 4. Normal ejection fraction. 5. Recent wt loss 6. leukocytosis 7. Status post adrenal biopsy positive for cancer special stains of pending, suspect stage IV lung cancer 8. Status post biopsy of lung mass, no evidence of malignancy in seen, I think this was a sampling error. 9. Postobstructive pneumonia with complicated para malignant effusion 10. Depressed. 11. Metastatic disease to brain on MRI Plan . Supplemental oxygen if needed to keep oxygen saturations greater than 92%, Continue chest tube currently clamped planning for Pluer-X cath tomorrow . not much fluid on cxr today CXR -reviewed Follow oncology input MRI brain reviewed, + mets Physical therapy Social work currently working on D/C placement DVT/GI PPX--- AC on hold Discussed with TANIA VERONICA MD Jul 24, 2020 11:11
[2020-07-24] MEDS: THIAMINE 100 MG TABLET. PO SCH (12:48)
[2020-07-24] MEDS: FAMOTIDINE 20 MG TABLET. PO SCH ×2 (12:48→20:48)
[2020-07-24] MEDS: FOLIC ACID 1 MG TABLET. PO SCH (12:48)
[2020-07-24] MEDS: LACTOBACILLUS RHAMNOSUS GG 1 CAPSULE. PO SCH ×2 (12:48→20:47)
[2020-07-24] MEDS: MULTIVITAMIN with MINERAL TABLET. PO SCH (12:48)
--- NOTE | 2020-07-24 13:48 | RAD ---
PA and lateral chest x-ray compared to similar exam dated 07/23/2024 Pleurx catheter placement. FINDINGS: Right basilar chest tube remains unchanged. No demonstrable pneumothorax. No significant interval accumulation of fluid right lung base. Parenchymal mid lung mass on the right is unchanged. Left lung remains clear. Heart size is stable. IMPRESSION: 1. Stable chest x-ray with right basilar chest tube and right midlung mass. No significant interval accumulation of pleural fluid. Electronically signed by: Jose Eduardo Gomez MD (07/24/2020 1:45 PM) [id number]
--- NOTE | 2020-07-24 15:41 | NUR ---
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
[2020-07-24] MEDS: ATORVASTATIN CALCIUM 20 MG TABLET PO SCH (20:48)
--- NOTE | 2020-07-25 00:10 | PN ---
DATE: 07/24/2020 SUBJECTIVE: The patient is resting, slightly propped up, eating her lunch comfortably, in no apparent distress. On questioning her, she denied any complaints. Apparently, she went downstairs to the Oncology Clinic with her son to discuss with Dr. Yanes the radiation treatment for her brain metastasis, but so far there is no clear plan for discharge. PHYSICAL EXAMINATION: GENERAL: When I examined her, she looked well and was clearly in no apparent respiratory distress. No pallor, jaundice or cyanosis. No lymphadenopathy, no thyromegaly. No jugular venous distention or limb edema. VITAL SIGNS: Her heart rate was 69, blood pressure was 109/58, temperature 97.8, respiratory rate 20, and oxygen saturation was 99%. HEAD, EYES, EARS, NOSE AND THROAT: Normocephalic, atraumatic. NECK: Supple. CARDIAC: Normal first and second heart sounds. No gallop, rub or murmur. CHEST: Shows central trachea. Equal bilateral chest expansion with reduced chest expansion, air entry on the right side. Dull percussion noted posteriorly. ABDOMEN: Distended, soft, nontender. NEUROLOGIC: She is grossly intact. LABORATORY DATA: As of yesterday, her white cell count was 10,600, hemoglobin was 9.5, hematocrit was 32, MCV 83, and platelet count of 533,000. Her chemistry showed a serum sodium of 129, potassium 4.3, chloride 96, bicarbonate 23, anion gap of 10, BUN 4, creatinine 0.5, estimated GFR was 124, glucose 74 and calcium was 8.1. ASSESSMENT: 1. Atrial fibrillation with rapid ventricular response. The patient is now in sinus rhythm. Her heart rate is much better controlled. 2. Postobstructive pneumonia for which she was on IV antibiotics. 3. Hyponatremia, persistent, fluctuating. 4. Chronic diastolic congestive heart failure, seems to be clinically well compensated. 5. Large right-sided pleural effusion, status post drainage twice. She continued to have right-sided chest tube to Pleur-evac. 6. 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 PLAN: We do not have clear plan for discharge. I will discussed with Dr. Marvin and Dr. Yanes and once she has her PleurX, we will probably discharge her with home health. OBIE MEJÍA MD DR: Baylee JOB#: [id number] / [id number]
[2020-07-25 02:56] VITALS: BP 132/60
[2020-07-25 07:00] VITALS: BP 109/55
[2020-07-25] MEDS: IPRATRPIUM/ALBUTEROL 0.5/2.5MG 3 ML NEBU. NEB SCH ×3 (07:59→15:30)
[2020-07-25] MEDS: POTASSIUM CHLORIDE 20 MEQ TABLET.ER. PO SCH ×3 (08:00→17:00)
[2020-07-25] MEDS: FAMOTIDINE 20 MG TABLET. PO SCH ×2 (09:00→12:31)
[2020-07-25] MEDS: LACTOBACILLUS RHAMNOSUS GG 1 CAPSULE. PO SCH ×2 (09:00→12:31)
--- NOTE | 2020-07-25 09:11 | PDOC ---
PULMONARY PROGRESS NOTES DATE: 07/25/20 TIME: 09:07 Subjective Patient is resting comfortably on room air Denies any shortness of breath or increased cough Planning for Pleurx catheter , chest tube is currently clamped, was clamped at 0900 No overnight concerns from nursing Vitals Vital Signs Date Time Temp Pulse Resp B/P (MAP) Pulse Ox O2 Delivery O2 Flow Rate FiO2 07/25/20 07:59 94 Room Air 07/25/20 07:00 98.7 76 16 109/55 (73) 98.7 ROS: No Nausea, No Chest Pain, No Abdominal Pain, No Increase Cough General: Alert, No acute distress Lungs: Other (LLL dismished/crackles ) Cardiovascular: S1, S2 Abdomen: Soft Neuro Exam: Alert Extremities: No Edema Skin: Warm, Dry Medications Active Scripts Medications Dose Route/Sig Max Daily Dose Days Date Category Wellbutrin Xl (Bupropion Hcl) 300 Mg Tab.er.24h 1 Tab PO DAILY 07/10/20 Reported Amlodipine-Valsartan 10-320 mg (Amlodipine/Valsartan) 1 Each Tablet 1 Tab PO DAILY 30 07/10/20 Reported Atorvastatin Calcium 20 Mg Tablet 20 Mg PO HS 07/10/20 Reported Comments Brain MRI Impression: 1. There is evidence of intracranial metastatic disease. There is a peripherally enhancing lateral right cerebellar lesion with adjacent vasogenic edema. There is also a small peripherally enhancing lesion of the left hippocampal formation. 2. There is mild supratentorial involutional change. 3. There is complete opacification of the left maxillary sinus with mild expansion, could be underlying mucocele. There is a small right sphenoid sinus air-fluid level which could be due to acute sinusitis. cxr 07/24 reviewed Impression . 1. Abnormal chest x-ray with large mass in the right lower lobe along with pleural effusion w/ chest tube and now planning for pluer-X cath 2. Atrial fibrillation with rapid ventricular response. Currently being followed by Cardiology. rate controlled 3. Thirty years of tobacco use, suspect underlying chronic obstructive pulmonary disease. 4. Normal ejection fraction. 5. Recent wt loss 6. leukocytosis 7. Status post adrenal biopsy positive for adenocarcinoma Lung , stage IV lung cancer 9. Postobstructive pneumonia with complicated para malignant effusion 10. Depressed. 11. Metastatic disease to brain on MRI Plan . Supplemental oxygen if needed to keep oxygen saturations greater than 92%, Continue chest tube currently clamped planning for Pluer-X cath today if there is enough fluid in pleural space.. not much fluid on cxr 07/24 CXR -reviewed Follow oncology input MRI brain reviewed, + mets Physical therapy Social work currently working on D/C placement DVT/GI PPX--- AC on hold addend: cxr today reviewed. and d/w IR. not enough fluid for PleurX catheter. will removed chest tube and dc home with HH. PleurX if fluid re-accumulates in future Discussed with RN TANIA SMITH MD Jul 25, 2020 09:11
--- NOTE | 2020-07-25 09:58 | NUR ---
SS following up with discharge planning. SS reviewed pt chart and discussed with pt RN. Pt is currently on room air. Pleurx drain scheduled to be placed today. COVID19 negative. SS met with pt and discussed with pt's son, Nile, , via phone. Pt and pt's son requesting home with home healthcare at this time. Pt and pt's son agreeable to [facility], ; fax [phone]. SS phoned and faxed referral to [facility]. SS discussed with Dr. Wang. Home Healthcare orders being placed. SS will continue to follow for discharge planning.
--- NOTE | 2020-07-25 10:41 | SNU/HH DC ---
DISCHARGE WITH HOME HEALTH DISCHARGE INFORMATION: Discharge Date: Jul 25, 2020 Final Diagnosis: METASTATIC LUNG CANCER ATRIAL FIBRILLATION Condition on Discharge: Stable CODE STATUS: Code Status: Full HOME HEALTH: Face to Face: I certify this patient is under my care and that I, or a nurse practitioner or physician's phlebotomy lab assistant working with me, had a face to face encounter that meets the physician face to face encounter requirements with this patient on 07/25/2020 Medical Complications: Other RN For Eval/Treatment: Yes Physical Therapy For: Evalulation/Treatment Occupational Therapy For: Evaluation/Treatment Pt Meets Homebound Status: Extreme weakness w/ amb. POST DISCHARGE ORDERS: Activity Instructions for Disc: Resume previous activity DIET AFTER DISCHARGE: Cardiac CHECKS AFTER DISCHARGE: Comment: Mid back CERTIFICATION STATEMENT: Certification Statement: Certification Statement: Based on the above finding, I certify that this patient is confined to the home and needs intermittent mcfp care, physical therapy and/or speech therapy, or continues to need occupational therapy.~ This patient is under my care, and I have initiated the establishment of the plan of care.~ This patient will be followed by myself or a community physician who will periodically review the plan of care. Home Meds Reported Medications Bupropion Hcl (WELLBUTRIN XL) 300 Mg Tab.er.24h, 1 TAB PO DAILY for depression, #90 TAB 3 Refills 07/10/20 Atorvastatin Calcium (ATORVASTATIN CALCIUM) 20 Mg Tablet, 20 MG PO HS for FOR CHOLESTEROL, #30 TAB 0 Refills 07/10/20 Discontinued Reported Medications Amlodipine/Valsartan (Amlodipine-Valsartan 10-320 mg) 1 Each Tablet, 1 TAB PO DAILY for HTN for 30 Days, #30 TAB 0 Refills 07/10/20 OBIE MEJÍA MD Jul 25, 2020 10:41
--- NOTE | 2020-07-25 10:51 | NUR ---
SS following up with discharge planning. IR called and stated that Pleurx drain cannot be placed due to not enough fluid. SS discussed with Dr. Wick. Chest tube will be removed today and pt will discharge to home with [facility], ; fax [phone]. Discharge orders phoned and faxed to [facility]. Pt's son notified of change of plan. SS will continue to follow for discharge planning.
[2020-07-25 11:00] VITALS: BP 110/68
--- NOTE | 2020-07-25 11:27 | RAD ---
CHEST PA LATERAL History: chest tube CHECK FOR PLEURAL FLUID/PATIENT TO HAVE IR PROCEDURE TODAY / Spl. Instructions Comparison: 07/24/2020 PA and lateral chest x-ray exam. Findings: Frontal and lateral views of the chest were obtained. Left breast implant is seen. Right basilar pigtail catheter noted. No pneumothorax. Right apical pleural thickening noted. Right middle lobe atelectasis is greater than previously. Small right basilar pleural effusion is present. Left lung field is unremarkable. Interstitial infiltrates involving the right upper lung field is again seen. IMPRESSION: Small right pleural effusion is increased in the interval. Right basilar atelectasis. Right upper lung infiltrates again seen. Electronically signed by: Dominic Suarez MD (07/25/2020 11:24 AM) [id number]
--- NOTE | 2020-07-25 11:51 | PDOC ---
PROGRESS NOTES Date of Service DATE: 07/25/20 TIME: 11:46 Subjective Subjective Cris was seen in follow-up.Son was not at bedside. No new issues today. Objective Objective Vital Signs Date Time Temp Pulse Resp B/P (MAP) Pulse Ox O2 Delivery O2 Flow Rate FiO2 07/25/20 11:00 98.5 83 16 110/68 (82) 98 Nasal Cannula 98.5 07/19/20 06:09 2.0 Intake and Output 07/25/20 07:00 Intake Total 680 ml Output Total 900 ml Balance -220 ml Intake Oral 680 ml Output Urine Total 900 ml # Voids 3 # Bowel Movements 1 Assessment Assessment Metastatic lung adenocarcinoma, PDL1 25% Brain metastasis Right sided loculated pleural effusion s/p chest tube placement Atrial fibrillation with RVR Malnutrition Deconditioning Hx of tobacco abuse Plan Plan of Care -We previously reviewed the results of surgical pathology and the management of advanced lung adenocarcinoma with the patient and that this is an incureable malignancy. We discussed her goals of care. She is interested in learning our recommendations first before she makes a decision. -I previously reviewed the results of brain MRI with Cris and her son, Nile. Given presence of brain metastasis, I recommended radiation oncology consultation for consideration of SRS -We previously reviewed the options for systemic therapy in metastatic NSCLC and the role of PDL1 testing and molecular testing in determining the choice of systemic therapy. Molecular testing will be requested. PDL1 is 25%. Can consider single agent Pembro vs [id number]-[id number] based on her recovery from the current hospital stay -I requested [facility] testing on her recent bx for assessment of PDL 1 status and actionable mutations -Consider pleuryx catheter vs pleurodeisis for likely malignant pleural effusion -From my standpoint, she may be discharged when medically appropriate per Dr Wang. Will arrange follow-up to continue discussion regarding her treatment options. I discussed this with Dr Wang on 07/24/2020. He is considering discharging her with Home Health assistance. -Discussed at [facility] tumor board on 07/24/2020 -Continue management of A fib per cardiology. -Rest per Dr Wang Please call me at [phone] with any questions Comment Review of Relevant I have reviewed the following items hawa (where applicable) has been applied. Labs Microbiology 07/12/20 Gram Stain - Final, Complete 07/12/20 Aerobic and Anaerobic Culture - Final, Complete Medications Current Medications Albuterol Sulfate (Ventolin Neb Soln) 2.5 mg PRN Q6HRS PRN NEB SHORTNESS OF BREATH; Start 07/08/20 at 22:15; Stop 07/10/20 at 17:05; Status DC Diltiazem HCl 125 mg/Sodium Chloride 125 ml @ 5 mls/hr CONT PRN IV SEE I/O RECORD; Start 07/08/20 at 22:00 Sodium Chloride 1,000 ml @ 75 mls/hr [id number] IV Last administered on 07/16/20at 09:14; Start 07/08/20 at 22:00; Stop 07/16/20 at 11:30; Status DC Enoxaparin Sodium (Lovenox 60mg Syringe) 60 mg Q12HR SQ Last administered on 07/10/20at 21:05; Start 07/09/20 at 09:00; Stop 07/11/20 at 08:21; Status DC Ceftriaxone Sodium (Rocephin) 1 gm Q24H IVP Last administered on 07/15/20at 17:39; Start 07/09/20 at 18:00; Stop 07/16/20 at 11:30; Status DC Azithromycin 500 mg/Sodium Chloride 250 ml @ 250 mls/hr Q24H IV Last administered on 07/15/20at 17:38; Start 07/09/20 at 18:00; Stop 07/16/20 at 11:30; Status DC Info (Anti-Coagulation Monitoring By Pharmacy) 1 each PRN DAILY PRN MC SEE COMMENTS Last administered on 07/10/20at 10:21; Start 07/08/20 at 22:15 Multivitamins 10 ml/Thiamine HCl 100 mg/Folic Acid 1 mg/Sodium Chloride 1,011.2 ml @ 100 mls/ hr DAILY IV Last administered on 07/09/20at 09:31; Start 07/09/20 at 09:00; Stop 07/09/20 at 19:07; Status DC Multivitamins (Thera M Plus) 1 tab DAILY PO Last administered on 07/24/20at 12:4 8; Start 07/10/20 at 09:00 Folic Acid (Folic Acid) 1 mg DAILY PO Last administered on 07/24/20at 12:48; Start 07/10/20 at 09:00 Thiamine Mononitrate (Vitamin B-1) 100 mg DAILY PO Last administered on 07/24/20at 12:48; Start 07/10/20 at 09:00 Lorazepam (Ativan) 4 mg PRN Q1HR PRN PO For CIWA 8-14; Start 07/08/20 at 22:15 Lorazepam (Ativan) 8 mg PRN Q1HR PRN PO For CIWA 15 or greater; Start 07/08/20 at 22:15 Lorazepam (Ativan Inj) 2 mg PRN Q1HR PRN IV For CIWA 8-14; Start 07/08/20 at 22:15 Lorazepam (Ativan Inj) 4 mg PRN Q1HR PRN IV For CIWA 15 or greater; Start 07/08/20 at 22:15 Haloperidol Lactate (Haldol Inj) 5 mg PRN Q4HRS PRN IVP Hallucinatns,Confusn,Delirium; Start 07/08/20 at 22:15 Diphenhydramine HCl (Benadryl) 25 mg PRN Q15MIN PRN IVP EPS symptoms 2'Haldol admin; Start 07/08/20 at 22:15 Clonidine HCl (Catapres) 0.1 mg PRN Q1HR PRN PO SBP > 180 or DBP > 100, MRX3; Start 07/08/20 at 22:15 Sodium Chloride 1,000 ml @ 285 mls/hr Q3H31M IV Last administered on 07/09/20at 05:44; Start 07/09/20 at 03:30; Stop 07/09/20 at 09:30; Status DC Norepinephrine Bitartrate 8 mg/ Dextrose 258 ml @ 10.952 mls/ hr CONT PRN IV PER PROTOCOL; Start 07/09/20 at 04:00; Stop 07/10/20 at 09:35; Status DC Metoprolol Tartrate (Lopressor) 25 mg BID PO Last administered on 07/12/20at 07:59; Start 07/09/20 at 09:00; Stop 07/12/20 at 14:37; Status DC Lactobacillus Rhamnosus (Culturelle) 1 cap BID PO Last administered on 07/24/20at 20:47; Start 07/09/20 at 09:00 Potassium Chloride (Klor-Con) 20 meq TIDWMEALS PO Last administered on 07/24/20at 17:46; Start 07/09/20 at 09:00 Atorvastatin Calcium (Lipitor) 20 mg HS PO Last administered on 07/24/20at 20:48 ; Start 07/10/20 at 21:00 Bupropion HCl (Wellbutrin Xl) 300 mg DAILY PO Last administered on 07/24/20 08:18; Start 07/10/20 at 11:00 Benzonatate (Tessalon Perle) 100 mg 1X ONCE PO Last administered on 07/10/20at 15:51; Start 07/10/20 at 15:45; Stop 07/10/20 at 15:46; Status DC Furosemide (Lasix) 20 mg 1X ONCE IVP Last administered on 07/10/20 17:18; Start 07/10/20 at 17:00; Stop 07/10/20 at 17:05; Status DC Albuterol Sulfate (Ventolin Neb Soln) 2.5 mg 1X ONCE NEB Last administered on 07/10/20at 17:24; Start 07/10/20 at 17:00; Stop 07/10/20 at 17:03; Status DC Albuterol Sulfate (Ventolin Neb Soln) 2.5 mg PRN Q6HRS PRN NEB SHORTNESS OF BREATH Last administered on 07/12/20at 18:30; Start 07/10/20 at 17:00 Alprazolam (Xanax) 0.5 mg 1X ONCE PO Last administered on 07/10/20at 17:18; Start 07/10/20 at 17:00; Stop 07/10/20 at 17:05; Status DC Aspirin (Ecotrin) 81 mg DAILYWBKFT PO Last administered on 07/24/20at 08:18; Start 07/11/20 at 12:00 Potassium Chloride (Klor-Con) 40 meq 1X ONCE PO ; Start 07/11/20 at 11:15; Stop 07/11/20 at 11:16; Status UNV Iohexol (Omnipaque 240 Mg/ml) 30 ml 1X ONCE PO Last administered on 07/11/20at 12:15; Start 07/11/20 at 12:15; Stop 07/11/20 at 12:16; Status DC Iohexol (Omnipaque 300 Mg/ml) 75 ml 1X ONCE IV Last administered on 07/11/20at 12:15; Start 07/11/20 at 12:15; Stop 07/11/20 at 12:16; Status DC Info (CONTRAST GIVEN -- Rx MONITORING) 1 each PRN DAILY PRN MC SEE COMMENTS; Start 07/11/20 at 12:15; Stop 07/13/20 at 12:14; Status DC Benzonatate (Tessalon Perle) 100 mg PRN TID PRN PO COUGH Last administered on 07/19/20at 14:08; Start 07/11/20 at 20:15 Alprazolam (Xanax) 0.5 mg PRN Q8HRS PRN PO ANXIETY / AGITATION Last administered on 07/24/20at 08:18; Start 07/11/20 at 20:15 Lidocaine HCl (Buffered Lidocaine 1%) 3 ml STK-MED ONCE .ROUTE ; Start 07/12/20 at 08:16; Stop 07/12/20 at 08:17; Status DC Lidocaine HCl (Buffered Lidocaine 1%) 6 ml 1X ONCE INJ Last administered on 07/12/20at 08:52; Start 07/12/20 at 08:45; Stop 07/12/20 at 08:51; Status DC Iohexol (Omnipaque 300 Mg/ml) 75 ml 1X ONCE IV Last administered on 07/12/20at 09:15; Start 07/12/20 at 09:00; Stop 07/12/20 at 09:03; Status DC Metoprolol Tartrate (Lopressor) 25 mg 1X ONCE PO Last administered on 07/12/20at 13:14; Start 07/12/20 at 12:15; Stop 07/12/20 at 12:21; Status DC Metoprolol Tartrate (Lopressor) 25 mg Q8HRS PO Last administered on 07/15/20at 13:20; Start 07/12/20 at 22:00; Stop 07/15/20 at 16:17; Status DC Fentanyl Citrate (Fentanyl 2ml Vial) 50 mcg PRN Q3HRS PRN IVP PAIN Last administered on 07/18/20at 19:21; Start 07/12/20 at 17:30 Alprazolam (Xanax) 0.75 mg PRN 1X PRN PO ANXIETY Last administered on 07/13/20at 21:21; Start 07/12/20 at 17:30; Stop 07/14/20 at 07:37; Status DC Albuterol/ Ipratropium (Duoneb) 3 ml RTQID NEB Last administered on 07/25/20at 07:59; Start 07/13/20 at 08:00 Lidocaine HCl (Buffered Lidocaine 1%) 3 ml STK-MED ONCE .ROUTE ; Start 07/13/20 at 14:10; Stop 07/13/20 at 14:10; Status DC Midazolam HCl (Versed) 2 mg STK-MED ONCE .ROUTE ; Start 07/13/20 at 14:41; Stop 07/13/20 at 14:41; Status DC Fentanyl Citrate (Fentanyl 2ml Vial) 100 mcg STK-MED ONCE .ROUTE ; Start 07/13/20 at 14:41; Stop 07/13/20 at 14:42; Status DC Lidocaine HCl (Buffered Lidocaine 1%) 3 ml 1X ONCE IJ Last administered on 07/13/20at 15:00; Start 07/13/20 at 15:00; Stop 07/13/20 at 15:01; Status DC Midazolam HCl (Versed) 2 mg 1X ONCE IV Last administered on 07/13/20at 15:00; Start 07/13/20 at 15:00; Stop 07/13/20 at 15:01; Status DC Fentanyl Citrate (Fentanyl 2ml Vial) 100 mcg 1X ONCE IV ; Start 07/13/20 at 15:00; Stop 07/13/20 at 15:01; Status DC Lidocaine HCl (Buffered Lidocaine 1%) 3 ml STK-MED ONCE .ROUTE ; Start 07/13/20 at 15:10; Stop 07/13/20 at 15:11; Status DC Alprazolam (Xanax) 0.75 mg PRN 1X PRN PO ANXIETY, 2ND CHOICE Last administered on 07/14/20at 22:22; Start 07/14/20 at 07:37; Stop 07/19/20 at 11:58; Status DC Metoprolol Tartrate (Lopressor) 50 mg BID PO Last administered on 07/16/20at 09:14; Start 07/15/20 at 21:00; Stop 07/16/20 at 14:01; Status DC Oxycodone HCl (Roxicodone) 5 mg PRN Q4HRS PRN PO MODERATE-SEVERE PAIN Last administered on 07/16/20at 20:27; Start 07/15/20 at 19:15 Lidocaine HCl (Buffered Lidocaine 1%) 3 ml STK-MED ONCE .ROUTE ; Start 07/16/20 at 10:40; Stop 07/16/20 at 10:41; Status DC Azithromycin (Zithromax) 250 mg DAILY PO Last administered on 07/22/20at 08:35; Start 07/16/20 at 12:00; Stop 07/22/20 at 12:48; Status DC Metoprolol Tartrate (Lopressor) 75 mg BID PO Last administered on 07/17/20at 20:54; Start 07/16/20 at 21:00; Stop 07/18/20 at 08:25; Status DC Metoprolol Tartrate (Lopressor) 25 mg 1X ONCE PO Last administered on 07/16/20at 14:15; Start 07/16/20 at 14:00; Stop 07/16/20 at 14:06; Status DC Midazolam HCl (Versed) 2 mg STK-MED ONCE .ROUTE ; Start 07/16/20 at 14:32; Stop 07/16/20 at 14:32; Status DC Fentanyl Citrate (Fentanyl 2ml Vial) 100 mcg STK-MED ONCE .ROUTE ; Start 07/16/20 at 14:32; Stop 07/16/20 at 14:32; Status DC Lidocaine HCl (Buffered Lidocaine 1%) 3 ml 1X ONCE IJ ; Start 07/16/20 at 14:45; Stop 07/16/20 at 15:03; Status DC Midazolam HCl (Versed) 2 mg 1X ONCE IV ; Start 07/16/20 at 14:45; Stop 07/16/20 at 15:03; Status DC Fentanyl Citrate (Fentanyl 2ml Vial) 100 mcg 1X ONCE IV ; Start 07/16/20 at 14:45; Stop 07/16/20 at 15:03; Status DC Lidocaine HCl (Buffered Lidocaine 1%) 3 ml STK-MED ONCE .ROUTE ; Start 07/17/20 at 09:02; Stop 07/17/20 at 09:02; Status DC Midazolam HCl (Versed) 2 mg STK-MED ONCE .ROUTE ; Start 07/17/20 at 09:21; Stop 07/17/20 at 09:21; Status DC Fentanyl Citrate (Fentanyl 2ml Vial) 100 mcg STK-MED ONCE .ROUTE ; Start 07/17/20 at 09:21; Stop 07/17/20 at 09:22; Status DC Lidocaine HCl (Buffered Lidocaine 1%) 3 ml 1X ONCE IJ Last administered on 07/17/20at 09:30; Start 07/17/20 at 09:30; Stop 07/17/20 at 09:33; Status DC Midazolam HCl (Versed) 2 mg 1X ONCE IV Last administered on 07/17/20at 09:30; Start 07/17/20 at 09:30; Stop 07/17/20 at 09:33; Status DC Fentanyl Citrate (Fentanyl 2ml Vial) 100 mcg 1X ONCE IV Last administered on 07/17/20at 09:30; Start 07/17/20 at 09:30; Stop 07/17/20 at 09:33; Status DC Lidocaine HCl (Buffered Lidocaine 1%) 3 ml 1X ONCE IJ ; Start 07/17/20 at 10:15; Stop 07/17/20 at 10:16; Status Cancel Midazolam HCl (Versed) 2 mg 1X ONCE IV ; Start 07/17/20 at 10:15; Stop 07/17/20 at 10:16; Status Cancel Fentanyl Citrate (Fentanyl 2ml Vial) 100 mcg 1X ONCE IV ; Start 07/17/20 at 10:15; Stop 07/17/20 at 10:16; Status Cancel Metoprolol Tartrate (Lopressor) 50 mg BID PO Last administered on 07/24/20at 20:48; Start 07/18/20 at 09:00 Acetaminophen (Tylenol) 650 mg PRN Q4HRS PRN PO MILD PAIN 1-3 Last administered on 07/18/20at 10:05; Start 07/18/20 at 10:00 Digoxin (Lanoxin) 500 mcg 1X ONCE IV Last administered on 07/18/20at 17:43; Start 07/18/20 at 18:15; Stop 07/18/20 at 18:16; Status DC Amiodarone HCl 150 mg/Dextrose 103 ml @ 600 mls/hr 1X ONCE IV Last administered on 07/18/20at 19:56; Start 07/18/20 at 19:30; Stop 07/18/20 at 19:40; Status DC Amiodarone HCl 450 mg/Dextrose 259 ml @ 0 mls/hr CONT PRN IV SEE I/O RECORD Last administered on 07/19/20at 03:52; Start 07/18/20 at 19:30; Stop 07/19/20 at 19:29; Status DC Amiodarone HCl (Cordarone) 200 mg DAILY PO Last administered on 07/24/20at 08:18; Start 07/19/20 at 15:00 Sertraline HCl (Zoloft) 50 mg DAILY PO Last administered on 07/24/20at 08:18; Start 07/19/20 at 16:00 Gadoterate Meglumine (Dotarem) 13 ml 1X ONCE IVP Last administered on 07/20/20at 10:24; Start 07/20/20 at 09:30; Stop 07/20/20 at 09:31; Status DC Enoxaparin Sodium (Lovenox 40mg Syringe) 40 mg Q24H SQ Last administered on 07/22/20at 14:07; Start 07/20/20 at 14:15; Stop 07/22/20 at 15:52; Status DC Famotidine (Pepcid) 20 mg BID PO Last administered on 07/24/20at 20:48; Start 07/20/20 at 21:00 Active Scripts Active Reported Wellbutrin Xl (Bupropion Hcl) 300 Mg Tab.er.24h 1 Tab PO DAILY Atorvastatin Calcium 20 Mg Tablet 20 Mg PO HS Vitals/I & O Vital Sign - Last 24 Hours 07/24/20 07/24/20 07/24/20 07/24/20 15:00 15:58 19:30 19:35 Temp 98.3 98.2 98.3 98.2 Pulse 72 73 Resp 20 16 B/P (MAP) 106/48 (67) 110/50 (70) Pulse Ox 99 92 O2 Delivery Room Air Room Air Room Air Room Air 07/24/20 07/24/20 07/24/20 07/25/20 19:54 20:48 22:34 02:56 Temp 97.9 98.2 97.9 98.2 Pulse 80 73 74 Resp 16 16 B/P (MAP) 110/50 115/56 (75) 132/60 (84) Pulse Ox 97 98 97 O2 Delivery Room Air Room Air Room Air 07/25/20 07/25/20 07/25/20 07/25/20 07:00 07:59 08:00 11:00 Temp 98.7 98.5 98.7 98.5 Pulse 76 83 Resp 16 16 B/P (MAP) 109/55 (73) 110/68 (82) Pulse Ox 97 94 98 O2 Delivery Room Air Room Air Room Air Nasal Cannula Intake and Output 0 07/24/20 07/24/20 07/25/20 15:00 23:00 07:00 Intake Total 200 ml 480 ml Output Total 100 ml 800 ml Balance 200 ml 380 ml -800 ml Justifications for Admission Other Justification Nutrition Consultation Dietary Evaluation: Recommendations by RD: Dietary education by RD, Increase Calorie Intake, Protein supplementation Comments: Continue cardiac diet with Ensure BID, honoring food preferences. Expected Outcomes/Goals: PO intake to meet >75% est needs - not met, goal ongoing Interpretation of weight loss: >5% in 1 month Malnutrition Findings: Food and Nutrition Intake (Mod: <75% est energy req 7days Weight Status: Appropriate SAMMY KHOURY MD Jul 25, 2020 11:50
[2020-07-25] MEDS: THIAMINE 100 MG TABLET. PO SCH (12:31)
[2020-07-25] MEDS: MULTIVITAMIN with MINERAL TABLET. PO SCH (12:31)
[2020-07-25] MEDS: buPROPion XL 150 MG TAB.ER.24H. PO SCH (12:31)
[2020-07-25] MEDS: ASPIRIN ENTERIC COATED 81 MG TABLET.DR. PO SCH (12:31)
[2020-07-25] MEDS: FOLIC ACID 1 MG TABLET. PO SCH (12:31)
[2020-07-25] MEDS: SERTRALINE 50 MG TABLET. PO SCH (12:31)
[2020-07-25] MEDS: METOPROLOL TART IMMED RELEASE 50 MG TABLET. PO SCH (12:31)
[2020-07-25] MEDS: AMIODARONE HCL 200 MG TABLET. PO SCH (12:32)
[2020-07-25 15:00] VITALS: BP 119/56
--- NOTE | 2020-07-25 16:21 | NUR ---
Wound/Ostomy Care Wound Type/Assessment: Patient seen per wound care consult for Stage III pressure ulcer with Incontinence associated dermatitis to bilateral buttocks. Patient is scheduled to discharge today. Wound cleansed and assessed. Treatment Recommendations/Plan: Recommendations for A&D ointment. Education provided: Patient educated on dressing changes and where to purchase A & D ointment after discharge and to offload pressure to buttocks. Offloading surface/device: N/A Patient is able to ambulate with minimal assistance and self turns in bed. But patient is very weak and frail. Recommended Referrals/Tests: N/A Discharge Recommendations for dressings: Continue current treatment. No other wounds noted. Patient on bedside. Call light in reach. Spoke with RN regarding POC.
[2020-07-25] MEDS ORDERED: SERT50TA PO (16:26)
[2020-07-25] MEDS ORDERED: BUPR300T3 PO (16:27)
[2020-07-25] MEDS ORDERED: ALPR0.5T6 PO (16:30)
[2020-07-25] MEDS ORDERED: OXYC10TA PO (16:31)
[2020-07-25] MEDS ORDERED: FAMO20TA5 PO (16:32)
[2020-07-25] MEDS ORDERED: AMIO200T4 PO (16:33)
[2020-07-25] MEDS ORDERED: IPRA3AMP29 NEB (16:42)
[2020-07-25] MEDS ORDERED: METO50TA6 PO (16:43)
[2020-07-25] MEDS ORDERED: ASPI-630 PO (17:37)
--- NOTE | 2020-07-25 17:49 | NUR ---
Discharge Note: MONICA HEALY Discharge instructions and discharge home medications reviewed with Family Member and a copy given. All questions have been answered and understanding verbalized. All prescriptions and orders gone over with patient and family member at bedside. PT and family verbalized understanding. Son had constant contact with social insurance specialist, all questions answered. Pt to go home with home health. Son to brick picker commode and walker for patient prior to discharging home.
--- NOTE | 2020-07-26 09:41 | PN ---
DATE: 07/25/2020 SUBJECTIVE: The patient is resting, slightly propped up in bed, in no apparent distress. She was scheduled to have thorax tube placed; however, chest x-ray showed not enough fluid to do that. We did speak with Dr. Haley and the plan was to remove the chest tube and she can be discharged home with home health, to follow with the radiation oncologist and the medical oncologist. PHYSICAL EXAMINATION: GENERAL: When I examined her, she looked pale, but no jaundice, cyanosis or thyromegaly. No jugular venous distention or limb edema. VITAL SIGNS: Her heart rate was 76, blood pressure was 109/55, temperature 98.7, respiratory rate was 16, and oxygen saturation was 94% on room air. HEAD, EYES, EARS, NOSE AND THROAT: Normocephalic, atraumatic. NECK: Supple. HEART: Showed normal first and second heart sounds. No gallop or murmur. CHEST: Clear to auscultation. No crepitation or rhonchi. ABDOMEN: Scaphoid, soft, nontender. NEUROLOGIC: She is awake, alert, responding appropriately. All cranial nerves intact. She moves extremities without difficulty. She ambulates without assistance or assistive devices. Her intake over the last 24 hours was 460, output was 1850. LABORATORY DATA: The most recent lab work showed a serum sodium of 129, potassium 4.3, chloride 96, bicarbonate 23, anion gap of 10, BUN 4, creatinine 0.5, estimated GFR was 124 mL per minute. Her glucose 74, calcium was 8.1. Her white cell count was 10,600, hemoglobin 10, hematocrit 32, MCV 83, and platelet count 533,000. She was discharged home with home health to continue on famotidine 20 mg twice a day, sertraline 50 mg once a day, amiodarone 200 mg once a day, metoprolol tartrate 50 mg twice a day, oxycodone immediate release 5 mg every 4 hours, DuoNeb in 3 mL by nebulizer 4 times a day, alprazolam 0.5 mg every 8 hours, aspirin 81 mg once a day, atorvastatin 20 mg at bedtime and Wellbutrin-XL 300 mg once a day. FINAL DISCHARGE DIAGNOSES: 1. Atrial fibrillation with rapid ventricular response. The patient is now in sinus rhythm. Her rate is much better controlled. She is now on metoprolol 50 mg twice a day. 2. Postobstructive pneumonia for which she completed a course of IV antibiotics. 3. Hyponatremia, persistent, fluctuating. 4. Chronic diastolic congestive heart failure, seems to be clinically well compensated. 5. Large right pleural effusion, status post drainage twice. She had chest tube PleurX; however, attempt to place her PleurX to her chest failed as there was not enough fluid. 6. 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 The plan is for her to be discharged home with home health. She will tell Dr. Yanes for palliative radiation to her brain metastasis and Dr. Marvin stated that he is waiting for more information about her tumors to devise the appropriate chemotherapy. OBIE MEJÍA MD DR: DREW/jomar JOB#: [id number] / [id number]
== END 2020-07-25 17:53 | disposition home health service (06) | DRG 180 ==
LOC: 2 SOUTH 21:24 → 1 WEST ICU 07-09 06:30 → 2 NORTH 07-10 18:28
PROVIDERS: ADMIT Internal Medicine; ATTEND Internal Medicine
PROC: 0W993ZZ Drainage of Right Pleural Cavity, Percutaneous Approach (ICD-10-PCS; 2020-07-12)
PROC: 0W9930Z Drainage of Right Pleural Cavity with Drainage Device, Percutaneous Approach (ICD-10-PCS; principal; 2020-07-13)
PROC: 0BBD3ZX Excision of Right Middle Lung Lobe, Percutaneous Approach, Diagnostic (ICD-10-PCS; 2020-07-13)
PROC: 0GB23ZX Excision of Left Adrenal Gland, Percutaneous Approach, Diagnostic (ICD-10-PCS; 2020-07-17)
DX: C34.90 Malignant neoplasm of unspecified part of unspecified bronchus or lung (principal); J15.6 Pneumonia due to other Gram-negative bacteria; E43 Unspecified severe protein-calorie malnutrition; I50.33 Acute on chronic diastolic (congestive) heart failure; J96.00 Acute respiratory failure, unspecified whether with hypoxia or hypercapnia; E87.1 Hypo-osmolality and hyponatremia; C79.31 Secondary malignant neoplasm of brain; J44.0 Chronic obstructive pulmonary disease with (acute) lower respiratory infection; J91.0 Malignant pleural effusion; J93.83 Other pneumothorax; I48.91 Unspecified atrial fibrillation; I11.0 Hypertensive heart disease with heart failure; D64.9 Anemia, unspecified; E27.8 Other specified disorders of adrenal gland; E78.5 Hyperlipidemia, unspecified; E87.6 Hypokalemia; F10.20 Alcohol dependence, uncomplicated; F17.210 Nicotine dependence, cigarettes, uncomplicated; F40.240 Claustrophobia; I70.0 Atherosclerosis of aorta; I70.8 Atherosclerosis of other arteries; I77.1 Stricture of artery; Z79.01 Long term (current) use of anticoagulants; Z79.899 Other long term (current) drug therapy; Z82.49 Family history of ischemic heart disease and other diseases of the circulatory system; Z85.118 Personal history of other malignant neoplasm of bronchus and lung; Z20.828 Contact with and (suspected) exposure to other viral communicable diseases
CPT/HCPCS: 32405; 32555; 32557; 36415; 49180; 70553; 71045; 71046; 71250; 71260; 74177; 77012; 80048; 80053; 80061; 83605; 83615; 83735; 84157; 84443; 84484; 85025; 85027; 85049; 85610; 87071; 87075; 87426; 88112; 88305; 88341; 88342; 93005; 93306; 93931; 94640; 94760; 99152; 99153; A4215; A9575; C1729; C1892; C1894; J0282; J0456; J0696; J1160; J1650; J1940; J2250; J3010; J3411; J3490; J7030; J7050; J7060; Q9966; Q9967; 97110-GP; 97116-GP; 97530-GP; G0378; J7613; U0003-CS

== ENCOUNTER → 2020-08-29 | Outpatient (CLI) | payer OTHER ==
[~2020-08-29] MED LIST: ALPR0.5T6 PO; AMIO200T6 PO; AMLO-310 PO; ASPI-630 PO; ATOR20TA58 PO; BUPR300T3 PO; FAMO20TA5 PO; IPRA3AMP29 NEB; METO50TA6 PO; OXYC10TA PO; SERT50TA PO
--- NOTE | 2020-08-29 14:58 | RAD ---
EXAM: Chest, 2 views. HISTORY: Pleural effusion. COMPARISON: 07/25/2020 FINDINGS: 2 views of the chest are obtained. There has been removal of a drainage catheter from the inferior right thorax. There has been interval increase in a moderate right pleural effusion. There is a stable right perihilar masslike opacity and right apical pleural thickening with architectural distortion. There is stable suspected interstitial infiltrate or atelectasis within the right middle and lower lobe. There is a left breast implant. The heart is normal in size. There is no pneumothorax. IMPRESSION: 1. Suspected interval increase in a moderate right pleural effusion status post pleural drainage catheter removal. 2. Stable right perihilar mass with suspected postobstructive atelectasis or interstitial infiltrate within the right middle and lower lobe. 3. Stable right apical pleural parenchymal scarring. Electronically signed by: Richelle Recinos MD (08/29/2020 2:55 PM) [id number]
== END ==
LOC: RAD 14:16
PROVIDERS: ATTEND Internal Medicine Pulmonary Disease
DX: J90 Pleural effusion, not elsewhere classified (principal); Z98.82 Breast implant status
CPT/HCPCS: 71046

== ENCOUNTER → 2020-08-30 | Outpatient (CLI) | payer OTHER ==
[2020-08-30 13:00] LABS: BASO # 0.1 x10^3/uL (0.0-0.2); BASO % 1 % (0-3); EOS # 0.1 x10^3/uL (0.0-0.7); EOS % 1 % (0-3); HEMATOCRIT 32.3 % (36.0-47.0); HEMOGLOBIN 10.3 g/dL (12.0-15.5); LYMPH # 1.6 x10^3/uL (1.0-4.8); LYMPH % 15 % (24-48); MEAN CORPUSCULAR HEMOGLOBIN 27 pg (25-35); MEAN CORPUSCULAR HGB CONC 32 g/dL (31-37); MEAN CORPUSCULAR VOLUME 85 fL (79-100); MONO # 1.5 x10^3/uL (0.0-1.1); MONO % 13 % (0-9); NEUT # 7.7 x10^3/uL (1.8-7.7); NEUT % 70 % (31-73); PLATELET COUNT 622 x10^3/uL (140-400); RED CELL DISTRIBUTION WIDTH 19.3 % (11.5-14.5)
[2020-08-30 13:01] LABS: CREATININE 0.7 mg/dL (0.6-1.0); GFR 84.2; POTASSIUM 3.6 mmol/L (3.5-5.1)
[2020-08-30 13:09] LABS: ALBUMIN 2.3 g/dL (3.4-5.0); ALBUMIN/GLOBULIN RATIO 0.4 (1.0-1.7); TOTAL BILIRUBIN 0.3 mg/dL (0.2-1.0); TOTAL PROTEIN 7.6 g/dL (6.4-8.2)
== END ==
LOC: ONCLAB 12:25
PROVIDERS: ATTEND Physician Assistant
DX: C34.91 Malignant neoplasm of unspecified part of right bronchus or lung (principal)
CPT/HCPCS: 36415; 80053; 83615; 85025

== ENCOUNTER → 2020-09-27 | Outpatient (CLI) | payer OTHER ==
[2020-09-27 08:55] LABS: BASO # 0.1 x10^3/uL (0.0-0.2); BASO % 1 % (0-3); EOS # 0.2 x10^3/uL (0.0-0.7); EOS % 3 % (0-3); HEMATOCRIT 36.2 % (36.0-47.0); HEMOGLOBIN 11.7 g/dL (12.0-15.5); LYMPH # 1.7 x10^3/uL (1.0-4.8); LYMPH % 23 % (24-48); MEAN CORPUSCULAR HEMOGLOBIN 28 pg (25-35); MEAN CORPUSCULAR HGB CONC 32 g/dL (31-37); MEAN CORPUSCULAR VOLUME 86 fL (79-100); MONO % 13 % (0-9); NEUT # 4.4 x10^3/uL (1.8-7.7); NEUT % 60 % (31-73); PLATELET COUNT 391 x10^3/uL (140-400); RED BLOOD COUNT 4.22 x10^6/uL (3.50-5.40); RED CELL DISTRIBUTION WIDTH 17.5 % (11.5-14.5); WHITE BLOOD COUNT 7.4 x10^3/uL (4.0-11.0)
[2020-09-27 09:07] LABS: CALCIUM 8.6 mg/dL (8.5-10.1); CREATININE 0.7 mg/dL (0.6-1.0); GFR 84.2; POTASSIUM 3.5 mmol/L (3.5-5.1)
[2020-09-27 09:13] LABS: ALBUMIN 2.4 g/dL (3.4-5.0); ALBUMIN/GLOBULIN RATIO 0.5 (1.0-1.7); TOTAL BILIRUBIN 0.2 mg/dL (0.2-1.0); TOTAL PROTEIN 7.1 g/dL (6.4-8.2)
== END ==
LOC: ONCLAB 08:38
PROVIDERS: ATTEND Internal Medicine Hematology & Oncology
DX: C34.81 Malignant neoplasm of overlapping sites of right bronchus and lung (principal)
CPT/HCPCS: 36415; 80053; 85025

== ENCOUNTER 2020-10-05 08:24 | Outpatient (CLI) | payer OTHER ==
[~2020-10-05] VITALS: Ht 160 cm; Wt 50.8 kg
[2020-10-05] MEDS ORDERED: ceFAZolin SODIUM IV Push 1 GM VIAL. IVP ONE ×2 (09:15→09:53)
[2020-10-05 09:30] LABS: BASO % 0 % (0-3); EOS # 0.2 x10^3/uL (0.0-0.7); EOS % 4 % (0-3); HEMATOCRIT 32.7 % (36.0-47.0); HEMOGLOBIN 10.6 g/dL (12.0-15.5); LYMPH # 1.4 x10^3/uL (1.0-4.8); LYMPH % 28 % (24-48); MEAN CORPUSCULAR HEMOGLOBIN 28 pg (25-35); MEAN CORPUSCULAR HGB CONC 33 g/dL (31-37); MEAN CORPUSCULAR VOLUME 86 fL (79-100); MONO # 0.9 x10^3/uL (0.0-1.1); MONO % 18 % (0-9); NEUT # 2.5 x10^3/uL (1.8-7.7); NEUT % 51 % (31-73); PLATELET COUNT 300 x10^3/uL (140-400); RED CELL DISTRIBUTION WIDTH 17.2 % (11.5-14.5)
[2020-10-05 09:32] VITALS: BP 159/72
[2020-10-05] MEDS ORDERED: MIDAZOLAM HCL/PF 2 MG/2 ML VIAL. IV ONE (09:45)
[2020-10-05] MEDS ORDERED: fentaNYL PF VIAL 100 MCG/2 ML VIAL IV ONE (09:45)
[2020-10-05] MEDS ORDERED: LIDOCAINE 1%/EPI 1:100,000 20 ML VIAL. SQ ONE (09:45)
[2020-10-05] MEDS ORDERED: LIDOCAINE 1%/EPI 1:100,000 20 ML VIAL. ONE (09:53)
[2020-10-05] MEDS ORDERED: fentaNYL PF VIAL 100 MCG/2 ML VIAL ONE (09:53)
[2020-10-05] MEDS ORDERED: MIDAZOLAM HCL/PF 2 MG/2 ML VIAL. ONE (09:53)
[2020-10-05 09:54] LABS: PROTHROMBIN TIME PATIENT 13.4 SEC (11.7-14.0)
[2020-10-05 10:10] LABS: CALCIUM 8.4 mg/dL (8.5-10.1); CREATININE 0.6 mg/dL (0.6-1.0); GFR 100.6; POTASSIUM 3.3 mmol/L (3.5-5.1)
[2020-10-05 10:15] LABS: ALBUMIN 2.3 g/dL (3.4-5.0); ALBUMIN/GLOBULIN RATIO 0.6 (1.0-1.7); TOTAL BILIRUBIN 0.2 mg/dL (0.2-1.0); TOTAL PROTEIN 6.4 g/dL (6.4-8.2)
[2020-10-05 10:56] VITALS: BP 198/87
[2020-10-05 11:09] VITALS: BP 177/75
[2020-10-05 11:16] LABS: % BANDS 1 % (0-9); % BASOS 6 % (0-3); % EOS 8 % (0-5); % LYMPHS 19 % (24-48); % MONOS 14 % (0-10); % SEGS 52 % (35-66); PLT ESTIMATE ADEQUATE (ADEQUATE)
[2020-10-05 11:18] VITALS: BP 175/80
[2020-10-05 11:57] VITALS: BP 166/66
[2020-10-05 12:04] VITALS: BP 153/62
--- NOTE | 2020-10-05 12:13 | NUR ---
discharge instructions reviewed with patient. PIVdc'd. Port left accessed for CT scan. Pt ambulated and tolerated PO
[2020-10-05] MEDS ORDERED: IOHEXOL 240 MG/ML 50ML VIAL. PO ONE (12:15)
[2020-10-05] MEDS ORDERED: IOHEXOL 300 MG/ML 100ML VIAL. IV ONE (12:15)
[2020-10-05] MEDS ORDERED: CONTRAST GIVEN. MC PRN (12:30)
--- NOTE | 2020-10-05 16:30 | RAD ---
Procedure: Ultrasound and fluoroscopically guided placement of right internal jugular power port.. 10/05/2020 2:26 PM Clinical Indication: LUNG CANCER Sedation: Conscious sedation was administered for 30 minutes. The patient was monitored by a qualified independent observer throughout the time of sedation. Please refer to the medical record for exact doses of medications utilized to achieve moderate sedation. Fluoroscopy time: .4 minutes Dose area product: 1 Gycm2 Consent: The procedure was explained in its entirety to the patient or the patients designated sales representative printing by a member of the treatment team, including a discussion of the risks, benefits and commonly accepted alternatives to the procedure, as well as the expected consequences of no therapy whatsoever. Discussion of the risks included, but was not limited to, those that are most frequent and those that are rare but possibly severe or life-threatening, as well as the possibility of unforeseen complications. Technique and Findings: All elements of maximal sterile barrier technique including the use of a cap, mask, sterile gown, sterile gloves, large sterile sheet, appropriate hand hygiene, and 2% chlorhexidine for cutaneous antisepsis (or acceptable alternative antiseptic per current guidelines) were followed for this procedure.Following informed consent, and a timeout procedure, the patient was prepped and draped in the usual sterile fashion. Ultrasound interrogation of the right neck revealed patency and compressibility of the right internal jugular vein. A 21-gauge micropuncture was then used to gain access to this vein under ultrasound guidance. A hard copy ultrasound image was recorded. The needle was exchanged over a wire for a sheath. A 1 inch incision was made several centimeters inferior to the venotomy site. A catheter was tunneled from this site dermatotomy site in the neck. Catheter was advanced through peel-away sheath such that its tip was in the proximal right atrium with the patient supine. The catheter was trimmed to length and connected to the port reservoir. The port was found to flush and aspirate normally. The wound was closed in layers using 4-0 Vicryl suture. Sterile dressings were applied. Impression: Successful ultrasound and fluoroscopically guided placement of a right internal jugular PowerPort
--- NOTE | 2020-10-05 17:14 | RAD ---
Examination: CT CHEST+ABD+PELVIS W History: NON-SMALL CELL LUNG CANCER / Comparison/Correlation: 07/12/2020 CT chest with contrast, 07/11/2020 CT abdomen and pelvis with IV con trast, 07/10/2020 CT chest without contrast Findings: Axial images of chest, abdomen, and pelvis were obtained following IV contrast. Sagittal an d coronal reformatted images were provided. Right internal jugular infusion port catheter tip is within the right atrium. Thyroid gland is unremarkable. Right axillary lymph nodes are not enlarged but are slightly larger in size compared to the prior exam. Moderate to large right pleural effusion is probably partially loculated appearance at the basilar as pect. Partial formation at the anterior right lower thoracic level is also seen. Emphysematous lung the lung solano. Interstitial thickening involving the right upper lung posteriorl y is decreased. Decreased size of right hilar mass and interval is seen. Right hilar mass and atelectasis measures up to 7.8 cm x 4.1 cm on axial image 32 of series 2. This represents a decrease in size. The previous e xam. 0.7 cm transverse. Encasement of the right upper lobe pulmonary arterial branches seen by hypoat tenuating right superior hilar lymph nodes/masses which are similar to prior exam. Encasement of the right lower lobe Right breast collapsed implant is seen again. Left breast implant again noted. Liver, spleen, pancreas, right adrenal gland, and kidneys are unremarkable. Adenomatous involvement o f the left renal vein is present. Gallbladder fossa is unremarkable. No ascites or pelvic free fluid. Urinary bladder is unremarkable. Uterus unremarkable. Mildly prominent vasculature involving the adn exal regions. No acute bony process identified. Minimal anterolisthesis of L4 in relation to L5. Marked calcific involvement of the abdominal aorta and iliac arteries. Impression: Mild decrease in right hilar mass. Decrease in right middle lobe atelectasis. Right hilar lymphadenop athy is stable. Mild increase in moderate-sized right pleural effusion. Emphysema is mild. Decreased interstitial edema or other interstitial thickening in the right lung field in the interval . No suspicious process involving the abdomen or pelvis. PQRS Compliance Statement: One or more of the following individualized dose reduction techniques were utilized for this examinat ion: 1. Automated exposure control 2. Adjustment of the mA and/or kV according to patient size 3. Use of iterative reconstruction technique Electronically signed by: Dominic Suarez MD (10/05/2020 5:12 PM) [id number]
== END 2020-10-05 14:49 | disposition home or self-care (01) ==
LOC: INTRAD 08:24
PROVIDERS: ATTEND Internal Medicine Hematology & Oncology
DX: Z45.2 Encounter for adjustment and management of vascular access device (principal); C34.91 Malignant neoplasm of unspecified part of right bronchus or lung; J90 Pleural effusion, not elsewhere classified; J43.9 Emphysema, unspecified; I10 Essential (primary) hypertension; E78.00 Pure hypercholesterolemia, unspecified; I48.91 Unspecified atrial fibrillation; F32.9 Major depressive disorder, single episode, unspecified; Z87.891 Personal history of nicotine dependence; Z79.82 Long term (current) use of aspirin; Z79.899 Other long term (current) drug therapy; Z98.890 Other specified postprocedural states; Z72.89 Other problems related to lifestyle
CPT/HCPCS: 36415; 36561; 71260; 74177; 76937; 77001; 80053; 85007; 85025; 85610; 99152; 99153; C1751; C1892; J0690; J2250; J3010; J3490

== ENCOUNTER → 2020-11-08 | Outpatient (CLI) | payer OTHER ==
[2020-11-08 08:49] LABS: BASO % 0 % (0-3); EOS # 0.1 x10^3/uL (0.0-0.7); EOS % 2 % (0-3); HEMATOCRIT 37.5 % (36.0-47.0); HEMOGLOBIN 12.7 g/dL (12.0-15.5); LYMPH # 1.6 x10^3/uL (1.0-4.8); LYMPH % 24 % (24-48); MEAN CORPUSCULAR HEMOGLOBIN 30 pg (25-35); MEAN CORPUSCULAR HGB CONC 34 g/dL (31-37); MEAN CORPUSCULAR VOLUME 87 fL (79-100); MONO % 15 % (0-9); NEUT % 60 % (31-73); PLATELET COUNT 292 x10^3/uL (140-400); RED BLOOD COUNT 4.29 x10^6/uL (3.50-5.40); RED CELL DISTRIBUTION WIDTH 15.5 % (11.5-14.5); WHITE BLOOD COUNT 6.7 x10^3/uL (4.0-11.0)
[2020-11-08 09:27] LABS: ALBUMIN 3.1 g/dL (3.4-5.0); ALBUMIN/GLOBULIN RATIO 0.7 (1.0-1.7); CALCIUM 8.5 mg/dL (8.5-10.1); CREATININE 0.7 mg/dL (0.6-1.0); GFR 84.2; POTASSIUM 4.3 mmol/L (3.5-5.1); TOTAL BILIRUBIN 0.5 mg/dL (0.2-1.0); TOTAL PROTEIN 7.4 g/dL (6.4-8.2)
== END ==
LOC: ONCLAB 08:24
PROVIDERS: ATTEND Internal Medicine Hematology & Oncology
DX: C34.81 Malignant neoplasm of overlapping sites of right bronchus and lung (principal); E03.9 Hypothyroidism, unspecified
CPT/HCPCS: 36415; 80053; 82607; 82746; 83540; 83550; 84443; 85025

== ENCOUNTER → 2020-11-08 | Outpatient (CLI) | payer OTHER ==
[~2020-11-08] MED LIST changes: +GADOTERATE 5 MMOL/10ML VIAL. IVP ONE
--- NOTE | 2020-11-08 13:10 | RAD ---
EXAMINATION: Magnetic resonance imaging (MRI) of the brain and brainstem without and with contrast 11:29 AM HISTORY: History of small cell lung cancer TECHNIQUE: Multiplanar multi-weighted MRI of the brain and brainstem was performed without and with i ntravenous contrast using the general brain protocol. Contrast information: 10 mL Gadolinium based contrast COMPARISON: MRI brain 07/20/2020 FINDINGS: The scalp and calvarium are normal. The superior sagittal sinus demonstrates normal venous flow. The corpus callosum is normal in shape and signal intensity. There is redemonstration of a rim-enhancing mass in the lateral right cerebellum measuring 10 x 8 mm, previously measuring 13 x 12 mm and measur ed in similar dimensions. There is associated vasogenic edema with diffusion signal alteration sugges tive hypercellularity. Previously seen enhancing lesion along the left hippocampal formation is now v isualized on this examination. No new enhancing lesions are identified. The pituitary and sella are n ormal. The brainstem and craniocervical junction are unremarkable. There are T2/FLAIR signal hyperin tense foci in the periventricular and subcortical white matter most suggestive of mild chronic small vessel ischemic changes. Diffusion weighted images reveal no hyperintensities to suggest acute cerebral infarction. The suscep tibility weighted sequences reveal no evidence of acute or chronic hemorrhage. The ventricles are nor mal in size and position without evidence of hydrocephalus. Stable complete opacification of the left maxillary sinus with mild expansion as may be seen with muc ocele. The visualized portions of the mastoids are unremarkable. The orbits appear normal. Normal f low voids are demonstrated in the carotid arteries and basilar artery. IMPRESSION: 1. Decreased size of right lateral cerebellar lesion with improving vasogenic edema. Resolution or no nvisualization of left hippocampal formation lesion, previously described. No new enhancing lesions a re identified. 2. Complete opacification of left maxillary sinus. 3. There are T2/FLAIR signal hyperintense foci in the periventricular and subcortical white matter mo st suggestive of mild chronic small vessel ischemic changes. Electronically signed by: Rita Zabala MD (11/08/2020 1:07 PM) [id number]
== END ==
LOC: MRI 10:32
PROVIDERS: ATTEND Radiology Radiation Oncology
DX: C34.81 Malignant neoplasm of overlapping sites of right bronchus and lung (principal); C79.31 Secondary malignant neoplasm of brain
CPT/HCPCS: 70553; A9575

== ENCOUNTER → 2020-12-20 | Outpatient (CLI) | payer OTHER ==
[~2020-12-20] MED LIST changes: -GADOTERATE 5 MMOL/10ML VIAL. IVP ONE
[2020-12-20 09:51] LABS: BASO # 0.1 x10^3/uL (0.0-0.2); BASO % 1 % (0-3); EOS # 0.1 x10^3/uL (0.0-0.7); EOS % 2 % (0-3); HEMATOCRIT 37.1 % (36.0-47.0); HEMOGLOBIN 12.5 g/dL (12.0-15.5); LYMPH # 1.2 x10^3/uL (1.0-4.8); LYMPH % 22 % (24-48); MEAN CORPUSCULAR HEMOGLOBIN 30 pg (25-35); MEAN CORPUSCULAR HGB CONC 34 g/dL (31-37); MEAN CORPUSCULAR VOLUME 90 fL (79-100); MONO % 18 % (0-9); NEUT # 3.1 x10^3/uL (1.8-7.7); NEUT % 57 % (31-73); PLATELET COUNT 278 x10^3/uL (140-400); RED BLOOD COUNT 4.15 x10^6/uL (3.50-5.40); RED CELL DISTRIBUTION WIDTH 13.6 % (11.5-14.5); WHITE BLOOD COUNT 5.4 x10^3/uL (4.0-11.0)
[2020-12-20 10:09] LABS: CALCIUM 8.2 mg/dL (8.5-10.1); CREATININE 0.7 mg/dL (0.6-1.0); GFR 84.2; POTASSIUM 4.3 mmol/L (3.5-5.1)
[2020-12-20 10:15] LABS: ALBUMIN 3.2 g/dL (3.4-5.0); ALBUMIN/GLOBULIN RATIO 0.8 (1.0-1.7); TOTAL BILIRUBIN 0.3 mg/dL (0.2-1.0); TOTAL PROTEIN 7.3 g/dL (6.4-8.2)
[2020-12-20 12:05] LABS: FREE T4 1.09 ng/dL (0.76-1.46); THYROID STIM HORMONE (TSH) 3.232 uIU/mL (0.358-3.74)
== END ==
LOC: ONCLAB 09:35
PROVIDERS: ATTEND Physician Assistant
DX: C34.81 Malignant neoplasm of overlapping sites of right bronchus and lung (principal); E03.9 Hypothyroidism, unspecified
CPT/HCPCS: 36415; 80053; 84439; 84443; 85025

== ENCOUNTER → 2021-01-17 | Outpatient (CLI) | payer OTHER ==
[2021-01-17 10:05] LABS: BASO % 0 % (0-3); EOS # 0.1 x10^3/uL (0.0-0.7); EOS % 2 % (0-3); HEMATOCRIT 39.1 % (36.0-47.0); HEMOGLOBIN 13.4 g/dL (12.0-15.5); LYMPH # 1.1 x10^3/uL (1.0-4.8); LYMPH % 25 % (24-48); MEAN CORPUSCULAR HEMOGLOBIN 30 pg (25-35); MEAN CORPUSCULAR HGB CONC 34 g/dL (31-37); MEAN CORPUSCULAR VOLUME 89 fL (79-100); MONO # 0.7 x10^3/uL (0.0-1.1); MONO % 15 % (0-9); NEUT # 2.5 x10^3/uL (1.8-7.7); NEUT % 57 % (31-73); PLATELET COUNT 241 x10^3/uL (140-400); RED BLOOD COUNT 4.42 x10^6/uL (3.50-5.40); RED CELL DISTRIBUTION WIDTH 13.1 % (11.5-14.5); WHITE BLOOD COUNT 4.4 x10^3/uL (4.0-11.0)
[2021-01-17 10:11] LABS: CALCIUM 8.5 mg/dL (8.5-10.1); CREATININE 0.8 mg/dL (0.6-1.0); GFR 72.2; POTASSIUM 4.2 mmol/L (3.5-5.1)
[2021-01-17 10:17] LABS: ALBUMIN 3.3 g/dL (3.4-5.0); ALBUMIN/GLOBULIN RATIO 0.8 (1.0-1.7); TOTAL BILIRUBIN 0.4 mg/dL (0.2-1.0); TOTAL PROTEIN 7.3 g/dL (6.4-8.2)
== END ==
LOC: ONCLAB 09:32
PROVIDERS: ATTEND Internal Medicine Hematology & Oncology
DX: C34.81 Malignant neoplasm of overlapping sites of right bronchus and lung (principal); C78.01 Secondary malignant neoplasm of right lung; C79.31 Secondary malignant neoplasm of brain; E03.9 Hypothyroidism, unspecified
CPT/HCPCS: 36415; 80053; 84443; 85025

== ENCOUNTER → 2021-01-31 | Outpatient (CLI) | payer OTHER ==
[~2021-01-31] MED LIST changes: +CONTRAST GIVEN. MC PRN; +HEPARIN PF 500 UNIT/5 ML DISP.SYRIN. IVP ONE; +IOHEXOL 240 MG/ML 50ML VIAL. PO ONE; +IOHEXOL 300 MG/ML 100ML VIAL. IV ONE
--- NOTE | 2021-02-01 10:16 | RAD ---
EXAM: CT CHEST, ABDOMEN, AND PELVIS WITH CONTRAST INDICATION: Non-small cell lung carcinoma COMPARISON: 10/05/2020 TECHNIQUE: Helical CT imaging performed of the chest, abdomen and pelvis after intravenous administra tion of 75 mL Omnipaque 300 contrast. Sagittal and coronal reformats were obtained. One or more of the following individualized dose reduction techniques were utilized for this examinat ion: 1. Automated exposure control 2. Adjustment of the mA and/or kV according to patient size 3. Use of iterative reconstruction technique. FINDINGS: CHEST: Thyroid gland and thoracic inlet: Unremarkable. Heart and great vessels: The heart is normal in size. No pericardial effusion. There are coronary art chevy calcifications. Thoracic aorta is normal in caliber. Mediastinum and luca: Right perihilar mass described below. Additional right hilar lymph node has dec reased in size, now 2.6 x 2.0 cm, previously 3.0 x 2.1 cm. A subcarinal lymph node has decreased, now 1.9 x 1.4 cm, previously 2.2 x 1.4 cm. A right paratracheal lymph node is unchanged. Subcentimeter A P window lymph nodes have slightly decreased in size. No new mediastinal or hilar lymphadenopathy. Lungs and pleura: Right perihilar hilar mass and adjacent atelectasis has decreased and now measures overall 3.2 x 3.0 cm on image 33 series 2, previously 7.8 x 4.2 cm. This partially encases central br onchovascular structures but there is improved aeration of right middle lobe airways. Right pleural effusion has mildly decreased. This appears less loculated posteriorly but there is a p ersistent small partially loculated component along the right middle lobe. Ground glass opacities and interlobular septal thickening have decreased in the right upper lobe. There are mild residual right upper lobe opacities including 8 mm nodular opacity on image 17, series, nonspecific. Opacities in t he right lower lobe have resolved. There is new mild volume loss in the right lung. Unchanged mild em physema. Chest wall and axillae: Mildly enlarged right axillary lymph nodes are unchanged. For example a repre sentative lymph node measures 1.1 cm short axis. No left axillary lymphadenopathy. Ruptured right kristin ast implant with soft tissue mass/density inferiorly is unchanged. Intact left breast implant is unch anged. Bones: No acute osseous abnormality in the chest. ABDOMEN AND PELVIS: Liver: Normal. Gallbladder/Biliary Tree: Normal. Pancreas: Normal. Spleen: No splenomegaly. There are calcified splenic granulomas. Adrenal Glands: Normal. Kidneys/Ureters/Bladder: Kidneys are normal in size. No hydronephrosis. Ureters and bladder are unrem arkable. Reproductive Organs: Uterus is anteverted. No adnexal mass. Stomach, small bowel, and colon: The stomach, small bowel, and colon are unremarkable. Vasculature: Abdominal aorta is normal in caliber. Moderate calcified atherosclerosis. Lymph Nodes: No lymphadenopathy in the abdomen and pelvis. Peritoneum and retroperitoneum: No free fluid or free air. Bones: No acute osseous abnormality. There is grade 1 spondylolisthesis and severe facet arthrosis at L4-L5. IMPRESSION: 1. Decreased size of right perihilar mass. Decreased size of mediastinal and hilar lymph nodes. Unch anged mildly enlarged right axillary lymph nodes. 2. Decreased groundglass opacities and interlobular septal thickening in the right upper and lower l obes. 3. Slightly decreased right pleural effusion. This remains partially loculated anteriorly. 4. No evidence of metastatic disease or acute abnormalities in abdomen and pelvis. 5. Unchanged ruptured right breast implant with soft tissue mass/density along the inferior margin of the implant. Electronically signed by: Chey Roldan MD (02/01/2021 10:14 AM) [id number]
== END ==
LOC: CT 11:41
PROVIDERS: ATTEND Internal Medicine Hematology & Oncology
DX: C34.81 Malignant neoplasm of overlapping sites of right bronchus and lung (principal); J90 Pleural effusion, not elsewhere classified; R59.0 Localized enlarged lymph nodes; M43.16 Spondylolisthesis, lumbar region; R91.8 Other nonspecific abnormal finding of lung field; Z98.82 Breast implant status
CPT/HCPCS: 71260; 74177; J1642; Q9966; Q9967

== ENCOUNTER → 2021-02-07 | Outpatient (CLI) | payer OTHER ==
[~2021-02-07] MED LIST changes: -CONTRAST GIVEN. MC PRN; -HEPARIN PF 500 UNIT/5 ML DISP.SYRIN. IVP ONE; -IOHEXOL 240 MG/ML 50ML VIAL. PO ONE; -IOHEXOL 300 MG/ML 100ML VIAL. IV ONE
[2021-02-07 10:32] LABS: BASO % 0 % (0-3); EOS # 0.1 x10^3/uL (0.0-0.7); EOS % 3 % (0-3); HEMATOCRIT 36.9 % (36.0-47.0); HEMOGLOBIN 12.5 g/dL (12.0-15.5); LYMPH % 19 % (24-48); MEAN CORPUSCULAR HEMOGLOBIN 30 pg (25-35); MEAN CORPUSCULAR HGB CONC 34 g/dL (31-37); MEAN CORPUSCULAR VOLUME 88 fL (79-100); MONO # 0.8 x10^3/uL (0.0-1.1); MONO % 16 % (0-9); NEUT # 3.2 x10^3/uL (1.8-7.7); NEUT % 62 % (31-73); PLATELET COUNT 265 x10^3/uL (140-400); RED CELL DISTRIBUTION WIDTH 13.5 % (11.5-14.5); WHITE BLOOD COUNT 5.2 x10^3/uL (4.0-11.0)
[2021-02-07 10:57] LABS: CALCIUM 8.4 mg/dL (8.5-10.1); CREATININE 0.8 mg/dL (0.6-1.0); GFR 72.2; POTASSIUM 4.6 mmol/L (3.5-5.1)
[2021-02-07 11:04] LABS: ALBUMIN 3.4 g/dL (3.4-5.0); ALBUMIN/GLOBULIN RATIO 0.9 (1.0-1.7); TOTAL BILIRUBIN 0.4 mg/dL (0.2-1.0); TOTAL PROTEIN 7.3 g/dL (6.4-8.2)
== END ==
LOC: ONCLAB 10:00
PROVIDERS: ATTEND Physician Assistant
DX: C34.81 Malignant neoplasm of overlapping sites of right bronchus and lung (principal)
CPT/HCPCS: 36415; 80053; 85025

== ENCOUNTER → 2021-02-15 | Outpatient (CLI) | payer OTHER ==
[2021-02-15 09:33] LABS: CALCIUM 8.5 mg/dL (8.5-10.1); CREATININE 0.7 mg/dL (0.6-1.0); GFR 84.2; POTASSIUM 4.3 mmol/L (3.5-5.1)
[2021-02-15 09:39] LABS: ALBUMIN 3.3 g/dL (3.4-5.0); ALBUMIN/GLOBULIN RATIO 0.8 (1.0-1.7); TOTAL BILIRUBIN 0.4 mg/dL (0.2-1.0); TOTAL PROTEIN 7.3 g/dL (6.4-8.2)
[2021-02-15 09:49] LABS: BASO % 0 % (0-3); EOS # 0.2 x10^3/uL (0.0-0.7); EOS % 3 % (0-3); HEMATOCRIT 35.4 % (36.0-47.0); LYMPH # 1.2 x10^3/uL (1.0-4.8); LYMPH % 20 % (24-48); MEAN CORPUSCULAR HEMOGLOBIN 30 pg (25-35); MEAN CORPUSCULAR HGB CONC 34 g/dL (31-37); MEAN CORPUSCULAR VOLUME 89 fL (79-100); MONO # 0.8 x10^3/uL (0.0-1.1); MONO % 14 % (0-9); NEUT # 3.9 x10^3/uL (1.8-7.7); NEUT % 63 % (31-73); PLATELET COUNT 298 x10^3/uL (140-400); RED CELL DISTRIBUTION WIDTH 13.3 % (11.5-14.5); WHITE BLOOD COUNT 6.1 x10^3/uL (4.0-11.0)
== END ==
LOC: ONCLAB 08:45
PROVIDERS: ATTEND Internal Medicine Hematology & Oncology
DX: C34.81 Malignant neoplasm of overlapping sites of right bronchus and lung (principal)
CPT/HCPCS: 36415; 80053; 84443; 85025

== ENCOUNTER → 2021-02-28 | Outpatient (CLI) | payer OTHER ==
[~2021-02-28] MED LIST changes: +GADOTERATE 5 MMOL/10ML VIAL. IVP ONE; +HEPARIN PF 500 UNIT/5 ML DISP.SYRIN. IVP ONE
--- NOTE | 2021-02-28 09:56 | NUR ---
Patient's virgil cath right chest de-accessed in MRI. Heparin locked and bandaid placed over site. No problems noted.
--- NOTE | 2021-02-28 11:24 | RAD ---
EXAMINATION: Magnetic resonance imaging (MRI) of the brain and brainstem without and with contrast 02/28/2021 8:29 AM HISTORY: Non-small cell lung cancer; restaging TECHNIQUE: Multiplanar multi-weighted MRI of the brain and brainstem was performed without and with i ntravenous contrast using the general brain protocol. Contrast information: 10 mL Gadolinium based contrast COMPARISON: MRI brain 11/08/2020 FINDINGS: The scalp and calvarium are normal. The superior sagittal sinus demonstrates normal venous flow. The corpus callosum is normal in shape and signal intensity. The posterior fossa is unremarkable. The p ituitary and sella are normal. The brainstem and craniocervical junction are unremarkable. There are T2/FLAIR signal hyperintense foci in the periventricular and subcortical white matter most suggestiv e of mild chronic small vessel ischemic changes. Diffusion weighted images reveal no hyperintensities to suggest acute cerebral infarction. The suscep tibility weighted sequences reveal no evidence of acute or chronic hemorrhage. The ventricles are nor mal in size and position without evidence of hydrocephalus. There is a rim-enhancing mass in the right lateral cerebellum measuring 8 x 10 x 10 mm, stable from p rior examination when measured in similar dimensions. There is associated diffusion signal hyperinten sity which may reflect hypercellularity. There is no restricted diffusivity centrally making abscess less likely. Postcontrast images are limited by motion. No definite new lesions are identified. Near complete opacification of the left maxillary sinus. The visualized portions of the mastoids are unremarkable. The orbits appear normal. Normal flow voids are demonstrated in the carotid arteries and basilar artery. IMPRESSION: Stable right lateral cerebellar lesion measuring 8 x 10 x 10 mm suspicious for metastatic disease. Th ere is limited evaluation for subcentimeter enhancing lesions given degree of motion artifact. There is a FLAIR signal alteration appears similar although comparison with prior imaging is limited second homero to motion on prior imaging. If there is persistent clinical concern, repeat examination with thin cut postcontrast T1-weighted images could be of benefit. Electronically signed by: Rita Zabala MD (02/28/2021 11:22 AM) [id number]
== END ==
LOC: MRI 10:49
PROVIDERS: ATTEND Physician Assistant
DX: C34.81 Malignant neoplasm of overlapping sites of right bronchus and lung (principal)
CPT/HCPCS: 70553; A9575; J1642

== ENCOUNTER → 2021-03-21 | Outpatient (CLI) | payer OTHER ==
[~2021-03-21] MED LIST changes: -GADOTERATE 5 MMOL/10ML VIAL. IVP ONE; -HEPARIN PF 500 UNIT/5 ML DISP.SYRIN. IVP ONE
[2021-03-21 11:31] LABS: BASO # 0.1 x10^3/uL (0.0-0.2); BASO % 1 % (0-3); EOS # 0.1 x10^3/uL (0.0-0.7); EOS % 2 % (0-3); HEMATOCRIT 35.2 % (36.0-47.0); LYMPH % 17 % (24-48); MEAN CORPUSCULAR HEMOGLOBIN 31 pg (25-35); MEAN CORPUSCULAR HGB CONC 34 g/dL (31-37); MEAN CORPUSCULAR VOLUME 91 fL (79-100); MONO # 0.6 x10^3/uL (0.0-1.1); MONO % 11 % (0-9); NEUT # 3.8 x10^3/uL (1.8-7.7); NEUT % 69 % (31-73); PLATELET COUNT 335 x10^3/uL (140-400); RED BLOOD COUNT 3.88 x10^6/uL (3.50-5.40); RED CELL DISTRIBUTION WIDTH 14.1 % (11.5-14.5); WHITE BLOOD COUNT 5.6 x10^3/uL (4.0-11.0)
[2021-03-21 11:44] LABS: CALCIUM 8.2 mg/dL (8.5-10.1); CREATININE 0.8 mg/dL (0.6-1.0); GFR 72.2; POTASSIUM 4.1 mmol/L (3.5-5.1)
[2021-03-21 11:47] LABS: ALBUMIN 3.6 g/dL (3.4-5.0); TOTAL BILIRUBIN 0.6 mg/dL (0.2-1.0); TOTAL PROTEIN 7.3 g/dL (6.4-8.2)
== END ==
LOC: ONCLAB 11:04
PROVIDERS: ATTEND Internal Medicine Hematology & Oncology
DX: C34.81 Malignant neoplasm of overlapping sites of right bronchus and lung (principal)
CPT/HCPCS: 36415; 80053; 85025

== ENCOUNTER → 2021-05-09 | Outpatient (CLI) | payer OTHER ==
[2021-05-09 11:38] LABS: BASO # 0.1 x10^3/uL (0.0-0.2); BASO % 3 % (0-3); EOS # 0.2 x10^3/uL (0.0-0.7); EOS % 3 % (0-3); HEMATOCRIT 33.4 % (36.0-47.0); HEMOGLOBIN 11.4 g/dL (12.0-15.5); LYMPH # 0.8 x10^3/uL (1.0-4.8); LYMPH % 16 % (24-48); MEAN CORPUSCULAR HEMOGLOBIN 31 pg (25-35); MEAN CORPUSCULAR HGB CONC 34 g/dL (31-37); MEAN CORPUSCULAR VOLUME 92 fL (79-100); MONO # 0.8 x10^3/uL (0.0-1.1); MONO % 15 % (0-9); NEUT # 3.4 x10^3/uL (1.8-7.7); NEUT % 64 % (31-73); PLATELET COUNT 275 x10^3/uL (140-400); RED BLOOD COUNT 3.64 x10^6/uL (3.50-5.40); RED CELL DISTRIBUTION WIDTH 13.6 % (11.5-14.5); WHITE BLOOD COUNT 5.3 x10^3/uL (4.0-11.0)
[2021-05-09 11:55] LABS: CALCIUM 8.7 mg/dL (8.5-10.1); CREATININE 0.8 mg/dL (0.6-1.0); GFR 72.2; POTASSIUM 4.4 mmol/L (3.5-5.1)
[2021-05-09 11:56] LABS: ALBUMIN 3.3 g/dL (3.4-5.0); ALBUMIN/GLOBULIN RATIO 0.8 (1.0-1.7); TOTAL BILIRUBIN 0.4 mg/dL (0.2-1.0); TOTAL PROTEIN 7.5 g/dL (6.4-8.2)
== END ==
LOC: ONCLAB 11:05
PROVIDERS: ATTEND Internal Medicine Hematology & Oncology
DX: C34.81 Malignant neoplasm of overlapping sites of right bronchus and lung (principal); E03.9 Hypothyroidism, unspecified
CPT/HCPCS: 36415; 80053; 84443; 85025

== ENCOUNTER → 2021-05-30 | Outpatient (CLI) | payer OTHER ==
[~2021-05-30] MED LIST changes: +CONTRAST GIVEN. MC PRN; +GADOTERATE 5 MMOL/10ML VIAL. IVP ONE; +HEPARIN PF 500 UNIT/5 ML DISP.SYRIN. IVP ONE; +IOHEXOL 240 MG/ML 50ML VIAL. PO ONE
--- NOTE | 2021-05-30 11:58 | RAD ---
EXAM: Chest, abdomen and pelvis CT without intravenous contrast. HISTORY: Non-small cell lung cancer. TECHNIQUE: Computed tomographic images of the chest, abdomen and pelvis were obtained without contras t. Multiplanar reformatting was performed. *One or more of the following individualized dose reduction techniques were utilized for this examina tion: 1. Automated exposure control. 2. Adjustment of the mA and/or kV according to patient size. 3. Use of iterative reconstruction technique. COMPARISON: 01/31/2021. FINDINGS: Chest: There is stable right perihilar spiculated mass or masslike consolidation and adjace nt anterior lateral right mid thoracic pleural thickening and loculated pleural fluid. There is a min imally decreased small right pleural effusion. There is stable nodular and groundglass opacity within the right upper thorax possibly due to post obstructive infiltrate. There is also new patchy groundg lass opacity within the right lateral lower lobe which may be due to atelectasis or infiltrate. There is no pneumothorax. There is severe emphysema. The heart is normal in size. There is aortic and coronary artery atherosclerosis. There are stable en larged mediastinal lymph nodes. The right hilum is obscured due to the aforementioned masslike consol idation. There are calcified granulomas. There is extracapsular right breast implant rupture. There i s a left breast implant with intracapsular rupture and capsule calcification. There are prominent rig ht greater than left axillary lymph nodes, stable in appearance. There is a heterogeneous enlarged le ft thyroid lobe, better characterized on the prior study. There is no acute or suspicious osseous les ion. Abdomen and pelvis: No hepatic lesion is seen. The gallbladder, pancreas, spleen and adrenal glands a re unremarkable. There is a 4 mm nonobstructing right renal stone. There is no bowel obstruction. The re is no appendicitis. There is no abnormal bowel wall thickening. The bladder is distended. The uter us and adnexal regions are unremarkable. There is heavily calcified plaque involving the aorta and il iac bifurcation. Evaluation for luminal narrowing is limited in the absence of contrast. There are st able nonspecific left retroperitoneal lymph nodes. There is degenerative change involving the lumbar spine. There is no acute or suspicious osseous finding. IMPRESSION: 1. Stable right perihilar spiculated mass or masslike consolidation with adjacent pleural thickening and loculated pleural fluid due to known primary malignancy and suspected superimposed treatment barrios ges. 2. Stable groundglass and nodular opacities within the right upper lobe possibly due to post obstruct starr infiltrate. There is also suspected interstitial infiltrate or atelectasis involving the right lo wer lobe. Attention the time of follow-up is recommended. 3. Stable mediastinal lymphadenopathy and prominent right greater than left axillary lymph nodes. 4. Pulmonary emphysema. 5. Right breast implant extracapsular rupture. The presence of extracapsular silicone limits evaluati on for underlying mass. Correlate with mammography and sonography findings. 6. Slight interval decrease in a small right pleural effusion. Electronically signed by: Richelle Recinos MD (05/30/2021 11:55 AM) [id number]
--- NOTE | 2021-05-30 14:09 | RAD ---
MRI of the Brain without and with Contrast 05/30/2021 Clinical History: Non-small cell lung cancer. Technique: Unenhanced T1-weighted sagittal and axial and FLAIR, T2-weighted, gradient echo and diffus ion-weighted axial images of the brain were obtained. After the intravenous administration of 10 cc o f Clariscan, enhanced T1-weighted axial, sagittal and coronal images of the brain were obtained. Findings: Comparison study 02/28/2021. Images from the study are degraded by patient motion. There is generalized parenchymal atrophy. Patchy and several small scattered areas of increased signa l intensity are seen periventricular and subcortical white matter of both cerebral hemispheres on the FLAIR and T2-weighted images consistent with areas of small vessel ischemic disease. These have not significantly changed. A ring-enhancing mass is seen involving the lateral right cerebellar hemisphere which measures 0.9 x 0.9 x 0.9 cm in AP, transverse and craniocaudal dimensions. It appears to have decreased in size slig htly since previous examination where it measured 1.0 x 1.0 x 1.1 cm in size. There is no significant surrounding edema or associated mass effect. No additional enhancing lesion is seen. Mild to moderate mucosal thickening is seen scattered throughout the paranasal sinuses. Complete opac ification of the left maxillary sinus due to mucosal thickening and secretions is seen. Normal flow v oids are seen within the major vascular structures surrounding the brain parenchyma. There are small bilateral mastoid effusions. IMPRESSION: 0.9 cm enhancing mass is seen within the right lateral cerebellar hemisphere which appear s to have decreased in size slightly since the previous examination. There is no significant surround ing edema or associated mass effect. No additional enhancing mass lesion is seen. Electronically signed by: Jerry Branch MD (05/30/2021 2:07 PM) [id number]
== END ==
LOC: MRI 08:55
PROVIDERS: ATTEND Internal Medicine Hematology & Oncology
DX: C79.31 Secondary malignant neoplasm of brain (principal); C34.81 Malignant neoplasm of overlapping sites of right bronchus and lung; T85.49XA Other mechanical complication of breast prosthesis and implant, initial encounter; J90 Pleural effusion, not elsewhere classified; J43.9 Emphysema, unspecified; R91.1 Solitary pulmonary nodule; I25.10 Atherosclerotic heart disease of native coronary artery without angina pectoris; R59.0 Localized enlarged lymph nodes; J84.10 Pulmonary fibrosis, unspecified; E04.9 Nontoxic goiter, unspecified; N20.0 Calculus of kidney; G93.89 Other specified disorders of brain; N32.89 Other specified disorders of bladder; I70.0 Atherosclerosis of aorta; I70.8 Atherosclerosis of other arteries; X58.XXXA Exposure to other specified factors, initial encounter; Y93.89 Activity, other specified; Y92.89 Other specified places as the place of occurrence of the external cause; Y99.8 Other external cause status
CPT/HCPCS: 70553; 71250; 74176; A9575; J1642; Q9966

== ENCOUNTER → 2021-06-20 | Outpatient (CLI) | payer OTHER ==
[~2021-06-20] MED LIST changes: -CONTRAST GIVEN. MC PRN; -GADOTERATE 5 MMOL/10ML VIAL. IVP ONE; -HEPARIN PF 500 UNIT/5 ML DISP.SYRIN. IVP ONE; -IOHEXOL 240 MG/ML 50ML VIAL. PO ONE
[2021-06-20 10:44] LABS: BASO # 0.1 x10^3/uL (0.0-0.2); BASO % 1 % (0-3); EOS % 0 % (0-3); HEMATOCRIT 32.6 % (36.0-47.0); HEMOGLOBIN 11.1 g/dL (12.0-15.5); LYMPH # 0.6 x10^3/uL (1.0-4.8); LYMPH % 4 % (24-48); MEAN CORPUSCULAR HEMOGLOBIN 31 pg (25-35); MEAN CORPUSCULAR HGB CONC 34 g/dL (31-37); MEAN CORPUSCULAR VOLUME 91 fL (79-100); MONO # 1.8 x10^3/uL (0.0-1.1); MONO % 14 % (0-9); NEUT # 10.4 x10^3/uL (1.8-7.7); NEUT % 81 % (31-73); PLATELET COUNT 330 x10^3/uL (140-400); RED BLOOD COUNT 3.59 x10^6/uL (3.50-5.40); RED CELL DISTRIBUTION WIDTH 13.4 % (11.5-14.5); WHITE BLOOD COUNT 12.8 x10^3/uL (4.0-11.0)
[2021-06-20 11:06] LABS: ALBUMIN 2.9 g/dL (3.4-5.0); ALBUMIN/GLOBULIN RATIO 0.6 (1.0-1.7); CALCIUM 8.6 mg/dL (8.5-10.1); CREATININE 1.1 mg/dL (0.6-1.0); POTASSIUM 4.3 mmol/L (3.5-5.1); TOTAL BILIRUBIN 0.6 mg/dL (0.2-1.0); TOTAL PROTEIN 7.5 g/dL (6.4-8.2)
[2021-06-20 13:29] LABS: CALCIUM 8.3 mg/dL (8.5-10.1); GFR 55.8; POTASSIUM 4.8 mmol/L (3.5-5.1)
[2021-06-20 13:39] LABS: % BANDS 3 % (0-9); % BASOS 1 % (0-3); % LYMPHS 5 % (24-48); % MONOS 6 % (0-10); % SEGS 85 % (35-66); PLT ESTIMATE ADEQUATE (ADEQUATE)
[2021-06-21 12:15] LABS: URINE OSMOLALITY 407 mOsmol/kg (.)
== END ==
LOC: ONCLAB 10:22
PROVIDERS: ATTEND Internal Medicine Hematology & Oncology
DX: C34.81 Malignant neoplasm of overlapping sites of right bronchus and lung (principal); E03.9 Hypothyroidism, unspecified
CPT/HCPCS: 36415; 80048; 80053; 82533; 83935; 84300; 84443; 85007; 85025; G0480

== ENCOUNTER → 2021-06-26 | Outpatient (CLI) | payer OTHER ==
[2021-06-26 11:49] LABS: BASO # 0.2 x10^3/uL (0.0-0.2); BASO % 2 % (0-3); EOS # 0.1 x10^3/uL (0.0-0.7); EOS % 1 % (0-3); HEMATOCRIT 32.6 % (36.0-47.0); LYMPH # 0.8 x10^3/uL (1.0-4.8); LYMPH % 7 % (24-48); MEAN CORPUSCULAR HEMOGLOBIN 31 pg (25-35); MEAN CORPUSCULAR HGB CONC 34 g/dL (31-37); MEAN CORPUSCULAR VOLUME 90 fL (79-100); MONO # 1.6 x10^3/uL (0.0-1.1); MONO % 14 % (0-9); NEUT # 8.8 x10^3/uL (1.8-7.7); NEUT % 77 % (31-73); PLATELET COUNT 477 x10^3/uL (140-400); RED BLOOD COUNT 3.62 x10^6/uL (3.50-5.40); RED CELL DISTRIBUTION WIDTH 14.1 % (11.5-14.5); WHITE BLOOD COUNT 11.5 x10^3/uL (4.0-11.0)
[2021-06-26 12:09] LABS: CALCIUM 8.4 mg/dL (8.5-10.1); CREATININE 0.9 mg/dL (0.6-1.0); POTASSIUM 3.3 mmol/L (3.5-5.1)
[2021-06-26 12:15] LABS: ALBUMIN 2.4 g/dL (3.4-5.0); ALBUMIN/GLOBULIN RATIO 0.5 (1.0-1.7); TOTAL BILIRUBIN 0.3 mg/dL (0.2-1.0); TOTAL PROTEIN 7.1 g/dL (6.4-8.2)
== END ==
LOC: ONCLAB 10:56
PROVIDERS: ATTEND Internal Medicine Hematology & Oncology
DX: C34.81 Malignant neoplasm of overlapping sites of right bronchus and lung (principal)
CPT/HCPCS: 36415; 80053; 85025

== ENCOUNTER → 2021-07-05 | Outpatient (CLI) | payer OTHER ==
[2021-07-05 11:10] LABS: BASO # 0.1 x10^3/uL (0.0-0.2); BASO % 1 % (0-3); EOS # 0.1 x10^3/uL (0.0-0.7); EOS % 1 % (0-3); HEMATOCRIT 32.8 % (36.0-47.0); LYMPH % 11 % (24-48); MEAN CORPUSCULAR HEMOGLOBIN 30 pg (25-35); MEAN CORPUSCULAR HGB CONC 34 g/dL (31-37); MEAN CORPUSCULAR VOLUME 90 fL (79-100); MONO # 0.9 x10^3/uL (0.0-1.1); MONO % 10 % (0-9); NEUT # 6.9 x10^3/uL (1.8-7.7); NEUT % 76 % (31-73); PLATELET COUNT 582 x10^3/uL (140-400); RED BLOOD COUNT 3.64 x10^6/uL (3.50-5.40); RED CELL DISTRIBUTION WIDTH 14.2 % (11.5-14.5)
[2021-07-05 11:15] LABS: CALCIUM 8.7 mg/dL (8.5-10.1); CREATININE 1.1 mg/dL (0.6-1.0)
[2021-07-05 11:21] LABS: ALBUMIN 2.3 g/dL (3.4-5.0); ALBUMIN/GLOBULIN RATIO 0.5 (1.0-1.7); TOTAL BILIRUBIN 0.3 mg/dL (0.2-1.0); TOTAL PROTEIN 7.2 g/dL (6.4-8.2)
== END ==
LOC: ONCLAB 10:21
PROVIDERS: ATTEND Internal Medicine Hematology & Oncology
DX: C34.81 Malignant neoplasm of overlapping sites of right bronchus and lung (principal)
CPT/HCPCS: 36415; 80053; 85025